=== PATIENT | male | born 1985 | race African-American/Black ===

== ENCOUNTER 2023-11-22 18:43 | Inpatient (IN) | payer OTHER, SELFPAY ==
[2023-11-22 20:00] VITALS: BP 118/60; PULSE 86; TEMP 37.1; O2SAT 97
[2023-11-22 20:28] LABS: Glucose, Whole Blood 368 mg/dL (60-115)
[2023-11-22] MEDS: cloNIDine HCL 0.1 MG TABLET PO (21:53)
[2023-11-22] MEDS: Gabapentin 300 MG CAPSULE PO (21:53)
[2023-11-22] MEDS: Insulin Lispro 100 UNIT/ML 3 ML VIAL SUBCUT (21:54)
[2023-11-22] MEDS: Acetaminophen 325 MG TABLET 650 MG PO (22:18)
[2023-11-22] MEDS: hydrOXYzine HCL 25 MG TABLET PO (22:19)
[2023-11-22] MEDS: traZODone HCL 50 MG TABLET PO (22:19)
[2023-11-22 23:21] VITALS: BMI 42.1
--- NOTE | 2023-11-23 | ECG_ITS ---
Test Reason : prolono qts Blood Pressure : / mmHG Vent. Rate : 067 BPM Atrial Rate : 067 BPM P-R Int : 180 ms QRS Dur : 090 ms QT Int : 420 ms P-R-T Axes : 066 043 039 degrees QTc Int : 443 ms Normal sinus rhythm Normal ECG No previous ECGs available Referred By: Lizbet Saldana Electronically Signed By:Mark Powell
--- NOTE | 2023-11-23 06:13 | PCS.ADM ---
An single, male aged 38 years was admitted to the [facility] as a CV at 1855 following referral from [facility] ED and [facility] team. Pt self-presented to [facility] ED early on 11/22/23 with suicidal ideation with a plan to O/D on heroin and has history of in past several years. Pt reports increasing symptoms of depression in past several months r/t stressors of his mother dying recently and pt's drug addiction. Pt has a history of insulin-dependent diabetes, anxiety, depression, and opioid use disorder. Pt reported he had not taken insulin for twodays prior to coming to [facility], but had taken other meds. Pt had poor food and fluid intake with mild abdominal pain. Pt had EKG showing prolonged QT of 442. Pt was cooperative upon arrival, skin check done. Pt rates anxiety and depression 10/10. Pt denies current SI and says can seek out staff if needed. Pt denies AVH. Pt reports 8/10 mouth and back pain. Pt reports poor sleep with difficulty falling asleep and remaining asleep. Pt reports he has been homeless for 4 years. Pt has no providers; needs PCP, psychiatric medication provider and therapist. Pt was unsure what pharmacy to have prescriptions be sent to. Pt [facility] used [facility], but has a no trespassing order. Pt said will use [facility] for now. Pt reports he has a court appearance for 11/30/23 and needs to notify the court and his nurse practitioner hospitalist he is hospitalized. Pt reports he gets 210mg methadone daily from [facility], [facility]. Pt is a daily smoker of 1 pack cigarettes daily and requests PRN nicotine patch 21mg and PRN nicotine gum 4mg. Pt expresses he is interested in a long-term program of 6 months duration; pt asked how long admissions are here usually and was told is variable but short-term stabilization. [id number] done, orders obtained. Initial treatment plan done, but needs to be signed. Pt needs to do safety tool. Pt is resting in room at this time.
[2023-11-23 08:00] VITALS: BP 125/73; PULSE 71; RESP 18; TEMP 36.7; O2SAT 98
[2023-11-23 08:17] VITALS: BP 125/73
[2023-11-23] MEDS: cloNIDine HCL 0.1 MG TABLET PO ×2 (08:17→21:47)
[2023-11-23] MEDS: metFORMIN HCl 1,000 MG TABLET 1000 MG PO (08:17)
[2023-11-23] MEDS: lisinopriL 5 MG TABLET PO (08:17)
[2023-11-23] MEDS: Gabapentin 300 MG CAPSULE PO ×3 (08:17→21:48)
[2023-11-23] MEDS: buPROPion HCL 75 MG TABLET PO (08:18)
[2023-11-23] MEDS: hydrOXYzine HCL 25 MG TABLET PO ×3 (08:20→21:59)
[2023-11-23 08:59] LABS: Glucose, Whole Blood 492 mg/dL (60-115)
[2023-11-23] MEDS: Insulin Lispro 100 UNIT/ML 3 ML VIAL SUBCUT ×4 (08:59→22:02)
--- NOTE | 2023-11-23 09:00 | HO.PSYEVENT2 ---
Event Note Date of Service: 11/23/23 Psych On-Call Event Note: Pt admitted 11/21. Methadone not verified intil 11/22. After reviewing multiple records from [facility] and the nursing verification dated 11/23/23829 it appears that [facility] intially unable to verify methadone dose; pt has last been seen at methadone clinic 11/02/23 per [facility] records. [facility] where patient had been inpatient will neither confirm nor deny pt admission. [facility] intially gave patient 30mg of methadone and then when able to verify they gave him 180 mg stat at 12 noon on 11/21. Plan is to give 210 mg at 11am today and then will move dose earlier by 60-90 minutes each day until 0800. comprehensive care consult to be ordered as well. Time Spent With Patient Time: Total time managing care of this patient today ____ minutes.
[2023-11-23 12:17] LABS: Glucose, Whole Blood 531 mg/dL (60-115)
--- NOTE | 2023-11-23 12:18 | PC.NURSE ---
Addendum entered by Elyse Hutchins RN 11/23/23 12:34: no additional orders given by Dr Mckeon for POC 531 Original Note: Hospitalist Linda notified of morning POC glucose of 498 . Pt given 10 units of lispro and no additional orders given. Lunch POC was 531 and 1o units Lispro given and Linda notified.
--- NOTE | 2023-11-23 12:32 | HE.PHANOTE ---
Addendum entered by Maria Medley RPh 11/23/23 13:08: Called inpatient pharmacy with [facility]. Confirmed with [facility] Georgi that patient received 30 mg of methadone @0918 and another 180 mg @1356 on 11/22/23 Original Note: RE METHADONE Patients methadone verification was recieved by pharmacy, patient confirmed to be dosed with Radha Mulberry [phone] with 210 mg of methadone, last dose being 11/18/23. Reached out to provider about dose reduction as this shows 4 days missed.
--- NOTE | 2023-11-23 13:03 | P.CONHOSP_ITS ---
History of Present Illness Data of Consult Service Date: 11/23/23 Requesting physician: Lizbet Saldana Primary Care Provider: Unknown Physician HPI Reason for consult: medical H&P 38-year-old male with history of type 2 diabetes noncompliant with insulin regime, history of diabetic ketoacidosis, alcohol use disorder, opioid use disorder on methadone admitted to adult Psychiatry with consult placed hospitalist service for medical H&P. Since arrival to the unit, glucose levels have been significantly elevated, most recently 531 at lunchtime. It does appear he was previously on Lantus (90 units) and lispro. He also takes metformin. While at [facility] ED, hematology studies revealed a mild microcytic anemia with H/H 12.0/37.0%, MCV 73.6. Initially, it appears patient had a mild CHRIS with creatinine 1.35, baseline around 1.1, BUN 29 with sodium 127, potassium 6.6. Glucose on arrival was 409. Beta hydroxybutyrate was within normal limits. He was treated with IV insulin and IV fluids with improvement in creatinine to 1.10 and normalization of electrolyte levels. Urinalysis was unremarkable. Urine tox screen positive for cocaine. EKG showed NSR, rate 75. He reports ongoing IVDA. Reports history of hepatitis C but has not been treated. Was last tested for HIV and hep c 2 years ago per patient. Review of Systems 2 Review of Systems: General: No fevers, malaise, unintentional weight loss HEENT: No blurred vision, diplopia. No sore throat, nasal congestion, rhinorrhea, sinus pain, ear pain Cardiovascular: No chest pain, palpitations, or leg edema Respiratory: No shortness of breath, wheezing, cough GI: No abdominal pain, nausea, vomiting, diarrhea, constipation, melena, hematochezia : No dysuria, hematuria, increased urinary frequency, decreased urinary output MSK: No myalgia, back pain Neuro: No headaches, weakness, paresthesias Skin: No rashes or lesions PMFSH Medical History Intravenous drug abuse Polysubstance abuse Type 2 diabetes mellitus Social History Household Members: None Housing: Homeless Do you presently have visiting nurse or other home services: No Patient Tobacco Use Status: Current everyday Tobacco user Tobacco use type: Cigarette Cigarette Packs Per Day: 1 Cigarettes Per Day: 20.0 Years Smoked: unknown Smoked in Last 30 Days: Yes e-Cigarette/Vaping Use: Former Use Frequency of e-Cigarette/Vaping Use: infrequent Patient Interested in Nicotine Replacement: Yes (Pt would like PRN nicotine 21mg patch and PRN nicotine gum 4mg.) Patient Given Instructions on How to Stop Smoking: Yes Date Education Initiated: 11/23/23 Use of substances other than those prescribed or required for medical reasons: Yes Substance Use Type: Crack/Cocaine Substance Use Frequency: Chronic Longstanding Last Used Substance: Unknown Currently Displaying Signs/Symptoms of Drug Intoxication Withdrawal: No Do you feel safe in your current relationship?: No Current Relationship Spiritual Healthcare Practices: Unknown; pt unable to participate due to mental status. Taoist Healthcare Practices: Unknown; pt unable to participate due to mental status. Cultural Healthcare Practices: Unknown; pt unable to participate due to mental status. Advance Directives: No Advance Directives Information Provided: No Do you have thoughts of harming others: None Do you have a plan to hurt others: No Plan Recently lost weight without trying: No Eating poorly because of decreased appetite: No Nutrition Risks: No Nutritional Risk and Dental problems Poor oral hygiene: No Meds Allergies Allergy/AdvReac Type Severity Reaction Status Date / Time No Known Allergies Allergy Unverified 02/18/20 19:39 [No Known Allergies*] Active Medications: Current Medications Acetaminophen (Acetaminophen 325 Mg Tablet) 650 mg PO Q6H PRN PRN Reason: Headache/Pain Mild Scale (1-3) Last Admin: 11/22/23 22:18 Dose: 650 mg Al Hydroxide/Mg Hydroxide (Magnesium Hydrox/Alum Hydrox 30 Ml Oral.Susp) 30 ml PO Q6H PRN PRN Reason: Heartburn/Nausea Bupropion HCl (Bupropion Hcl 75 Mg Tablet) 75 mg PO DAILY [facility] Last Admin: 11/23/23 08:18 Dose: 75 mg Clonidine HCl (Clonidine Hcl 0.1 Mg Tablet) 0.1 mg PO BID RAMIRO; Protocol Last Admin: 11/23/23 08:17 Dose: 0.1 mg Gabapentin (Gabapentin 300 Mg Capsule) 300 mg PO TID RAMIRO Last Admin: 11/23/23 08:17 Dose: 300 mg Glucose (Glucose Gel 15 Gm Gel..Gram.) 15 gm PO Q15M PRN; Protocol PRN Reason: per Hypoglycemia Standing Ord. Hydroxyzine HCl (Hydroxyzine Hcl 25 Mg Tablet) 25 mg PO Q6H PRN PRN Reason: Anxiety Last Admin: 11/23/23 08:20 Dose: 25 mg Insulin Human Lispro (Insulin Lispro 100 Unit/Ml 3 Ml Vial) 0 unit SUBCUT QIDACHS [facility]; Protocol Last Admin: 11/23/23 12:16 Dose: 10 unit Lisinopril (Lisinopril 5 Mg Tablet) 5 mg PO DAILY [facility]; Protocol Last Admin: 11/23/23 08:17 Dose: 5 mg Magnesium Hydroxide (Milk Of Magnesia 30 Ml Oral.Susp) 30 ml PO DAILY PRN PRN Reason: Constipation Metformin HCl (Metformin Hcl 1,000 Mg Tablet) 1,000 mg PO DAILY [facility] Last Admin: 11/23/23 08:17 Dose: 1,000 mg Methadone HCl (Methadone Hcl 20 Mg/2 Ml Oral.Conc) 210 mg PO DAILY@1100 RAMIRO Trazodone HCl (Trazodone Hcl 50 Mg Tablet) 50 mg PO BEDTIME MRX1 PRN PRN Reason: Insomnia Last Admin: 11/22/23 22:19 Dose: 50 mg Physical Exam Vital Signs and Narrative: Vital Signs: Last Vital Signs Temp 98.1 F 11/23/23 08:00 Pulse 71 11/23/23 08:00 Resp 18 11/23/23 08:00 BP 125/73 11/23/23 08:17 Pulse Ox 98 11/23/23 08:00 O2 Del Method Room Air 11/23/23 08:00 BMI result Body Mass Index 42.1 Constitutional - Awake and Alert, No apparent distress Eyes - PERRLA, EOMI Cardiovascular - S1S2, RRR, No edema Respiratory - Normal lung expansion, Normal respiratory effort, No respiratory distress, CTA bilaterally Gastrointestinal - NT / ND; +BS; No rebound or guarding Extremities - no calf tenderness bilaterally, no swelling Musculoskeletal - Normal inspection, normal ROM Skin - Warm/Dry. Tracks bentley/scarring BUE without induration, erythema, warmth, or fluctuance Neurological - Alert & oriented x3, CN II-XII in tact, 5/5 strength BUE and BLE Psychological - Appropriate affect Results Labs Labs: Laboratory Results - last 24 hr 11/22/23 11/23/23 11/23/23 20:23 08:48 12:11 POC Glucose 368 H* 492 H* 531 H* Assessment and Plan (1) Routine medical exam: Status: Acute Plan 38-year-old male with history of type 2 diabetes noncompliant with insulin regime, history of diabetic ketoacidosis, alcohol use disorder, opioid use disorder on methadone admitted to adult Psychiatry with consult placed hospitalist service for medical H&P. #Mood disorder -plan per psychiatry #Polysubstance abuse with ongoing IVDA -plan per psychiatry, continue methadone -Declines HIV testing. Agreeable to hep b/c, hep c viral load. If hep c viral load positive, needs outpt follow up for tx #Uncontrolled insulin dependent type 2 diabetes -reports taking 90 units lantus daily which he has not received- does not appear med rec was completed on patient. Discussed with RN -Will initiate dose adjusted lantus to 70 units nightly -admelog on SS, may need standing admelog -continue metformin -counseled on diabetic diet -check bmp, beta hydroxybutyrate now #Microcytic anemia -check cbc, iron panel, ferritin now Thank you for this consult, will continue following for results and glucose monitoring
[2023-11-23] MEDS: Insulin Glargine,Hum.rec.anlog 100 UNIT/ML 10 ML VIAL 10 UNIT SUBCUT (13:30)
[2023-11-23] MEDS: methADONE HCl 20 MG/2 ML ORAL.CONC 210 MG PO (13:32)
[2023-11-23] MEDS: polyethylene glycoL 3350 17 GM POWD.PACK PO (14:56)
[2023-11-23 17:07] LABS: MANUAL DIFF FLAG NO
[2023-11-23 17:12] LABS: Basophils Percent Auto 0.6 % (0-2); Eosinophils Absolute Auto 0.1 X10*3/uL (0.0-0.4); Eosinophils Percent Auto 1.5 % (0-4); Hemoglobin 11.5 g/dl (14.0-18.0); Imm Gran Abs Auto 0.02 X10*3/uL (0.00-0.03); Imm Gran Pct Auto 0.3 % (0.0-0.4); Lymphocytes Absolute Auto 3.1 X10*3/uL (1.2-4.9); Lymphocytes Percent Auto 46.7 % (20-40); Mean Corpuscular HGB Conc 32.9 g/dl (31.0-36.0); Mean Corpuscular Hemoglobin 24.6 pg (27.0-33.0); Mean Corpuscular Volume 74.9 fL (80.0-98.0); Mean Platelet Volume 10.5 fL (9.4-12.4); Monocytes Absolute Auto 0.6 X10*3/uL (0.1-1.2); Monocytes Percent Auto 9.3 % (2-11); Neutrophils Absolute Auto 2.7 x10*3/uL (2.0-8.3); Neutrophils Percent Auto 41.6 % (45-73); Platelet Count 291 X10*3/uL (160-400); Red Blood Count 4.67 X10*6/uL (4.60-5.80); Red Cell Distribution Width 15.8 % (11.0-16.0); White Blood Count 6.6 X10*3/uL (4.8-10.8)
[2023-11-23 17:34] LABS: Glucose, Whole Blood 492 mg/dL (60-115)
[2023-11-23 18:05] LABS: Hemoglobin A1c % > 14.0 % (<6.0)
[2023-11-23 18:16] LABS: Alanine Aminotransferase 90 U/L (0-40); Albumin Level 3.7 g/dL (3.5-5.0); Alkaline Phosphatase 303 U/L (39-117); Anion Gap 15 (12-20); Aspartate Amino Transferase 59 U/L (5-37); Bilirubin Total 0.2 mg/dL (0.0-1.0); Blood Urea Nitrogen 23 mg/dL (9-16); Calcium 10.6 mg/dL (8.4-10.2); Carbon Dioxide 25 mmol/L (22-29); Chloride 96 mmol/L (96-108); Estimated Glomerular Filt Rate 57; Ferritin 75 ng/mL (20-250); Glucose Fasting 541 mg/dL (60-99); Iron 80 mcg/dL (45-160); Percent Iron Saturation 24 % (15-50); Potassium 5.3 mmol/L (3.3-5.1); Sodium 131 mmol/L (135-145); Total Iron Binding Capacity 328 mcg/dL (228-428); Total Protein 9.1 g/dL (6.5-8.0); Unsaturated Iron Binding 248 ug/dL
--- NOTE | 2023-11-23 18:32 | P.PNPSI_ITS ---
Subjective Subjective Date of Service: 11/23/23 Reason For Visit: Major depressive disorder, single episode, unspeci Subjective Notes: Conditional Voluntary Healthcare Proxy: No Guardianship: No Review of Systems Acute medical concerns: No Diagnostics Vital Signs (24Hr): Vital Signs - 24 hr 11/22/23 20:00 11/23/23 08:00 11/23/23 08:17 Temperature 98.7 F 98.1 F Pulse Rate 86 71 Respiratory Rate 18 Blood Pressure 118/60 125/73 125/73 Pulse Oximetry 97 98 Oxygen Delivery Method Room Air Room Air 11/23/23 08:17 Temperature Pulse Rate Respiratory Rate Blood Pressure 125/73 Pulse Oximetry Oxygen Delivery Method BMI result Body Mass Index 42.1 Labs 11/23/23 17:03 11/23/23 17:03 Labs: Laboratory Results - last 48 hr 11/22/23 11/23/23 11/23/23 20:23 08:48 12:11 WBC RBC Hgb Hct MCV MCH MCHC RDW Plt Count MPV Immature Gran % (Auto) Neut % (Auto) Lymph % (Auto) Alexander % (Auto) Eos % (Auto) Baso % (Auto) Lymph # (Auto) Alexander # (Auto) Eos # (Auto) Baso # (Auto) Abs Immat Gran (auto) Absolute Neuts (auto) Absolute Nucleated RBC Nucleated RBC % (auto) Sodium Potassium Chloride Carbon Dioxide Anion Gap BUN Creatinine Estim Creat Clear Calc Estimated GFR POC Glucose 368 H* 492 H* 531 H* Random Glucose Fasting Glucose Estimat Average Glucose Hemoglobin A1c % Calcium Iron TIBC % Saturation Unsat Iron Binding Ferritin Total Bilirubin AST ALT Alkaline Phosphatase Total Protein Albumin Beta-Hydroxybutyrate 11/23/23 11/23/23 11/23/23 17:02 17:02 17:03 WBC 6.6 RBC 4.67 Hgb 11.5 L Hct 35.0 L MCV 74.9 L MCH 24.6 L MCHC 32.9 RDW 15.8 Plt Count 291 MPV 10.5 Immature Gran % (Auto) 0.3 Neut % (Auto) 41.6 L Lymph % (Auto) 46.7 H Alexander % (Auto) 9.3 Eos % (Auto) 1.5 Baso % (Auto) 0.6 Lymph # (Auto) 3.1 Alexander # (Auto) 0.6 Eos # (Auto) 0.1 Baso # (Auto) 0.0 Abs Immat Gran (auto) 0.02 Absolute Neuts (auto) 2.7 Absolute Nucleated RBC 0.000 Nucleated RBC % (auto) 0.0 Sodium 131 L Cancelled Potassium 5.3 H Cancelled Chloride 96 Cancelled Carbon Dioxide 25 Cancelled Anion Gap 15 Cancelled BUN 23 H Cancelled Creatinine 1.39 Cancelled Estim Creat Clear Calc 93.0 Cancelled Estimated GFR 57 Cancelled POC Glucose Random Glucose Cancelled Fasting Glucose 541 H* Estimat Average Glucose TNP Hemoglobin A1c % > 14.0 H Calcium 10.6 H Cancelled Iron 80 Cancelled TIBC 328 Cancelled % Saturation 24 Cancelled Unsat Iron Binding 248 Cancelled Ferritin 75 Cancelled Total Bilirubin 0.2 AST 59 H ALT 90 H Alkaline Phosphatase 303 H Total Protein 9.1 H Albumin 3.7 Beta-Hydroxybutyrate Cancelled 11/23/23 17:27 WBC RBC Hgb Hct MCV MCH MCHC RDW Plt Count MPV Immature Gran % (Auto) Neut % (Auto) Lymph % (Auto) Alexander % (Auto) Eos % (Auto) Baso % (Auto) Lymph # (Auto) Alexander # (Auto) Eos # (Auto) Baso # (Auto) Abs Immat Gran (auto) Absolute Neuts (auto) Absolute Nucleated RBC Nucleated RBC % (auto) Sodium Potassium Chloride Carbon Dioxide Anion Gap BUN Creatinine Estim Creat Clear Calc Estimated GFR POC Glucose 492 H* Random Glucose Fasting Glucose Estimat Average Glucose Hemoglobin A1c % Calcium Iron TIBC % Saturation Unsat Iron Binding Ferritin Total Bilirubin AST ALT Alkaline Phosphatase Total Protein Albumin Beta-Hydroxybutyrate Medications Medications Current Medications Acetaminophen (Acetaminophen 325 Mg Tablet) 650 mg PO Q6H PRN PRN Reason: Headache/Pain Mild Scale (1-3) Last Admin: 11/22/23 22:18 Dose: 650 mg Al Hydroxide/Mg Hydroxide (Magnesium Hydrox/Alum Hydrox 30 Ml Oral.Susp) 30 ml PO Q6H PRN PRN Reason: Heartburn/Nausea Bupropion HCl (Bupropion Hcl 75 Mg Tablet) 75 mg PO DAILY [facility] Last Admin: 11/23/23 08:18 Dose: 75 mg Clonidine HCl (Clonidine Hcl 0.1 Mg Tablet) 0.1 mg PO BID [facility]; Protocol Last Admin: 11/23/23 08:17 Dose: 0.1 mg Docusate Sodium (Docusate Sodium 100 Mg Capsule) 100 mg PO BID [facility] Gabapentin (Gabapentin 300 Mg Capsule) 300 mg PO TID [facility] Last Admin: 11/23/23 14:54 Dose: 300 mg Glucose (Glucose Gel 15 Gm Gel..Gram.) 15 gm PO Q15M PRN; Protocol PRN Reason: per Hypoglycemia Standing Ord. Hydroxyzine HCl (Hydroxyzine Hcl 25 Mg Tablet) 25 mg PO Q6H PRN PRN Reason: Anxiety Last Admin: 11/23/23 15:03 Dose: 25 mg Insulin Glargine (Insulin Glargine,Hum.Rec.Anlog 100 Unit/Ml 10 Ml Vial) 70 unit SUBCUT BEDTIME [facility] Insulin Human Lispro (Insulin Lispro 100 Unit/Ml 3 Ml Vial) 0 unit SUBCUT QIDACHS [facility]; Protocol Last Admin: 11/23/23 17:43 Dose: 10 unit Lisinopril (Lisinopril 5 Mg Tablet) 5 mg PO DAILY [facility]; Protocol Last Admin: 11/23/23 08:17 Dose: 5 mg Magnesium Hydroxide (Milk Of Magnesia 30 Ml Oral.Susp) 30 ml PO DAILY PRN PRN Reason: Constipation Metformin HCl (Metformin Hcl 1,000 Mg Tablet) 1,000 mg PO DAILY [facility] Last Admin: 11/23/23 08:17 Dose: 1,000 mg Methadone HCl (Methadone Hcl 20 Mg/2 Ml Oral.Conc) 210 mg PO DAILY@0900 [facility] Last Admin: 11/23/23 13:32 Dose: 210 mg Polyethylene Glycol (Polyethylene Glycol 3350 17 Gm Powd.Pack) 17 gm PO DAILY [facility] Last Admin: 11/23/23 14:56 Dose: 17 gm Trazodone HCl (Trazodone Hcl 50 Mg Tablet) 50 mg PO BEDTIME MRX1 PRN PRN Reason: Insomnia Last Admin: 11/22/23 22:19 Dose: 50 mg Allergies Allergies Allergy/AdvReac Type Severity Reaction Status Date / Time No Known Allergies Allergy Unverified 02/18/20 19:39 [No Known Allergies*] Assessment & Plan Assessment & Plan (1) Routine medical exam: Status: Acute Code(s): Z00.00 - Encounter for general adult medical examination without abnormal findings Plan 38-year-old male with history of type 2 diabetes noncompliant with insulin regime, history of diabetic ketoacidosis, alcohol use disorder, opioid use disorder on methadone admitted to adult Psychiatry with consult placed hospitalist service for medical H&P. #Mood disorder -plan per psychiatry #Polysubstance abuse with ongoing IVDA -plan per psychiatry, continue methadone -Declines HIV testing. Agreeable to hep b/c, hep c viral load. If hep c viral load positive, needs outpt follow up for tx #Uncontrolled insulin dependent type 2 diabetes -reports taking 90 units lantus daily which he has not received- does not appear med rec was completed on patient. Discussed with RN -Will initiate dose adjusted lantus to 70 units nightly -admelog on SS, may need standing admelog -continue metformin -counseled on diabetic diet -check bmp, beta hydroxybutyrate now #Microcytic anemia -check cbc, iron panel, ferritin now Thank you for this consult, will continue following for results and glucose monitoring Time Spent With Patient Time: Total time managing care of this patient today ____ minutes.
--- NOTE | 2023-11-23 19:36 | PC.NURSE ---
Pt abnormal lab results reported to TAMIA Gonsalez and 1 liter NS ordered. This was passed on to ongoing PALMIRA Romo as well as completing pt medication reconciliation.
[2023-11-23 20:00] VITALS: BP 111/63; PULSE 78; TEMP 36.6; O2SAT 98
[2023-11-23 21:27] LABS: Glucose, Whole Blood 513 mg/dL (60-115)
[2023-11-23] MEDS: traZODone HCL 50 MG TABLET PO (21:48)
[2023-11-23] MEDS: Docusate Sodium 100 MG CAPSULE PO (21:48)
[2023-11-23] MEDS: Acetaminophen 325 MG TABLET 650 MG PO (22:00)
[2023-11-23] MEDS: Insulin Glargine,Hum.rec.anlog 100 UNIT/ML 10 ML VIAL 19 UNIT SUBCUT (22:01)
[2023-11-24 00:34] LABS: Glucose, Whole Blood 449 mg/dL (60-115)
[2023-11-24] MEDS: Insulin Lispro 100 UNIT/ML 3 ML VIAL SUBCUT ×5 (01:01→20:28)
[2023-11-24 07:42] LABS: Anion Gap 12 (12-20); Blood Urea Nitrogen 22 mg/dL (9-16); Calcium 9.7 mg/dL (8.4-10.2); Carbon Dioxide 28 mmol/L (22-29); Chloride 96 mmol/L (96-108); Cholesterol 181 mg/dL (<200); Creatinine Clr Calc Pharmacy 105.1; Estimated Glomerular Filt Rate > 60; Glucose Random 503 mg/dL (60-115); HDL Cholesterol 46 mg/dL (>40); LDL Cholesterol Calculated 95 mg/dL (<100); Potassium 4.9 mmol/L (3.3-5.1); Sodium 131 mmol/L (135-145); Triglycerides 201 mg/dL (<150)
[2023-11-24 08:30] VITALS: BP 108/56; PULSE 68; RESP 20; TEMP 36.4; O2SAT 99
[2023-11-24] MEDS: Insulin Lispro 100 UNIT/ML 3 ML VIAL 10 UNIT SUBCUT ×6 (08:33→20:29)
[2023-11-24] MEDS: Insulin Glargine,Hum.rec.anlog 100 UNIT/ML 10 ML VIAL 20 UNIT SUBCUT (08:35)
[2023-11-24] MEDS: methADONE HCl 20 MG/2 ML ORAL.CONC 210 MG PO (08:36)
[2023-11-24 08:40] VITALS: BP 108/56
[2023-11-24] MEDS: cloNIDine HCL 0.1 MG TABLET PO ×2 (08:40→20:30)
[2023-11-24] MEDS: Gabapentin 300 MG CAPSULE PO ×3 (08:40→20:30)
[2023-11-24] MEDS: buPROPion HCL 75 MG TABLET PO (08:40)
[2023-11-24 08:41] VITALS: BP 108/56
[2023-11-24] MEDS: lisinopriL 5 MG TABLET PO (08:41)
[2023-11-24] MEDS: Docusate Sodium 100 MG CAPSULE PO ×2 (08:41→20:30)
[2023-11-24] MEDS: metFORMIN HCl 1,000 MG TABLET 1000 MG PO ×2 (08:43→16:57)
[2023-11-24] MEDS: hydrOXYzine HCL 25 MG TABLET PO ×3 (09:41→21:12)
[2023-11-24 10:19] LABS: Glucose, Whole Blood 551 mg/dL (60-115)
[2023-11-24] MEDS: Insulin Glargine,Hum.rec.anlog 100 UNIT/ML 10 ML VIAL 10 UNIT SUBCUT (10:29)
[2023-11-24 11:55] LABS: Glucose, Whole Blood 500 mg/dL (60-115)
--- NOTE | 2023-11-24 12:08 | PM.EVENT ---
Event Note Date of Service: 11/24/23 Event Note: Patient with significant persistent hyperglycemia. Diabetic diet has been ordered and continues to be recommended. Prior to arrival to the hospital, the patient was using 19 units of Lantus at bedtime and 20 units of Lantus in the mornings. Hemoglobin A1c >14.0%. The patient's Lantus has now been increased to 30 units twice daily and is receiving 32 units of Admelog on sliding scale with meals. Glipizide 5 mg XR has been added and he will continue on metformin 1000 mg twice daily. The patient needs to be counseled on adherence to diabetic diet. Hospitalist did advise him of this yesterday upon exam. Please monitor snacking and continue diabetic diet. BMP this mornign showed renal funciton WNL and normal, lytes wnl. There is no evidence of DKA or HHS. He is compensated. Does not require transfer to medical floors. Time Spent With Patient Time: Total time managing care of this patient today ____ minutes.
[2023-11-24] MEDS: glipiZIDE XL 5 MG TAB.ER.24 PO (12:23)
--- NOTE | 2023-11-24 13:05 | HO.PSYADMNOT ---
HPI Date of Service: 11/23/23 Chief Complaint: Major depressive disorder, single episode, unspeci Sources of Information: patient interviewed, chart reviewed and crisis/core team assessment reviewed HPI Subjective Notes: Abdi Warning and Conditional Voluntary Narrative: Patient is a 38-year-old male with a history of insulin dependent diabetes depression anxiety opiate use disorder on methadone maintenance. He was referred from [facility] Emergency room where he presented with suicidal ideation and a plan to overdose. The patient reported triggers to his depression included his mother dying a couple of months ago and his ongoing struggles with drug addiction he also feels hopeless regarding his diabetes he reports for several days he did not use his insulin. Also reported using 3 bags of heroin which he injected into his left forearm on 11/20. Patient reports feeling safer on the unit. Pt has no providers; needs PCP, psychiatric medication provider and therapist. 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 Patient recently had admission to [facility] he was discharged on 11/17 for [facility] although we have no records and when they were contacted by phone they would not confirm or deny his admission patient has a history of several crisis evaluations at [facility] and [facility]. Medical Evaluation Reviewed: Yes [facility] Medical History Intravenous drug abuse Polysubstance abuse Type 2 diabetes mellitus Family History: and ; isolated Social History: he has been homeless for 4 years. Substance History: hx opiate use disorder has used etoh and cocaine Trauma History: unknown Diagnostics Vital Signs (24Hr): Vital Signs - 24 hr 11/23/23 20:00 11/24/23 08:40 11/24/23 08:41 Temperature 97.9 F Pulse Rate 78 Blood Pressure 111/63 108/56 L 108/56 L Pulse Oximetry 98 Oxygen Delivery Method Room Air BMI result Body Mass Index 42.1 Labs 11/23/23 17:03 11/24/23 07:05 Labs: Laboratory Results - last 48 hr 11/22/23 11/23/23 11/23/23 20:23 08:48 12:11 WBC RBC Hgb Hct MCV MCH MCHC RDW Plt Count MPV Immature Gran % (Auto) Neut % (Auto) Lymph % (Auto) [place] % (Auto) Eos % (Auto) Baso % (Auto) Lymph # (Auto) [place] # (Auto) Eos # (Auto) Baso # (Auto) Abs Immat Gran (auto) Absolute Neuts (auto) Absolute Nucleated RBC Nucleated RBC % (auto) Sodium Potassium Chloride Carbon Dioxide Anion Gap BUN Creatinine Estim Creat Clear Calc Estimated GFR POC Glucose 368 H* 492 H* 531 H* Random Glucose Fasting Glucose Estimat Average Glucose Hemoglobin A1c % Calcium Iron TIBC % Saturation Unsat Iron Binding Ferritin Total Bilirubin AST ALT Alkaline Phosphatase Total Protein Albumin Triglycerides Cholesterol LDL Cholesterol, Calc HDL Cholesterol Beta-Hydroxybutyrate 11/23/23 11/23/23 11/23/23 17:02 17:02 17:03 WBC 6.6 RBC 4.67 Hgb 11.5 L Hct 35.0 L MCV 74.9 L MCH 24.6 L MCHC 32.9 RDW 15.8 Plt Count 291 MPV 10.5 Immature Gran % (Auto) 0.3 Neut % (Auto) 41.6 L Lymph % (Auto) 46.7 H [place] % (Auto) 9.3 Eos % (Auto) 1.5 Baso % (Auto) 0.6 Lymph # (Auto) 3.1 [place] # (Auto) 0.6 Eos # (Auto) 0.1 Baso # (Auto) 0.0 Abs Immat Gran (auto) 0.02 Absolute Neuts (auto) 2.7 Absolute Nucleated RBC 0.000 Nucleated RBC % (auto) 0.0 Sodium 131 L Cancelled Potassium 5.3 H Cancelled Chloride 96 Cancelled Carbon Dioxide 25 Cancelled Anion Gap 15 Cancelled BUN 23 H Cancelled Creatinine 1.39 Cancelled Estim Creat Clear Calc 93.0 Cancelled Estimated GFR 57 Cancelled POC Glucose Random Glucose Cancelled Fasting Glucose 541 H* Estimat Average Glucose TNP Hemoglobin A1c % > 14.0 H Calcium 10.6 H Cancelled Iron 80 Cancelled TIBC 328 Cancelled % Saturation 24 Cancelled Unsat Iron Binding 248 Cancelled Ferritin 75 Cancelled Total Bilirubin 0.2 AST 59 H ALT 90 H Alkaline Phosphatase 303 H Total Protein 9.1 H Albumin 3.7 Triglycerides Cholesterol LDL Cholesterol, Calc HDL Cholesterol Beta-Hydroxybutyrate 0.10 Cancelled 11/23/23 11/23/23 11/24/23 17:27 21:22 00:29 WBC RBC Hgb Hct MCV MCH MCHC RDW Plt Count MPV Immature Gran % (Auto) Neut % (Auto) Lymph % (Auto) [place] % (Auto) Eos % (Auto) Baso % (Auto) Lymph # (Auto) [place] # (Auto) Eos # (Auto) Baso # (Auto) Abs Immat Gran (auto) Absolute Neuts (auto) Absolute Nucleated RBC Nucleated RBC % (auto) Sodium Potassium Chloride Carbon Dioxide Anion Gap BUN Creatinine Estim Creat Clear Calc Estimated GFR POC Glucose 492 H* 513 H* 449 H* Random Glucose Fasting Glucose Estimat Average Glucose Hemoglobin A1c % Calcium Iron TIBC % Saturation Unsat Iron Binding Ferritin Total Bilirubin AST ALT Alkaline Phosphatase Total Protein Albumin Triglycerides Cholesterol LDL Cholesterol, Calc HDL Cholesterol Beta-Hydroxybutyrate 11/24/23 11/24/23 11/24/23 07:05 10:14 11:52 WBC RBC Hgb Hct MCV MCH MCHC RDW Plt Count MPV Immature Gran % (Auto) Neut % (Auto) Lymph % (Auto) [place] % (Auto) Eos % (Auto) Baso % (Auto) Lymph # (Auto) [place] # (Auto) Eos # (Auto) Baso # (Auto) Abs Immat Gran (auto) Absolute Neuts (auto) Absolute Nucleated RBC Nucleated RBC % (auto) Sodium 131 L Potassium 4.9 Chloride 96 Carbon Dioxide 28 Anion Gap 12 BUN 22 H Creatinine 1.23 Estim Creat Clear Calc 105.1 Estimated GFR > 60 POC Glucose 551 H* 500 H* Random Glucose 503 H* Fasting Glucose Estimat Average Glucose Hemoglobin A1c % Calcium 9.7 D Iron TIBC % Saturation Unsat Iron Binding Ferritin Total Bilirubin AST ALT Alkaline Phosphatase Total Protein Albumin Triglycerides 201 H Cholesterol 181 LDL Cholesterol, Calc 95 HDL Cholesterol 46 Beta-Hydroxybutyrate EKG EKG Comment: 11/22 QTc Int : 443 ms Normal sinus rhythm Normal ECG Meds/Allergies Meds Home Medications ?Medication ?Instructions ?Recorded ?Confirmed ?Type Lantus Solostar U-100 Insulin units 1XD 11/23/23 History bupropion HCl 75 mg tablet 150 mg PO BID 11/23/23 11/23/23 History clonidine HCl 0.1 mg tablet 0.1 mg PO BID 11/23/23 11/23/23 History cyclobenzaprine 5 mg tablet 5 mg PO 2XD 11/23/23 11/23/23 History gabapentin 300 mg capsule 300 mg PO TID 11/23/23 11/23/23 History hydroxyzine pamoate 100 mg capsule 100 mg PO BEDTIME 11/23/23 11/23/23 History insulin glargine 100 unit/mL (3 19 unit subcut QPM 11/23/23 11/23/23 History mL) subcutaneous pen (Lantus Solostar U-100 Insulin) insulin lispro See Rx Instructions .Route .COMPLEX 11/23/23 History lisinopril 5 mg tablet 5 mg PO DAILY 11/23/23 11/23/23 History metformin 2XD 11/23/23 History Allergies Allergies Allergy/AdvReac Type Severity Reaction Status Date / Time No Known Allergies Allergy Unverified 02/18/20 19:39 [No Known Allergies*] Mental Status Exam Mental Status Exam Patient Appearance: Appropriate Patient Orientation: Person, Place, Time and Situation Level of Consciousness: Awake and Alert Patient Behavior: Appropriate Mood Description: Anxious and Sad Affect Description: Anxious and Sad Patient Cognition Impaired: No Ability to Follow Directions: Good Speech Pattern: Clear Memory Description: Intact Hallucinations: None Delusions: Not Present Thought Process: Intact and Goal Oriented Thought Content: positive for Intact and positive for Goal Oriented Judgement: Fair Assessment & Plan Assessment & Plan (1) Major depressive disorder, recurrent severe without psychotic features: Status: Acute Code(s): F33.2 - Major depressive disorder, recurrent severe without psychotic features (2) Substance dependence: Status: Acute Code(s): F19.20 - Other psychoactive substance dependence, uncomplicated Plan admit to on cv continue medications addiction medicine consult hospitaist consult discharge planning to include LT substance abuse placement if possible, outpatient providers Patient educated on: diagnosis, medication risk/benefits, substance abuse and therapeutic strategies Informed Consent: understands and further education needed Reason for continued inpatient stay Substantial Risk for: harm to self, inability to function and rapid decompensation Statement Statement: I have reviewed the history and physical and performed a pertinent examination on my patient. No changes have occurred unless specified. If the History and Physical was not performed prior to admission, the Hospitalist's service will be consulted for completing the admission physical. Time Spent With Patient Time: Total time managing care of this patient today ____ minutes.
[2023-11-24 16:46] LABS: Glucose, Whole Blood 251 mg/dL (60-115)
--- NOTE | 2023-11-24 17:26 | HO.PSYCHPN ---
Subjective Subjective Date of Service: 11/24/23 Reason For Visit: Major depressive disorder, single episode, unspeci Interim History: 38-year-old male with a history of insulin dependent diabetes depression anxiety opiate use disorder on methadone maintenance. He was referred from [facility] Emergency room where he presented with suicidal ideation and a plan to overdose. The patient reported triggers to his depression included his mother dying a couple of months ago and his ongoing struggles with drug addiction he also feels hopeless regarding his diabetes he reports for several days he did not use his insulin. Also reported using 3 bags of heroin which he injected into his left forearm on 11/20. Patient reports feeling safer on the unit. Pt has no providers; needs PCP, psychiatric medication provider and therapist. 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 No sore throat, nasal congestion, rhinorrhea, sinus pain, ear pain Cardiovascular: No chest pain, palpitations, or leg edema Respiratory: No shortness of breath, wheezing, cough GI: No abdominal pain, nausea, vomiting, diarrhea, constipation, melena, hematochezia : No dysuria, hematuria, increased urinary frequency, decreased urinary output MSK: No myalgia, back pain Neuro: No headaches, weakness, paresthesias Skin: No rashes or lesions Mental Status Exam Mental Status Exam Patient Appearance: Appropriate Patient Orientation: Person, Place, Time and Situation Level of Consciousness: Awake and Alert Patient Behavior: Appropriate Mood Description: Anxious and Sad Affect Description: Anxious and Sad Patient Cognition Impaired: No Ability to Follow Directions: Good Speech Pattern: Clear Memory Description: Intact Delusions: Not Present Thought Process: Intact and Goal Oriented Thought Content: positive for Intact and positive for Goal Oriented Judgement: Fair Diagnostics Vital Signs (24Hr): Vital Signs - 24 hr 11/23/23 20:00 11/24/23 08:30 11/24/23 08:40 Temperature 97.9 F 97.5 F Pulse Rate 78 68 Respiratory Rate 20 Blood Pressure 111/63 108/56 L 108/56 L Pulse Oximetry 98 99 Oxygen Delivery Method Room Air Room Air 11/24/23 08:41 Temperature Pulse Rate Respiratory Rate Blood Pressure 108/56 L Pulse Oximetry Oxygen Delivery Method BMI result Body Mass Index 42.1 Labs 11/23/23 17:03 11/24/23 07:05 Labs: Laboratory Results - last 48 hr 11/22/23 11/23/23 11/23/23 20:23 08:48 12:11 WBC RBC Hgb Hct MCV MCH MCHC RDW Plt Count MPV Immature Gran % (Auto) Neut % (Auto) Lymph % (Auto) [place] % (Auto) Eos % (Auto) Baso % (Auto) Lymph # (Auto) [place] # (Auto) Eos # (Auto) Baso # (Auto) Abs Immat Gran (auto) Absolute Neuts (auto) Absolute Nucleated RBC Nucleated RBC % (auto) Sodium Potassium Chloride Carbon Dioxide Anion Gap BUN Creatinine Estim Creat Clear Calc Estimated GFR POC Glucose 368 H* 492 H* 531 H* Random Glucose Fasting Glucose Estimat Average Glucose Hemoglobin A1c % Calcium Iron TIBC % Saturation Unsat Iron Binding Ferritin Total Bilirubin AST ALT Alkaline Phosphatase Total Protein Albumin Triglycerides Cholesterol LDL Cholesterol, Calc HDL Cholesterol Beta-Hydroxybutyrate 11/23/23 11/23/23 11/23/23 17:02 17:02 17:03 WBC 6.6 RBC 4.67 Hgb 11.5 L Hct 35.0 L MCV 74.9 L MCH 24.6 L MCHC 32.9 RDW 15.8 Plt Count 291 MPV 10.5 Immature Gran % (Auto) 0.3 Neut % (Auto) 41.6 L Lymph % (Auto) 46.7 H [place] % (Auto) 9.3 Eos % (Auto) 1.5 Baso % (Auto) 0.6 Lymph # (Auto) 3.1 [place] # (Auto) 0.6 Eos # (Auto) 0.1 Baso # (Auto) 0.0 Abs Immat Gran (auto) 0.02 Absolute Neuts (auto) 2.7 Absolute Nucleated RBC 0.000 Nucleated RBC % (auto) 0.0 Sodium 131 L Cancelled Potassium 5.3 H Cancelled Chloride 96 Cancelled Carbon Dioxide 25 Cancelled Anion Gap 15 Cancelled BUN 23 H Cancelled Creatinine 1.39 Cancelled Estim Creat Clear Calc 93.0 Cancelled Estimated GFR 57 Cancelled POC Glucose Random Glucose Cancelled Fasting Glucose 541 H* Estimat Average Glucose TNP Hemoglobin A1c % > 14.0 H Calcium 10.6 H Cancelled Iron 80 Cancelled TIBC 328 Cancelled % Saturation 24 Cancelled Unsat Iron Binding 248 Cancelled Ferritin 75 Cancelled Total Bilirubin 0.2 AST 59 H ALT 90 H Alkaline Phosphatase 303 H Total Protein 9.1 H Albumin 3.7 Triglycerides Cholesterol LDL Cholesterol, Calc HDL Cholesterol Beta-Hydroxybutyrate 0.10 Cancelled 11/23/23 11/23/23 11/24/23 17:27 21:22 00:29 WBC RBC Hgb Hct MCV MCH MCHC RDW Plt Count MPV Immature Gran % (Auto) Neut % (Auto) Lymph % (Auto) [place] % (Auto) Eos % (Auto) Baso % (Auto) Lymph # (Auto) [place] # (Auto) Eos # (Auto) Baso # (Auto) Abs Immat Gran (auto) Absolute Neuts (auto) Absolute Nucleated RBC Nucleated RBC % (auto) Sodium Potassium Chloride Carbon Dioxide Anion Gap BUN Creatinine Estim Creat Clear Calc Estimated GFR POC Glucose 492 H* 513 H* 449 H* Random Glucose Fasting Glucose Estimat Average Glucose Hemoglobin A1c % Calcium Iron TIBC % Saturation Unsat Iron Binding Ferritin Total Bilirubin AST ALT Alkaline Phosphatase Total Protein Albumin Triglycerides Cholesterol LDL Cholesterol, Calc HDL Cholesterol Beta-Hydroxybutyrate 11/24/23 11/24/23 11/24/23 07:05 10:14 11:52 WBC RBC Hgb Hct MCV MCH MCHC RDW Plt Count MPV Immature Gran % (Auto) Neut % (Auto) Lymph % (Auto) [place] % (Auto) Eos % (Auto) Baso % (Auto) Lymph # (Auto) [place] # (Auto) Eos # (Auto) Baso # (Auto) Abs Immat Gran (auto) Absolute Neuts (auto) Absolute Nucleated RBC Nucleated RBC % (auto) Sodium 131 L Potassium 4.9 Chloride 96 Carbon Dioxide 28 Anion Gap 12 BUN 22 H Creatinine 1.23 Estim Creat Clear Calc 105.1 Estimated GFR > 60 POC Glucose 551 H* 500 H* Random Glucose 503 H* Fasting Glucose Estimat Average Glucose Hemoglobin A1c % Calcium 9.7 D Iron TIBC % Saturation Unsat Iron Binding Ferritin Total Bilirubin AST ALT Alkaline Phosphatase Total Protein Albumin Triglycerides 201 H Cholesterol 181 LDL Cholesterol, Calc 95 HDL Cholesterol 46 Beta-Hydroxybutyrate 11/24/23 16:43 WBC RBC Hgb Hct MCV MCH MCHC RDW Plt Count MPV Immature Gran % (Auto) Neut % (Auto) Lymph % (Auto) [place] % (Auto) Eos % (Auto) Baso % (Auto) Lymph # (Auto) [place] # (Auto) Eos # (Auto) Baso # (Auto) Abs Immat Gran (auto) Absolute Neuts (auto) Absolute Nucleated RBC Nucleated RBC % (auto) Sodium Potassium Chloride Carbon Dioxide Anion Gap BUN Creatinine Estim Creat Clear Calc Estimated GFR POC Glucose 251 H Random Glucose Fasting Glucose Estimat Average Glucose Hemoglobin A1c % Calcium Iron TIBC % Saturation Unsat Iron Binding Ferritin Total Bilirubin AST ALT Alkaline Phosphatase Total Protein Albumin Triglycerides Cholesterol LDL Cholesterol, Calc HDL Cholesterol Beta-Hydroxybutyrate Medications Medications Current Medications Acetaminophen (Acetaminophen 325 Mg Tablet) 650 mg PO Q6H PRN PRN Reason: Headache/Pain Mild Scale (1-3) Last Admin: 11/23/23 22:00 Dose: 650 mg Al Hydroxide/Mg Hydroxide (Magnesium Hydrox/Alum Hydrox 30 Ml Oral.Susp) 30 ml PO Q6H PRN PRN Reason: Heartburn/Nausea Bupropion HCl (Bupropion Hcl 75 Mg Tablet) 75 mg PO DAILY [facility] Last Admin: 11/24/23 08:40 Dose: 75 mg Clonidine HCl (Clonidine Hcl 0.1 Mg Tablet) 0.1 mg PO BID [facility]; Protocol Last Admin: 11/24/23 08:40 Dose: 0.1 mg Docusate Sodium (Docusate Sodium 100 Mg Capsule) 100 mg PO BID [facility] Last Admin: 11/24/23 08:41 Dose: 100 mg Gabapentin (Gabapentin 300 Mg Capsule) 300 mg PO TID [facility] Last Admin: 11/24/23 15:24 Dose: 300 mg Glipizide (Glipizide Xl 5 Mg Tab.Er.24) 5 mg PO DAILY [facility] Last Admin: 11/24/23 12:23 Dose: 5 mg Glucose (Glucose Gel 15 Gm Gel..Gram.) 15 gm PO Q15M PRN; Protocol PRN Reason: per Hypoglycemia Standing Ord. Hydroxyzine HCl (Hydroxyzine Hcl 25 Mg Tablet) 25 mg PO Q6H PRN PRN Reason: Anxiety Last Admin: 11/24/23 15:44 Dose: 25 mg Dextrose (D10) 250 mls @ 750 mls/hr IV Q15M PRN; Protocol PRN Reason: per Hypoglycemia Standing Ord. Insulin Glargine (Insulin Glargine,Hum.Rec.Anlog 100 Unit/Ml 10 Ml Vial) 30 unit SUBCUT DAILY [facility] Insulin Glargine (Insulin Glargine,Hum.Rec.Anlog 100 Unit/Ml 10 Ml Vial) 30 unit SUBCUT BEDTIME RAMIRO Insulin Human Lispro (Insulin Lispro 100 Unit/Ml 3 Ml Vial) 0 unit SUBCUT QIDACHS [facility]; Protocol Last Admin: 11/24/23 16:59 Dose: 8 unit Insulin Human Lispro (Insulin Lispro 100 Unit/Ml 3 Ml Vial) 10 unit SUBCUT QIDACHS [facility] Last Admin: 11/24/23 16:58 Dose: 10 unit Lisinopril (Lisinopril 5 Mg Tablet) 5 mg PO DAILY [facility]; Protocol Last Admin: 11/24/23 08:41 Dose: 5 mg Magnesium Hydroxide (Milk Of Magnesia 30 Ml Oral.Susp) 30 ml PO DAILY PRN PRN Reason: Constipation Metformin HCl (Metformin Hcl 1,000 Mg Tablet) 1,000 mg PO BIDWM [facility] Last Admin: 11/24/23 16:57 Dose: 1,000 mg Methadone HCl (Methadone Hcl 20 Mg/2 Ml Oral.Conc) 210 mg PO DAILY@0900 [facility] Last Admin: 11/24/23 08:36 Dose: 210 mg Polyethylene Glycol (Polyethylene Glycol 3350 17 Gm Powd.Pack) 17 gm PO DAILY [facility] Last Admin: 11/24/23 09:42 Dose: Not Given Trazodone HCl (Trazodone Hcl 50 Mg Tablet) 50 mg PO BEDTIME MRX1 PRN PRN Reason: Insomnia Last Admin: 11/23/23 21:48 Dose: 50 mg Allergies Allergies Allergy/AdvReac Type Severity Reaction Status Date / Time No Known Allergies Allergy Unverified 02/18/20 19:39 [No Known Allergies*] Assessment & Plan Assessment & Plan (1) Major depressive disorder, recurrent severe without psychotic features: Status: Acute Code(s): F33.2 - Major depressive disorder, recurrent severe without psychotic features (2) Substance dependence: Status: Acute Code(s): F19.20 - Other psychoactive substance dependence, uncomplicated Plan admit to on cv continue medications addiction medicine consult hospitaist consult discharge planning to include LT substance abuse placement if possible, outpatient providers 11/23 continue tx plan Patient educated on: diagnosis, medication risk/benefits and therapeutic strategies Informed Consent: understands and further education needed Reason for continued inpatient stay Substantial Risk for: harm to self and inability to function Time Spent With Patient Time: Total time managing care of this patient today ____ minutes.
[2023-11-24 20:00] VITALS: BP 126/80; PULSE 85; RESP 16; TEMP 36.6; O2SAT 96
[2023-11-24 20:30] VITALS: BP 126/80
[2023-11-24] MEDS: traZODone HCL 50 MG TABLET PO (20:30)
[2023-11-24 20:44] LABS: Glucose, Whole Blood 371 mg/dL (60-115)
[2023-11-24] MEDS: Insulin Glargine,Hum.rec.anlog 100 UNIT/ML 10 ML VIAL 35 UNIT SUBCUT (21:35)
[2023-11-25 08:00] VITALS: BP 115/60; PULSE 71; RESP 16; TEMP 36.4; O2SAT 97
[2023-11-25] MEDS: methADONE HCl 20 MG/2 ML ORAL.CONC 210 MG PO (08:32)
[2023-11-25 08:34] LABS: HBS Num1 > 1000.00 mIU/mL (0-7.99); HBc Num1 0.15 S/CO (0.00-0.79); HBsAGNum1 0.31 S/CO (0.00-0.99); Hepatitis B Core Antibody Nonreactive (Nonreactive); Hepatitis B Surface Antigen Negative (Negative); ~HepC Num1 17.86 S/CO (0.00-0.79); ~Hepatitis B Surface Antibody REACTIVE (Nonreactive); ~Hepatitis C Antibody Reactive (Nonreactive)
[2023-11-25] MEDS: metFORMIN HCl 1,000 MG TABLET 1000 MG PO ×2 (08:36→16:47)
[2023-11-25] MEDS: Docusate Sodium 100 MG CAPSULE PO ×2 (08:36→20:02)
[2023-11-25] MEDS: lisinopriL 5 MG TABLET PO (08:36)
[2023-11-25 08:44] LABS: Glucose, Whole Blood 487 mg/dL (60-115)
[2023-11-25] MEDS: hydrOXYzine HCL 25 MG TABLET PO (09:03)
[2023-11-25] MEDS: cloNIDine HCL 0.1 MG TABLET PO ×2 (09:03→20:03)
[2023-11-25] MEDS: glipiZIDE XL 5 MG TAB.ER.24 PO ×2 (09:03→13:10)
[2023-11-25] MEDS: Gabapentin 300 MG CAPSULE PO (09:04)
[2023-11-25] MEDS: Insulin Glargine,Hum.rec.anlog 100 UNIT/ML 10 ML VIAL 35 UNIT SUBCUT ×2 (09:05→09:13)
[2023-11-25] MEDS: Insulin Lispro 100 UNIT/ML 3 ML VIAL SUBCUT ×4 (09:11→20:05)
[2023-11-25] MEDS: Insulin Lispro 100 UNIT/ML 3 ML VIAL 10 UNIT SUBCUT ×5 (09:12→18:17)
[2023-11-25] MEDS: buPROPion HCL 75 MG TABLET PO (09:52)
--- NOTE | 2023-11-25 10:28 | HO.PSYCHPN ---
Subjective Subjective Date of Service: 11/25/23 Reason For Visit: Major depressive disorder, single episode, unspeci Subjective Notes: Conditional Voluntary Interim History: Pt slept most of the night. He reports some of his medications are missing including atarax 100mg po BID. He also reports taking baclofen. He did ask for flexaril as well but explained that usually either baclofen or flexeril but not both. He also reports taking higher dose of gabapentin- will adjust to 600mg po TID. Diagnostics Vital Signs (24Hr): Vital Signs - 24 hr 11/24/23 20:00 11/24/23 20:30 Temperature 97.8 F Pulse Rate 85 Respiratory Rate 16 Blood Pressure 126/80 126/80 Pulse Oximetry 96 Oxygen Delivery Method Room Air BMI result Body Mass Index 42.1 Labs 11/23/23 17:03 11/24/23 07:05 Labs: Laboratory Results - last 48 hr 11/23/23 11/23/23 11/23/23 12:11 17:02 17:02 WBC RBC Hgb Hct MCV MCH MCHC RDW Plt Count MPV Immature Gran % (Auto) Neut % (Auto) Lymph % (Auto) Vance % (Auto) Eos % (Auto) Baso % (Auto) Lymph # (Auto) Vance # (Auto) Eos # (Auto) Baso # (Auto) Abs Immat Gran (auto) Absolute Neuts (auto) Absolute Nucleated RBC Nucleated RBC % (auto) Sodium 131 L Potassium 5.3 H Chloride 96 Carbon Dioxide 25 Anion Gap 15 BUN 23 H Creatinine 1.39 Estim Creat Clear Calc 93.0 Estimated GFR 57 POC Glucose 531 H* Random Glucose Fasting Glucose 541 H* Estimat Average Glucose Hemoglobin A1c % Calcium 10.6 H Iron 80 TIBC 328 % Saturation 24 Unsat Iron Binding 248 Ferritin 75 Cancelled Total Bilirubin 0.2 AST 59 H ALT 90 H Alkaline Phosphatase 303 H Total Protein 9.1 H Albumin 3.7 Triglycerides Cholesterol LDL Cholesterol, Calc HDL Cholesterol Beta-Hydroxybutyrate 0.10 Hep Bs Antigen Hep Bs Antibody Hep B Core Total Ab Hepatitis C Ab (EIA) 11/23/23 11/23/23 11/23/23 17:03 17:27 21:22 WBC 6.6 RBC 4.67 Hgb 11.5 L Hct 35.0 L MCV 74.9 L MCH 24.6 L MCHC 32.9 RDW 15.8 Plt Count 291 MPV 10.5 Immature Gran % (Auto) 0.3 Neut % (Auto) 41.6 L Lymph % (Auto) 46.7 H Vance % (Auto) 9.3 Eos % (Auto) 1.5 Baso % (Auto) 0.6 Lymph # (Auto) 3.1 Vance # (Auto) 0.6 Eos # (Auto) 0.1 Baso # (Auto) 0.0 Abs Immat Gran (auto) 0.02 Absolute Neuts (auto) 2.7 Absolute Nucleated RBC 0.000 Nucleated RBC % (auto) 0.0 Sodium Cancelled Potassium Cancelled Chloride Cancelled Carbon Dioxide Cancelled Anion Gap Cancelled BUN Cancelled Creatinine Cancelled Estim Creat Clear Calc Cancelled Estimated GFR Cancelled POC Glucose 492 H* 513 H* Random Glucose Cancelled Fasting Glucose Estimat Average Glucose TNP Hemoglobin A1c % > 14.0 H Calcium Cancelled Iron Cancelled TIBC Cancelled % Saturation Cancelled Unsat Iron Binding Cancelled Ferritin Total Bilirubin AST ALT Alkaline Phosphatase Total Protein Albumin Triglycerides Cholesterol LDL Cholesterol, Calc HDL Cholesterol Beta-Hydroxybutyrate Cancelled Hep Bs Antigen Negative Hep Bs Antibody REACTIVE Hep B Core Total Ab Nonreactive Hepatitis C Ab (EIA) Reactive H 11/24/23 11/24/23 11/24/23 00:29 07:05 10:14 WBC RBC Hgb Hct MCV MCH MCHC RDW Plt Count MPV Immature Gran % (Auto) Neut % (Auto) Lymph % (Auto) Vance % (Auto) Eos % (Auto) Baso % (Auto) Lymph # (Auto) Vance # (Auto) Eos # (Auto) Baso # (Auto) Abs Immat Gran (auto) Absolute Neuts (auto) Absolute Nucleated RBC Nucleated RBC % (auto) Sodium 131 L Potassium 4.9 Chloride 96 Carbon Dioxide 28 Anion Gap 12 BUN 22 H Creatinine 1.23 Estim Creat Clear Calc 105.1 Estimated GFR > 60 POC Glucose 449 H* 551 H* Random Glucose 503 H* Fasting Glucose Estimat Average Glucose Hemoglobin A1c % Calcium 9.7 D Iron TIBC % Saturation Unsat Iron Binding Ferritin Total Bilirubin AST ALT Alkaline Phosphatase Total Protein Albumin Triglycerides 201 H Cholesterol 181 LDL Cholesterol, Calc 95 HDL Cholesterol 46 Beta-Hydroxybutyrate Hep Bs Antigen Hep Bs Antibody Hep B Core Total Ab Hepatitis C Ab (EIA) 11/24/23 11/24/2324 11:52 16:43 20:19 WBC RBC Hgb Hct MCV MCH MCHC RDW Plt Count MPV Immature Gran % (Auto) Neut % (Auto) Lymph % (Auto) Vance % (Auto) Eos % (Auto) Baso % (Auto) Lymph # (Auto) Vance # (Auto) Eos # (Auto) Baso # (Auto) Abs Immat Gran (auto) Absolute Neuts (auto) Absolute Nucleated RBC Nucleated RBC % (auto) Sodium Potassium Chloride Carbon Dioxide Anion Gap BUN Creatinine Estim Creat Clear Calc Estimated GFR POC Glucose 500 H* 251 H 371 H* Random Glucose Fasting Glucose Estimat Average Glucose Hemoglobin A1c % Calcium Iron TIBC % Saturation Unsat Iron Binding Ferritin Total Bilirubin AST ALT Alkaline Phosphatase Total Protein Albumin Triglycerides Cholesterol LDL Cholesterol, Calc HDL Cholesterol Beta-Hydroxybutyrate Hep Bs Antigen Hep Bs Antibody Hep B Core Total Ab Hepatitis C Ab (EIA) 11/25/23 08:25 WBC RBC Hgb Hct MCV MCH MCHC RDW Plt Count MPV Immature Gran % (Auto) Neut % (Auto) Lymph % (Auto) Vance % (Auto) Eos % (Auto) Baso % (Auto) Lymph # (Auto) Vance # (Auto) Eos # (Auto) Baso # (Auto) Abs Immat Gran (auto) Absolute Neuts (auto) Absolute Nucleated RBC Nucleated RBC % (auto) Sodium Potassium Chloride Carbon Dioxide Anion Gap BUN Creatinine Estim Creat Clear Calc Estimated GFR POC Glucose 487 H* Random Glucose Fasting Glucose Estimat Average Glucose Hemoglobin A1c % Calcium Iron TIBC % Saturation Unsat Iron Binding Ferritin Total Bilirubin AST ALT Alkaline Phosphatase Total Protein Albumin Triglycerides Cholesterol LDL Cholesterol, Calc HDL Cholesterol Beta-Hydroxybutyrate Hep Bs Antigen Hep Bs Antibody Hep B Core Total Ab Hepatitis C Ab (EIA) Medications Medications Current Medications Acetaminophen (Acetaminophen 325 Mg Tablet) 650 mg PO Q6H PRN PRN Reason: Headache/Pain Mild Scale (1-3) Last Admin: 11/23/23 22:00 Dose: 650 mg Al Hydroxide/Mg Hydroxide (Magnesium Hydrox/Alum Hydrox 30 Ml Oral.Susp) 30 ml PO Q6H PRN PRN Reason: Heartburn/Nausea Bupropion HCl (Bupropion Hcl 75 Mg Tablet) 75 mg PO DAILY [facility]IRO Last Admin: 11/25/23 09:52 Dose: 75 mg Clonidine HCl (Clonidine Hcl 0.1 Mg Tablet) 0.1 mg PO BID [facility]IR[facility]; Protocol Last Admin: 11/25/23 09:03 Dose: 0.1 mg Docusate Sodium (Docusate Sodium 100 Mg Capsule) 100 mg PO BID [facility] Last Admin: 11/25/23 08:36 Dose: 100 mg Gabapentin (Gabapentin 300 Mg Capsule) 300 mg PO TID [facility] Last Admin: 11/25/23 09:04 Dose: 300 mg Glipizide (Glipizide Xl 5 Mg Tab.Er.24) 5 mg PO DAILY [facility] Last Admin: 11/25/23 09:03 Dose: 5 mg Glucose (Glucose Gel 15 Gm Gel..Gram.) 15 gm PO Q15M PRN; Protocol PRN Reason: per Hypoglycemia Standing Ord. Hydroxyzine HCl (Hydroxyzine Hcl 25 Mg Tablet) 25 mg PO Q6H PRN PRN Reason: Anxiety Last Admin: 11/25/23 09:03 Dose: 25 mg Dextrose (D10) 250 mls @ 750 mls/hr IV Q15M PRN; Protocol PRN Reason: per Hypoglycemia Standing Ord. Insulin Glargine (Insulin Glargine,Hum.Rec.Anlog 100 Unit/Ml 10 Ml Vial) 35 unit SUBCUT DAILY [facility] Last Admin: 11/25/23 09:13 Dose: 35 unit Insulin Glargine (Insulin Glargine,Hum.Rec.Anlog 100 Unit/Ml 10 Ml Vial) 35 unit SUBCUT BEDTIME [facility] Last Admin: 11/24/23 21:35 Dose: 35 unit Insulin Human Lispro (Insulin Lispro 100 Unit/Ml 3 Ml Vial) 0 unit SUBCUT QIDACHS [facility]; Protocol Last Admin: 11/25/23 09:11 Dose: 12 unit Insulin Human Lispro (Insulin Lispro 100 Unit/Ml 3 Ml Vial) 10 unit SUBCUT QIDACHS [facility] Last Admin: 11/25/23 09:12 Dose: 10 unit Lisinopril (Lisinopril 5 Mg Tablet) 5 mg PO DAILY [facility]; Protocol Last Admin: 11/25/23 08:36 Dose: 5 mg Magnesium Hydroxide (Milk Of Magnesia 30 Ml Oral.Susp) 30 ml PO DAILY PRN PRN Reason: Constipation Metformin HCl (Metformin Hcl 1,000 Mg Tablet) 1,000 mg PO BIDWM [facility] Last Admin: 11/25/23 08:36 Dose: 1,000 mg Methadone HCl (Methadone Hcl 20 Mg/2 Ml Oral.Conc) 210 mg PO DAILY@0900 [facility] Last Admin: 11/25/23 08:32 Dose: 210 mg Polyethylene Glycol (Polyethylene Glycol 3350 17 Gm Powd.Pack) 17 gm PO DAILY [facility] Last Admin: 11/25/23 09:50 Dose: Not Given Trazodone HCl (Trazodone Hcl 50 Mg Tablet) 50 mg PO BEDTIME MRX1 PRN PRN Reason: Insomnia Last Admin: 11/24/23 20:30 Dose: 50 mg Allergies Allergies Allergy/AdvReac Type Severity Reaction Status Date / Time No Known Allergies Allergy Unverified 02/18/20 19:39 [No Known Allergies*] Assessment & Plan Assessment & Plan (1) Major depressive disorder, recurrent severe without psychotic features: Status: Acute Code(s): F33.2 - Major depressive disorder, recurrent severe without psychotic features (2) Substance dependence: Status: Acute Code(s): F19.20 - Other psychoactive substance dependence, uncomplicated Plan admit to on cv continue medications addiction medicine consult hospitaist consult discharge planning to include LT substance abuse placement if possible, outpatient providers 11/23 continue tx plan 11/24 increase gabapentin to 600mg po TID. scheduled atarax 100mg po BID. Baclofen 10mg po BID. monitor over sedation. Reason for continued inpatient stay Substantial Risk for: inability to function Time Spent With Patient Time: Total time managing care of this patient today ____ minutes.
[2023-11-25 12:18] LABS: Glucose, Whole Blood 437 mg/dL (60-115)
--- NOTE | 2023-11-25 12:36 | PM.EVENT ---
Event Note Date of Service: 11/25/23 Event Note: Patient remains persistently hyperglycemic despite significant medication increases. POC this am 487, this afternoon at lunch 437. Give additional 5mg glipizide XL now, increase to 10mg XL daily starting tomorrow am Give addl 10 units admelog now. Continue standing 10units admelog QIDACHS and SSI QIDACHS Give additional 10 units lantus now. Increase lantus to 45 units am and pm As previously we documented, we continue to recommend diabetic diet and diabetic snacking options. Pt has been educated by hospitalist service multiple times on diet choices and this should continue to be reinforced on the unit by staff Will continue following. Time Spent With Patient Time: Total time managing care of this patient today ____ minutes.
[2023-11-25] MEDS: hydrOXYzine HCL 50 MG TABLET 100 MG PO ×2 (13:10→20:04)
[2023-11-25] MEDS: Baclofen 10 MG TABLET PO ×2 (13:11→20:03)
[2023-11-25] MEDS: Insulin Glargine,Hum.rec.anlog 100 UNIT/ML 10 ML VIAL 10 UNIT SUBCUT (13:13)
[2023-11-25] MEDS: Gabapentin 300 MG CAPSULE 600 MG PO ×2 (14:44→20:02)
[2023-11-25 17:58] LABS: Glucose, Whole Blood 378 mg/dL (60-115)
[2023-11-25 19:55] LABS: Glucose, Whole Blood 333 mg/dL (60-115)
[2023-11-25 20:00] VITALS: BP 115/63; PULSE 85; RESP 18; TEMP 36.4; O2SAT 98
[2023-11-25 20:03] VITALS: BP 115/63
[2023-11-25] MEDS: Insulin Glargine,Hum.rec.anlog 100 UNIT/ML 10 ML VIAL 45 UNIT SUBCUT (20:04)
[2023-11-25] MEDS: Insulin Lispro 100 UNIT/ML 3 ML VIAL 15 UNIT SUBCUT (20:05)
[2023-11-26 08:00] VITALS: BP 124/64; PULSE 71; TEMP 36.3; O2SAT 99
[2023-11-26 08:27] LABS: Glucose, Whole Blood 387 mg/dL (60-115)
[2023-11-26] MEDS: Insulin Lispro 100 UNIT/ML 3 ML VIAL SUBCUT ×5 (08:33→20:31)
[2023-11-26] MEDS: methADONE HCl 20 MG/2 ML ORAL.CONC 210 MG PO (08:35)
[2023-11-26] MEDS: lisinopriL 5 MG TABLET PO (08:38)
[2023-11-26] MEDS: Baclofen 10 MG TABLET PO ×2 (08:38→20:30)
[2023-11-26] MEDS: metFORMIN HCl 1,000 MG TABLET 1000 MG PO ×2 (08:38→18:12)
[2023-11-26] MEDS: glipiZIDE XL 10 MG TAB.ER.24 PO (08:38)
[2023-11-26] MEDS: hydrOXYzine HCL 50 MG TABLET 100 MG PO ×2 (08:39→20:30)
[2023-11-26] MEDS: buPROPion HCL 75 MG TABLET PO (08:39)
[2023-11-26] MEDS: Gabapentin 300 MG CAPSULE 600 MG PO ×3 (08:39→20:30)
[2023-11-26] MEDS: cloNIDine HCL 0.1 MG TABLET PO ×3 (08:39→20:30)
[2023-11-26] MEDS: Insulin Lispro 100 UNIT/ML 3 ML VIAL 15 UNIT SUBCUT ×2 (08:50→12:40)
[2023-11-26] MEDS: Nicotine Polacrilex 2 MG GUM BUCCAL ×2 (08:51→12:49)
[2023-11-26] MEDS: Insulin Glargine,Hum.rec.anlog 100 UNIT/ML 10 ML VIAL 45 UNIT SUBCUT (09:25)
[2023-11-26 12:27] LABS: Glucose, Whole Blood 457 mg/dL (60-115)
[2023-11-26] MEDS: Insulin Lispro 100 UNIT/ML 3 ML VIAL 10 UNIT SUBCUT (14:26)
[2023-11-26] MEDS: Insulin Glargine,Hum.rec.anlog 100 UNIT/ML 10 ML VIAL 10 UNIT SUBCUT (14:28)
[2023-11-26 15:16] VITALS: BP 121/78
--- NOTE | 2023-11-26 17:12 | HO.PSYCHPN ---
Subjective Subjective Date of Service: 11/26/23 Reason For Visit: Major depressive disorder, single episode, unspeci Subjective Notes: Conditional Voluntary Healthcare Proxy: No Guardianship: No Medical Problems Affecting Mental Status: No Interim History: Pt reports an increase in depressive, anxious sx along with ADHD sx. Reports I need more medication. Reports high tolerances by history, wanting to be comfortable . Reports poor sleep- it needs work Discussed hx of high dose Gabapentin, Adderall. Review of potential options. Addiction consult pending. Discussed hyperglycemia-agrees to nutrition consult, however declines diabetic diet change. Review of Systems Review of Systems blood sugars continue with elevation. These are being managed by hospitalist team. Mental Status Exam Mental Status Exam Patient Appearance: Fatigued Patient Orientation: Person, Place, Time and Situation Level of Consciousness: Alert Patient Behavior: Talkative Mood Description: Depressed and Anxious Affect Description: Flat Patient Cognition Impaired: No Ability to Follow Directions: Good Speech Pattern: Spontaneous Speech Memory Description: Episodic Impaired Hallucinations: None Thought Process: Rumination Thought Content: positive for Perseveration Depressive Symptoms: Increased Anxiety Abnormal Motor Activity Signs and Symptoms: Restlessness Judgement: Fair Diagnostics Vital Signs (24Hr): Vital Signs - 24 hr 11/25/23 20:00 11/25/23 20:03 11/26/23 08:00 Temperature 97.5 F 97.3 F Pulse Rate 85 71 Respiratory Rate 18 Blood Pressure 115/63 115/63 124/64 Pulse Oximetry 98 99 Oxygen Delivery Method Room Air Room Air 11/26/23 15:16 Temperature Pulse Rate Respiratory Rate Blood Pressure 121/78 Pulse Oximetry Oxygen Delivery Method BMI result Body Mass Index 42.1 Labs 11/23/23 17:03 11/24/23 07:05 Labs: Laboratory Results - last 48 hr 11/23/23 11/24/23 11/25/23 17:03 20:19 08:25 POC Glucose 371 H* 487 H* Hep Bs Antigen Negative Hep Bs Antibody REACTIVE Hep B Core Total Ab Nonreactive Hepatitis C Ab (EIA) Reactive H 11/25/23 11/25/23 11/25/23 12:14 17:48 19:51 POC Glucose 437 H* 378 H* 333 H Hep Bs Antigen Hep Bs Antibody Hep B Core Total Ab Hepatitis C Ab (EIA) 11/26/23 11/26/23 08:22 12:22 POC Glucose 387 H* 457 H* Hep Bs Antigen Hep Bs Antibody Hep B Core Total Ab Hepatitis C Ab (EIA) Medications Medications Current Medications Acetaminophen (Acetaminophen 325 Mg Tablet) 650 mg PO Q6H PRN PRN Reason: Headache/Pain Mild Scale (1-3) Last Admin: 11/23/23 22:00 Dose: 650 mg Al Hydroxide/Mg Hydroxide (Magnesium Hydrox/Alum Hydrox 30 Ml Oral.Susp) 30 ml PO Q6H PRN PRN Reason: Heartburn/Nausea Baclofen (Baclofen 10 Mg Tablet) 10 mg PO BID [facility] Last Admin: 11/26/23 08:38 Dose: 10 mg Bupropion HCl (Bupropion Hcl 75 Mg Tablet) 75 mg PO DAILY [facility] Last Admin: 11/26/23 08:39 Dose: 75 mg Clonidine HCl (Clonidine Hcl 0.1 Mg Tablet) 0.1 mg PO BID [facility]; Protocol Last Admin: 11/26/23 08:39 Dose: 0.1 mg Docusate Sodium (Docusate Sodium 100 Mg Capsule) 100 mg PO BID [facility] Last Admin: 11/26/23 09:35 Dose: Not Given Gabapentin (Gabapentin 300 Mg Capsule) 600 mg PO TID [facility] Last Admin: 11/26/23 14:39 Dose: 600 mg Glipizide (Glipizide Xl 10 Mg Tab.Er.24) 10 mg PO DAILY [facility] Last Admin: 11/26/23 08:38 Dose: 10 mg Glucose (Glucose Gel 15 Gm Gel..Gram.) 15 gm PO Q15M PRN; Protocol PRN Reason: per Hypoglycemia Standing Ord. Hydroxyzine HCl (Hydroxyzine Hcl 50 Mg Tablet) 100 mg PO BID [facility] Last Admin: 11/26/23 08:39 Dose: 100 mg Dextrose (D10) 250 mls @ 750 mls/hr IV Q15M PRN; Protocol PRN Reason: per Hypoglycemia Standing Ord. Insulin Glargine (Insulin Glargine,Hum.Rec.Anlog 100 Unit/Ml 10 Ml Vial) 55 unit SUBCUT BEDTIME [facility] Insulin Glargine (Insulin Glargine,Hum.Rec.Anlog 100 Unit/Ml 10 Ml Vial) 55 unit SUBCUT DAILY [facility] Insulin Human Lispro (Insulin Lispro 100 Unit/Ml 3 Ml Vial) 0 unit SUBCUT QIDACHS [facility]; Protocol Last Admin: 11/26/23 12:41 Dose: 12 unit Insulin Human Lispro (Insulin Lispro 100 Unit/Ml 3 Ml Vial) 20 unit SUBCUT QIDACHS [facility] Lisinopril (Lisinopril 5 Mg Tablet) 5 mg PO DAILY [facility]; Protocol Last Admin: 11/26/23 08:38 Dose: 5 mg Magnesium Hydroxide (Milk Of Magnesia 30 Ml Oral.Susp) 30 ml PO DAILY PRN PRN Reason: Constipation Metformin HCl (Metformin Hcl 1,000 Mg Tablet) 1,000 mg PO BIDWM [facility] Last Admin: 11/26/23 08:38 Dose: 1,000 mg Methadone HCl (Methadone Hcl 20 Mg/2 Ml Oral.Conc) 210 mg PO DAILY@0900 [facility] Last Admin: 11/26/23 08:35 Dose: 210 mg Nicotine Polacrilex (Nicotine Polacrilex 2 Mg Gum) 2 mg BUCCAL Q2H PRN PRN Reason: Nicotine Cravings Last Admin: 11/26/23 12:49 Dose: 2 mg Polyethylene Glycol (Polyethylene Glycol 3350 17 Gm Powd.Pack) 17 gm PO DAILY [facility] Last Admin: 11/26/23 09:35 Dose: Not Given Trazodone HCl (Trazodone Hcl 50 Mg Tablet) 50 mg PO BEDTIME MRX1 PRN PRN Reason: Insomnia Last Admin: 11/24/23 20:30 Dose: 50 mg Allergies Allergies Allergy/AdvReac Type Severity Reaction Status Date / Time No Known Allergies Allergy Unverified 02/18/20 19:39 [No Known Allergies*] Assessment & Plan Assessment & Plan (1) Major depressive disorder, recurrent severe without psychotic features: Status: Acute Code(s): F33.2 - Major depressive disorder, recurrent severe without psychotic features (2) Substance dependence: Status: Acute Code(s): F19.20 - Other psychoactive substance dependence, uncomplicated Plan admit to [facility] on cv continue medications addiction medicine consult hospitaist consult discharge planning to include LT substance abuse placement if possible, outpatient providers 11/23 continue tx plan 11/24 increase gabapentin to 600mg po TID. scheduled atarax 100mg po BID. Baclofen 10mg po BID. monitor over sedation. 11/25-CMP, TSH, B12,Folate Clonidine prn for anxiety trial Increase Wellbutrin to XL 150-depression, ADHD reported sx. Increase Gabapentin to 700 mg po TID (hx 800 tid per pt report)-anxiety Patient educated on: medication risk/benefits and therapeutic strategies Informed Consent: understands Reason for continued inpatient stay Substantial Risk for: harm to self and rapid decompensation Time Spent With Patient Time: Total time managing care of this patient today ____ minutes.
[2023-11-26 18:00] LABS: Glucose, Whole Blood 280 mg/dL (60-115)
[2023-11-26] MEDS: Insulin Lispro 100 UNIT/ML 3 ML VIAL 20 UNIT SUBCUT ×2 (18:13→20:31)
[2023-11-26 20:00] VITALS: BP 132/59; PULSE 84; RESP 18; TEMP 36.4; O2SAT 97
[2023-11-26 20:25] LABS: Glucose, Whole Blood 290 mg/dL (60-115)
[2023-11-26] MEDS: Insulin Glargine,Hum.rec.anlog 100 UNIT/ML 10 ML VIAL 55 UNIT SUBCUT (20:31)
[2023-11-27 07:24] LABS: HCV Log PCR 6.67 Log IU/mL (NOT DETECTED); HepC Viral Load 4640000 IU/mL (NOT DETECTED)
[2023-11-27 07:59] LABS: Glucose, Whole Blood 251 mg/dL (60-115)
[2023-11-27 08:00] VITALS: BP 109/63; PULSE 68; RESP 18; TEMP 36.4; O2SAT 97
[2023-11-27] MEDS: methADONE HCl 20 MG/2 ML ORAL.CONC 210 MG PO (08:23)
[2023-11-27 08:28] VITALS: BP 109/63
[2023-11-27] MEDS: glipiZIDE XL 10 MG TAB.ER.24 PO (08:28)
[2023-11-27] MEDS: hydrOXYzine HCL 50 MG TABLET 100 MG PO ×2 (08:28→20:32)
[2023-11-27] MEDS: metFORMIN HCl 1,000 MG TABLET 1000 MG PO ×2 (08:28→17:54)
[2023-11-27] MEDS: buPROPion HCl XL 150 MG TAB.ER.24H PO (08:28)
[2023-11-27] MEDS: Gabapentin 100 MG CAPSULE PO ×3 (08:28→20:33)
[2023-11-27] MEDS: cloNIDine HCL 0.1 MG TABLET PO ×2 (08:28→20:34)
[2023-11-27] MEDS: Gabapentin 600 MG TABLET PO ×3 (08:28→20:32)
[2023-11-27] MEDS: Multivitamin TABLET 1 TAB PO (08:28)
[2023-11-27] MEDS: Baclofen 10 MG TABLET PO ×2 (08:29→20:32)
[2023-11-27] MEDS: lisinopriL 5 MG TABLET PO (08:29)
[2023-11-27] MEDS: Insulin Glargine,Hum.rec.anlog 100 UNIT/ML 10 ML VIAL 45 UNIT SUBCUT (08:31)
[2023-11-27] MEDS: Insulin Lispro 100 UNIT/ML 3 ML VIAL SUBCUT ×4 (08:31→20:33)
[2023-11-27] MEDS: Insulin Lispro 100 UNIT/ML 3 ML VIAL 20 UNIT SUBCUT ×4 (08:32→20:34)
[2023-11-27 12:04] LABS: Glucose, Whole Blood 314 mg/dL (60-115)
--- NOTE | 2023-11-27 12:17 | MHC.CLN ---
NUTRITION CONSULT FOR NUTRITION EDUCATION REGARDING DIABETIC DIET/FOOD CHOICES. VISITED WITH PATIENT IN DINING AREA. VERY RECEPTIVE TO SPEAKING WITH THIS MAINTENANCE PORTER AND READING INFORMATION PROVIDED. REPORTED THAT LIKES TO DRINK CRANBERRY JUICE AND ORANGE JUICE. ADVISED TO LIMIT TO ONE SERVING AT A TIME OF JUICE. DISCUSSED SNACKING LESS FREQUENTLY. PROVIDED HANDOUTS FOR HEALTHFUL EATING WITH DIABETES AND 10 HELPFUL TIPS FOR FOOD CHOICES. EXPRESSED DESIRE TO GET BETTER AND THANKED THIS MAINTENANCE PORTER FOR VISITING. RD AVAILABLE FOR FOLLOW UP VIA CONSULT.
--- NOTE | 2023-11-27 13:07 | MHC.RECOVRN ---
Met with pt on M5 after consult placed to Addiction Medicine for substance and alcohol use. Pt had presented to [facility] with SI and had been transferred to [facility] to be admitted for MDD and NOHEMI. Pt not currently experiencing alcohol withdrawal, has not needed medications while here for alcohol withdrawal. Pt awake, alert, easily engages in conversation. Pt reports he is currently on methadone, 210 mg daily x 8 months. Pt reports prior to going to the hospital using heroin/fentanyl, 2 bags daily, IV as well as cocaine, IV, $100 daily. Pt is requesting increase in methadone dose due to having cravings. Pt states I'm almost at the right dose but it needs to be a little higher. Pt reports interest in medications for stimulant use disorder. Pt is currently receiving baclofen, educated pt on this medication and its use to address stimulant cravings. Pt verbalizes understanding but is requesting something stronger. Pt reports longest time in recovery has been 1 month while in [facility]. Pt reports he does well while in programs and is hopeful to be placed at [facility] upon dc from [facility]. Pt denies other questions or concerns for t/w. Discussed with Alix Moreno APRN.
--- NOTE | 2023-11-27 15:40 | HO.PSYCHPN ---
Subjective Subjective Date of Service: 11/27/23 Reason For Visit: Major depressive disorder, single episode, unspeci Subjective Notes: Conditional Voluntary Healthcare Proxy: No Guardianship: No Medical Problems Affecting Mental Status: No Interim History: Reports some relief of sx. Finds clonidine prn helpful. Will add a prn order. Visable in milieu, interactive with peers and staff, mood is brighter today. Medication Compliance: Yes Side effects from medications: No Attending Groups: Intermittent Review of Systems Acute medical concerns: No Hyperglycemia-insulin adjustments Medical Review of Systems: unchanged Review of Systems Review of Systems high blood sugar levels Yes all other systems are reviewed and are negative Mental Status Exam Mental Status Exam Patient Appearance: Fatigued Patient Orientation: Person, Place, Time and Situation Level of Consciousness: Alert Patient Behavior: Talkative Mood Description: Depressed and Anxious Affect Description: Flat Patient Cognition Impaired: No Ability to Follow Directions: Good Speech Pattern: Spontaneous Speech Memory Description: Episodic Impaired Hallucinations: None Thought Process: Rumination Thought Content: positive for Perseveration Depressive Symptoms: Increased Anxiety Abnormal Motor Activity Signs and Symptoms: Restlessness Judgement: Fair Diagnostics Vital Signs (24Hr): Vital Signs - 24 hr 11/26/23 20:00 11/27/23 08:00 11/27/23 08:28 Temperature 97.6 F 97.5 F Pulse Rate 84 68 Respiratory Rate 18 18 Blood Pressure 132/59 L 109/63 109/63 Pulse Oximetry 97 97 Oxygen Delivery Method Room Air Room Air BMI result Body Mass Index 42.1 Labs 11/23/23 17:03 11/28/23 08:54 Labs: Laboratory Results - last 48 hr 11/23/23 11/25/23 11/25/23 17:02 17:48 19:51 POC Glucose 378 H* 333 H Hep C Viral Load 6467310 H Hep C Viral Load Log 6.67 H 11/26/23 11/26/23 11/26/23 08:22 12:22 17:56 POC Glucose 387 H* 457 H* 280 H Hep C Viral Load Hep C Viral Load Log 11/26/23 11/27/23 11/27/23 20:19 07:54 12:00 POC Glucose 290 H 251 H 314 H Hep C Viral Load Hep C Viral Load Log Medications Medications Current Medications Acetaminophen (Acetaminophen 325 Mg Tablet) 650 mg PO Q6H PRN PRN Reason: Headache/Pain Mild Scale (1-3) Last Admin: 06/22/24 22:00 Dose: 650 mg Al Hydroxide/Mg Hydroxide (Magnesium Hydrox/Alum Hydrox 30 Ml Oral.Susp) 30 ml PO Q6H PRN PRN Reason: Heartburn/Nausea Baclofen (Baclofen 10 Mg Tablet) 10 mg PO BID [facility] Last Admin: 11/27/23 08:29 Dose: 10 mg Bupropion HCl (Bupropion Hcl Xl 150 Mg Tab.Er.24h) 150 mg PO DAILY [facility] Last Admin: 11/27/23 08:28 Dose: 150 mg Clonidine HCl (Clonidine Hcl 0.1 Mg Tablet) 0.1 mg PO BID [facility]; Protocol Last Admin: 11/27/23 08:28 Dose: 0.1 mg Clonidine HCl (Clonidine Hcl 0.1 Mg Tablet) 0.1 mg PO BID PRN; Protocol PRN Reason: anxiety Docusate Sodium (Docusate Sodium 100 Mg Capsule) 100 mg PO BID [facility] Last Admin: 11/27/23 08:36 Dose: Not Given Gabapentin (Gabapentin 600 Mg Tablet) 600 mg PO TID [facility] Last Admin: 11/27/23 14:34 Dose: 600 mg Gabapentin (Gabapentin 100 Mg Capsule) 100 mg PO TID [facility] Last Admin: 11/27/23 14:34 Dose: 100 mg Glipizide (Glipizide Xl 10 Mg Tab.Er.24) 10 mg PO DAILY [facility] Last Admin: 11/27/23 08:28 Dose: 10 mg Glucose (Glucose Gel 15 Gm Gel..Gram.) 15 gm PO Q15M PRN; Protocol PRN Reason: per Hypoglycemia Standing Ord. Hydroxyzine HCl (Hydroxyzine Hcl 50 Mg Tablet) 100 mg PO BID [facility] Last Admin: 11/27/23 08:28 Dose: 100 mg Dextrose (D10) 250 mls @ 750 mls/hr IV Q15M PRN; Protocol PRN Reason: per Hypoglycemia Standing Ord. Insulin Glargine (Insulin Glargine,Hum.Rec.Anlog 100 Unit/Ml 10 Ml Vial) 55 unit SUBCUT BEDTIME [facility] Last Admin: 11/26/23 20:31 Dose: 55 unit Insulin Glargine (Insulin Glargine,Hum.Rec.Anlog 100 Unit/Ml 10 Ml Vial) 45 unit SUBCUT DAILY [facility] Last Admin: 11/27/23 08:31 Dose: 45 unit Insulin Human Lispro (Insulin Lispro 100 Unit/Ml 3 Ml Vial) 0 unit SUBCUT QIDACHS [facility]; Protocol Last Admin: 11/27/23 12:40 Dose: 10 unit Insulin Human Lispro (Insulin Lispro 100 Unit/Ml 3 Ml Vial) 20 unit SUBCUT QIDACHS [facility] Last Admin: 11/27/23 12:41 Dose: 20 unit Lisinopril (Lisinopril 5 Mg Tablet) 5 mg PO DAILY [facility]; Protocol Last Admin: 11/27/23 08:29 Dose: 5 mg Magnesium Hydroxide (Milk Of Magnesia 30 Ml Oral.Susp) 30 ml PO DAILY PRN PRN Reason: Constipation Metformin HCl (Metformin Hcl 1,000 Mg Tablet) 1,000 mg PO BIDWM [facility] Last Admin: 11/27/23 08:28 Dose: 1,000 mg Methadone HCl (Methadone Hcl 20 Mg/2 Ml Oral.Conc) 210 mg PO DAILY@0900 [facility] Last Admin: 11/27/23 08:23 Dose: 210 mg Multivitamins/Vitamin C (Multivitamin Tablet) 1 tab PO DAILY [facility] Last Admin: 11/27/23 08:28 Dose: 1 tab Nicotine Polacrilex (Nicotine Polacrilex 2 Mg Gum) 2 mg BUCCAL Q2H PRN PRN Reason: Nicotine Cravings Last Admin: 11/26/23 12:49 Dose: 2 mg Polyethylene Glycol (Polyethylene Glycol 3350 17 Gm Powd.Pack) 17 gm PO DAILY [facility] Last Admin: 11/27/23 08:36 Dose: Not Given Trazodone HCl (Trazodone Hcl 50 Mg Tablet) 50 mg PO BEDTIME MRX1 PRN PRN Reason: Insomnia Last Admin: 11/24/23 20:30 Dose: 50 mg Allergies Allergies Allergy/AdvReac Type Severity Reaction Status Date / Time No Known Allergies Allergy Unverified 02/18/20 19:39 [No Known Allergies*] Assessment & Plan Assessment & Plan (1) Major depressive disorder, recurrent severe without psychotic features: Status: Acute Code(s): F33.2 - Major depressive disorder, recurrent severe without psychotic features (2) Substance dependence: Status: Acute Code(s): F19.20 - Other psychoactive substance dependence, uncomplicated Plan admit to [facility]5 on cv continue medications addiction medicine consult hospitaist consult discharge planning to include LT substance abuse placement if possible, outpatient providers 11/23 continue tx plan 11/24 increase gabapentin to 600mg po TID. scheduled atarax 100mg po BID. Baclofen 10mg po BID. monitor over sedation. 11/25-CMP, TSH, B12,Folate Clonidine prn for anxiety trial Increase Wellbutrin to XL 150-depression, ADHD reported sx. Increase Gabapentin to 700 mg po TID (hx 800 tid per pt report)-anxiety 11/26- Clonidine 0.1 mg bid prn anxiety Reason for continued inpatient stay Substantial Risk for: rapid decompensation and med/psych decompensation Time Spent With Patient Time: Total time managing care of this patient today ____ minutes.
[2023-11-27 17:11] LABS: Glucose, Whole Blood 276 mg/dL (60-115)
[2023-11-27 20:00] VITALS: BP 113/72; PULSE 85; RESP 18; TEMP 36.3; O2SAT 98
[2023-11-27 20:28] LABS: Glucose, Whole Blood 293 mg/dL (60-115)
[2023-11-27] MEDS: Docusate Sodium 100 MG CAPSULE PO (20:32)
[2023-11-27] MEDS: Insulin Glargine,Hum.rec.anlog 100 UNIT/ML 10 ML VIAL 55 UNIT SUBCUT (20:33)
[2023-11-27 21:01] LABS: Glucose, Whole Blood 309 mg/dL (60-115)
[2023-11-28 07:00] VITALS: BMI 43.6
[2023-11-28 08:00] VITALS: BP 136/80; PULSE 71; RESP 16; TEMP 36.4; O2SAT 98
[2023-11-28] MEDS: Baclofen 10 MG TABLET PO ×2 (08:08→20:31)
[2023-11-28] MEDS: Multivitamin TABLET 1 TAB PO (08:09)
[2023-11-28] MEDS: Gabapentin 100 MG CAPSULE PO ×3 (08:09→20:31)
[2023-11-28] MEDS: glipiZIDE XL 10 MG TAB.ER.24 PO (08:09)
[2023-11-28] MEDS: Gabapentin 600 MG TABLET PO ×3 (08:09→20:31)
[2023-11-28] MEDS: hydrOXYzine HCL 50 MG TABLET 100 MG PO ×2 (08:09→20:31)
[2023-11-28] MEDS: buPROPion HCl XL 150 MG TAB.ER.24H PO (08:09)
[2023-11-28] MEDS: methADONE HCl 20 MG/2 ML ORAL.CONC 210 MG PO (08:11)
[2023-11-28] MEDS: metFORMIN HCl 1,000 MG TABLET 1000 MG PO ×2 (08:11→17:50)
[2023-11-28 08:33] VITALS: BP 136/80
[2023-11-28] MEDS: lisinopriL 5 MG TABLET PO (08:33)
[2023-11-28] MEDS: cloNIDine HCL 0.1 MG TABLET PO ×3 (08:33→20:31)
[2023-11-28 08:56] LABS: Glucose, Whole Blood 377 mg/dL (60-115)
[2023-11-28] MEDS: Insulin Lispro 100 UNIT/ML 3 ML VIAL SUBCUT ×4 (09:18→20:31)
[2023-11-28] MEDS: Insulin Lispro 100 UNIT/ML 3 ML VIAL 20 UNIT SUBCUT ×4 (09:19→20:32)
[2023-11-28] MEDS: Insulin Glargine,Hum.rec.anlog 100 UNIT/ML 10 ML VIAL 45 UNIT SUBCUT (09:19)
[2023-11-28 09:56] LABS: Alanine Aminotransferase 97 U/L (0-40); Albumin Level 3.6 g/dL (3.5-5.0); Alkaline Phosphatase 307 U/L (39-117); Anion Gap 12 (12-20); Aspartate Amino Transferase 63 U/L (5-37); Bilirubin Total 0.2 mg/dL (0.0-1.0); Blood Urea Nitrogen 18 mg/dL (9-16); Calcium 9.8 mg/dL (8.4-10.2); Carbon Dioxide 26 mmol/L (22-29); Chloride 100 mmol/L (96-108); Creatinine Clr Calc Pharmacy 136.1; Estimated Glomerular Filt Rate > 60; Glucose Random 386 mg/dL (60-115); Potassium 4.9 mmol/L (3.3-5.1); Sodium 133 mmol/L (135-145); Total Protein 9.2 g/dL (6.5-8.0)
[2023-11-28 10:07] LABS: Thyroid Stimulating Hormone 2.33 uIU/mL (0.32-4.0)
--- NOTE | 2023-11-28 12:26 | P.EN_ITS ---
Event Note Date of Service: 11/28/23 Event Note: Addiction consult placed for patient Requesting increase in methadone and medications for StUD Seen by credit products officer --see note for additional details No changes to current medications Time Spent With Patient Time: Total time managing care of this patient today ____ minutes.
[2023-11-28 12:38] LABS: Glucose, Whole Blood 351 mg/dL (60-115)
[2023-11-28 14:58] VITALS: BP 105/57
--- NOTE | 2023-11-28 15:41 | P.PNPSI_ITS ---
Subjective Subjective Date of Service: 11/28/23 Reason For Visit: Major depressive disorder, single episode, unspeci Subjective Notes: Conditional Voluntary Healthcare Proxy: No Guardianship: No Medical Problems Affecting Mental Status: No Interim History: Pt requests consult from addiction medicine to discuss Methadone increase. Reports he is feeling continued relief with regime, denies SE. Team reports they have talked with pt's tax form preparer. Pt has criminal charges for jose and he will not need to attend his court date on 11/28. He is currently out on bail. She is considering having him attend drug court so he may benefit from the resources available. Pt will call his tax form preparer to discuss this. Medication Compliance: Yes Side effects from medications: No Attending Groups: Intermittent Review of Systems Acute medical concerns: No Medical Review of Systems: unchanged Review of Systems Review of Systems Yes all other systems are reviewed and are negative Mental Status Exam Mental Status Exam Patient Appearance: Fatigued Patient Orientation: Person, Place, Time and Situation Level of Consciousness: Alert Patient Behavior: Talkative Mood Description: Depressed and Anxious Affect Description: Flat Patient Cognition Impaired: No Ability to Follow Directions: Good Speech Pattern: Spontaneous Speech Memory Description: Episodic Impaired Hallucinations: None Thought Process: Rumination Thought Content: positive for Perseveration Depressive Symptoms: Increased Anxiety Abnormal Motor Activity Signs and Symptoms: Restlessness Judgement: Fair Diagnostics Vital Signs (24Hr): Vital Signs - 24 hr 11/27/23 20:00 11/28/23 08:00 11/28/23 08:33 Temperature 97.3 F 97.5 F Pulse Rate 85 71 Respiratory Rate 18 16 Blood Pressure 113/72 136/80 136/80 Pulse Oximetry 98 98 Oxygen Delivery Method Room Air Room Air 11/28/23 08:33 11/28/23 14:58 Temperature Pulse Rate Respiratory Rate Blood Pressure 136/80 105/57 L Pulse Oximetry Oxygen Delivery Method BMI result Body Mass Index 43.6 Labs 11/23/23 17:03 11/28/23 08:54 Labs: Laboratory Results - last 48 hr 11/23/23 11/26/23 11/26/23 17:02 17:56 20:19 Sodium Potassium Chloride Carbon Dioxide Anion Gap BUN Creatinine Estim Creat Clear Calc Estimated GFR POC Glucose 280 H 290 H Random Glucose Calcium Total Bilirubin AST ALT Alkaline Phosphatase Total Protein Albumin TSH Hep C Viral Load 2888512 H Hep C Viral Load Log 6.67 H 11/27/23 11/27/23 11/27/23 07:54 12:00 17:07 Sodium Potassium Chloride Carbon Dioxide Anion Gap BUN Creatinine Estim Creat Clear Calc Estimated GFR POC Glucose 251 H 314 H 276 H Random Glucose Calcium Total Bilirubin AST ALT Alkaline Phosphatase Total Protein Albumin TSH Hep C Viral Load Hep C Viral Load Log 11/27/23 11/27/23 11/28/23 20:25 20:56 08:37 Sodium Potassium Chloride Carbon Dioxide Anion Gap BUN Creatinine Estim Creat Clear Calc Estimated GFR POC Glucose 293 H 309 H 377 H* Random Glucose Calcium Total Bilirubin AST ALT Alkaline Phosphatase Total Protein Albumin TSH Hep C Viral Load Hep C Viral Load Log 11/28/23 11/28/23 08:54 12:25 Sodium 133 L Potassium 4.9 Chloride 100 Carbon Dioxide 26 Anion Gap 12 BUN 18 H Creatinine 0.95 Estim Creat Clear Calc 136.1 Estimated GFR > 60 POC Glucose 351 H* Random Glucose 386 H* Calcium 9.8 Total Bilirubin 0.2 AST 63 H ALT 97 H Alkaline Phosphatase 307 H Total Protein 9.2 H Albumin 3.6 TSH 2.33 Hep C Viral Load Hep C Viral Load Log Medications Medications Current Medications Acetaminophen (Acetaminophen 325 Mg Tablet) 650 mg PO Q6H PRN PRN Reason: Headache/Pain Mild Scale (1-3) Last Admin: 11/23/23 22:00 Dose: 650 mg Al Hydroxide/Mg Hydroxide (Magnesium Hydrox/Alum Hydrox 30 Ml Oral.Susp) 30 ml PO Q6H PRN PRN Reason: Heartburn/Nausea Baclofen (Baclofen 10 Mg Tablet) 10 mg PO BID [facility] Last Admin: 11/28/23 08:08 Dose: 10 mg Bupropion HCl (Bupropion Hcl Xl 150 Mg Tab.Er.24h) 150 mg PO DAILY [facility] Last Admin: 11/28/23 08:09 Dose: 150 mg Clonidine HCl (Clonidine Hcl 0.1 Mg Tablet) 0.1 mg PO BID [facility]; Protocol Last Admin: 11/28/23 08:33 Dose: 0.1 mg Clonidine HCl (Clonidine Hcl 0.1 Mg Tablet) 0.1 mg PO BID PRN; Protocol PRN Reason: anxiety Last Admin: 11/28/23 14:58 Dose: 0.1 mg Docusate Sodium (Docusate Sodium 100 Mg Capsule) 100 mg PO BID [facility] Last Admin: 11/28/23 09:18 Dose: Not Given Gabapentin (Gabapentin 600 Mg Tablet) 600 mg PO TID [facility] Last Admin: 11/28/23 14:58 Dose: 600 mg Gabapentin (Gabapentin 100 Mg Capsule) 100 mg PO TID [facility] Last Admin: 11/28/23 14:58 Dose: 100 mg Glipizide (Glipizide Xl 10 Mg Tab.Er.24) 10 mg PO DAILY [facility] Last Admin: 11/28/23 08:09 Dose: 10 mg Glucose (Glucose Gel 15 Gm Gel..Gram.) 15 gm PO Q15M PRN; Protocol PRN Reason: per Hypoglycemia Standing Ord. Hydroxyzine HCl (Hydroxyzine Hcl 50 Mg Tablet) 100 mg PO BID [facility] Last Admin: 11/28/23 08:09 Dose: 100 mg Dextrose (D10) 250 mls @ 750 mls/hr IV Q15M PRN; Protocol PRN Reason: per Hypoglycemia Standing Ord. Insulin Glargine (Insulin Glargine,Hum.Rec.Anlog 100 Unit/Ml 10 Ml Vial) 55 unit SUBCUT BEDTIME [facility] Last Admin: 11/27/23 20:33 Dose: 55 unit Insulin Glargine (Insulin Glargine,Hum.Rec.Anlog 100 Unit/Ml 10 Ml Vial) 45 unit SUBCUT DAILY [facility] Last Admin: 11/28/23 09:19 Dose: 45 unit Insulin Human Lispro (Insulin Lispro 100 Unit/Ml 3 Ml Vial) 0 unit SUBCUT QIDACHS [facility]; Protocol Last Admin: 11/28/23 12:44 Dose: 12 unit Insulin Human Lispro (Insulin Lispro 100 Unit/Ml 3 Ml Vial) 20 unit SUBCUT QIDACHS [facility] Last Admin: 11/28/23 12:44 Dose: 20 unit Lisinopril (Lisinopril 5 Mg Tablet) 5 mg PO DAILY [facility]; Protocol Last Admin: 11/28/23 08:33 Dose: 5 mg Magnesium Hydroxide (Milk Of Magnesia 30 Ml Oral.Susp) 30 ml PO DAILY PRN PRN Reason: Constipation Metformin HCl (Metformin Hcl 1,000 Mg Tablet) 1,000 mg PO BIDWM [facility] Last Admin: 11/28/23 08:11 Dose: 1,000 mg Methadone HCl (Methadone Hcl 20 Mg/2 Ml Oral.Conc) 210 mg PO DAILY@0900 [facility] Last Admin: 11/28/23 08:11 Dose: 210 mg Multivitamins/Vitamin C (Multivitamin Tablet) 1 tab PO DAILY [facility] Last Admin: 11/28/23 08:09 Dose: 1 tab Nicotine Polacrilex (Nicotine Polacrilex 2 Mg Gum) 2 mg BUCCAL Q2H PRN PRN Reason: Nicotine Cravings Last Admin: 11/26/23 12:49 Dose: 2 mg Polyethylene Glycol (Polyethylene Glycol 3350 17 Gm Powd.Pack) 17 gm PO DAILY [facility] Last Admin: 11/28/23 08:11 Dose: Not Given Trazodone HCl (Trazodone Hcl 50 Mg Tablet) 50 mg PO BEDTIME MRX1 PRN PRN Reason: Insomnia Last Admin: 11/24/23 20:30 Dose: 50 mg Allergies Allergies Allergy/AdvReac Type Severity Reaction Status Date / Time No Known Allergies Allergy Unverified 02/18/20 19:39 [No Known Allergies*] Assessment & Plan Assessment & Plan (1) Major depressive disorder, recurrent severe without psychotic features: Status: Acute Code(s): F33.2 - Major depressive disorder, recurrent severe without psychotic features (2) Substance dependence: Status: Acute Code(s): F19.20 - Other psychoactive substance dependence, uncomplicated Plan admit to [facility]5 on cv continue medications addiction medicine consult hospitaist consult discharge planning to include LT substance abuse placement if possible, outpatient providers 11/23 continue tx plan 11/24 increase gabapentin to 600mg po TID. scheduled atarax 100mg po BID. Baclofen 10mg po BID. monitor over sedation. 11/25-CMP, TSH, B12,Folate Clonidine prn for anxiety trial Increase Wellbutrin to XL 150-depression, ADHD reported sx. Increase Gabapentin to 700 mg po TID (hx 800 tid per pt report)-anxiety 11/27- Addiction medicine consult, pt request, he would like to increase Methadone. Reason for continued inpatient stay Substantial Risk for: rapid decompensation Time Spent With Patient Time: Total time managing care of this patient today ____ minutes.
[2023-11-28 17:26] LABS: Glucose, Whole Blood 251 mg/dL (60-115)
[2023-11-28 20:00] VITALS: BP 114/67; PULSE 78; RESP 18; TEMP 36.3; O2SAT 98
[2023-11-28] MEDS: Insulin Glargine,Hum.rec.anlog 100 UNIT/ML 10 ML VIAL 55 UNIT SUBCUT (20:32)
[2023-11-28 21:09] LABS: Glucose, Whole Blood 322 mg/dL (60-115)
[2023-11-29 08:00] VITALS: BP 148/84; PULSE 74; RESP 16; TEMP 36.4; O2SAT 100
[2023-11-29 08:29] LABS: Glucose, Whole Blood 360 mg/dL (60-115)
[2023-11-29] MEDS: glipiZIDE XL 10 MG TAB.ER.24 PO (09:10)
[2023-11-29] MEDS: metFORMIN HCl 1,000 MG TABLET 1000 MG PO ×2 (09:10→16:30)
[2023-11-29] MEDS: Gabapentin 600 MG TABLET PO ×3 (09:10→20:24)
[2023-11-29] MEDS: hydrOXYzine HCL 50 MG TABLET 100 MG PO ×2 (09:10→20:24)
[2023-11-29] MEDS: Baclofen 10 MG TABLET PO ×2 (09:10→20:24)
[2023-11-29] MEDS: Gabapentin 100 MG CAPSULE PO ×3 (09:10→20:24)
[2023-11-29] MEDS: buPROPion HCl XL 150 MG TAB.ER.24H PO (09:10)
[2023-11-29] MEDS: cloNIDine HCL 0.1 MG TABLET PO ×3 (09:11→20:24)
[2023-11-29] MEDS: lisinopriL 5 MG TABLET PO (09:11)
[2023-11-29] MEDS: methADONE HCl 20 MG/2 ML ORAL.CONC 210 MG PO (09:12)
[2023-11-29] MEDS: Insulin Lispro 100 UNIT/ML 3 ML VIAL SUBCUT ×4 (09:48→21:28)
[2023-11-29] MEDS: Insulin Lispro 100 UNIT/ML 3 ML VIAL 20 UNIT SUBCUT ×4 (09:49→21:28)
[2023-11-29] MEDS: Insulin Glargine,Hum.rec.anlog 100 UNIT/ML 10 ML VIAL 45 UNIT SUBCUT (09:50)
--- NOTE | 2023-11-29 10:35 | P.PNPSI_ITS ---
Subjective Subjective Date of Service: 11/29/23 Reason For Visit: Major depressive disorder, single episode, unspeci Subjective Notes: Conditional Voluntary Healthcare Proxy: No Guardianship: No Medical Problems Affecting Mental Status: No Interim History: Pt very irritated, when tw discussed with him addiction recommendation to not increase methadone until OP appt. This could not be negotiated. Pt believes denial of this intervention is against his human rights-as a result Methadone increase to 215 mg from 210 mg for 11/29 and 215 mg to 220 mg for 11/30. Pt not happy with this as well as he wants 230 mg without titration. He will pursue action based on this denial and expressed his disagreement. Reports sleep appetite and anxiety are not too bad . He is looking forward to going to [facility] next week he reports and states he needs to stay with this or he feels he will - I am a big kelly and I need these higher medicine doses to help me to be well. Given human rights officer info to contact. He reports he will discuss with his associate attorney. Medication Compliance: Yes Side effects from medications: No Attending Groups: Intermittent Review of Systems Acute medical concerns: No Medical Review of Systems: unchanged Review of Systems Review of Systems Yes all other systems are reviewed and are negative Mental Status Exam Mental Status Exam Patient Appearance: Fatigued Patient Orientation: Person, Place, Time and Situation Level of Consciousness: Alert Patient Behavior: Talkative Mood Description: Depressed and Anxious Affect Description: Flat Patient Cognition Impaired: No Ability to Follow Directions: Good Speech Pattern: Spontaneous Speech Memory Description: Episodic Impaired Hallucinations: None Thought Process: Rumination Thought Content: positive for Perseveration Depressive Symptoms: Increased Anxiety Abnormal Motor Activity Signs and Symptoms: Restlessness Judgement: Fair Diagnostics Vital Signs (24Hr): Vital Signs - 24 hr 11/28/23 14:58 11/28/23 20:00 Temperature 97.3 F Pulse Rate 78 Respiratory Rate 18 Blood Pressure 105/57 L 114/67 Pulse Oximetry 98 Oxygen Delivery Method Room Air BMI result Body Mass Index 43.6 Labs 11/23/23 17:03 11/28/23 08:54 Labs: Laboratory Results - last 48 hr 11/27/23 11/27/23 11/27/23 12:00 17:07 20:25 Sodium Potassium Chloride Carbon Dioxide Anion Gap BUN Creatinine Estim Creat Clear Calc Estimated GFR POC Glucose 314 H 276 H 293 H Random Glucose Calcium Total Bilirubin AST ALT Alkaline Phosphatase Total Protein Albumin TSH 11/27/23 11/28/23 11/28/23 20:56 08:37 08:54 Sodium 133 L Potassium 4.9 Chloride 100 Carbon Dioxide 26 Anion Gap 12 BUN 18 H Creatinine 0.95 Estim Creat Clear Calc 136.1 Estimated GFR > 60 POC Glucose 309 H 377 H* Random Glucose 386 H* Calcium 9.8 Total Bilirubin 0.2 AST 63 H ALT 97 H Alkaline Phosphatase 307 H Total Protein 9.2 H Albumin 3.6 TSH 2.33 11/28/23 11/28/23 11/28/23 12:25 17:13 20:19 Sodium Potassium Chloride Carbon Dioxide Anion Gap BUN Creatinine Estim Creat Clear Calc Estimated GFR POC Glucose 351 H* 251 H 322 H Random Glucose Calcium Total Bilirubin AST ALT Alkaline Phosphatase Total Protein Albumin TSH 11/29/23 08:11 Sodium Potassium Chloride Carbon Dioxide Anion Gap BUN Creatinine Estim Creat Clear Calc Estimated GFR POC Glucose 360 H* Random Glucose Calcium Total Bilirubin AST ALT Alkaline Phosphatase Total Protein Albumin TSH Medications Medications Current Medications Acetaminophen (Acetaminophen 325 Mg Tablet) 650 mg PO Q6H PRN PRN Reason: Headache/Pain Mild Scale (1-3) Last Admin: 11/23/23 22:00 Dose: 650 mg Al Hydroxide/Mg Hydroxide (Magnesium Hydrox/Alum Hydrox 30 Ml Oral.Susp) 30 ml PO Q6H PRN PRN Reason: Heartburn/Nausea Baclofen (Baclofen 10 Mg Tablet) 10 mg PO BID [facility] Last Admin: 11/29/23 09:10 Dose: 10 mg Bupropion HCl (Bupropion Hcl Xl 150 Mg Tab.Er.24h) 150 mg PO DAILY [facility] Last Admin: 11/29/23 09:10 Dose: 150 mg Clonidine HCl (Clonidine Hcl 0.1 Mg Tablet) 0.1 mg PO BID [facility]; Protocol Last Admin: 11/29/23 09:11 Dose: 0.1 mg Clonidine HCl (Clonidine Hcl 0.1 Mg Tablet) 0.1 mg PO BID PRN; Protocol PRN Reason: anxiety Last Admin: 11/28/23 14:58 Dose: 0.1 mg Docusate Sodium (Docusate Sodium 100 Mg Capsule) 100 mg PO BID [facility] Last Admin: 11/29/23 09:17 Dose: Not Given Gabapentin (Gabapentin 600 Mg Tablet) 600 mg PO TID [facility] Last Admin: 11/29/23 09:10 Dose: 600 mg Gabapentin (Gabapentin 100 Mg Capsule) 100 mg PO TID [facility] Last Admin: 11/29/23 09:10 Dose: 100 mg Glipizide (Glipizide Xl 10 Mg Tab.Er.24) 10 mg PO DAILY [facility] Last Admin: 11/29/23 09:10 Dose: 10 mg Glucose (Glucose Gel 15 Gm Gel..Gram.) 15 gm PO Q15M PRN; Protocol PRN Reason: per Hypoglycemia Standing Ord. Hydroxyzine HCl (Hydroxyzine Hcl 50 Mg Tablet) 100 mg PO BID [facility] Last Admin: 11/29/23 09:10 Dose: 100 mg Dextrose (D10) 250 mls @ 750 mls/hr IV Q15M PRN; Protocol PRN Reason: per Hypoglycemia Standing Ord. Insulin Glargine (Insulin Glargine,Hum.Rec.Anlog 100 Unit/Ml 10 Ml Vial) 55 unit SUBCUT BEDTIME [facility] Last Admin: 11/28/23 20:32 Dose: 55 unit Insulin Glargine (Insulin Glargine,Hum.Rec.Anlog 100 Unit/Ml 10 Ml Vial) 45 unit SUBCUT DAILY [facility] Last Admin: 11/29/23 09:50 Dose: 45 unit Insulin Human Lispro (Insulin Lispro 100 Unit/Ml 3 Ml Vial) 0 unit SUBCUT QIDACHS [facility]; Protocol Last Admin: 11/29/23 09:48 Dose: 12 unit Insulin Human Lispro (Insulin Lispro 100 Unit/Ml 3 Ml Vial) 20 unit SUBCUT QIDACHS [facility] Last Admin: 11/29/23 09:49 Dose: 20 unit Lisinopril (Lisinopril 5 Mg Tablet) 5 mg PO DAILY [facility]; Protocol Last Admin: 11/29/23 09:11 Dose: 5 mg Magnesium Hydroxide (Milk Of Magnesia 30 Ml Oral.Susp) 30 ml PO DAILY PRN PRN Reason: Constipation Metformin HCl (Metformin Hcl 1,000 Mg Tablet) 1,000 mg PO BIDWM [facility] Last Admin: 11/29/23 09:10 Dose: 1,000 mg Methadone HCl (Methadone Hcl 20 Mg/2 Ml Oral.Conc) 210 mg PO DAILY@0900 [facility] Last Admin: 11/29/23 09:12 Dose: 210 mg Multivitamins/Vitamin C (Multivitamin Tablet) 1 tab PO DAILY [facility] Last Admin: 11/28/23 08:09 Dose: 1 tab Nicotine Polacrilex (Nicotine Polacrilex 2 Mg Gum) 2 mg BUCCAL Q2H PRN PRN Reason: Nicotine Cravings Last Admin: 11/26/23 12:49 Dose: 2 mg Polyethylene Glycol (Polyethylene Glycol 3350 17 Gm Powd.Pack) 17 gm PO DAILY [facility] Last Admin: 11/28/23 08:11 Dose: Not Given Trazodone HCl (Trazodone Hcl 50 Mg Tablet) 50 mg PO BEDTIME MRX1 PRN PRN Reason: Insomnia Last Admin: 11/24/23 20:30 Dose: 50 mg Allergies Allergies Allergy/AdvReac Type Severity Reaction Status Date / Time No Known Allergies Allergy Unverified 02/18/20 19:39 [No Known Allergies*] Assessment & Plan Assessment & Plan (1) Major depressive disorder, recurrent severe without psychotic features: Status: Acute Code(s): F33.2 - Major depressive disorder, recurrent severe without psychotic features (2) Substance dependence: Status: Acute Code(s): F19.20 - Other psychoactive substance dependence, uncomplicated Plan admit to [facility]5 on cv continue medications addiction medicine consult hospitaist consult discharge planning to include LT substance abuse placement if possible, outpatient providers 11/23 continue tx plan 11/24 increase gabapentin to 600mg po TID. scheduled atarax 100mg po BID. Baclofen 10mg po BID. monitor over sedation. 11/25-CMP, TSH, B12,Folate Clonidine prn for anxiety trial Increase Wellbutrin to XL 150-depression, ADHD reported sx. Increase Gabapentin to 700 mg po TID (hx 800 tid per pt report)-anxiety 11/27- Addiction medicine consult, pt request, he would like to increase Methadone. 11/28- Gabapentin scheduled to increase to 800 mg tid on 11/30 11/29 Increase Methadone to 215 11/30 Increase Methadon to 220 Monitor for SE, Sedation Reason for continued inpatient stay Substantial Risk for: rapid decompensation Time Spent With Patient Time: Total time managing care of this patient today ____ minutes.
[2023-11-29 12:40] LABS: Glucose, Whole Blood 292 mg/dL (60-115)
--- NOTE | 2023-11-29 14:35 | PM.EVENT ---
Event Note Date of Service: 11/29/23 Event Note: Follow up for patient admitted to [facility] psychiatric unit for hyperglycemia. Despite significant changes to patient's diabetic regimen, continues to be hyperglycemic into the 300s. We will increase Lantus to 50 units in the morning and 60 units at night. Time Spent With Patient Time: Total time managing care of this patient today ____ minutes.
[2023-11-29 16:31] VITALS: BP 144/87
[2023-11-29 17:12] LABS: Glucose, Whole Blood 281 mg/dL (60-115)
[2023-11-29 20:00] VITALS: BP 117/76; PULSE 85; RESP 17; TEMP 36.7; O2SAT 98
[2023-11-29 20:13] LABS: Glucose, Whole Blood 306 mg/dL (60-115)
[2023-11-29] MEDS: Insulin Glargine,Hum.rec.anlog 100 UNIT/ML 10 ML VIAL 60 UNIT SUBCUT (20:24)
[2023-11-29] MEDS: Docusate Sodium 100 MG CAPSULE PO (20:24)
[2023-11-30 08:00] VITALS: BP 163/99; PULSE 69; TEMP 36.4; O2SAT 99
[2023-11-30 08:24] LABS: Glucose, Whole Blood 359 mg/dL (60-115)
[2023-11-30 08:33] VITALS: BP 163/99
[2023-11-30] MEDS: glipiZIDE XL 10 MG TAB.ER.24 PO (08:33)
[2023-11-30] MEDS: metFORMIN HCl 1,000 MG TABLET 1000 MG PO ×2 (08:33→17:49)
[2023-11-30] MEDS: Gabapentin 100 MG CAPSULE PO ×3 (08:33→20:01)
[2023-11-30] MEDS: lisinopriL 5 MG TABLET PO (08:33)
[2023-11-30 08:34] VITALS: BP 163/99
[2023-11-30] MEDS: Multivitamin TABLET 1 TAB PO (08:34)
[2023-11-30] MEDS: cloNIDine HCL 0.1 MG TABLET PO ×3 (08:34→20:02)
[2023-11-30] MEDS: hydrOXYzine HCL 50 MG TABLET 100 MG PO ×2 (08:34→20:02)
[2023-11-30] MEDS: Baclofen 10 MG TABLET PO ×2 (08:34→20:03)
[2023-11-30] MEDS: Gabapentin 600 MG TABLET PO ×3 (08:35→20:01)
[2023-11-30] MEDS: buPROPion HCl XL 150 MG TAB.ER.24H PO (08:35)
[2023-11-30] MEDS: methADONE HCl 20 MG/2 ML ORAL.CONC 215 MG PO (08:35)
[2023-11-30] MEDS: Insulin Lispro 100 UNIT/ML 3 ML VIAL SUBCUT ×4 (08:52→20:04)
[2023-11-30] MEDS: Insulin Lispro 100 UNIT/ML 3 ML VIAL 20 UNIT SUBCUT ×4 (08:53→20:07)
[2023-11-30] MEDS: Insulin Glargine,Hum.rec.anlog 100 UNIT/ML 10 ML VIAL 50 UNIT SUBCUT (08:54)
--- NOTE | 2023-11-30 10:09 | P.PNPSI_ITS ---
Subjective Subjective Date of Service: 11/30/23 Reason For Visit: Major depressive disorder, single episode, unspeci Interim History: Patient reports he feels stable and improved since admission. He is looking to be admitted to a treatment facility ([facility]). Reports toothache. Mood overall less irritable. Denies SI/HI/AVH. Engaged in the milieu and social with peers. POC's poorly controlled due to patient's dietary indiscretion. Review of Systems Review of Systems high blood sugar levels Yes all other systems are reviewed and are negative Mental Status Exam Mental Status Exam Patient Appearance: Fatigued Patient Orientation: Person, Place, Time and Situation Level of Consciousness: Alert Patient Behavior: Talkative Mood Description: Depressed and Anxious Affect Description: Flat Patient Cognition Impaired: No Ability to Follow Directions: Good Speech Pattern: Spontaneous Speech Memory Description: Episodic Impaired Diagnostics Vital Signs (24Hr): Vital Signs - 24 hr 11/29/23 16:31 11/29/23 20:00 11/30/23 08:00 Temperature 98.0 F 97.6 F Pulse Rate 85 69 Respiratory Rate 17 Blood Pressure 144/87 H 117/76 163/99 H Pulse Oximetry 98 99 Oxygen Delivery Method Room Air Room Air 11/30/23 08:33 11/30/23 08:34 Temperature Pulse Rate Respiratory Rate Blood Pressure 163/99 H 163/99 H Pulse Oximetry Oxygen Delivery Method BMI result Body Mass Index 43.6 Labs 11/23/23 17:03 11/28/23 08:54 Labs: Laboratory Results - last 48 hr 11/28/23 11/28/23 11/28/23 12:25 17:13 20:19 POC Glucose 351 H* 251 H 322 H 11/29/23 11/29/23 11/29/23 08:11 12:35 17:09 POC Glucose 360 H* 292 H 281 H 11/29/23 11/30/23 20:09 08:12 POC Glucose 306 H 359 H* Medications Medications Current Medications Acetaminophen (Acetaminophen 325 Mg Tablet) 650 mg PO Q6H PRN PRN Reason: Headache/Pain Mild Scale (1-3) Last Admin: 11/23/23 22:00 Dose: 650 mg Al Hydroxide/Mg Hydroxide (Magnesium Hydrox/Alum Hydrox 30 Ml Oral.Susp) 30 ml PO Q6H PRN PRN Reason: Heartburn/Nausea Baclofen (Baclofen 10 Mg Tablet) 10 mg PO BID [facility] Last Admin: 11/30/23 08:34 Dose: 10 mg Bupropion HCl (Bupropion Hcl Xl 150 Mg Tab.Er.24h) 150 mg PO DAILY [facility] Last Admin: 11/30/23 08:35 Dose: 150 mg Clonidine HCl (Clonidine Hcl 0.1 Mg Tablet) 0.1 mg PO BID [facility]; Protocol Last Admin: 11/30/23 08:34 Dose: 0.1 mg Clonidine HCl (Clonidine Hcl 0.1 Mg Tablet) 0.1 mg PO BID PRN; Protocol PRN Reason: anxiety Last Admin: 11/29/23 16:31 Dose: 0.1 mg Docusate Sodium (Docusate Sodium 100 Mg Capsule) 100 mg PO BID [facility] Last Admin: 11/29/23 20:24 Dose: 100 mg Gabapentin (Gabapentin 600 Mg Tablet) 600 mg PO TID [facility] Stop: 12/01/23 09:00 Last Admin: 11/30/23 08:35 Dose: 600 mg Gabapentin (Gabapentin 100 Mg Capsule) 100 mg PO TID [facility] Stop: 12/01/23 09:00 Last Admin: 11/30/23 08:33 Dose: 100 mg Gabapentin (Gabapentin 400 Mg Capsule) 800 mg PO TID [facility] Glipizide (Glipizide Xl 10 Mg Tab.Er.24) 10 mg PO DAILY [facility] Last Admin: 11/30/23 08:33 Dose: 10 mg Glucose (Glucose Gel 15 Gm Gel..Gram.) 15 gm PO Q15M PRN; Protocol PRN Reason: per Hypoglycemia Standing Ord. Hydroxyzine HCl (Hydroxyzine Hcl 50 Mg Tablet) 100 mg PO BID [facility] Last Admin: 11/30/23 08:34 Dose: 100 mg Dextrose (D10) 250 mls @ 750 mls/hr IV Q15M PRN; Protocol PRN Reason: per Hypoglycemia Standing Ord. Insulin Glargine (Insulin Glargine,Hum.Rec.Anlog 100 Unit/Ml 10 Ml Vial) 50 unit SUBCUT DAILY [facility] Last Admin: 11/30/23 08:54 Dose: 50 unit Insulin Glargine (Insulin Glargine,Hum.Rec.Anlog 100 Unit/Ml 10 Ml Vial) 60 unit SUBCUT BEDTIME [facility] Last Admin: 11/29/23 20:24 Dose: 60 unit Insulin Human Lispro (Insulin Lispro 100 Unit/Ml 3 Ml Vial) 0 unit SUBCUT QIDACHS [facility]; Protocol Last Admin: 11/30/23 08:52 Dose: 12 unit Insulin Human Lispro (Insulin Lispro 100 Unit/Ml 3 Ml Vial) 20 unit SUBCUT QIDACHS [facility] Last Admin: 11/30/23 08:53 Dose: 20 unit Lisinopril (Lisinopril 5 Mg Tablet) 5 mg PO DAILY [facility]; Protocol Last Admin: 11/30/23 08:33 Dose: 5 mg Magnesium Hydroxide (Milk Of Magnesia 30 Ml Oral.Susp) 30 ml PO DAILY PRN PRN Reason: Constipation Metformin HCl (Metformin Hcl 1,000 Mg Tablet) 1,000 mg PO BIDWM [facility] Last Admin: 11/30/23 08:33 Dose: 1,000 mg Methadone HCl (Methadone Hcl 20 Mg/2 Ml Oral.Conc) 220 mg PO DAILY [facility] Multivitamins/Vitamin C (Multivitamin Tablet) 1 tab PO DAILY [facility] Last Admin: 11/30/23 08:34 Dose: 1 tab Nicotine Polacrilex (Nicotine Polacrilex 2 Mg Gum) 2 mg BUCCAL Q2H PRN PRN Reason: Nicotine Cravings Last Admin: 11/26/23 12:49 Dose: 2 mg Polyethylene Glycol (Polyethylene Glycol 3350 17 Gm Powd.Pack) 17 gm PO DAILY [facility] Last Admin: 11/29/23 11:04 Dose: Not Given Trazodone HCl (Trazodone Hcl 50 Mg Tablet) 50 mg PO BEDTIME MRX1 PRN PRN Reason: Insomnia Last Admin: 11/24/23 20:30 Dose: 50 mg Allergies Allergies Allergy/AdvReac Type Severity Reaction Status Date / Time No Known Allergies Allergy Unverified 02/18/20 19:39 [No Known Allergies*] Assessment & Plan Assessment & Plan (1) Major depressive disorder, recurrent severe without psychotic features: Status: Acute Code(s): F33.2 - Major depressive disorder, recurrent severe without psychotic features (2) Substance dependence: Status: Acute Code(s): F19.20 - Other psychoactive substance dependence, uncomplicated Plan admit to on cv continue medications addiction medicine consult hospitaist consult discharge planning to include LT substance abuse placement if possible, outpatient providers 11/23 continue tx plan 11/24 increase gabapentin to 600mg po TID. scheduled atarax 100mg po BID. Baclofen 10mg po BID. monitor over sedation. 11/25-CMP, TSH, B12,Folate Clonidine prn for anxiety trial Increase Wellbutrin to XL 150-depression, ADHD reported sx. Increase Gabapentin to 700 mg po TID (hx 800 tid per pt report)-anxiety 11/27- Addiction medicine consult, pt request, he would like to increase Methadone. 11/28- Gabapentin scheduled to increase to 800 mg tid on 11/30 11/29 Increase Methadone to 215 11/30 Increase Methadon to 220 Monitor for SE, Sedation 11/29: continue current management and treatment plan. Reason for continued inpatient stay Substantial Risk for: harm to self and rapid decompensation Time Spent With Patient Time: Total time managing care of this patient today ____ minutes.
[2023-11-30] MEDS: Nicotine Polacrilex 2 MG GUM BUCCAL ×2 (11:04→20:09)
[2023-11-30 12:29] LABS: Glucose, Whole Blood 362 mg/dL (60-115)
[2023-11-30] MEDS: Acetaminophen 325 MG TABLET 650 MG PO ×2 (14:14→20:09)
[2023-11-30 14:21] VITALS: BP 128/66
[2023-11-30 17:34] LABS: Glucose, Whole Blood 394 mg/dL (60-115)
[2023-11-30 19:57] LABS: Glucose, Whole Blood 390 mg/dL (60-115)
[2023-11-30 20:00] VITALS: BP 115/57; PULSE 79; RESP 18; TEMP 36.4; O2SAT 97
[2023-11-30 20:02] VITALS: BP 115/57
[2023-11-30] MEDS: Insulin Glargine,Hum.rec.anlog 100 UNIT/ML 10 ML VIAL 65 UNIT SUBCUT (20:08)
[2023-11-30] MEDS: Melatonin 3 MG TABLET 6 MG PO (20:41)
[2023-12-01 08:00] VITALS: BP 140/81; PULSE 70; TEMP 36.4; O2SAT 97
[2023-12-01] MEDS: methADONE HCl 20 MG/2 ML ORAL.CONC 220 MG PO (08:30)
[2023-12-01 08:33] VITALS: BP 140/81
[2023-12-01] MEDS: Multivitamin TABLET 1 TAB PO (08:33)
[2023-12-01] MEDS: glipiZIDE XL 10 MG TAB.ER.24 PO (08:33)
[2023-12-01] MEDS: metFORMIN HCl 1,000 MG TABLET 1000 MG PO ×2 (08:33→18:02)
[2023-12-01] MEDS: lisinopriL 5 MG TABLET PO (08:33)
[2023-12-01] MEDS: Gabapentin 400 MG CAPSULE 800 MG PO ×3 (08:33→20:01)
[2023-12-01] MEDS: hydrOXYzine HCL 50 MG TABLET 100 MG PO ×2 (08:33→20:01)
[2023-12-01 08:34] VITALS: BP 140/81
[2023-12-01] MEDS: cloNIDine HCL 0.1 MG TABLET PO ×3 (08:34→20:01)
[2023-12-01] MEDS: Baclofen 10 MG TABLET PO ×2 (08:34→20:01)
[2023-12-01] MEDS: buPROPion HCl XL 150 MG TAB.ER.24H PO (08:34)
[2023-12-01 08:40] LABS: Glucose, Whole Blood 366 mg/dL (60-115)
[2023-12-01] MEDS: Nicotine Polacrilex 2 MG GUM BUCCAL ×2 (09:08→20:01)
[2023-12-01] MEDS: Insulin Lispro 100 UNIT/ML 3 ML VIAL SUBCUT ×4 (09:09→20:02)
[2023-12-01] MEDS: Insulin Lispro 100 UNIT/ML 3 ML VIAL 20 UNIT SUBCUT ×4 (09:09→20:02)
[2023-12-01] MEDS: Insulin Glargine,Hum.rec.anlog 100 UNIT/ML 10 ML VIAL 55 UNIT SUBCUT (09:46)
[2023-12-01 12:38] LABS: Glucose, Whole Blood 279 mg/dL (60-115)
[2023-12-01 14:54] VITALS: BP 129/80
--- NOTE | 2023-12-01 17:16 | HO.PSYCHPN ---
Subjective Subjective Date of Service: 12/01/23 Reason For Visit: Major depressive disorder, single episode, unspeci Interim History: Patient reports he feels stable and improved since admission. I'm doing pushups and starts doing pushups in the hallway saying he wants to stay in shape. Says he is triggered by another patient that he sees who is nodding off because it triggers his thoughts about drug use and says I want to feel that way too. He is looking to be admitted to a treatment facility ([facility]). Mood overall not irritable. Denies SI/HI/AVH. Engaged in the milieu and social with peers. POC's poorly controlled due to patient's dietary indiscretion. Review of Systems Review of Systems high blood sugar levels Yes all other systems are reviewed and are negative Mental Status Exam Mental Status Exam Patient Appearance: Fatigued Patient Orientation: Person, Place, Time and Situation Level of Consciousness: Alert Patient Behavior: Talkative Mood Description: Depressed and Anxious Affect Description: Flat Patient Cognition Impaired: No Ability to Follow Directions: Good Speech Pattern: Spontaneous Speech Memory Description: Episodic Impaired Diagnostics Vital Signs (24Hr): Vital Signs - 24 hr 11/30/23 20:00 11/30/23 20:02 12/01/23 08:00 Temperature 97.5 F 97.5 F Pulse Rate 79 70 Respiratory Rate 18 Blood Pressure 115/57 L 115/57 L 140/81 H Pulse Oximetry 97 97 Oxygen Delivery Method Room Air Room Air 12/01/23 08:33 12/01/23 08:34 12/01/23 14:54 Temperature Pulse Rate Respiratory Rate Blood Pressure 140/81 H 140/81 H 129/80 Pulse Oximetry Oxygen Delivery Method BMI result Body Mass Index 43.6 Labs 11/23/23 17:03 11/28/23 08:54 Labs: Laboratory Results - last 48 hr 11/29/23 11/30/23 11/30/23 20:09 08:12 12:14 POC Glucose 306 H 359 H* 362 H* 11/30/23 11/30/23 12/01/23 17:13 19:49 08:24 POC Glucose 394 H* 390 H* 366 H* 12/01/23 12:20 POC Glucose 279 H Medications Medications Current Medications Acetaminophen (Acetaminophen 325 Mg Tablet) 650 mg PO Q6H PRN PRN Reason: Headache/Pain Mild Scale (1-3) Last Admin: 11/30/23 20:09 Dose: 650 mg Al Hydroxide/Mg Hydroxide (Magnesium Hydrox/Alum Hydrox 30 Ml Oral.Susp) 30 ml PO Q6H PRN PRN Reason: Heartburn/Nausea Baclofen (Baclofen 10 Mg Tablet) 10 mg PO BID [facility] Last Admin: 12/01/23 08:34 Dose: 10 mg Bupropion HCl (Bupropion Hcl Xl 150 Mg Tab.Er.24h) 150 mg PO DAILY [facility] Last Admin: 12/01/23 08:34 Dose: 150 mg Clonidine HCl (Clonidine Hcl 0.1 Mg Tablet) 0.1 mg PO BID [facility]; Protocol Last Admin: 12/01/23 08:34 Dose: 0.1 mg Clonidine HCl (Clonidine Hcl 0.1 Mg Tablet) 0.1 mg PO BID PRN; Protocol PRN Reason: anxiety Last Admin: 12/01/23 14:54 Dose: 0.1 mg Docusate Sodium (Docusate Sodium 100 Mg Capsule) 100 mg PO BID [facility] Last Admin: 12/01/23 09:48 Dose: Not Given Gabapentin (Gabapentin 400 Mg Capsule) 800 mg PO TID [facility] Last Admin: 12/01/23 14:54 Dose: 800 mg Glipizide (Glipizide Xl 10 Mg Tab.Er.24) 10 mg PO DAILY [facility] Last Admin: 12/01/23 08:33 Dose: 10 mg Glucose (Glucose Gel 15 Gm Gel..Gram.) 15 gm PO Q15M PRN; Protocol PRN Reason: per Hypoglycemia Standing Ord. Hydroxyzine HCl (Hydroxyzine Hcl 50 Mg Tablet) 100 mg PO BID [facility] Last Admin: 12/01/23 08:33 Dose: 100 mg Dextrose (D10) 250 mls @ 750 mls/hr IV Q15M PRN; Protocol PRN Reason: per Hypoglycemia Standing Ord. Insulin Glargine (Insulin Glargine,Hum.Rec.Anlog 100 Unit/Ml 10 Ml Vial) 65 unit SUBCUT BEDTIME [facility] Last Admin: 11/30/23 20:08 Dose: 65 unit Insulin Glargine (Insulin Glargine,Hum.Rec.Anlog 100 Unit/Ml 10 Ml Vial) 55 unit SUBCUT DAILY [facility] Last Admin: 12/01/23 09:46 Dose: 55 unit Insulin Human Lispro (Insulin Lispro 100 Unit/Ml 3 Ml Vial) 0 unit SUBCUT QIDACHS [facility]; Protocol Last Admin: 12/01/23 12:55 Dose: 8 unit Insulin Human Lispro (Insulin Lispro 100 Unit/Ml 3 Ml Vial) 20 unit SUBCUT QIDACHS [facility] Last Admin: 12/01/23 12:55 Dose: 20 unit Lidocaine HCl (Lidocaine Hcl Viscous 2 % 15 Ml Solution) 15 ml MUCOUS MEM QID PRN PRN Reason: TOOTHACHE Lisinopril (Lisinopril 5 Mg Tablet) 5 mg PO DAILY [facility]; Protocol Last Admin: 12/01/23 08:33 Dose: 5 mg Magnesium Hydroxide (Milk Of Magnesia 30 Ml Oral.Susp) 30 ml PO DAILY PRN PRN Reason: Constipation Melatonin (Melatonin 3 Mg Tablet) 6 mg PO BEDTIME [facility] Last Admin: 11/30/23 20:41 Dose: 6 mg Metformin HCl (Metformin Hcl 1,000 Mg Tablet) 1,000 mg PO BIDWM [facility] Last Admin: 12/01/23 08:33 Dose: 1,000 mg Methadone HCl (Methadone Hcl 20 Mg/2 Ml Oral.Conc) 220 mg PO DAILY [facility] Last Admin: 12/01/23 08:30 Dose: 220 mg Multivitamins/Vitamin C (Multivitamin Tablet) 1 tab PO DAILY [facility] Last Admin: 12/01/23 08:33 Dose: 1 tab Nicotine Polacrilex (Nicotine Polacrilex 2 Mg Gum) 2 mg BUCCAL Q2H PRN PRN Reason: Nicotine Cravings Last Admin: 12/01/23 09:08 Dose: 2 mg Polyethylene Glycol (Polyethylene Glycol 3350 17 Gm Powd.Pack) 17 gm PO DAILY [facility] Last Admin: 12/01/23 09:49 Dose: Not Given Trazodone HCl (Trazodone Hcl 50 Mg Tablet) 50 mg PO BEDTIME MRX1 PRN PRN Reason: Insomnia Last Admin: 11/24/23 20:30 Dose: 50 mg Allergies Allergies Allergy/AdvReac Type Severity Reaction Status Date / Time No Known Allergies Allergy Unverified 02/18/20 19:39 [No Known Allergies*] Assessment & Plan Assessment & Plan (1) Major depressive disorder, recurrent severe without psychotic features: Status: Acute Code(s): F33.2 - Major depressive disorder, recurrent severe without psychotic features (2) Substance dependence: Status: Acute Code(s): F19.20 - Other psychoactive substance dependence, uncomplicated Plan admit to [facility] on cv continue medications addiction medicine consult hospitaist consult discharge planning to include LT substance abuse placement if possible, outpatient providers 11/23 continue tx plan 11/24 increase gabapentin to 600mg po TID. scheduled atarax 100mg po BID. Baclofen 10mg po BID. monitor over sedation. 11/25-CMP, TSH, B12,Folate Clonidine prn for anxiety trial Increase Wellbutrin to XL 150-depression, ADHD reported sx. Increase Gabapentin to 700 mg po TID (hx 800 tid per pt report)-anxiety 11/27- Addiction medicine consult, pt request, he would like to increase Methadone. 11/28- Gabapentin scheduled to increase to 800 mg tid on 11/30 11/29 Increase Methadone to 215 11/30 Increase Methadon to 220 Monitor for SE, Sedation 11/29: continue current management and treatment plan. 11/30: continue current management and treatment plan. Reason for continued inpatient stay Substantial Risk for: harm to others, inability to function and rapid decompensation Time Spent With Patient Time: Total time managing care of this patient today ____ minutes.
[2023-12-01 17:36] LABS: Glucose, Whole Blood 233 mg/dL (60-115)
[2023-12-01 20:00] VITALS: BP 121/63; PULSE 82; RESP 18; TEMP 36.8; O2SAT 95
[2023-12-01 20:00] LABS: Glucose, Whole Blood 301 mg/dL (60-115)
[2023-12-01] MEDS: Melatonin 3 MG TABLET 6 MG PO (20:01)
[2023-12-01] MEDS: Acetaminophen 325 MG TABLET 650 MG PO (20:01)
[2023-12-01] MEDS: Insulin Glargine,Hum.rec.anlog 100 UNIT/ML 10 ML VIAL 65 UNIT SUBCUT (20:02)
[2023-12-02 08:00] VITALS: BP 129/72; PULSE 70; RESP 18; TEMP 36.4; O2SAT 100
[2023-12-02 08:01] LABS: Glucose, Whole Blood 343 mg/dL (60-115)
[2023-12-02] MEDS: Insulin Lispro 100 UNIT/ML 3 ML VIAL SUBCUT ×4 (08:16→20:55)
[2023-12-02] MEDS: Insulin Lispro 100 UNIT/ML 3 ML VIAL 20 UNIT SUBCUT ×4 (08:17→20:54)
[2023-12-02] MEDS: Insulin Glargine,Hum.rec.anlog 100 UNIT/ML 10 ML VIAL 55 UNIT SUBCUT (08:17)
[2023-12-02] MEDS: methADONE HCl 20 MG/2 ML ORAL.CONC 220 MG PO (08:21)
[2023-12-02] MEDS: Gabapentin 400 MG CAPSULE 800 MG PO ×3 (08:24→20:22)
[2023-12-02] MEDS: Baclofen 10 MG TABLET PO ×2 (08:25→20:23)
[2023-12-02] MEDS: glipiZIDE XL 10 MG TAB.ER.24 PO (08:25)
[2023-12-02] MEDS: buPROPion HCl XL 150 MG TAB.ER.24H PO (08:26)
[2023-12-02] MEDS: Multivitamin TABLET 1 TAB PO (08:26)
[2023-12-02] MEDS: hydrOXYzine HCL 50 MG TABLET 100 MG PO ×2 (08:26→20:23)
[2023-12-02 08:27] VITALS: BP 129/72
[2023-12-02] MEDS: cloNIDine HCL 0.1 MG TABLET PO ×3 (08:27→20:23)
[2023-12-02] MEDS: metFORMIN HCl 1,000 MG TABLET 1000 MG PO ×2 (08:27→18:15)
[2023-12-02 08:44] VITALS: BP 129/72
[2023-12-02] MEDS: lisinopriL 5 MG TABLET PO (08:44)
[2023-12-02] MEDS: Nicotine Polacrilex 2 MG GUM BUCCAL ×3 (09:47→20:52)
[2023-12-02 12:00] LABS: Glucose, Whole Blood 365 mg/dL (60-115)
[2023-12-02] MEDS: Insulin Glargine,Hum.rec.anlog 100 UNIT/ML 10 ML VIAL 10 UNIT SUBCUT (12:04)
[2023-12-02 14:20] VITALS: BP 120/82
--- NOTE | 2023-12-02 16:28 | P.PNPSI_ITS ---
Subjective Subjective Date of Service: 12/02/23 Reason For Visit: Major depressive disorder, single episode, unspeci Subjective Notes: Conditional Voluntary Healthcare Proxy: No Guardianship: No Medical Problems Affecting Mental Status: No Interim History: Discussed discharge today with pt who refuses to leave until he is accepted to a program. I will not survive if you do not get me a program . Pt given lists of programs to reach out to by team. Denies SI/HI/AH/VH or active sx. I just need a program to help me stay clean and sober. Medication Compliance: Yes Side effects from medications: No Attending Groups: Intermittent Review of Systems Acute medical concerns: No Medical Review of Systems: unchanged Review of Systems Review of Systems Variable blood sugar levels Yes all other systems are reviewed and are negative Mental Status Exam Mental Status Exam Patient Appearance: Fatigued Patient Orientation: Person, Place, Time and Situation Level of Consciousness: Alert Patient Behavior: Talkative Mood Description: Anxious Affect Description: Flat Patient Cognition Impaired: No Ability to Follow Directions: Good Speech Pattern: Spontaneous Speech Memory Description: Episodic Impaired Diagnostics Vital Signs (24Hr): Vital Signs - 24 hr 12/01/23 20:00 12/02/23 08:00 12/02/23 08:27 Temperature 98.2 F 97.6 F Pulse Rate 82 70 Respiratory Rate 18 18 Blood Pressure 121/63 129/72 129/72 Pulse Oximetry 95 100 Oxygen Delivery Method Room Air Room Air 12/02/23 08:44 12/02/23 14:20 Temperature Pulse Rate Respiratory Rate Blood Pressure 129/72 120/82 Pulse Oximetry Oxygen Delivery Method BMI result Body Mass Index 43.6 Labs 11/23/23 17:03 11/28/23 08:54 Labs: Laboratory Results - last 48 hr 11/30/23 11/30/23 12/01/23 17:13 19:49 08:24 POC Glucose 394 H* 390 H* 366 H* 12/01/23 12/01/23 12/01/23 12:20 17:24 19:57 POC Glucose 279 H 233 H 301 H 12/02/23 12/02/23 07:57 11:56 POC Glucose 343 H 365 H* Medications Medications Current Medications Acetaminophen (Acetaminophen 325 Mg Tablet) 650 mg PO Q6H PRN PRN Reason: Headache/Pain Mild Scale (1-3) Last Admin: 06/30/24 20:01 Dose: 650 mg Al Hydroxide/Mg Hydroxide (Magnesium Hydrox/Alum Hydrox 30 Ml Oral.Susp) 30 ml PO Q6H PRN PRN Reason: Heartburn/Nausea Baclofen (Baclofen 10 Mg Tablet) 10 mg PO BID [facility] BEDS AT [facility] Last Admin: 12/02/23 08:25 Dose: 10 mg Bupropion HCl (Bupropion Hcl Xl 150 Mg Tab.Er.24h) 150 mg PO DAILY [facility] 234 BEDS AT [facility] Last Admin: 12/02/23 08:26 Dose: 150 mg Clonidine HCl (Clonidine Hcl 0.1 Mg Tablet) 0.1 mg PO BID [facility] 234 BEDS AT [facility]; Protocol Last Admin: 12/02/23 08:27 Dose: 0.1 mg Clonidine HCl (Clonidine Hcl 0.1 Mg Tablet) 0.1 mg PO BID PRN; Protocol PRN Reason: anxiety Last Admin: 12/02/23 14:20 Dose: 0.1 mg Docusate Sodium (Docusate Sodium 100 Mg Capsule) 100 mg PO BID [facility] 234 BEDS AT [facility] Last Admin: 12/02/23 08:43 Dose: Not Given Gabapentin (Gabapentin 400 Mg Capsule) 800 mg PO TID [facility]CLUDE 234 BEDS AT [facility] Last Admin: 12/02/23 14:17 Dose: 800 mg Glipizide (Glipizide Xl 10 Mg Tab.Er.24) 10 mg PO DAILY [facility] 234 BEDS AT [facility] Last Admin: 12/02/23 08:25 Dose: 10 mg Glucose (Glucose Gel 15 Gm Gel..Gram.) 15 gm PO Q15M PRN; Protocol PRN Reason: per Hypoglycemia Standing Ord. Hydroxyzine HCl (Hydroxyzine Hcl 50 Mg Tablet) 100 mg PO BID [facility] 234 BEDS AT [facility] Last Admin: 12/02/23 08:26 Dose: 100 mg Dextrose (D10) 250 mls @ 750 mls/hr IV Q15M PRN; Protocol PRN Reason: per Hypoglycemia Standing Ord. Insulin Glargine (Insulin Glargine,Hum.Rec.Anlog 100 Unit/Ml 10 Ml Vial) 70 unit SUBCUT BEDTIME [facility]S INCLUDE 234 BEDS AT [facility] Last Admin: 12/01/23 23:59 Dose: Not Given Insulin Glargine (Insulin Glargine,Hum.Rec.Anlog 100 Unit/Ml 10 Ml Vial) 10 unit SUBCUT DAILY [facility]CLUDE 234 BEDS AT [facility] Insulin Human Lispro (Insulin Lispro 100 Unit/Ml 3 Ml Vial) 0 unit SUBCUT QIDACHS [facility]S INCLUDE 234 BEDS AT [facility]; Protocol Last Admin: 12/02/23 12:05 Dose: 12 unit Insulin Human Lispro (Insulin Lispro 100 Unit/Ml 3 Ml Vial) 20 unit SUBCUT QIDACHS [facility]S [facility]CLUDE 234 BEDS AT [facility] Last Admin: 12/02/23 12:05 Dose: 20 unit Lidocaine HCl (Lidocaine Hcl Viscous 2 % 15 Ml Solution) 15 ml MUCOUS MEM QID PRN PRN Reason: TOOTHACHE Lisinopril (Lisinopril 5 Mg Tablet) 5 mg PO DAILY [facility] 234 BEDS AT [facility]; Protocol Last Admin: 12/02/23 08:44 Dose: 5 mg Magnesium Hydroxide (Milk Of Magnesia 30 Ml Oral.Susp) 30 ml PO DAILY PRN PRN Reason: Constipation Melatonin (Melatonin 3 Mg Tablet) 6 mg PO BEDTIME COUNTS INCLUDE 234 BEDS AT [facility] Last Admin: 12/01/23 20:01 Dose: 6 mg Metformin HCl (Metformin Hcl 1,000 Mg Tablet) 1,000 mg PO BIDWM COUNTS INCLUDE 234 BEDS AT [facility] Last Admin: 12/02/23 08:27 Dose: 1,000 mg Methadone HCl (Methadone Hcl 20 Mg/2 Ml Oral.Conc) 220 mg PO DAILY [facility] 234 BEDS AT [facility] Last Admin: 12/02/23 08:21 Dose: 220 mg Multivitamins/Vitamin C (Multivitamin Tablet) 1 tab PO DAILY [facility]CLUDE 234 BEDS AT [facility] Last Admin: 12/02/23 08:26 Dose: 1 tab Nicotine Polacrilex (Nicotine Polacrilex 2 Mg Gum) 2 mg BUCCAL Q2H PRN PRN Reason: Nicotine Cravings Last Admin: 12/02/23 14:20 Dose: 2 mg Polyethylene Glycol (Polyethylene Glycol 3350 17 Gm Powd.Pack) 17 gm PO DAILY [facility]S INCLUDE 234 BEDS AT [facility] Last Admin: 12/02/23 08:42 Dose: Not Given Trazodone HCl (Trazodone Hcl 50 Mg Tablet) 50 mg PO BEDTIME MRX1 PRN PRN Reason: Insomnia Last Admin: 11/24/23 20:30 Dose: 50 mg Allergies Allergies Allergy/AdvReac Type Severity Reaction Status Date / Time No Known Allergies Allergy Unverified 02/18/20 19:39 [No Known Allergies*] Assessment & Plan Assessment & Plan (1) Major depressive disorder, recurrent severe without psychotic features: Status: Acute Code(s): F33.2 - Major depressive disorder, recurrent severe without psychotic features (2) Substance dependence: Status: Acute Code(s): F19.20 - Other psychoactive substance dependence, uncomplicated Plan admit to on cv continue medications addiction medicine consult hospitaist consult discharge planning to include LT substance abuse placement if possible, outpatient providers 11/23 continue tx plan 11/24 increase gabapentin to 600mg po TID. scheduled atarax 100mg po BID. Baclofen 10mg po BID. monitor over sedation. 11/25-CMP, TSH, B12,Folate Clonidine prn for anxiety trial Increase Wellbutrin to XL 150-depression, ADHD reported sx. Increase Gabapentin to 700 mg po TID (hx 800 tid per pt report)-anxiety 11/27- Addiction medicine consult, pt request, he would like to increase Methadone. 11/28- Gabapentin scheduled to increase to 800 mg tid on 11/30 11/29 Increase Methadone to 215 11/30 Increase Methadone to 220 Monitor for SE, Sedation 11/29: continue current management and treatment plan. 11/30: continue current management and treatment plan. 12/01 : No changes to regime today. Reason for continued inpatient stay Substantial Risk for: rapid decompensation and med/psych decompensation Time Spent With Patient Time: Total time managing care of this patient today ____ minutes.
[2023-12-02 17:53] LABS: Glucose, Whole Blood 345 mg/dL (60-115)
[2023-12-02 20:00] VITALS: BP 126/81; PULSE 84; RESP 16; O2SAT 96
[2023-12-02 20:21] LABS: Glucose, Whole Blood 365 mg/dL (60-115)
[2023-12-02] MEDS: Melatonin 3 MG TABLET 6 MG PO (20:22)
[2023-12-02] MEDS: Docusate Sodium 100 MG CAPSULE PO (20:23)
--- NOTE | 2023-12-02 20:29 | PC.NURSE ---
Provider notified of elevated POC, 365.
[2023-12-02] MEDS: Insulin Glargine,Hum.rec.anlog 100 UNIT/ML 10 ML VIAL 70 UNIT SUBCUT (20:53)
[2023-12-03 08:00] VITALS: BP 120/72; PULSE 85; TEMP 36.1; O2SAT 98
[2023-12-03 08:25] LABS: Glucose, Whole Blood 274 mg/dL (60-115)
[2023-12-03] MEDS: methADONE HCl 20 MG/2 ML ORAL.CONC 220 MG PO (08:30)
[2023-12-03] MEDS: lisinopriL 5 MG TABLET PO (08:32)
[2023-12-03] MEDS: cloNIDine HCL 0.1 MG TABLET PO ×2 (08:32→12:48)
[2023-12-03] MEDS: buPROPion HCl XL 150 MG TAB.ER.24H PO (08:32)
[2023-12-03] MEDS: Multivitamin TABLET 1 TAB PO (08:32)
[2023-12-03] MEDS: hydrOXYzine HCL 50 MG TABLET 100 MG PO (08:32)
[2023-12-03] MEDS: Baclofen 10 MG TABLET PO (08:32)
[2023-12-03] MEDS: metFORMIN HCl 1,000 MG TABLET 1000 MG PO (08:33)
[2023-12-03] MEDS: Gabapentin 400 MG CAPSULE 800 MG PO ×2 (08:33→13:28)
[2023-12-03] MEDS: glipiZIDE XL 10 MG TAB.ER.24 PO (08:33)
[2023-12-03] MEDS: Insulin Lispro 100 UNIT/ML 3 ML VIAL SUBCUT ×2 (08:36→12:50)
[2023-12-03] MEDS: Insulin Lispro 100 UNIT/ML 3 ML VIAL 20 UNIT SUBCUT (08:36)
[2023-12-03] MEDS: Insulin Glargine,Hum.rec.anlog 100 UNIT/ML 10 ML VIAL 10 UNIT SUBCUT (08:36)
[2023-12-03] MEDS: Insulin Glargine,Hum.rec.anlog 100 UNIT/ML 10 ML VIAL 55 UNIT SUBCUT (09:50)
[2023-12-03 12:28] LABS: Glucose, Whole Blood 379 mg/dL (60-115)
[2023-12-03 12:48] VITALS: BP 127/76
[2023-12-03] MEDS: Insulin Lispro 100 UNIT/ML 3 ML VIAL 25 UNIT SUBCUT (12:49)
[2023-12-03] MEDS: Nicotine Polacrilex 2 MG GUM BUCCAL (13:28)
--- NOTE | 2023-12-03 16:59 | PM.PSYDC ---
DS: Providers Provider Date of Service: 12/03/23 Date of admission: 11/22/23 18:43 Date of discharge: 12/03/23 Primary care physician: Unknown Physician Admitting clinician: Lizbet Saldana Attending physician on admission: Winston Preston Consults: 11/22/23 17:17 Consult to Hospitalist Routine Comment: Consulting Provider: Hospitalist Reason For Exam: new admit 11/23/23 07:43 Addiction Medicine Routine Consulting Provider: Addiction Covering Reason for consultation: IV opiod use; daily Etoh use, open to intervention Has provider been notified: No 11/27/23 13:02 Addiction Medicine Routine Consulting Provider: Addiction Covering Reason for consultation: Pt would like to discuss methadone increase Has provider been notified: No 11/28/23 20:06 Addiction Medicine Routine Consulting Provider: Addiction Covering Reason for consultation: pt would like to discuss a methadone increase Has provider been notified: No Attending physician on discharge: Winston Preston Discharging clinician: Minoo Ennis DS: Diagnosis Discharge Diagnosis (1) Major depressive disorder, recurrent severe without psychotic features: Status: Acute (2) Substance dependence: Status: Acute DS: Medications Discharge Medications Home Medications: Previous Rx's ?Medication ?Instructions ?Recorded baclofen 10 mg tablet 10 mg PO BID #14 tabs 12/03/23 bupropion HCl 150 mg 24 hr tablet, 150 mg PO DAILY #30 tabs 12/03/23 extended release clonidine HCl 0.1 mg tablet 0.1 mg PO BID #14 tabs 12/03/23 docusate sodium 100 mg capsule 100 mg PO BID #60 caps 12/03/23 gabapentin 400 mg capsule 800 mg (2 x 400 mg) PO TID #42 caps 12/03/23 glipizide 10 mg tablet, extended 10 mg PO DAILY #90 tabs 12/03/23 release 24 hr hydroxyzine HCl 50 mg tablet 100 mg (2 x 50 mg) PO BID #14 tabs 12/03/23 insulin glargine 100 unit/mL (3 30 unit (0.3 mL) subcut BID #45 mL 12/03/23 mL) subcutaneous pen (Lantus Solostar U-100 Insulin) insulin lispro 100 unit/mL See Protocol subcut QIDACHS #45 mL 12/03/23 subcutaneous pen (Admelog SoloStar U-100 Insulin lispro) lisinopril 5 mg tablet 5 mg PO DAILY #30 tabs 12/03/23 melatonin 3 mg tablet 6 mg (2 x 3 mg) PO BEDTIME #60 tabs 12/03/23 metformin 1,000 mg tablet 1,000 mg PO BIDWM #60 tabs 12/03/23 methadone 10 mg/mL oral 220 mg (22 mL) PO DAILY #0 mL 12/03/23 concentrate (Methadose) multivitamin (Daily-Abdiel tablet) 1 tab PO DAILY #30 tabs 12/03/23 naloxone 4 mg/actuation nasal 4 mg intranasal Q2M PRN opioid 12/03/23 spray (Narcan) overdose #2 ea nicotine (polacrilex) 2 mg gum 2 mg buccal Q2H PRN Nicotine 12/03/23 Cravings #100 ea polyethylene glycol 3350 17 gram 17 g PO DAILY #30 packets 12/03/23 oral powder packet trazodone 50 mg tablet 50 mg PO BEDTIME MRX1 PRN Insomnia 12/03/23 #60 tabs Mental Status Exam Mental Status Exam Patient Appearance: Appropriate Patient Orientation: Person, Place, Time and Situation Level of Consciousness: Alert Patient Behavior: Talkative Mood Description: Anxious Affect Description: Flat Patient Cognition Impaired: No Ability to Follow Directions: Good Speech Pattern: Spontaneous Speech Memory Description: Episodic Impaired Hallucinations: None Delusions: Not Present Judgement: Good Data Data Completed and Pending Completed studies during hospitalization [Text1]: 11/23/23 11/26/23 11/26/23 17:02 17:56 20:19 Sodium Potassium Chloride Carbon Dioxide Anion Gap BUN Creatinine Estim Creat Clear Calc Estimated GFR POC Glucose 280 H 290 H Random Glucose Calcium Total Bilirubin AST ALT Alkaline Phosphatase Total Protein Albumin TSH Hep C Viral Load 8589374 H Hep C Viral Load Log 6.67 H 11/27/23 11/27/23 11/27/23 07:54 12:00 17:07 Sodium Potassium Chloride Carbon Dioxide Anion Gap BUN Creatinine Estim Creat Clear Calc Estimated GFR POC Glucose 251 H 314 H 276 H Random Glucose Calcium Total Bilirubin AST ALT Alkaline Phosphatase Total Protein Albumin TSH Hep C Viral Load Hep C Viral Load Log 11/27/23 11/27/23 11/28/23 20:25 20:56 08:37 Sodium Potassium Chloride Carbon Dioxide Anion Gap BUN Creatinine Estim Creat Clear Calc Estimated GFR POC Glucose 293 H 309 H 377 H* Random Glucose Calcium Total Bilirubin AST ALT Alkaline Phosphatase Total Protein Albumin TSH Hep C Viral Load Hep C Viral Load Log 11/28/23 11/28/23 11/28/23 08:54 12:25 17:13 Sodium 133 L Potassium 4.9 Chloride 100 Carbon Dioxide 26 Anion Gap 12 BUN 18 H Creatinine 0.95 Estim Creat Clear Calc 136.1 Estimated GFR > 60 POC Glucose 351 H* 251 H Random Glucose 386 H* Calcium 9.8 Total Bilirubin 0.2 AST 63 H ALT 97 H Alkaline Phosphatase 307 H Total Protein 9.2 H Albumin 3.6 TSH 2.33 Hep C Viral Load Hep C Viral Load Log 11/28/23 11/29/23 11/29/23 20:19 08:11 12:35 Sodium Potassium Chloride Carbon Dioxide Anion Gap BUN Creatinine Estim Creat Clear Calc Estimated GFR POC Glucose 322 H 360 H* 292 H Random Glucose Calcium Total Bilirubin AST ALT Alkaline Phosphatase Total Protein Albumin TSH Hep C Viral Load Hep C Viral Load Log 11/29/23 11/29/23 11/30/23 17:09 20:09 08:12 Sodium Potassium Chloride Carbon Dioxide Anion Gap BUN Creatinine Estim Creat Clear Calc Estimated GFR POC Glucose 281 H 306 H 359 H* Random Glucose Calcium Total Bilirubin AST ALT Alkaline Phosphatase Total Protein Albumin TSH Hep C Viral Load Hep C Viral Load Log 11/30/23 11/30/23 11/30/23 12:14 17:13 19:49 Sodium Potassium Chloride Carbon Dioxide Anion Gap BUN Creatinine Estim Creat Clear Calc Estimated GFR POC Glucose 362 H* 394 H* 390 H* Random Glucose Calcium Total Bilirubin AST ALT Alkaline Phosphatase Total Protein Albumin TSH Hep C Viral Load Hep C Viral Load Log 12/01/23 12/01/23 12/01/23 08:24 12:20 17:24 Sodium Potassium Chloride Carbon Dioxide Anion Gap BUN Creatinine Estim Creat Clear Calc Estimated GFR POC Glucose 366 H* 279 H 233 H Random Glucose Calcium Total Bilirubin AST ALT Alkaline Phosphatase Total Protein Albumin TSH Hep C Viral Load Hep C Viral Load Log 12/01/23 12/02/23 12/02/23 19:57 07:57 11:56 Sodium Potassium Chloride Carbon Dioxide Anion Gap BUN Creatinine Estim Creat Clear Calc Estimated GFR POC Glucose 301 H 343 H 365 H* Random Glucose Calcium Total Bilirubin AST ALT Alkaline Phosphatase Total Protein Albumin TSH Hep C Viral Load Hep C Viral Load Log 12/02/23 12/02/23 12/03/23 17:45 20:15 08:10 Sodium Potassium Chloride Carbon Dioxide Anion Gap BUN Creatinine Estim Creat Clear Calc Estimated GFR POC Glucose 345 H 365 H* 274 H Random Glucose Calcium Total Bilirubin AST ALT Alkaline Phosphatase Total Protein Albumin TSH Hep C Viral Load Hep C Viral Load Log 12/03/23 12:20 Sodium Potassium Chloride Carbon Dioxide Anion Gap BUN Creatinine Estim Creat Clear Calc Estimated GFR POC Glucose 379 H* Random Glucose Calcium Total Bilirubin AST ALT Alkaline Phosphatase Total Protein Albumin TSH Hep C Viral Load Hep C Viral Load Log DS: Summary Hospital Course Hospital Course: Admission to adult psychiatry for exacerbation of recurrent major depression, opiate use disorder (currently on Methadone), polysubstance use disorder, and diabetes, poorly controlled. Pt reported SI prior to admission due to the recent of his mother, an upcoming court date on 11/30/23 and having no supports or providers. Medications were evaluated and adjusted. Hospitalist team made several interventions to manage diabetes, however, pt's compliance remained poor, so ongoing stability was a daily challenge. Pt was offered full milieu treatment. Discharge planning was completed with a plan to admit to respite and [facility] for out patient psychiatric care and therapy. Pt reports to team he will choose his own PCP upon discharge. Time spent discussing smoking cessation with patient: 3 to 10 minutes Status at Discharge Functional status at discharge: independent ambulation Overall status at discharge: patient is progressing back to baseline Time Spent with Patient Time attestation: Total time managing care of this patient today ____ minutes. Time spent: Less than 30 minutes Discharge Plan Discharge Anticipated Discharge Date/Time: 12/03/23 12:00 Patient Disposition: Xfer Other Discharge Diagnosis: Opiate Dependence-Methadone Maintenance Polysubstance Use Disorder Recurrent Major Depression Referrals: [facility]-Marcell Epps (Therapy Intake) [Other] - 12/10/23 11:00 am [facility]- Ayaz (Medication Provider [Other] - 01/09/24 12:00 pm Discharge Medications: New trazodone 50 mg Tablet 50 mg PO BEDTIME MRX1 PRN (Reason: Insomnia) Qty: 60 0RF polyethylene glycol 3350 17 gram Powder In Packet 17 g PO DAILY Qty: 30 0RF nicotine (polacrilex) 2 mg Gum 2 mg buccal Q2H PRN (Reason: Nicotine Cravings) Qty: 100 0RF gabapentin 400 mg Capsule 800 mg PO TID Qty: 42 4RF hydroxyzine HCl 50 mg Tablet 100 mg PO BID Qty: 14 4RF baclofen 10 mg Tablet 10 mg PO BID Qty: 14 4RF docusate sodium 100 mg Capsule 100 mg PO BID Qty: 60 0RF methadone [Methadose] 10 mg/mL Concentrate 220 mg PO DAILY Qty: 0 0RF Rx Instructions: Partial Fill upon patient request. bupropion HCl 150 mg Tablet Extended Release 24 Hr 150 mg PO DAILY Qty: 30 0RF multivitamin [Daily-Abdiel] Tablet 1 tab PO DAILY Qty: 30 0RF melatonin 3 mg Tablet 6 mg PO BEDTIME Qty: 60 0RF glipizide 10 mg tablet extended release 24hr 10 mg PO DAILY Qty: 90 0RF metformin 1,000 mg Tablet 1,000 mg PO BIDWM Qty: 60 0RF insulin lispro [Admelog SoloStar U-100 Insulin] 100 unit/mL insulin pen See Protocol subcut QIDACHS Qty: 45 0RF Protocol: Insulin Resistant 1st 24 hours Less than or equal to 110 ---- Give (units): 0 111 to 150 Give (units): 4 151 to 200 Give (units): 6 201 to 250 Give (units): 8 251 to 300 Give (units): 12 301 to 350 Give (units): 16 Greater than 350 Give (units): 20 Call MD if Blood Glucose > : 350 Rx Instructions: Daily max dose 80 units naloxone [Narcan] 4 mg/actuation spray,non-aerosol 4 mg intranasal Q2M PRN (Reason: opioid overdose) Qty: 2 0RF Rx Instructions: spray 1 dose into ONE nostril; alternate nostrils w each dose until help arrives Continued clonidine HCl 0.1 mg Tablet 0.1 mg PO BID Qty: 14 4RF lisinopril 5 mg Tablet 5 mg PO DAILY Qty: 30 0RF Changed insulin glargine [Lantus Solostar U-100 Insulin] 100 unit/mL (3 mL) Insulin Pen 30 unit SUBCUT BID Qty: 45 3RF Discontinued insulin lispro 100 units solution See Rx Instructions .ROUTE .COMPLEX Rx Instructions: 2 to 18 units per sliding scale (not provided by pharmacy) hydroxyzine pamoate 100 mg Capsule 100 mg PO BEDTIME bupropion HCl 75 mg Tablet 150 mg PO BID gabapentin 300 mg Capsule 300 mg PO TID cyclobenzaprine 5 mg Tablet 5 mg PO 2XD Lantus Solostar U-100 Insulin 20 units 1XD Rx Instructions: with breakfast metformin 1,000 mg tablet 2XD Discharge Orders: Discharge Order (Routine); Ordered 12/03/23 Ordered By: Minoo Ennis Diet: Advance to usual diet Activity on Discharge: As tolerated Stand Alone Forms: Patient Portal Discharge page, Community Support Print Language: Wolof Care Plan Goals: Mood and Behavioral Stabilization Sobriety Health Concerns: Mood and Behavioral Stabilization Sobriety Compliance with medical regime Plan of Treatment: Attend scheduled appointments Take medications as directed Assessment: Scheduled discharge to respite today Discharge Date/Time: 12/03/23 13:41
--- NOTE | 2023-12-05 08:45 | HO.PSYCHPN ---
Subjective Subjective Date of Service: 12/03/23 Reason For Visit: Major depressive disorder, single episode, unspeci Subjective Notes: Conditional Voluntary Healthcare Proxy: No Guardianship: No Medical Problems Affecting Mental Status: No Interim History: Denies SI/HI/AH/VH. Non compliant with diabetic plan of care Visable in milieu Medication Compliance: Yes Side effects from medications: No Attending Groups: Intermittent Review of Systems Acute medical concerns: No Medical Review of Systems: unchanged Review of Systems Review of Systems Yes all other systems are reviewed and are negative Mental Status Exam Mental Status Exam Patient Appearance: Fatigued Patient Orientation: Person, Place, Time and Situation Level of Consciousness: Alert Patient Behavior: Talkative Mood Description: Anxious Affect Description: Flat Patient Cognition Impaired: No Ability to Follow Directions: Good Speech Pattern: Spontaneous Speech Memory Description: Episodic Impaired Diagnostics Vital Signs (24Hr): BMI result Body Mass Index 43.6 Labs 11/23/23 17:03 11/28/23 08:54 Labs: Laboratory Results - last 48 hr 12/03/23 12:20 POC Glucose 379 H* Medications Allergies Allergies Allergy/AdvReac Type Severity Reaction Status Date / Time No Known Allergies Allergy Unverified 02/18/20 19:39 [No Known Allergies*] Assessment & Plan Assessment & Plan (1) Major depressive disorder, recurrent severe without psychotic features: Status: Acute Code(s): F33.2 - Major depressive disorder, recurrent severe without psychotic features (2) Substance dependence: Status: Acute Code(s): F19.20 - Other psychoactive substance dependence, uncomplicated Plan admit to [facility] on cv continue medications addiction medicine consult hospitaist consult discharge planning to include LT substance abuse placement if possible, outpatient providers 11/23 continue tx plan 11/24 increase gabapentin to 600mg po TID. scheduled atarax 100mg po BID. Baclofen 10mg po BID. monitor over sedation. 11/25-CMP, TSH, B12,Folate Clonidine prn for anxiety trial Increase Wellbutrin to XL 150-depression, ADHD reported sx. Increase Gabapentin to 700 mg po TID (hx 800 tid per pt report)-anxiety 11/27- Addiction medicine consult, pt request, he would like to increase Methadone. 11/28- Gabapentin scheduled to increase to 800 mg tid on 11/30 11/29 Increase Methadone to 215 11/30 Increase Methadone to 220 Monitor for SE, Sedation 11/29: continue current management and treatment plan. 11/30: continue current management and treatment plan. 12/01 : No changes to regime today. 12/02: Discharge to respite today. Reason for continued inpatient stay Substantial Risk for: rapid decompensation Time Spent With Patient Time: Total time managing care of this patient today ____ minutes.
== END 2023-12-03 13:41 | disposition other institution (70) | DRG 751 ==
PROVIDERS: Clinical Nurse Specialist Psychiatric/Mental Health; Physician Assistant; Admitting Provider Psychiatry & Neurology Psychiatry; Visit Provider Clinical Nurse Specialist Psychiatric/Mental Health, Adult
DX: F33.2 Major depressive disorder, recurrent severe without psychotic features (principal); R45.851 Suicidal ideations; Z91.148 Patient's other noncompliance with medication regimen for other reason; D50.9 Iron deficiency anemia, unspecified; E86.0 Dehydration; E11.65 Type 2 diabetes mellitus with hyperglycemia; F11.20 Opioid dependence, uncomplicated; F17.210 Nicotine dependence, cigarettes, uncomplicated; F19.10 Other psychoactive substance abuse, uncomplicated; Z71.6 Tobacco abuse counseling; Z79.4 Long term (current) use of insulin; Z79.84 Long term (current) use of oral hypoglycemic drugs; Z79.899 Other long term (current) drug therapy
CPT/HCPCS: 36415; 80048; 80053; 80061; 82010; 82728; 82947; 83036; 83540; 84443; 85025; 86704; 86706; 86803; 87340; 87522; 93005

== ENCOUNTER 2023-11-22 18:43 | Outpatient (BNV) | payer OTHER, SELFPAY | END 2023-11-23 08:28 | PROVIDERS: Admitting Provider Psychiatry & Neurology Psychiatry; Visit Provider Internal Medicine Cardiovascular Disease | DX: I45.81 Long QT syndrome (principal) | CPT/HCPCS: 93010 ==

== ENCOUNTER → 2023-11-22 18:43 | Outpatient (BNV) | payer OTHER, SELFPAY | PROVIDERS: Admitting Provider Psychiatry & Neurology Psychiatry; Visit Provider Physician Assistant | DX: Z02.2 Encounter for examination for admission to residential institution (principal) | CPT/HCPCS: 99429; 99499 ==

== ENCOUNTER → 2023-11-22 18:43 | Outpatient (BNV) | payer OTHER, SELFPAY | PROVIDERS: Admitting Provider Psychiatry & Neurology Psychiatry; Visit Provider Clinical Nurse Specialist Psychiatric/Mental Health | DX: F33.2 Major depressive disorder, recurrent severe without psychotic features (principal); F19.20 Other psychoactive substance dependence, uncomplicated | CPT/HCPCS: 90792; 99231; 99232; 99238; 99499 ==

== ENCOUNTER 2024-03-29 13:36 | Emergency (ER) | payer OTHER, SELFPAY ==
--- NOTE | ~2024-03-29 | XR_ITS ---
EXAMINATION: Left tibia and fibula 2 views. CLINICAL INDICATION: Possible ostial, pain. COMPARISON: None. FINDINGS: The entire left tibia and fibula cortex is intact. No periosteal thickening of the elevation. No soft tissue gas or swelling seen. No fracture or dislocation. No soft tissue radiopaque foreign body. XR/XR tibia fibula LT 2V IMPRESSION: Unremarkable left tibia and fibula exam. Electronically signed by: Brad Jacome MD 03/29/2024 03:40 PM EDT
[2024-03-29 13:48] VITALS: BP 138/90; PULSE 87; O2SAT 97
--- NOTE | 2024-03-29 14:02 | ED_ITS ---
HPI - General Adult General Chief complaint: Wound/Laceration Stated complaint: WOUND TO LEG Time Seen by Provider: 03/29/24 14:02 Source: patient and EMS Mode of arrival: EMS Limitations: no limitations History of Present Illness ED Provider: Keira Perkins PA-C HPI narrative: Patient is a 38 year old assigned male at with a history of DM, substance abuse, DM, and MDD presenting to the emergency department today with left lower leg swelling / draining. Patient states that he has had an abscess on his left lower leg x4 days and it ruptured today in the shower. Patient states that he is currently at [facility] and they recommended he come to the hospital to have the area evaluated. Patient denies any dizziness, lightheadedness, abdominal pain, nausea, vomiting, fever, chills, blurry vision, double vision, loss of vision, chest pain, difficulty breathing, shortness of breath, back pain, night sweats, pain with urination, increased urinary frequency, increased urinary urgency, blood in his urine or stool, syncope or a near syncopal episode, recent trauma or falls, bowel incontinence, bladder incontinence, or any other complaints at this time. Relieving factors: none Exacerbating factors: none Associated symptoms: denies other symptoms Treatments prior to arrival: none Related Data Previous Rx's ?Medication ?Instructions ?Recorded baclofen 10 mg tablet 10 mg PO BID #14 tabs 12/03/23 bupropion HCl 150 mg 24 hr tablet, 150 mg PO DAILY #30 tabs 12/03/23 extended release clonidine HCl 0.1 mg tablet 0.1 mg PO BID #14 tabs 12/03/23 docusate sodium 100 mg capsule 100 mg PO BID #60 caps 12/03/23 gabapentin 400 mg capsule 800 mg (2 x 400 mg) PO TID #42 caps 12/03/23 glipizide 10 mg tablet, extended 10 mg PO DAILY #90 tabs 12/03/23 release 24 hr hydroxyzine HCl 50 mg tablet 100 mg (2 x 50 mg) PO BID #14 tabs 12/03/23 insulin glargine 100 unit/mL (3 30 unit (0.3 mL) subcut BID #45 mL 12/03/23 mL) subcutaneous pen (Lantus Solostar U-100 Insulin) insulin lispro 100 unit/mL See Protocol subcut QIDACHS #45 mL 12/03/23 subcutaneous pen (Admelog SoloStar U-100 Insulin lispro) lisinopril 5 mg tablet 5 mg PO DAILY #30 tabs 12/03/23 melatonin 3 mg tablet 6 mg (2 x 3 mg) PO BEDTIME #60 tabs 12/03/23 metformin 1,000 mg tablet 1,000 mg PO BIDWM #60 tabs 12/03/23 methadone 10 mg/mL oral 220 mg (22 mL) PO DAILY #0 mL 12/03/23 concentrate (Methadose) multivitamin (Daily-Abdiel tablet) 1 tab PO DAILY #30 tabs 12/03/23 naloxone 4 mg/actuation nasal 4 mg intranasal Q2M PRN opioid 12/03/23 spray (Narcan) overdose #2 ea nicotine (polacrilex) 2 mg gum 2 mg buccal Q2H PRN Nicotine 12/03/23 Cravings #100 ea polyethylene glycol 3350 17 gram 17 g PO DAILY #30 packets 12/03/23 oral powder packet trazodone 50 mg tablet 50 mg PO BEDTIME MRX1 PRN Insomnia 12/03/23 #60 tabs cephalexin 500 mg capsule 500 mg PO Q6H 7 days #28 caps 03/29/24 doxycycline hyclate 100 mg tablet 100 mg PO BID 7 days #14 tabs 03/29/24 Allergies Allergy/AdvReac Type Severity Reaction Status Date / Time No Known Allergies Allergy Verified 03/29/24 14:06 [No Known Allergies*] Review of Systems 2 Constitutional: Constitutional: Reports no additional constitutional complaints, Denies chills, Denies fever(s) and Denies night sweats Eyes: Eyes: Reports no additional eye complaints, Denies blurry vision, Denies change in vision, Denies diplopia, Denies eye discharge, Denies loss of vision and Denies eye pain ENT: Denies dizziness Cardiovascular: Cardiovascular: Reports no additional cardiovascular complaints, Denies chest pain, Denies lightheadedness, Denies Loss of Consciousness and Denies dyspnea Respiratory: Respiratory: Reports no additional respiratory complaints and Denies dyspnea Gastrointestinal: Gastrointestinal: Reports no additional gastrointestinal complaints, Denies abdominal pain, Denies melena, Denies hematochezia, Denies change in bowel habits and Denies change in stool character Genitourinary: Genitourinary: Reports no additional male genitourinary complaints, Denies hematuria, Denies oliguria, Denies difficulty urinating, Denies dysuria, Denies urinary frequency, Denies urinary hesitancy, Denies urinary incontinence and Denies urinary urgency Musculoskeletal: Musculoskeletal: Reports no additional musculoskeletal complaints, Denies numbness and Denies tingling Integumentary/Breasts: Comments: left lower leg wound Neurologic: Denies dizziness, Denies loss of vision, Denies numbness and Denies tingling Psychiatric: Psychiatric: Reports no additional psychiatric complaints Endocrine: Endocrine: Reports no additional endocrine complaints Hematologic/Lymphatic: Hematologic/Lymphatic: Reports no additional hematologic/lymphatic complaints Allergic/Immunologic: Allergic/Immunologic: Reports no additional allergic/immunologic complaints PMFSH Past Medical History Attestation statement: The following information was validated with the patient. Source: old records reviewed and nursing notes reviewed Medical History Intravenous drug abuse Polysubstance abuse Type 2 diabetes mellitus Social History Social History Household Members: None Housing: Homeless Do you presently have visiting nurse or other home services: No Patient Tobacco Use Status: Current everyday Tobacco user Tobacco use type: Cigarette Cigarette Packs Per Day: 1 Cigarettes Per Day: 20.0 Years Smoked: unknown e-Cigarette/Vaping Use: Former Use Substance Use Type: Crack/Cocaine Advance Directives: No Advance Directives Information Provided: No Do you have a plan to hurt others: No Plan service: No Sexual orientation: Straight/Heterosexual Physical Exam ED Vital Signs: Vital Signs - 24 hr 03/29/24 14:04 03/29/24 14:15 Temperature 99.2 F 99.2 F Pulse Rate 80 80 Respiratory Rate 18 16 Blood Pressure 96/50 L 102/69 Pulse Oximetry 99 97 Oxygen Delivery Method Room Air Room Air BMI result Body Mass Index 48.6 Const General: cooperative, no acute distress, alert and awake Nutritional Appearance: well nourished Orientation/consciousness: patient oriented x3 Limitations: no limitations HENMT Head: Yes normal to inspection and Yes atraumatic Ears: hearing grossly normal bilaterally and external ears normal General nose exam: Normal external nose present, no nasal discharge noted and no epistaxis Face and sinus: Yes normal facial exam, No abrasion and No laceration Mouth: Normal oral and palatal mucosa present, no drooling and no muffled voice Eyes General: appearance normal, both eyes and all related structures Periorbital: periorbital findings normal Eyelids: Yes eyelids normal Conjunctivae: conjunctivae normal Pupils: Equal, round and reactive pupils present EOM: EOMs intact bilaterally Neck Neck: Yes normal visual inspection, Yes full ROM and Yes no lymphadenopathy Chest Chest palpation & inspection: normal inspection of the chest Resp Effort & Inspection: normal respiratory effort and able to speak in complete sentences GI Inspection: Yes normal to inspection Neuro General: patient oriented x3 and moves all extremities Cranial nerves: Yes Equal, round and reactive pupils present Cognition (Neuro): normal cognition Extrem Other: General: Yes full ROM and Yes capillary refill normal Psych Appearance: grossly normal Mental Status: mental status grossly normal Affect: normal affect Attitude: cooperative Thought process: Normal thought process present Thought content: Normal thought content present Insight: Good insight present (Psych) Medications Administered Discontinued Medications Generic Name Dose Route Start Last Admin Trade Name Freq PRN Reason Stop Dose Admin Vancomycin HCl 1,000 mg/ 270 mls @ 270 mls/hr 03/29/24 14:06 03/29/24 14:48 Sodium Chloride IV 03/29/24 15:05 270 mls/hr ONCE ONE Administration Piperacillin Sod/Tazobactam 50 mls @ 100 mls/hr 03/29/24 14:06 03/29/24 14:47 Sod 3.375 gm/ Sodium Chloride IV 03/29/24 14:35 100 mls/hr ONCE ONE Administration Medical Decision Making Medical Decision Making [facility] Narrative: Patient is a 38 year old assigned male at with a history of DM, substance abuse, DM, and MDD presenting to the emergency department today with left lower leg swelling / draining. Patient's physical exam was as noted in the physical exam portion of this note. Patient's blood work showed an elevated ESR, CRP, and glucose. This is consistent with the patient being a poorly controlled diabetic with an active left lower leg cellulitis. Patient's left tib fib x-ray showed no acute process. I explained my physical exam findings as well as all test results to the patient. I answered all questions asked by the patient. I stressed the importance of the patient taking his medication as directed (either prescribed or as the over the counter packaging recommends). I stressed the importance of the patient following up with his primary care provider and the wound center. I stressed the importance of the patient returning to the emergency department immediately if his symptoms were to worsen or if he were to develop any dizziness, shortness of breath, difficulty breathing, chest pain, blurry vision, loss of vision, nausea, vomiting, abdominal pain, fever, chills, back pain, or any other complaints. Patient verbalized agreement and understanding with this treatment plan and transfer back to [facility]. Differential Diagnosis Differential Diagnoses: The differential diagnosis associated with the presentation includes Left lower leg cellulitis Left lower leg ruptured abscess Poorly controlled diabetic Admission/Observation Consideration of admission/observation: Escalation of care including admission/observation considered Patient would have been admitted to the hospital had his work up had any findings where hospital admission was appropriate and his clinical presentation warranted hospital admission. Lab Data [facility] Lab Attestation statement: I reviewed the patient's lab results. My interpretation of these results are in the [facility] Rationale portion of this note. 03/29/24 14:25 03/29/24 15:01 Labs: Lab Results 03/29/24 03/29/24 Range/Units 14:25 15:01 WBC 8.3 (4.8-10.8) X10*3/uL RBC 4.54 L (4.60-5.80) X10*6/uL Hgb 11.1 L (14.0-18.0) g/dl Hct 34.2 L (42.0-52.0) % MCV 75.3 L (80.0-98.0) fL MCH 24.4 L (27.0-33.0) pg MCHC 32.5 (31.0-36.0) g/dl RDW 14.0 (11.0-16.0) % Plt Count 245 (160-400) X10*3/uL MPV 10.8 (9.4-12.4) fL Immature Gran % (Auto) 0.2 (0.0-0.4) % Neut % (Auto) 53.2 (45-73) % Lymph % (Auto) 32.4 (20-40) % [place] % (Auto) 12.0 H (2-11) % Eos % (Auto) 1.7 (0-4) % Baso % (Auto) 0.5 (0-2) % Lymph # (Auto) 2.7 (1.2-4.9) X10*3/uL [place] # (Auto) 1.0 (0.1-1.2) X10*3/uL Eos # (Auto) 0.1 (0.0-0.4) X10*3/uL Baso # (Auto) 0.0 (0.0-0.2) X10*3/uL Abs Immat Gran (auto) 0.02 (0.00-0.03) X10*3/uL Absolute Neuts (auto) 4.4 (2.0-8.3) x10*3/uL Absolute Nucleated RBC 0.000 (0.0-0.012) X10*3/uL Nucleated RBC % (auto) 0.0 (0.0-0.2) /100WBC Smear Tech's Comments VERIFIED ESR 58 H (0-15) MM/HR Sodium 133 L (135-145) mmol/L Potassium 4.4 (3.3-5.1) mmol/L Chloride 99 (96-108) mmol/L Carbon Dioxide 26 (22-29) mmol/L Anion Gap 12 (12-20) BUN 15 (9-16) mg/dL Creatinine 1.44 H (0.5-1.4) mg/dL Estim Creat Clear Calc 97.3 Estimated GFR 55 Random Glucose 362 H* (60-115) mg/dL Calcium 9.6 (8.4-10.2) mg/dL Total Bilirubin 0.2 (0.0-1.0) mg/dL AST 33 (5-37) U/L ALT 49 H (0-40) U/L Alkaline Phosphatase 177 H (39-117) U/L C-Reactive Protein 9.74 H (< or = 0.50) mg/dL Total Protein 8.6 H (6.5-8.0) g/dL Albumin 3.4 L (3.5-5.0) g/dL Independent Interpretation I performed an independent interpretation of an: Plain X-Ray Interpretation: My interpretation is in agreement with the radiologist's impression of this imaging study. L EXAMINATION: Left tibia and fibula 2 views. CLINICAL INDICATION: Possible ostial, pain. COMPARISON: None. FINDINGS: The entire left tibia and fibula cortex is intact. No periosteal thickening of the elevation. No soft tissue gas or swelling seen. No fracture or dislocation. No soft tissue radiopaque foreign body. XR/XR tibia fibula LT 2V IMPRESSION: Unremarkable left tibia and fibula exam. Electronically signed by: Brad Jacome MD 03/29/2024 03:40 PM EDT RP Dictated By: Brad Jacome MD Signed By: Electronically signed by Brad Jacome MD 03/29/24 9547 Radiology Impression Discussion of test interpretation with radiology: I have reviewed the radiologist's reading. Independent Historian Clinical information obtained from an independent historian. History obtained from or confirmed by: EMS (EMS provided additional history and confirmed the history provided by the patient.) Prescription Management I considered prescription management with: Antibiotic (patient prescribed antibiotics for left lower extremity cellulitis) Chronic Conditions Patient?s care impacted by: Diabetes Discharge Plan Discharge Clinical Impression: Cellulitis Patient Disposition: [facility] Transfer Details: Back to [facility] Instructions: Cellulitis (DC) Additional Instructions: Your work up today was reassuring. The infection does not appear to have gotten into the bone. It is already draining - that is a good thing, please continue to allow it to drain. Please take your antibiotics as prescribed. Please continue to manage your blood sugars. Follow up with your primary care provider and the wound center (to ensure proper healing of this wound). Return to the emergency department immediately if your symptoms worsen or if you develop any dizziness, shortness of breath, difficulty breathing, chest pain, blurry vision, loss of vision, nausea, vomiting, abdominal pain, fever, chills, back pain, or any other complaints. Prescriptions: New cephalexin 500 mg capsule 500 mg PO Q6H 7 Days Qty: 28 0RF doxycycline hyclate 100 mg tablet 100 mg PO BID 7 Days Qty: 14 0RF No Action trazodone 50 mg Tablet 50 mg PO BEDTIME MRX1 PRN (Reason: Insomnia) Qty: 60 0RF polyethylene glycol 3350 17 gram Powder In Packet 17 g PO DAILY Qty: 30 0RF nicotine (polacrilex) 2 mg Gum 2 mg buccal Q2H PRN (Reason: Nicotine Cravings) Qty: 100 0RF gabapentin 400 mg Capsule 800 mg PO TID Qty: 42 4RF hydroxyzine HCl 50 mg Tablet 100 mg PO BID Qty: 14 4RF baclofen 10 mg Tablet 10 mg PO BID Qty: 14 4RF docusate sodium 100 mg Capsule 100 mg PO BID Qty: 60 0RF methadone [Methadose] 10 mg/mL Concentrate 220 mg PO DAILY Qty: 0 0RF Rx Instructions: Partial Fill upon patient request. bupropion HCl 150 mg Tablet Extended Release 24 Hr 150 mg PO DAILY Qty: 30 0RF multivitamin [Daily-Abdiel] Tablet 1 tab PO DAILY Qty: 30 0RF melatonin 3 mg Tablet 6 mg PO BEDTIME Qty: 60 0RF clonidine HCl 0.1 mg Tablet 0.1 mg PO BID Qty: 14 4RF lisinopril 5 mg Tablet 5 mg PO DAILY Qty: 30 0RF glipizide 10 mg tablet extended release 24hr 10 mg PO DAILY Qty: 90 0RF metformin 1,000 mg Tablet 1,000 mg PO BIDWM Qty: 60 0RF insulin glargine [Lantus Solostar U-100 Insulin] 100 unit/mL (3 mL) Insulin Pen 30 unit SUBCUT BID Qty: 45 3RF insulin lispro [Admelog SoloStar U-100 Insulin] 100 unit/mL insulin pen See Protocol subcut QIDACHS Qty: 45 0RF Protocol: Insulin Resistant 1st 24 hours Less than or equal to 110 ---- Give (units): 0 111 to 150 Give (units): 4 151 to 200 Give (units): 6 201 to 250 Give (units): 8 251 to 300 Give (units): 12 301 to 350 Give (units): 16 Greater than 350 Give (units): 20 Call MD if Blood Glucose > : 350 Rx Instructions: Daily max dose 80 units naloxone [Narcan] 4 mg/actuation spray,non-aerosol 4 mg intranasal Q2M PRN (Reason: opioid overdose) Qty: 2 0RF Rx Instructions: spray 1 dose into ONE nostril; alternate nostrils w each dose until help arrives Referrals: [facility] [Provider Group] (Call to establish and follow up with a primary care provider. If you already have a primary care provider, please follow up with them.) [facility] [place] [Provider Group] (Call to establish and follow up with a primary care provider. If you already have a primary care provider, please follow up with them.) [facility] [Provider Group] (Call to establish and follow up with a primary care provider. If you already have a primary care provider, please follow up with them.) [facility] [Provider Group] (Call to establish and follow up with the wound center to ensure this wound heals. ) Print Language: Albanian
[2024-03-29 14:04] VITALS: BP 96/50; PULSE 80; RESP 18; TEMP 37.3; O2SAT 99; BMI 48.6
[2024-03-29 14:15] VITALS: BP 102/69; PULSE 80; RESP 16; TEMP 37.3; O2SAT 97
[2024-03-29 14:33] LABS: Imm Gran Abs Auto 0.02 X10*3/uL (0.00-0.03); Imm Gran Pct Auto 0.2 % (0.0-0.4); MANUAL DIFF FLAG SCAN; Mean Corpuscular Volume 75.3 fL (80.0-98.0); PLT CLUMP 1; SCAN SMEAR FLAG 1
--- NOTE | 2024-03-29 14:37 | PC.NURSE ---
20G peripheral IV inserted to pt.'s RAC. Tolerated well. Good blood return.
[2024-03-29 14:41] LABS: Basophils Percent Auto 0.5 % (0-2); Mean Corpuscular Hemoglobin 24.4 pg (27.0-33.0)
[2024-03-29 14:43] LABS: Eosinophils Absolute Auto 0.1 X10*3/uL (0.0-0.4); Eosinophils Percent Auto 1.7 % (0-4); Hematocrit 34.2 % (42.0-52.0); Hemoglobin 11.1 g/dl (14.0-18.0); Lymphocytes Absolute Auto 2.7 X10*3/uL (1.2-4.9); Lymphocytes Percent Auto 32.4 % (20-40); Mean Corpuscular HGB Conc 32.5 g/dl (31.0-36.0); Mean Platelet Volume 10.8 fL (9.4-12.4); Neutrophils Absolute Auto 4.4 x10*3/uL (2.0-8.3); Neutrophils Percent Auto 53.2 % (45-73); Red Blood Count 4.54 X10*6/uL (4.60-5.80)
[2024-03-29] MEDS: Piperacillin Sodium/Tazobactam 3.375 GM in 0.9 % Sodium Chloride 50 ML IV (14:47)
--- OUTSIDE RECORDS SUMMARY | 2024-03-29 14:47 | XMS_ITS | Continuity of Care Document ---
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 Name Role Phone Not on Staff, PCP Primary Care Physician Unavail able Encounter [facility] Date(s): 07/01/20 - 07/06/20 [facility] [address] [place] [id number]- Discharge Disposition: A-D/C Home Attending Physician: Harjinder KEVIN, Vamsi Treviño Admitting Physician: Peterson Orozco MD Referring Physician: Not on Staff, Referring MD Allergies, Adverse Reactions, Alerts Substance Reaction Severity Status NKA Active Immunizations Given and Recorded Vaccine Date Status Refusal Reason tetanus/diphtheria/pertussis, acel(Tdap) 07/10/18 Given Not Given Vaccine Date Status Refusal Reason pneumococcal 23-valent vaccine 07/03/20 Not Given Patient Refuses influenza virus vaccine, inactivated 07/03/20 Not Given Patient Refuses Medications atorvastatin 10 mg oral tablet 1 tablet = 10 mg, By Mouth, Daily, Last filled 05/30/2020 for 21 days., Maintenance, 07/01/20 10:47:00 EST, Partial fill upon patient request if the prescription is for a schedule II opioid drug. Start Date: 07/01/20 Status: Ordered cloNIDine 0.2 mg oral tablet 0.2 mg, 1, tablet, By Mouth, 3 times a day, PRN, May take with hydroxyzine, Maintenance, Anxiety, 07/01/20 10:42:00 EST Start Date: 07/01/20 Status: Ordered Freestyle Lite Lancets See Instructions, # 200 each, Refills 5, Tot. Refills 5, Maintenance, use 3 times a day to check blood sugars for Type 2 Diabetes Mellitus, 07/02/20 11:45:00 EST, Supply, 172, cm, 07/01/20 9:04:00 EST, Height, 103.8, kg, 07/01/20 9:04:00 EST, Dry Weight Start Date: 07/02/20 Stop Date: 12/29/20 Status: Ordered Freestyle Lite Monitor See Instructions, # 1 each, Refills 5, Tot. Refills 5, Maintenance, use 3 times a day to check blood sugars for Type 2 Diabetes Mellitus, 07/02/20 11:44:00 EST, Supply, 172, cm, 07/01/20 9:04:00 EST,Height, 103.8, kg, 07/01/20 9:04:00 EST, Dry Weight Start Date: 07/02/20 Stop Date: 12/29/20 Status: Ordered Freestyle Lite Test Strips See Instructions, # 200 each, Tot. Refills 5, Maintenance, use 3 times a day to check blood sugarsfor Type 2 Diabetes Mellitus, 07/02/20 11:44:00 EST, Supply, 172, cm, 07/01/20 9:04:00 EST, Height, 103.8, kg, 07/01/20 9:04:00 EST, Dry Weight Start Date: 07/02/20 Stop Date: 08/01/20 Status: Ordered gabapentin 300 mg oral capsule 300 mg, Capsule, By Mouth, 07/06/20 9:00:00 EST Start Date: 07/06/20 Stop Date: 07/06/20 Status: Completed Humalog Kwik Pen 100 units/mL subcutaneous injection See Instructions, sc Injection 3 times a day with meals 70 - 119 7 units Call if < 70 120 - 169 9 units 170 - 219 11 units 220 - 269 13 units 270 - 319 15 units 320 - 369 17 units 370 - 419 19 units Call if >400, # 15 mL, 0 R... Start Date: 07/05/20 Status: Ordered hydrOXYzine hydrochloride 50 mg oral tablet 1 tablet = 50 mg, By Mouth, 3 times a day, PRN as needed for anxiety, May take with Clonidine., Maintenance, 07/01/20 10:43:00 EST Start Date: 07/01/20 Status: Ordered ibuprofen 600 mg oral tablet 600 mg, 1, tablet, By Mouth, 2 times a day, PRN, Maintenance, Pain , Mild, 07/01/20 10:44:00 EST Start Date: 07/01/20 Status: Ordered Lantus Solostar Pen 100 units/mL subcutaneous solution See Instructions, 60 units Subcutaneous Injection Daily at 9 am in the morning, # 12 mL, 0 Refills,Maintenance, 07/05/20 12:39:00 EST, Solution, [facility], Partial fill upon patient request if the prescription is for a schedule II opio... Start Date: 07/05/20 Status: Ordered metFORMIN 500 mg oral tablet 1 tablet = 500 mg, By Mouth, 2 times a day, Maintenance, 07/01/20 10:48:00 EST, Tablet, Partial fill upon patient request if the prescription is for a schedule II opioid drug. Start Date: 07/01/20 Status: Ordered MiraLax = 17 Gm, By Mouth, Daily, PRN Constipation, Maintenance, 07/01/20 10:55:00 EST Start Date: 07/01/20 Status: Ordered multivitamin Multiple Vitamins oral tablet 1 tablet, By Mouth, Daily, # 30 tablet, 0 Refills, Maintenance, 07/06/20 10:44:00 EST, Tablet, [facility], Partial fill upon patient request if the prescription is for a schedule II opioid drug., 1 tablet By Mouth Daily,x30 days, 172, cm... Start Date: 07/06/20 Stop Date: 08/05/20 Status: Ordered naloxone 4 mg/0.1 mL nasal spray 1 sprays, Naris, Left, Once, PRN Other respiratory depression, # 1 kit, 0 Refills, Soft Stop, 02/18/20 13:25:00 EDT Start Date: 02/18/20 Status: Ordered nicotine 4 mg oral transmucosal gum 1 each = 4 mg, Chew, Every 2 hours, PRN as needed for smoking cessation, Maintenance, 07/01/20 10:45:00 EST, Gum Start Date: 07/01/20 Status: Ordered Pen [place], 31 G x 5 mm BD Ultra Fine III See Instructions, # 100 each, Refills 5, Tot. Refills 5, Maintenance, use as directed for Type 2 Diabetes Mellitus, 07/02/20 11:45:00 EST, Supply, 172, cm, 07/01/20 9:04:00 EST, Height, 103.8, kg, 07/01/20 9:04:00 EST, Dry Weight Start Date: 07/02/20 Stop Date: 12/29/20 Status: Ordered pyridoxine 50 mg oral tablet 50 mg, 1, tablet, By Mouth, Daily, for 30 days, # 30 tablet, Refills 0, Tot. Refills 0, Acute 08/05/20 10:45:00 EST, 07/06/20 10:45:00 EST, Route to Pharmacy Electronically, [facility],Partial fill upon patient request if the prescripti... Start Date: 07/06/20 Stop Date: 08/05/20 Status: Ordered sertraline 100 mg oral tablet 1 tablet = 100 mg, By Mouth, Daily, Last filled 05/20/2020 for 28 days at [place]. 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 Start Date: 06/19/20 Status: Ordered Problem List Condition Effective Dates Status Health Status Inform ant DKA (diabetic ketoacidosis)(Confirmed) Active Results Radiology Reports * Exam Date Time Procedure Performing Provider Status 07/01/20 5:23 AM Chest Portable Pat Dunn; Auth (V erified) Notes: (Chest Portable) Reason For Exam: Shortness of Breath RESULT: Chest Portable Chest Portable HX OF PRESENT ILLNESS: Pt states he developed mid sternal chest pain at rest, while watching TV. Ptstates he was recently hospitalized and left AMA. Was given prescription for insulin, however does not take it. Suboxone daily, has not taken it for several days, as he lost it; Reason: Shortness of Breath; Clinical Question(s): CHF / CHF COMPARISON: 06/19/2020 FINDINGS: The right lung apex is partially obscured by the patient's chin. LINES AND TUBES: None. LUNGS AND PLEURA: Low lung volumes with mild basilar atelectasis. Lungs are otherwise clear with no definite consolidation. No pleural effusion. No pneumothorax. HEART, MEDIASTINUM AND YUSRA: Heart is normal in size. Normal mediastinal and hilar contour. BONES AND SOFT TISSUES: No acute abnormality. IMPRESSION: No evidence of acute abnormality. WSN: [id number] Ordering Physician: Ashia Abebe Dictated By: Brad Coreas MD Dictated Date/Time: 07/01/20 8:23 am Reviewed By: Brad Coreas MD Signed By: Brad Coreas MD Signed Date/Time: 07/01/20 8:23 am Transcribed By: CRISTIAN Transcribed Date/Time: 07/01/20 8:22 am Vital Signs Most recent to oldest [Reference Range]: 1 2 3 Height 172 cm (07/06/20 6:06 AM) 172 cm (07/06/20 4:12 AM) 172 cm (07/06/20 12:06 AM) Weight 103.8 kg (07/01/20 9:04 AM) 112 kg (07/01/20 4:01 AM) Oxygen Saturation [94-100 %] 99 % (07/06/20 6:06 AM) 100 % (07/06/20 4:12 AM) 100 % (07/06/20 12:06 AM) Pulse Rate [55-90 bpm] 70 bpm (07/06/20 6:06 AM) 78 bpm (07/06/20 4:12 AM) 79 bpm (07/06/20 12:06 AM) Body Mass Index [18.5-24.99] 35.09 *>HHI* (07/01/20 9:04 AM) Blood Pressure [90-138/55-84 mm Hg] 106/57mm Hg (07/06/20 6:06 AM) 115/67mm Hg (07/06/20 4:12 AM) 109/60mm Hg (07/06/20 12:06 AM) Respiratory Rate [16-30 br/min] 18 br/min (07/06/20 8:14 AM) 20 br/min (07/06/20 6:06 AM) 20 br/min (07/06/20 4:12 AM) Temperature [96.8-100.4 DegF] 97.8 DegF (07/06/20 6:06 AM) 97.4 DegF (07/06/20 4:12 AM) 98.2 DegF (07/06/20 12:06 AM) Mode of Delivery (Oxygen) Room air (07/06/20 6:06 AM) Room air (07/06/20 4:12 AM) Room air (07/06/20 12:06 AM) Blood pressure sites Arm, left (07/06/20 6:06 AM) Arm, right (07/06/20 4:12 AM) Arm, right (07/06/20 12:06 AM) Temperature Route Oral (07/06/20 6:06 AM) Oral (07/06/20 4:12 AM) Oral (07/06/20 12:06 AM) Dry Weight 103.8 kg (07/01/20 9:04 AM) Weight Obtained Via Patient/family state d (07/01/20 4:01 AM) Social History Social History Type Response Tobacco Use: 4 or less cigar ettes(less than 1/4 pack)/day in last 30 days. Sex
--- OUTSIDE RECORDS SUMMARY | 2024-03-29 14:47 | XMS_ITS | Continuity of Care Document ---
Author Organization [facility] ter Address [address] [place] [address]- Care Team Providers Care Iron Melter Name Role Phone Kaylah Esteves Primary Care Physicia n Encounter [facility] [place] Date(s): 12/09/20 - 12/10/20 [facility] [address] [place] [phone]- Encounter Diagnosis Diabetes(Final) - 12/09/20 Depression(Final) - 12/09/20 Suicidal ideation(Final) - 12/09/20 Opioid use disorder(Final) - 12/09/20 Discharge Disposition: A-D/C Home Attending Physician: Betito Garcia MD Admitting Physician: Betito Garcia MD Referring Physician: Not on Staff, Referring MD Allergies, Adverse Reactions, Alerts Substance Reaction Severity Status NKA Active Immunizations Given and Recorded Vaccine Date Status Refusal Reason tetanus/diphtheria/pertussis, acel(Tdap) 07/11/20 Given tetanus/diphtheria/pertussis, acel(Tdap) 07/10/18 Given Not Given Vaccine [...] Date: 07/02/20 Stop Date: 08/01/20 Status: Ordered Humalog Kwik Pen 100 units/mL subcutaneous injection [...] mL, 0 Refills,Maintenance, 07/05/20 12:39:00 EST, Solution, [facility], Partial fill upon patient request if [...] 0 Refills, Maintenance, 07/06/20 10:44:00 EST, Tablet, [facility], Partial fill upon patient request if [...] Gum Start Date: 07/01/20 Status: Ordered Pen [facility], 31 G x 5 mm BD Ultra Fine III See Instructions, # 100 each, Refills 5, Tot. Refills 5, Maintenance, use as directed for Type 2 Diabetes Mellitus, 07/02/20 11:45:00 EST, Supply, 172, cm, 07/01/20 9:04:00 EST, Height, 103.8, kg, 07/01/20 9:04:00 EST, Dry Weight Start Date: 07/02/20 Stop Date: 12/29/20 Status: Ordered sertraline 100 mg oral tablet 1 tablet = 100 mg, By Mouth, Daily, Last filled 05/20/2020 for 28 days at [place]. 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 Start Date: 06/19/20 Status: Ordered Suboxone 8 mg-2 mg Sublingual Film 2 film, Sublingual, 2 times a day, PRN withdrawal, or as directed. [id number], # 10 film, 0 Refills,Maintenance, 12/09/20 20:56:00 EDT, Partial fill upon patient request if the prescription is for a schedule II opioid drug. Start Date: 12/09/20 Stop Date: 12/14/20 Status: Ordered Problem List Condition Effective Dates Status Health Status Inform ant DKA (diabetic ketoacidosis)(Confirmed) Active Vital Signs Most recent to oldest [Reference Range]: 1 2 3 Oxygen Saturation [94-100 %] 100 % (12/10/20 6:50 AM) 100 % (12/09/20 7:58 PM) 100 % (12/09/20 2:04 PM) Pulse Rate [55-90 bpm] 72 bpm (12/10/20 6:50 AM) 77 bpm (12/09/20 7:58 PM) 86 bpm (12/09/20 2:04 PM) Blood Pressure [90-138/55-84 mm Hg] 139/76mm Hg *H* (12/10/20 6:50 AM) 126/64mm Hg (12/09/20 7:58 PM) 119/71mm Hg (12/09/20 2:04 PM) Respiratory Rate [16-30 br/min] 17 br/min (12/10/20 6:50 AM) 19 br/min (12/09/20 7:58 PM) 18 br/min (12/09/20 6:17 AM) Temperature [96.8-100.4 DegF] 98.3 DegF (12/10/20 6:50 AM) 98.8 DegF (12/09/20 7:58 PM) 98.6 DegF (12/09/20 2:04 PM) Mode of Delivery (Oxygen) Room air (12/10/20 6:50 AM) Room air (12/09/20 7:58 PM) Room air (12/09/20 2:04 PM) Blood pressure sites Arm, right (12/10/20 6:50 AM) Arm, right (12/09/20 7:58 PM) Arm, left (12/09/20 2:04 PM) Temperature Route Oral (12/10/20 6:50 AM) Oral (12/09/20 7:58 PM) Oral (12/09/20 2:04 PM) Social History Social History Type Response Tobacco Use: 4 or less cigar ettes(less than 1/4 pack)/day in last 30 days. Sex
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
--- OUTSIDE RECORDS SUMMARY | 2024-03-29 14:47 | XMS_ITS | Continuity of Care Document ---
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 [place] Date(s): 04/22/21 - 04/22/[address] [address]- Discharge Disposition: A-D/C Walkout Attending Physician: Not on Staff, Attending MD Admitting Physician: Not on Staff, Admitting MD Referring Physician: Not on Staff, Referring MD Allergies, Adverse Reactions, Alerts Substance Reaction Severity Status NKA Active Immunizations Given and Recorded Vaccine Date Status Refusal Reason tetanus/diphtheria/pertussis, acel(Tdap) 07/11/20 Given tetanus/diphtheria/pertussis, acel(Tdap) 07/10/18 Given Not Given Vaccine Date Status Refusal Reason pneumococcal 23-valent vaccine 07/03/20 Not Given Patient Refuses influenza virus vaccine, inactivated 07/03/20 Not Given Patient Refuses Medications cloNIDine 0.2 mg oral tablet 0.2 mg, [...] Date: 07/02/20 Stop Date: 08/01/20 Status: Ordered hydrOXYzine hydrochloride 50 mg oral tablet 1 tablet = 50 mg, By Mouth, 3 times a day, PRN as needed for anxiety, May take with Clonidine., Maintenance, 07/01/20 10:43:00 EST Start Date: 07/01/20 Status: Ordered sertraline 100 mg oral tablet 1 tablet = 100 mg, By Mouth, Daily, Last filled 05/20/2020 for 28 days at [place]. 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., Maintenance, 07/01/20 10:39:00 EST, Tablet Start Date: 07/01/20 Status: Ordered Problem List Condition Effective Dates Status Health Status Inform ant DKA (diabetic ketoacidosis)(Confirmed) Active Vital Signs Most recent to oldest [Reference Range]: 1 Oxygen Saturation [94-100 %] 100 % (04/22/21 6:09 AM) Pulse Rate [55-90 bpm] 79 bpm (04/22/21 6:09 AM) Blood Pressure [90-138/55-84 mm Hg] 142/ 95mm Hg *H* (04/22/21 6:09 AM) Temperature [96.8-100.4 DegF] 99.3 DegF (04/22/21 6:09 AM) Mode of Delivery (Oxygen) Room air (04/22/21 6:09 AM) Blood pressure sites Arm, right (04/22/21 6:09 AM) Temperature Route Oral (04/22/21 6:09 AM) Social History Social History Type Response Tobacco Use: 4 or less cigar ettes(less than 1/4 pack)/day in last 30 days. Sex
--- OUTSIDE RECORDS SUMMARY | 2024-03-29 14:47 | XMS_ITS | Continuity of Care Document ---
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 Sex
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
--- OUTSIDE RECORDS SUMMARY | 2024-03-29 14:47 | XMS_ITS | Continuity of Care Document ---
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 Name Role Phone Not on Staff, PCP Primary Care Physician Unavail able [place] [facility] [place] 11[place]21 [facility] [address] [place] [id number]- Encounter Diagnosis Intoxication by drug(Final) - 11/03/21 Discharge Disposition: A-D/C Long-Term, Halfway, or Prison Fac Attending Physician: Aria Caraballo MD Admitting Physician: Johana Stevenson MD Referring Physician: Not on Staff, Referring MD Allergies, Adverse Reactions, Alerts No Known Allergies Immunizations Given and Recorded Vaccine Date Status Refusal Reason tetanus/diphtheria/pertussis, acel(Tdap) 07/11/20 Given tetanus/diphtheria/pertussis, acel(Tdap) 07/10/18 Given Not Given Vaccine Date Status Refusal Reason pneumococcal 23-valent vaccine 07/03/20 Not Given Patient Refuses influenza virus vaccine, inactivated 07/03/20 Not Given Patient Refuses Medications acetaminophen 325 mg oral tablet 650 mg, By Mouth, Every 4 hours, PRN, Temperature Greater than 100.5, Refills 0, Maintenance, Pain , Mild, 11/05/21 11:40:00 EDT, Partial fill upon patient request if the prescription is for a schedule II opioid drug. Start Date: 11/05/21 Status: Ordered buprenorphine-naloxone 4 mg-1 mg sublingual film 1 film, Sublingual, Daily, 0 Refills, Maintenance, 11/05/21 11:40:00 EDT, Film, Partial fill upon patient request if the prescription is for a schedule II opioid drug. Start Date: 11/05/21 Status: Ordered Docusate/Senna Tablet 1 tablet, By Mouth, 2 times a day, PRN Constipation, 0 Refills, Maintenance, 11/05/21 11:40:00 EDT,Tablet, Partial fill upon patient request if the prescription is for a schedule II opioid drug. Start Date: 11/05/21 Status: Ordered folic acid 1 mg oral tablet 1 mg, 1, tablet, By Mouth, Daily, Refills 0, Maintenance, 11/05/21 11:41:00 EDT, Partial fill upon patient request if the prescription is for a schedule II opioid drug. Start Date: 11/05/21 Status: Ordered Imodium A-D EZ Chews 2 mg oral tablet, chewable 1 tablet = 2 mg, Chew, 3 times a day, PRN for loose stool, # 20 tablet, 0 Refills, Acute 11/09/21 11:43:00 EDT, 11/05/21 11:43:00 EDT, Chew Tablet, Partial fill upon patient request if the prescription is for a schedule II opioid drug. Start Date: 11/05/21 Stop Date: 11/09/21 Status: Ordered Pyridoxine Tablet 50 mg, By Mouth, Daily, Refills 0, Maintenance, 11/05/21 11:41:00 EDT, Partial fill upon patient request if the prescription is for a schedule II opioid drug. Start Date: 11/05/21 Status: Ordered thiamine 100 mg oral tablet 100 mg, 1, tablet, By Mouth, 2 times a day, Refills 0, Maintenance, 11/05/21 11:41:00 EDT, Partial fill upon patient request if the prescription is for a schedule II opioid drug. Start Date: 11/05/21 Status: Ordered Zofran 4 mg oral tablet 1 tablet = 4 mg, By Mouth, Every 8 hours, PRN as needed for nausea/vomiting, # 10 tablet, 0 Refills, Acute 11/07/21 11:41:00 EDT, 11/05/21 11:41:00 EDT, Tablet, Partial fill upon patient request if the prescription is for a schedule II opioid drug. Start Date: 11/05/21 Stop Date: 11/07/21 Status: Ordered Problem List Condition Effective Dates Status Health Status Inform ant DKA (diabetic ketoacidosis)(Confirmed) Active Vital Signs Most recent to oldest [Reference Range]: 1 2 3 Oxygen Saturation [94-100 %] 100 % (11/05/21 6:42 AM) 100 % (11/05/21 5:50 AM) 100 % (11/04/21 8:30 PM) Pulse Rate [55-90 bpm] 72 bpm (11/05/21 6:42 AM) 72 bpm (11/05/21 5:50 AM) 72 bpm (11/05/21 5:44 AM) Blood Pressure [90-138/55-84 mm Hg] 135/92mm Hg (11/05/21 6:42 AM) 135/92mm Hg (11/05/21 5:50 AM) 135/92mm Hg (11/05/21:44 AM) Respiratory Rate [16-30 br/min] 18 br/min (11/05/21 6:42 AM) 18 br/min (11/05/21 5:50 AM) 18 br/min (11/05/21 5:44 AM) Temperature [96.8-100.4 DegF] 97.3 DegF (11/05/21 6:42 AM) 97.3 DegF (11/05/21:50 AM) 97.3 DegF (11/05/21:44 AM) Mode of Delivery (Oxygen) Room air (11/05/21 6:42 AM) Room air (11/05/21 5:50 AM) Room air (11/04/21 8:30 PM) Blood pressure sites Arm, right (11/05/21 6:42 AM) Arm, left (11/05/21 5:50 AM) Arm, left (11/04/21 8:30 PM) Temperature Route Axillary (11/05/21 6:42 AM) Axillary (11/05/21 5:50 AM) Axillary (11/05/21 5:44 AM) Social History Social History Type Response Tobacco Use: 4 or less cigar ettes(less than 1/4 pack)/day in last 30 days. Sex
--- OUTSIDE RECORDS SUMMARY | 2024-03-29 14:47 | XMS_ITS | Continuity of Care Document ---
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 Operator Name Role Phone Kaylah Esteves Primary Care Physicia n Encounter [facility] [place] Date(s): 10/05/20 - 10/05/[address] [phone]- Discharge Disposition: A-D/C Home Attending Physician: Kathy KEVIN, Astrid Carranza Admitting Physician: Astrid Chavez MD Referring Physician: Not on Staff, Referring [...] mL, 0 Refills,Maintenance, 07/05/20 12:39:00 EST, Solution, [facility], Partial fill upon patient request [...] 0 Refills, Maintenance, 07/06/20 10:44:00 EST, Tablet, [facility], Partial fill upon patient request [...] Gum Start Date: 07/01/20 Status: Ordered Pen [place], 31 G x 5 mm BD Ultra [...] Last filled 05/20/2020 for 28 days at [facility]. 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., Maintenance, 07/01/20 10:39:00 EST, Tablet Start [...] recent to oldest [Reference Range]: 1 2 Oxygen Saturation [94-100 %] 100 % (10/05/20 7:45 AM) 99 % (10/05/20 6:00 AM) Pulse Rate [55-90 bpm] 106 bpm *H* (10/05/20 7:45 AM) 112 bpm *H* (10/05/20 6:00 AM) Blood Pressure [90-138/55-84 mm Hg] 124/ 74mm Hg (10/05/20 7:45 AM) 122/69mm Hg (10/05/20 6:00 AM) Respiratory Rate [16-30 br/min] 16 br/mi n (10/05/20 7:45 AM) 20 br/min (10/05/20 6:00 AM) Temperature [96.8-100.4 DegF] 98.2 DegF (10/05/20 7:45 AM) 97.9 DegF (10/05/20 6:00 AM) Mode of Delivery (Oxygen) Room air (10/05/20 7:45 AM) Room air (10/05/20 6:00 AM) Blood pressure sites Arm, right (10/05/20 7:45 AM) Temperature Route Oral (10/05/20 7:45 AM) Oral (10/05/20 6:00 AM) Social History Social History Type Response Tobacco Use: 4 or less cigar ettes(less than 1/4 pack)/day in last 30 days. Sex
--- OUTSIDE RECORDS SUMMARY | 2024-03-29 14:47 | XMS_ITS | Continuity of Care Document ---
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 Name Role Phone Kaylah Esteves Primary Care Physicia n [place] [facility] [place] - 11/20/[address] [address]- Discharge Disposition: A-D/C Home Attending Physician: Shon Pablo DO Admitting Physician: Shon Pablo DO Referring Physician: Not on Staff, Referring MD [...] mL, 0 Refills,Maintenance, 07/05/20 12:39:00 EST, Solution, [facility], Partial fill upon patient request [...] 0 Refills, Maintenance, 07/06/20 10:44:00 EST, Tablet, [facility], Partial fill upon patient request [...] Gum Start Date: 07/01/20 Status: Ordered Pen [place], 31 G x 5 mm BD Ultra [...] Last filled 05/20/2020 for 28 days at [facility]. 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 LUNGS AND PLEURA: Clear lungs. Normal pulmonary vascularity. No pleural effusion. No pneumothorax. HEART, MEDIASTINUM AND YUSRA: Heart is unchanged and upper normal in size. Normal upper mediastinal and hilar contour. BONES AND SOFT TISSUES: No acute abnormality. IMPRESSION: No acute findings. Stable exam. Heart size upper normal. WSN: [id number] Ordering Physician: Maxi Coto Dictated By: Brad Queen MD Dictated Date/Time: 11/20/20 9:09 am Reviewed By: Brad Queen MD Signed By: Brad Queen MD Signed Date/Time: 11/20/20 9:09 am Transcribed By: CRISTIAN Transcribed Date/Time: 11/20/20 9:09 am Vital Signs Most recent to oldest [Reference Range]: 1 2 3 Oxygen Saturation [94-100 %] 100 % (11/20/20 1:34 PM) 100 % (11/20/20 11:22 AM) 97 % (11/20/20 9:09 AM) Pulse Rate [55-90 bpm] 83 bpm (11/20/20 1:34 PM) 79 bpm (11/20/20 11:22 AM) 87 bpm (11/20/20 9:09 AM) Blood Pressure [90-138/55-84 mm Hg] 154/71mm Hg *H* (11/20/20 1:34 PM) 145/86mm Hg *H* (11/20/20 11:22 AM) 115/98mm Hg (11/20/20 9:09 AM) Respiratory Rate [16-30 br/min] 18 br/min (11/20/20 1:34 PM) 18 br/min (11/20/20 11:22 AM) 18 br/min (11/20/20 6:08 AM) Temperature [96.8-100.4 DegF] 98.7 DegF (11/20/20 1:34 PM) 98.9 DegF (11/20/20 11:22 AM) 98.2 DegF (11/20/20 3:45 AM) Mode of Delivery (Oxygen) Room air (11/20/20 1:34 PM) Room air (11/20/20 11:22 AM) Room air (11/20/20 9:09 AM) Temperature Route Oral (11/20/20 1:34 PM) Oral (11/20/20 11:22 AM) Social History Social History Type Response Tobacco Use: 4 or less cigar ettes(less than 1/4 pack)/day in last 30 days. Sex
--- OUTSIDE RECORDS SUMMARY | 2024-03-29 14:47 | XMS_ITS | Continuity of Care Document ---
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 Name Role Phone Kaylah Esteves Primary Care Physicia n Encounter [facility] [place] Date(s): 07/22/20 - 07/22/20 [facility] [address] [place] [phone]- Encounter Diagnosis Finger dislocation(Final) - 07/22/20 Discharge Disposition: A-D/C Home Attending Physician: Og Mata MD Admitting Physician: Og Mata MD Referring Physician: Not on Staff, Referring [...] mL, 0 Refills,Maintenance, 07/05/20 12:39:00 EST, Solution, [facility], Partial fill upon patient request [...] 0 Refills, Maintenance, 07/06/20 10:44:00 EST, Tablet, [facility], Partial fill upon patient request [...] Gum Start Date: 07/01/20 Status: Ordered Pen [place], 31 G x 5 mm BD Ultra [...] 07/06/20 10:45:00 EST, Route to Pharmacy Electronically, [facility],Partial fill upon patient request if the prescripti... Start Date: 07/06/20 Stop Date: 08/05/20 Status: Ordered sertraline 100 mg oral tablet 1 tablet = 100 mg, By Mouth, Daily, Last filled 05/20/2020 for 28 days at [facility]. 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 pt has obvious deformity to left middle finger. pt denies substance use ETOH. drowsy between assessmentquestions; Reason: Shortness of Breath; Clinical Question(s): CHF COMPARISON: 07/11/2020 FINDINGS: LINES AND TUBES: None. LUNGS AND PLEURA: Low lung volumes with crowded vascular markings. Lungs are otherwise clear with no consolidation. No pleural effusion. No pneumothorax. HEART, MEDIASTINUM AND YUSRA: Heart is normal in size. Normal upper mediastinal and hilar contour. BONES AND SOFT TISSUES: No acute abnormality. IMPRESSION: No acute abnormality. WSN: [id number] Ordering Physician: Kwasi Wolf Dictated By: Elisa Reynaga MD Dictated Date/Time: 07/22/20 9:37 am Reviewed By: Elisa Reynaga MD Signed By: Elisa Reynaga MD Signed Date/Time: 07/22/20 9:37 am Transcribed By: CRISTIAN Transcribed Date/Time: 07/22/20 9:36 am * Exam Date Time Procedure Performing Provider Status 07/22/20 8:36 AM Finger 4th Left Hand Aly Jimenez; Auth (Verified) Notes: (Finger 4th Left Hand) Reason For Exam: Post-Reduction RESULT: Finger 4th Left Hand Finger 4th Left Hand, 3 views Hx of Present Illness: presented to ED via EMS with c o slip and fall and landing on left hand. Pt has obvious deformity to left middle finger. Pt denies substance use ETOH. Drowsy between assessmentquestions; Reason: Post-Reduction; Clinical Question(s): Position Fixation COMPARISON: Left hand radiograph taken earlier same date. FINDINGS: Interval reduction of the fourth digit proximal interphalangeal joint dislocation with christianity of anatomic alignment. There is a tiny matthew of the avulsed bone along the volar aspect of the base of the middle phalanx of the fourth digit. No arthritic changes. There is moderate soft tissue swelling about the fourth digit. IMPRESSION: 1. Interval reduction of the fourth digit dislocation. 2. Tiny avulsion fracture along the volar aspect of the base of middle phalanx of the fourth digit. I have personally reviewed the images and I agree with this report. WSN: [id number] Ordering Physician: Kwasi Wolf Dictated By: Marco Tejada MD Dictated Date/Time: 07/22/20 8:56 am Reviewed By: Reginaldo Ferguson MD Signed By: Reginaldo Ferguson MD Signed Date/Time: 07/22/20 9:01 am Transcribed By: CRISTIAN Transcribed Date/Time: 07/22/20 8:50 am * Exam Date Time Procedure Performing Provider Status 07/22/20 7:07 AM Finger 4th Left Hand Reginaldo Duarte ; Mmee (Verified) Notes: (Finger 4th Left Hand) Reason For Exam: with Pain;Trauma RESULT: Finger 4th Left Hand Finger 4th Left Hand, 3 views Hx of Present Illness: presented to ED via EMS with c o slip and fall and landing on left hand. pt has obvious deformity to left middle finger. pt denies substance use ETOH. drowsy between assessmentquestions; Reason: Trauma; with Pain; Clinical Question(s): Fracture COMPARISON: Left wrist radiographs dated 06/05/2019 FINDINGS: Dislocation of the fourth proximal interphalangeal joint without definite fracture fragment. Fracture fragments at the volar aspect of the base of the fifth middle phalanx on the oblique view. Interphalangeal joint degenerative changes. IMPRESSION: Fourth proximal interphalangeal joint dislocation. Fracture at the volar aspect of the base of the fifth middle phalanx. A Armstrong message has been communicated via the [email or web address] system on 07/22/2020 8:03 AM, Message ID [id number]. WSN: [id number] Ordering Physician: Kylee Ross Dictated By: Elisa Reynaga MD Dictated Date/Time: 07/22/20 8:03 am Reviewed By: Elisa Reynaga MD Signed By: Elisa Reynaga MD Signed Date/Time: 07/22/20 8:03 am Transcribed By: CRISTIAN Transcribed Date/Time: 07/22/20 7:59 am Vital Signs Most recent to oldest [Reference Range]: 1 2 3 Oxygen Saturation [94-100 %] 96 % (07/22/20 1:03 PM) 100 % (07/22/20 11:31 AM) 100 % (07/22/20 10:33 AM) Pulse Rate [55-90 bpm] 97 bpm *H* (07/22/20 1:03 PM) 90 bpm (07/22/20 11:31 AM) 85 bpm (07/22/20 10:33 AM) Blood Pressure [90-138/55-84 mm Hg] 117/65mm Hg (07/22/20 1:03 PM) 117/65mm Hg (07/22/20 11:31 AM) 131/67mm Hg (07/22/20 10:33 AM) Respiratory Rate [16-30 br/min] 18 br/min (07/22/20 1:03 PM) 18 br/min (07/22/20 11:31 AM) 18 br/min (07/22/20 10:33 AM) Temperature [96.8-100.4 DegF] 99.1 DegF (07/22/20 6:50 AM) Mode of Delivery (Oxygen) Room air (07/22/20 1:03 PM) Room air (07/22/20 11:31 AM) Room air (07/22/20 10:33 AM) Blood pressure sites Arm, right (07/22/20 1:03 PM) Arm, right (07/22/20 11:31 AM) Arm, right (07/22/20 10:33 AM) Temperature Route Oral (07/22/20 6:50 AM) Social History Social History Type Response Tobacco Use: 4 or less cigar ettes(less than 1/4 pack)/day in last 30 days. Sex
--- OUTSIDE RECORDS SUMMARY | 2024-03-29 14:47 | XMS_ITS | Continuity of Care Document ---
Author Organization [facility] ter Address [address] [place] [address]- Care Team Providers Care Director [employer] Name Role Phone Kaylah Esteves Primary Care Physicia n Encounter [facility] [place] Date(s): 07/11/20 - 07/11/20 [facility] [address] [place] [phone]- Discharge Disposition: A-D/C Home Attending Physician: Marcy Partida MD Admitting Physician: Marcy Partida MD Referring Physician: Not on Staff, Referring [...] mL, 0 Refills,Maintenance, 07/05/20 12:39:00 EST, Solution, [facility], Partial fill upon patient [...] 0 Refills, Maintenance, 07/06/20 10:44:00 EST, Tablet, [facility], Partial fill upon patient [...] Gum Start Date: 07/01/20 Status: Ordered Pen [place], 31 G x 5 mm BD Ultra [...] 07/06/20 10:45:00 EST, Route to Pharmacy Electronically, [facility],Partial fill upon patient request if the prescripti... Start Date: 07/06/20 Stop Date: 08/05/20 Status: Ordered sertraline 100 mg oral tablet 1 tablet = 100 mg, By Mouth, Daily, Last filled 05/20/2020 for 28 days at [facility]. 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 COMPARISON: Multiple priors most recent 07/01/2020. FINDINGS: Single AP portable chest x-ray labeled upright 1:00 PM. LINES AND TUBES: None. LUNGS AND PLEURA: Clear lungs. Normal pulmonary vascularity. No pleural effusion. No pneumothorax. HEART, MEDIASTINUM AND YUSRA: Heart is normal in size. Normal upper mediastinal and hilar contour. BONES AND SOFT TISSUES: No acute abnormality. IMPRESSION: No acute abnormality. WSN: [id number] Ordering Physician: Kortney Echeverria Dictated By: Chris Vicente MD Dictated Date/Time: 07/11/20 1:35 pm Reviewed By: Chris Vicente MD Signed By: Chris Vicente MD Signed Date/Time: 07/11/20 1:35 pm Transcribed By: CRISTIAN Transcribed Date/Time: 07/11/20 1:34 pm Vital Signs Most recent to oldest [Reference Range]: 1 2 3 Height 178 cm (07/11/20 10:07 PM) 178 cm (07/11/20 1:00 PM) 178 cm (07/11/20 12:47 PM) Oxygen Saturation [94-100 %] 100 % (07/11/20 10:07 PM) 100 % (07/11/20 1:00 PM) 100 % (07/11/20 12:47 PM) Pulse Rate [55-90 bpm] 68 bpm (07/11/20 10:07 PM) 80 bpm (07/11/20 1:00 PM) 94 bpm *H* (07/11/20 12:47 PM) Blood Pressure [90-138/55-84 mm Hg] 128/72mm Hg (07/11/20 10:07 PM) 132/87mm Hg (07/11/20 1:00 PM) 147/93mm Hg *H* (07/11/20 12:47 PM) Respiratory Rate [16-30 br/min] 16 br/min (07/11/20 10:07 PM) 18 br/min (07/11/20 1:00 PM) 20 br/min (07/11/20 12:47 PM) Temperature [96.8-100.4 DegF] 98.2 DegF (07/11/20 10:07 PM) 98.9 DegF (07/11/20 1:00 PM) 98.0 DegF (07/11/20 12:47 PM) Mode of Delivery (Oxygen) Room air (07/11/20 10:07 PM) Room air (07/11/20 1:00 PM) Blood pressure sites Arm, right (07/11/20 10:07 PM) Arm, right (07/11/20 1:00 PM) Arm, right (07/11/20 12:47 PM) Temperature Route Oral (07/11/20 10:07 PM) Oral (07/11/20 1:00 PM) Oral (07/11/20 12:47 PM) Social History Social History Type Response Tobacco Use: 4 or less cigar ettes(less than 1/4 pack)/day in last 30 days. Sex
[2024-03-29] MEDS: vancomycin HCL 1,000 MG in 0.9 % Sodium Chloride 250 ML 270 MG IV (14:48)
--- OUTSIDE RECORDS SUMMARY | 2024-03-29 14:48 | XMS_ITS | Continuity of Care Document ---
Author Organization [facility] ter Address [address] [place] [address]- Care Team Providers Care Chemical Manager Name Role Phone Not on Staff, PCP Primary Care Physician Unavail able Encounter [facility] Date(s): 02/16/22 - 02/20/[address] [id number] Discharge Disposition: A-D/C AMA Attending Physician: Brook Tracey DO Admitting Physician: Duncan Gerardo Sr, MD Referring Physician: Duncan Gerardo Sr, MD Allergies, Adverse Reactions, Alerts No Known Allergies Immunizations Given and Recorded Vaccine Date Status Refusal Reason tetanus/diphtheria/pertussis, acel(Tdap) 07/11/20 Given tetanus/diphtheria/pertussis, acel(Tdap) 07/10/18 Given influenza virus vaccine, inactivated 04/15/10 Abdullahi rded Not Given Vaccine Date Status Refusal Reason influenza virus vaccine, inactivated 07/03/20 Not Given Patient Refuses pneumococcal 23-valent vaccine 07/03/20 Not Given Patient Refuses Medications amLODIPine 10 mg oral tablet 10 mg, Tablet, By Mouth, 02/20/22 9:00:00 EDT Start Date: 02/20/22 Stop Date: 02/20/22 Status: Completed amLODIPine 10 mg oral tablet 10 mg, 1, tablet, By Mouth, Daily, # 30 tablet, Refills 0, Tot. Refills 0, Maintenance, 02/20/22 12:31:00 EDT, Route to Pharmacy Electronically, [facility]/pharmacy #[id number], Partial fill upon patient request if the prescription is for a schedule II opioid drug... Start Date: 02/20/22 Status: Ordered Augmentin 875 mg-125 mg oral tablet 1 tablet, By Mouth, Every 12 hours, for 14 days, # 28 tablet, 0 Refills, Acute 03/06/22 12:14:00 EDT, 02/20/22 12:14:00 EDT, Tablet, [facility]/pharmacy #[id number], Partial fill upon patient request if the prescription is for a schedule II opioid drug., 173, cm,... Start Date: 02/20/22 Stop Date: 03/06/22 Status: Ordered buprenorphine-naloxone 4 mg-1 mg sublingual film 4 film, Sublingual, 2 times a day, 16mg/4mg BID, 0 Refills, Maintenance, 11/05/21 11:40:00 EDT, Film, Partial fill upon patient request if the prescription is for a schedule II opioid drug. Start Date: 11/05/21 Status: Ordered citalopram 40 mg oral tablet 40 mg, 1, tablet, By Mouth, Daily at bedtime, # 30 tablet, Refills 0, Maintenance, 02/06/22 12:14:00 EDT, Partial fill upon patient request if the prescription is for a schedule II opioid drug. Start Date: 02/06/22 Status: Ordered fluconazole 200 mg oral tablet 2 tablet = 400 mg, By Mouth, 2 times a day, for 21 days, # 84 tablet, 0 Refills, Acute 03/13/22 12:14:00 EDT, 02/20/22 12:14:00 EDT, Tablet, [facility]/pharmacy #[id number], Partial fill upon patient request if the prescription is for a schedule II opioid drug., 1... Start Date: 02/20/22 Stop Date: 03/13/22 Status: Ordered gabapentin 600 mg oral tablet 1 capsule, By Mouth, 3 times a day, 5 Refills, Maintenance, 02/06/22 12:12:00 EDT, Tablet, Partial fill upon patient request if the prescription is for a schedule II opioid drug. Start Date: 02/06/22 Status: Ordered hydrOXYzine hydrochloride 25 mg oral tablet 2 tablet = 50 mg, By Mouth, Daily in AM, 0 Refills, Maintenance, 02/06/22 12:15:00 EDT, Partial fill upon patient request if the prescription is for a schedule II opioid drug. Start Date: 02/06/22 Status: Ordered hydrOXYzine hydrochloride 25 mg oral tablet 3 tablets, By Mouth, Daily at bedtime, 0 Refills, Maintenance, 02/06/22 12:15:00 EDT, Partial fill upon patient request if the prescription is for a schedule II opioid drug. Start Date: 02/06/22 Status: Ordered MorPHINE Inj 4 mg, Injection, IV Push Slowly, Every 4 hours, PRN for Pain , Severe, Routine, 02/17/22 1:04:00 EDT Start Date: 02/17/22 Stop Date: 02/20/22 Status: Discontinued oxyCODONE 5 mg oral tablet 2.5 mg, Tablet, By Mouth, Every 6 hours, Hold for: sedation, respiratory depression, PRN for Pain ,Severe, Routine, 02/19/22 14:31:00 EDT Start Date: 02/19/22 Stop Date: 02/20/22 Status: Discontinued Sublocade Subcutaneous Infusion, Every 28 days, 0 Refills, Maintenance, 02/06/22 12:13:00 EDT, Partial fill upon patient request if the prescription is for a schedule II opioid drug. Start Date: 02/06/22 Status: Ordered Problem List Condition Effective Dates Status Health Status Inform ant Diabetes mellitus(Confirmed) Active DKA (diabetic ketoacidosis)(Confirmed) Active Obese class II(Confirmed) Active Opiate abuse, continuous(Confirmed) Active Alcohol use disorder, severe , dependence(Confirmed) Active Results Orders for Microbiology Reports Name Date Anaerobic Culture (ANAEROBIC CULTURE) Wound Deep Culture w/ Gram Smear (DEEP W OUND CULTURE) 02/17/22 Anaerobic Culture (ANAEROBIC CULTURE) Wound Deep Culture w/ Gram Smear (DEEP W OUND CULTURE) 02/17/22 Anaerobic Culture 02/16/22 Wound Superficial Culture W/ Gram Smear 02/16/22 Microbiology Reports TEST:Anaerobic Culture STATUS:Auth (Verified) BODY SITE: SOURCE:ABSCES COLLECTED DATE/TIME:02/17/22 4:20 PM Anaerobic Culture SPECIMEN DESCRIPTION : ABSCESS RT HAND DRAINAGE SPECIAL REQUESTS : NONE CULTURE : NO ANAEROBES ISOLATED REPORT STATUS : FINAL 02/19/2022 TEST:Deep Wound Culture STATUS:Auth (Verified) BODY SITE: SOURCE:ABSCES COLLECTED DATE/TIME:02/17/22 4:20 PM Deep Wound Culture SPECIMEN DESCRIPTION : ABSCESS RT HAND DRAINAGE SPECIAL REQUESTS : NONE GRAM STAIN : 2+ WHITE BLOOD CELLS 2+ TISSUE CELLS 3+ GRAM NEGATIVE RODS 1+ YEAST CULTURE : 4+ LINK ALBICANS This isolate was identified using Maldi-TOF system 4+ LACTOBACILLUS SPECIES SUSCEPTIBILITY TESTING NOT ROUTINELY PERFORMED ON THIS ISOLATE. REPORT STATUS : FINAL 02/20/2022 TEST:Anaerobic Culture STATUS:Auth (Verified) BODY SITE: SOURCE:ABSCES COLLECTED DATE/TIME:02/17/22 3:52 PM Anaerobic Culture SPECIMEN DESCRIPTION : ABSCESS LEFT ARM SPECIAL REQUESTS : NONE CULTURE : NO ANAEROBES ISOLATED REPORT STATUS : FINAL 02/19/2022 TEST:Deep Wound Culture STATUS:Unauthenticated BODY SITE: SOURCE:ABSCES COLLECTED DATE/TIME:02/17/22 3:52 PM Deep Wound Culture SPECIMEN DESCRIPTION : ABSCESS LEFT ARM SPECIAL REQUESTS : NONE GRAM STAIN : 2+ WHITE BLOOD CELLS 2+ TISSUE CELLS 2+ GRAM NEGATIVE RODS CULTURE : 2+ STAPHYLOCOCCUS AUREUS. This isolate was identified using Maldi-TOF system 4+ LINK ALBICANS This isolate was identified using Maldi-TOF system 4+ LACTOBACILLUS SPECIES SUSCEPTIBILITY TESTING NOT ROUTINELY PERFORMED ON THIS ISOLATE. REPORT STATUS : PRELIMINARY REPORT TEST:Anaerobic Culture STATUS:Auth (Verified) BODY SITE: SOURCE:ABSCES COLLECTED DATE/TIME:02/16/22 11:00 PM Anaerobic Culture SPECIMEN DESCRIPTION : ABSCESS ARM LT SPECIAL REQUESTS : NONE CULTURE : NO ANAEROBES ISOLATED REPORT STATUS : FINAL 02/18/2022 TEST:Superficial Wound Culture STATUS:Auth (Verified) BODY SITE: SOURCE:SWAB1 COLLECTED DATE/TIME:02/16/22 11:00 PM Superficial Wound Culture SPECIMEN DESCRIPTION : SWAB ARM LT SPECIAL REQUESTS : NONE GRAM STAIN : 3+ POLYMORPHONUCLEAR LEUKOCYTES 2+ RBC'S 3+ GRAM POSITIVE COCCI 2+ GRAM POSITIVE RODS 1+ GRAM NEGATIVE RODS CULTURE : 2+ LINK ALBICANS NOTE THIS IS A CORRECTED REPORT 3+ STREPTOCOCCI, GROUP F BETA HEMOLYTIC. SUSCEPTIBILITY TESTING NOT ROUTINELY PERFORMED ON THIS ISOLATE. THIS RESULT HAS BEEN CORRECTED. PLEASE DISREGARD THE PREVIOUS REPORT OF 3+ STREPTOCOCCI, GROUP F BETA HEMOLYTIC. SUSCEPTIBILITY TESTING NOT ROUTINELY PERFORMED ON THIS ISOLATE. STREPTOCOCCI, GR.F BETA HEMOLYTIC WAS NOT ISOLATED CORRECTED REPORT PHONED TO [facility], EMP [id number], BY TECH 187 AT 1445, 02/18/22 4+ LACTOBACILLUS SPECIES SUSCEPTIBILITY TESTING NOT ROUTINELY PERFORMED ON THIS ISOLATE. REPORT STATUS : FINAL 02/19/2022 Vital Signs Most recent to oldest [Reference Range]: 1 2 3 Height 173 cm (02/20/22 7:58 AM) 173 cm (02/20/22 12:14 AM) 173 cm (02/19/22 9:07 PM) Weight 109 kg (02/19/22 9:00 PM) Oxygen Saturation [94-100 %] 100 % (02/20/22 7:58 AM) 98 % (02/20/22 5:00 AM) 99 % (02/20/22 12:14 AM) Pulse Rate [55-90 bpm] 99 bpm *H* (02/20/22 7:58 AM) 108 bpm *H* (02/20/22 5:00 AM) 112 bpm *H* (02/20/22 12:14 AM) Body Mass Index [18.5-24.99] 36.42 *>HHI* (02/19/22 9:00 PM) Blood Pressure [90-138/55-84 mm Hg] 148/70mm Hg *H* (02/20/22 7:58 AM) 148/70mm Hg *H* (02/20/22 7:50 AM) 156/72mm Hg *H* (02/20/22 5:00 AM) Respiratory Rate [16-30 br/min] 17 br/min (02/20/22 7:58 AM) 18 br/min (02/20/22 7:50 AM) 18 br/min (02/20/22 5:55 AM) Temperature [96.8-100.4 DegF] 98.6 DegF (02/20/22 7:58 AM) 97.9 DegF (02/20/22 5:00 AM) 98.2 DegF (02/20/22 12:14 AM) Liters per Minute 6 L/min (02/17/22 5:00 PM) Mode of Delivery (Oxygen) Room air (02/20/22 7:58 AM) Room air (02/20/22 5:00 AM) Room air (02/20/22 12:14 AM) Blood pressure sites Leg, left (02/20/22 7:58 AM) Leg, right (02/20/22 5:00 AM) Leg, right (02/20/22 12:14 AM) Temperature Route Oral (02/20/22 7:58 AM) Oral (02/20/22 5:00 AM) Oral (02/20/22 12:14 AM) Dry Weight 109 kg (02/19/22 9:00 PM) 105 kg (02/17/22 2:32 PM) 114 kg (02/16/22 6:48 PM) Weight Obtained Via Patient/family stated (02/19/22 9:00 PM) Dry Weight Obtained Via Patient/family stated (02/19/22 9:00 PM) Patient/family stated (02/17/22 2:32 PM) Social History Social History Type Response Tobacco Use: 4 or less cigar ettes(less than 1/4 pack)/day in last 30 days. Sex Care Team Personnel Name: Not on Staff, PCP
--- OUTSIDE RECORDS SUMMARY | 2024-03-29 14:48 | XMS_ITS | Continuity of Care Document ---
Author Organization [facility] Address [address] [place] [address]- Care Team Providers Care Deputy Chief Counsel Name Role Phone Not on Staff, PCP Primary Care Physician Unavail able Encounter [facility] Date(s): 02/05/22 - 02/07/[address] [address] Discharge Disposition: A-D/C AMA Attending Physician: Davina Floyd MD Admitting Physician: Vamsi Grande MD Referring Physician: Not on Staff, Referring MD Allergies, Adverse Reactions, Alerts No Known Allergies Immunizations Given and Recorded Vaccine Date Status Refusal Reason tetanus/diphtheria/pertussis, acel(Tdap) 07/11/20 Given tetanus/diphtheria/pertussis, acel(Tdap) 07/10/18 Given Not Given Vaccine Date Status Refusal Reason pneumococcal 23-valent vaccine 07/03/20 Not Given Patient Refuses influenza virus vaccine, inactivated 07/03/20 Not Given Patient Refuses Medications buprenorphine-naloxone 4 mg-1 mg sublingual film 3 film, Sublingual, 2 times a day, 0 Refills, Maintenance, 11/05/21 11:40:00 EDT, Film, [...] opioid drug. Start Date: 02/06/22 Status: Ordered gabapentin 600 mg oral tablet [...] opioid drug. Start Date: 02/06/22 Status: Ordered Sublocade Subcutaneous Infusion, Every 28 days, 0 Refills, Maintenance, 02/06/22 12:13:00 EDT, Partial fill upon patient request if the prescription is for a schedule II opioid drug. Start Date: 02/06/22 Status: Ordered Problem List Condition Effective Dates Status Health Status Inform ant DKA (diabetic ketoacidosis)(Confirmed) Active Obese class II(Confirmed) Active Results Orders for Microbiology Reports Name Date Anaerobic Culture 02/06/22 Wound Deep Culture w/ Gram Smear (Cultur e Wound Deep w/ Gram Smear) 02/06/22 Blood Culture 02/05/22 Blood Culture #2 02/05/22 Wound Deep Culture w/ Gram Smear 02/05/22 Microbiology Reports TEST:Anaerobic Culture STATUS:Unauthenticated BODY SITE: SOURCE:ABSCES COLLECTED DATE/TIME:02/06/22 3:51 PM Anaerobic Culture SPECIMEN DESCRIPTION : ABSCESS NECK SPECIAL REQUESTS : NONE Test performed at [facility], [address] [place] [address], Elisa Dickerson MD, Med Director, [facility] [id number] CULTURE : NO ANAEROBES ISOLATED SO FAR. REPORT STATUS : PRELIMINARY REPORT TEST:Deep Wound Culture STATUS:Unauthenticated BODY SITE: SOURCE:ABSCES COLLECTED DATE/TIME:02/06/22 3:51 PM Deep Wound Culture SPECIMEN DESCRIPTION : ABSCESS NECK SPECIAL REQUESTS : NONE Test performed at [facility], [address] [place] [address], Elisa Dickerson MD, Med Director, [facility] [id number] GRAM STAIN : 4+ POLYMORPHONUCLEAR LEUKOCYTES 3+ YEAST 2+ GRAM POSITIVE COCCI 1+ GRAM NEGATIVE RODS REPORT STATUS : PRELIMINARY REPORT TEST:Blood Culture, Second Order STATUS:Unauthenticated BODY SITE: SOURCE:Blood COLLECTED DATE/TIME:02/05/22 5:48 PM Blood Culture, Second Order SPECIMEN DESCRIPTION : BLOOD LAC SPECIAL REQUESTS : NONE Test performed at [facility], [address] [place] [address], Elisa Dickerson MD, Med Director, [facility] [id number] CULTURE : NO GROWTH AFTER 24 HOURS REPORT STATUS : PRELIMINARY REPORT TEST:Deep Wound Culture STATUS:Unauthenticated BODY SITE: SOURCE:ABSCES COLLECTED DATE/TIME:02/05/22 5:17 PM Deep Wound Culture SPECIMEN DESCRIPTION : ABSCESS ARM LT SPECIAL REQUESTS : NONE Test performed at [facility], [address] [place] [address], Elisa Dickerson MD, Med Director, [facility] [id number] GRAM STAIN : 2+ WHITE BLOOD CELLS 1+ SQ.EPITHELIAL CELLS 2+ GRAM POSITIVE RODS 2+ GRAM NEGATIVE RODS CULTURE : 4+ LACTOBACILLUS SPECIES SUSCEPTIBILITY TESTING NOT ROUTINELY PERFORMED ON THIS ISOLATE. 1+ YEAST ISOLATED, ID TO FOLLOW REPORT STATUS : PRELIMINARY REPORT TEST:Blood Culture STATUS:Unauthenticated BODY SITE: SOURCE:Blood COLLECTED DATE/TIME:02/05/22 4:03 PM Blood Culture SPECIMEN DESCRIPTION : BLOOD LH SPECIAL REQUESTS : NONE Test performed at [facility], [address] [place] [address], Elisa Dickerson MD, Med Director, [facility] [id number] CULTURE : NO GROWTH AFTER 24 HOURS REPORT STATUS : PRELIMINARY REPORT Radiology Reports * Exam Date Time Procedure Performing Provider Status 02/06/22 10:46 AM Ankle 2 Views Left Potyrala , Annita; Auth (Verified) Notes: (Ankle 2 Views Left) Reason For Exam: Infection RESULT: Ankle 2 Views Left Ankle 2 Views Left REASON: Infection COMPARISON: 12/27/2020 FINDINGS: No evidence of acute or healing fracture or bone lesion. Intact ankle mortise and talar dome. No arthritic changes. Mild soft tissue swelling. Small enthesophyte at the Achilles tendon insertion. IMPRESSION: No evidence of acute osseous abnormality. WSN: [id number] Ordering Physician: Carmela Estes By: Brad Coreas MD Dictated Date/Time: 02/06/22 11:28 a Reviewed By: Brad Coreas MD Signed By: Brad Coreas MD Signed Date/Time: 02/06/22 11:28 am Transcribed By: CRISTIAN Transcribed Date/Time: 02/06/22 11:28 am * Exam Date Time Procedure Performing Provider Status 02/06/22 10:46 AM Hand Min 3 Views Left Adam Alan er; Auth (Verified) Notes: (Hand Min 3 Views Left) Reason For Exam: Infection RESULT: Hand Min 3 Views Left Hand Min 3 Views Left, 3 views REASON: Infection COMPARISON: 08/31/2020 FINDINGS: No fractures or bone lesions. No arthritic changes. 12 mm needle fragment projecting adjacent to the base of the first and second proximal metacarpals.Soft tissue swelling, particularly dorsally. IMPRESSION: Soft tissue swelling. Needle fragment as above. WSN: [id number] Ordering Physician: Carmela Estes Dictated By: Brad Coreas MD Dictated Date/Time: 02/06/22 11:28 a Reviewed By: Brad Coreas MD Signed By: Brad Coreas MD Signed Date/Time: 02/06/22 11:28 am Transcribed By: CRISTIAN Transcribed Date/Time: 02/06/22 11:26 am * Exam Date Time Procedure Performing Provider Status 02/05/22 4:22 PM Chest 2 Views Frontal and Lat Short , S arah; Auth (Verified) Notes: (Chest 2 Views Frontal and Lat) Reason For Exam: DKA;Other: RESULT: Chest 2 Views Frontal and Lat Chest 2 Views Frontal and Lat Hx of Present Illness: patient coming in for hyperglycemia, patient is lethargic, having polydipsiaand polyuria.; Reason: Other:; DKA; Clinical Question(s): Other:; Infiltrate COMPARISON: 11/25/2020 FINDINGS: LINES AND TUBES: None. LUNGS AND PLEURA: Clear lungs. Normal pulmonary vascularity. No pleural effusion. No pneumothorax. HEART, MEDIASTINUM AND YUSRA: Heart is normal in size. Normal upper mediastinal and hilar contour. BONES AND SOFT TISSUES: No acute abnormality. IMPRESSION: No acute abnormality. WSN: [id number] Ordering Physician: Mg Luz Dictated By: Mg Rodarte MD Dictated Date/Time: 02/05/22 5:09 pm Reviewed By: gM Rodarte MD Signed By: Mg Rodarte MD Signed Date/Time: 02/05/22 5:09 pm Transcribed By: CRISTIAN Transcribed Date/Time: 02/05/22 5:09 pm Vital Signs Most recent to oldest [Reference Range]: 1 2 3 Height 174 cm (02/05/22 8:41 PM) 174 cm (02/05/22 3:01 PM) Weight 108.4 kg (02/05/22 8:41 PM) 118.5 kg (02/05/22 3:01 PM) Oxygen Saturation [94-100 %] 100 % (02/07/22 12:00 PM) 100 % (02/07/22 8:00 AM) 100 % (02/07/22 7:00 AM) Pulse Rate [55-90 bpm] 90 bpm (02/07/22 9:33 AM) 83 bpm (02/07/22 6:46 AM) 90 bpm (02/07/22 4:31 AM) Body Mass Index [18.5-24.99] 35.8 *>HHI* (02/05/22 8:41 PM) Blood Pressure [90-138/55-84 mm Hg] 142/92mm Hg *H* (02/07/22 2:00 PM) 110/78mm Hg (02/07/22 8:00 AM) 130/91mm Hg (02/07/22 7:00 AM) Respiratory Rate [16-30 br/min] 33 br/min *H* (02/07/22 2:00 PM) 22 br/min (02/07/22 12:00 PM) 24 br/min (02/07/22 9:33 AM) Temperature [96.8-100.4 DegF] 98 DegF (02/07/22 12:00 PM) 98.1 DegF (02/07/22 8:00 AM) 99.4 DegF (02/07/22 4:00 AM) Mode of Delivery (Oxygen) Room air (02/07/22 2:00 PM) Room air (02/07/22 12:00 PM) Room air (02/07/22 8:00 AM) Blood pressure sites Arm, left (02/07/22 8:00 AM) Arm, left (02/07/22 7:00 AM) Arm, left (02/07/22 6:00 AM) Temperature Route Axillary (02/07/22 12:00 PM) Axillary (02/07/22 8:00 AM) Oral (02/07/22 4:00 AM) Dry Weight 108.4 kg (02/05/22 8:41 PM) 118.5 kg (02/05/22 3:01 PM) Dry Weight Obtained Via Patient/family s tated (02/05/22 3:01 PM) Social History Social History Type Response Tobacco Use: 4 or less cigar ettes(less than 1/4 pack)/day in last 30 days. Sex Note * RY Marino S: TRANSCRIBE Brad Coreas MD: VERIFY Event Display: Result: Authored Date: [id number] Hand Min 3 Views Left, 3 views REASON: Infection COMPARISON: 08/31/2020 FINDINGS: No fractures or bone lesions. No arthritic changes. 12 mm needle fragment projecting adjacent to the base of the first and second proximal metacarpals.Soft tissue swelling, particularly dorsally. IMPRESSION: Soft tissue swelling. Needle fragment as above. WSN: [id number] Ordering Physician: Carmela Estes Dictated By: Brad Coreas MD Dictated Date/Time: 02/06/22 11:28 a Reviewed By: Brad Coreas MD Signed By: Brad Coreas MD Signed Date/Time: 02/06/22 11:28 am Transcribed By: CRISTIAN Transcribed Date/Time: 02/06/22 11:26 am * RY Marino S: TRANSCRIBE Brad Coreas MD: VERIFY Event Display: Result: Authored Date: [id number] Ankle 2 Views Left REASON: Infection COMPARISON: 12/27/2020 FINDINGS: No evidence of acute or healing fracture or bone lesion. Intact ankle mortise and talar dome. No arthritic changes. Mild soft tissue swelling. Small enthesophyte at the Achilles tendon insertion. IMPRESSION: No evidence of acute osseous abnormality. WSN: [id number] Ordering Physician: Carmela Estes Dictated By: Brad Coreas MD Dictated Date/Time: 02/06/22 11:28 a Reviewed By: Brad Coreas MD Signed By: Brad Coreas MD Signed Date/Time: 02/06/22 11:28 am Transcribed By: CRISTIAN Transcribed Date/Time: 02/06/22 11:28 am * [facility] , CIS S: TRANSCRIBE Mg Rodarte MD: VERIFY Event Display: Result: Authored Date: [id number] Chest 2 Views Frontal and Lat Hx of Present Illness: patient coming in for hyperglycemia, patient is lethargic, having polydipsiaand polyuria.; Reason: Other:; DKA; Clinical Question(s): Other:; Infiltrate COMPARISON: 11/25/2020 FINDINGS: LINES AND TUBES: None. LUNGS AND PLEURA: Clear lungs. Normal pulmonary vascularity. No pleural effusion. No pneumothorax. HEART, MEDIASTINUM AND YUSRA: Heart is normal in size. Normal upper mediastinal and hilar contour. BONES AND SOFT TISSUES: No acute abnormality. IMPRESSION: No acute abnormality. WSN: [id number] Ordering Physician: Mg Luz Dictated By: Mg Rodarte MD Dictated Date/Time: 02/05/22 5:09 pm Reviewed By: Mg Rodarte MD Signed By: Mg Rodarte MD Signed Date/Time: 02/05/22 5:09 pm Transcribed By: CRISTIAN Transcribed Date/Time: 02/05/22 5:09 pm Care Team Personnel Name: Not on Staff, PCP
--- OUTSIDE RECORDS SUMMARY | 2024-03-29 14:48 | XMS_ITS | Continuity of Care Document ---
Author Organization [facility] Address [address] [place] [id number]- Care Team Providers Care Hook Puller Name Role Phone Not on Staff, PCP Primary Care Physician Unavail able Encounter [facility] [place] Date(s): 07/13/19 - 07/13/[address] [address]- [facility] Attending Physician: Brett STOVALL, Navya Siddiqui Allergies, Adverse Reactions, Alerts Substance Reaction Severity Status NKA Active Immunizations Given and Recorded Vaccine Date Status Refusal Reason tetanus/diphtheria/pertussis, acel(Tdap) 07/10/18 Given Medications bacitracin topical 500 u/gm ointment See Instructions, Topically 4 times a day to affected skin until it has healed, # 15 Gm, 0 Refills,Maintenance, 07/11/18 13:48:01 EST, Ointment, Topically 4 times a day to affected skin until it hashealed Start Date: 07/11/18 Status: Ordered citalopram 40 mg oral tablet 40 mg, 1, tablet, By Mouth, Daily, # 90 tablet, Refills 0, Maintenance, 07/10/18 18:26:10 EST Start Date: 07/10/18 Status: Ordered Narcan 4 mg/0.1 mL nasal spray = 4 mg, Nares, Both, Once, # 2 each, 0 Refills, Soft Stop, 07/12/18 7:05:46 EST Start Date: 07/12/18 Status: Ordered Social History Social History Type Response Tobacco Use: 4 or less cigar ettes(less than 1/4 pack)/day in last 30 days. Sex
--- OUTSIDE RECORDS SUMMARY | 2024-03-29 14:48 | XMS_ITS | Continuity of Care Document ---
Author Organization [facility] Address [address] [place] [address]- Care Team Providers Care Radiosonde Specialist Name Role Phone Kaylah Esteves Primary Care Physicia n Encounter [facility] [place] Date(s): 11/16/20 - 11/16/[address] [address]- Discharge Disposition: A-D/C Home Attending Physician: Jose Langston MD Admitting Physician: Jose Langston MD Referring Physician: Not on Staff, Referring [...] mL, 0 Refills,Maintenance, 07/05/20 12:39:00 EST, Solution, [facility], Partial fill upon patient [...] 0 Refills, Maintenance, 07/06/20 10:44:00 EST, Tablet, [facility], Partial fill upon patient [...] Gum Start Date: 07/01/20 Status: Ordered Pen Clawson, 31 G x 5 mm BD Ultra [...] Last filled 05/20/2020 for 28 days at [facility]. 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., Maintenance, 07/01/20 10:39:00 EST, Tablet Start [...] Range]: 1 2 Oxygen Saturation [94-100 %] 98 % (11/16/20 3:50 AM) 98 % (11/16/20 1:50 AM) Pulse Rate [55-90 bpm] 101 bpm *H* (11/16/20 3:50 AM) 103 bpm *H* (11/16/20 1:50 AM) Blood Pressure [90-138/55-84 mm Hg] 127/ 71mm Hg (11/16/20 3:50 AM) 125/78mm Hg (11/16/20 1:50 AM) Respiratory Rate [16-30 br/min] 17 br/mi n (11/16/20 3:50 AM) 18 br/min (11/16/20 1:50 AM) Temperature [96.8-100.4 DegF] 98.5 DegF (11/16/20 3:50 AM) 98.6 DegF (11/16/20 1:50 AM) Mode of Delivery (Oxygen) Room air (11/16/20 3:50 AM) Room air (11/16/20 1:50 AM) Blood pressure sites Arm, right (11/16/20 3:50 AM) Arm, right (11/16/20 1:50 AM) Temperature Route Oral (11/16/20 3:50 AM) Oral (11/16/20 1:50 AM) Social History Social History Type Response Tobacco Use: 4 or less cigar ettes(less than 1/4 pack)/day in last 30 days. Sex
--- OUTSIDE RECORDS SUMMARY | 2024-03-29 14:48 | XMS_ITS | Continuity of Care Document ---
Author Organization 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 Name Role Phone Kaylah Esteves Primary Care Physicia n Encounter [facility] [place] Date(s): 12/16/20 - 12/18/[address] [address]- Encounter Diagnosis Cellulitis(Final) - 12/16/20 Discharge Disposition: A-D/C AMA Attending Physician: Vineet Cleaning MD Admitting Physician: Kimberley Rebolledo MD Referring Physician: Not on Staff, Referring [...] 10:43:00 EST Start Date: 07/01/20 Status: Ordered methadone 10 mg oral tablet 20 mg, Tablet, By Mouth, 12/18/20 9:00:00 EDT Start Date: 12/18/20 Stop Date: 12/18/20 Status: Completed sertraline 100 mg oral tablet 1 tablet = 100 mg, By Mouth, Daily, Last filled 05/20/2020 for 28 days at [place]. 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, 07/01/20 10:39:00 EST, Tablet Start Date: 07/01/20 Status: Ordered Problem List Condition Effective Dates Status Health Status Inform ant DKA (diabetic ketoacidosis)(Confirmed) Active Results Orders for Microbiology Reports Name Date Wound Deep Culture w/ Gram Smear 12/16/20 Blood Culture 12/16/20 Blood Culture #2 12/16/20 Microbiology Reports TEST:Deep Wound Culture STATUS:Auth (Verified) BODY SITE: SOURCE:ABSCES COLLECTED DATE/TIME:12/16/20 10:27 AM Deep Wound Culture SPECIMEN DESCRIPTION : ABSCESS FINGER RT 3RD SPECIAL REQUESTS : NONE GRAM STAIN : 1+ POLYMORPHONUCLEAR LEUKOCYTES 1+ SQ.EPITHELIAL CELLS 2+ GRAM POSITIVE COCCI CULTURE : 4+ STAPHYLOCOCCUS AUREUS, METHICILLIN RESISTANT. METHICILLIN RESISTANT STAPH AUREUS SHOULD BE CONSIDERED CLINICALLY RESISTANT TO ALL BETA-LACTAMS. REPORT STATUS : FINAL 12/18/2020 ORGANISM 4+ STAPHYLOCOCCUS AUREUS, METHICILLIN RESISTANT. METHICILLIN RESISTANT STAPH AUREUS SHOULD BE CONSIDERED CLINICALLY RESISTANT TO ALL BETA-LACTAMS. METHOD MIN. INHIB. CONC. (MCG/ML) CIPROFLOXACIN SUSCEPTIBLE CLINDAMYCIN SUSCEPTIBLE ERYTHROMYCIN RESISTANT INDUCIBLE CLINDAMYCI NEGATIVE LEVOFLOXACIN SUSCEPTIBLE LINEZOLID SUSCEPTIBLE OXACILLIN RESISTANT RIFAMPIN SUSCEPTIBLE RIFAMPIN RIFAMPIN SHOULD NOT BE USED ALONE FOR ANTIMICROBIAL RIFAMPIN THERAPY. TETRACYCLINE SUSCEPTIBLE TRIMETH/SULFAMETHOX SUSCEPTIBLE VANCOMYCIN SUSCEPTIBLE TEST:Blood Culture, Second Order STATUS:Unauthenticated BODY SITE: SOURCE:Blood COLLECTED DATE/TIME:12/16/20 9:19 AM Blood Culture, Second Order SPECIMEN DESCRIPTION : BLOOD HARD STICK SPECIAL REQUESTS : RECEIVED AE BOTTLE ONLY CULTURE : NO GROWTH AFTER 48 HOURS REPORT STATUS : PRELIMINARY REPORT TEST:Blood Culture STATUS:Unauthenticated BODY SITE: SOURCE:Blood COLLECTED DATE/TIME:12/16/20 4:00 AM Blood Culture SPECIMEN DESCRIPTION : BLOOD RIGHT AC SPECIAL REQUESTS : NONE CULTURE : NO GROWTH AFTER 48 HOURS REPORT STATUS : PRELIMINARY REPORT Radiology Reports * Exam Date Time Procedure Performing Provider Status 12/16/20 6:27 AM Hand Min 3 Views Right Reiiner Duarte ph; Auth (Verified) Notes: (Hand Min 3 Views Right) Reason For Exam: with Pain;Trauma RESULT: Hand Min 3 Views Right Examination: Right hand performed on 12/16/2020. History: Hx of Present Illness: pt found on a steps of a house; reports +ETOH; EMS questions PA or fall d t LLE swelling and R hand swelling; Reason: Trauma; with Pain; Clinical Question(s): Fracture Findings: Frontal, oblique, and lateral views of the right hand are submitted. The study is limited due to patient positioning. No definite fractures or dislocations are seen. Soft tissue swelling overlies the dorsum of the hand. IMPRESSION: Limited study. Soft tissue swelling. There is no definite fracture. WSN: [id number] Ordering Physician: Nayla Pavon Dictated By: Clementina Carrera MD Dictated Date/Time: 12/16/20 7:18 am Reviewed By: Clementina Carrera MD Signed By: Clementina Carrera MD Signed Date/Time: 12/16/20 7:18 am Transcribed By: CRISTIAN Transcribed Date/Time: 12/16/20 7:17 am * Exam Date Time Procedure Performing Provider Status 12/16/20 6:27 AM Tibia/Fibula 2 Views Left Napoleon Duarte; Auth (Verified) Notes: (Tibia/Fibula 2 Views Left) Reason For Exam: with Pain;Trauma RESULT: Tibia/Fibula 2 Views Left Examination: Left ankle and left tibia and fibula performed on 12/16/2020. History: Hx of Present Illness: pt found on a steps of a house; reports +ETOH; EMS questions PA or fall d t LLE swelling and R hand swelling; Reason: Trauma; with Pain; Clinical Question(s): Fracture Findings: Frontal, oblique, and lateral views of the left ankle and frontal and lateral views of the left tibia and fibula are submitted. The mortise is preserved. No fractures or dislocations are demonstrated. Deformity of the fibular head with extension to the tibia may represent stigmata of prior trauma. Soft tissue swelling overlies the malleoli. IMPRESSION: Soft tissue swelling. There is no acute osseous abnormality. WSN: [id number] Ordering Physician: Nayla Pavon Dictated By: Clementina Carrera MD Dictated Date/Time: 12/16/20 7:16 am Reviewed By: Clementina Carrera MD Signed By: Clementina Carrera MD Signed Date/Time: 12/16/20 7:16 am Transcribed By: CRISTIAN Transcribed Date/Time: 12/16/20 7:15 am * Exam Date Time Procedure Performing Provider Status 12/16/20 6:27 AM Ankle Min 3 Views Left Reinier Duarte ph; Auth (Verified) Notes: (Ankle Min 3 Views Left) Reason For Exam: with Pain;Trauma RESULT: Ankle Min 3 Views Left Examination: Left ankle and left tibia and fibula performed on 12/16/2020. History: Hx of Present Illness: pt found on a steps of a house; reports +ETOH; EMS questions PA or fall d t LLE swelling and R hand swelling; Reason: Trauma; with Pain; Clinical Question(s): Fracture Findings: Frontal, oblique, and lateral views of the left ankle and frontal and lateral views of the left tibia and fibula are submitted. The mortise is preserved. No fractures or dislocations are demonstrated. Deformity of the fibular head with extension to the tibia may represent stigmata of prior trauma. Soft tissue swelling overlies the malleoli. IMPRESSION: Soft tissue swelling. There is no acute osseous abnormality. WSN: [id number] Ordering Physician: Nayla Pavon Dictated By: Clementina Carrera MD Dictated Date/Time: 12/16/20 7:16 am Reviewed By: Clementina Carrera MD Signed By: Clementina Carrera MD Signed Date/Time: 12/16/20 7:16 am Transcribed By: CRISTIAN Transcribed Date/Time: 12/16/20 7:15 am * Exam Date Time Procedure Performing Provider Status 12/16/20 6:27 AM Foot Min 3 Views Left Matteo Duarte h; Auth (Verified) Notes: (Foot Min 3 Views Left) Reason For Exam: with Pain;Trauma RESULT: Foot Min 3 Views Left Examination: Left foot performed on 12/16/2020. History: Hx of Present Illness: pt found on a steps of a house; reports +ETOH; EMS questions PA or fall d t LLE swelling and R hand swelling; Reason: Trauma; with Pain; Clinical Question(s): Fracture Findings: Frontal, oblique, and lateral views of the left foot are submitted. Hallux valgus deformity is seen. There are no fractures or dislocations. An osteophyte related to the calcaneus is seen. IMPRESSION: There is no acute osseous abnormality. WSN: [id number] Ordering Physician: Nayla Pavon Dictated By: Clementina Carrera MD Dictated Date/Time: 12/16/20 7:14 am Reviewed By: Clementina Carrera MD Signed By: Clementina Carrera MD Signed Date/Time: 12/16/20 7:14 am Transcribed By: CRISTIAN Transcribed Date/Time: 12/16/20 7:13 am Vital Signs Most recent to oldest [Reference Range]: 1 2 3 Oxygen Saturation [94-100 %] 100 % (12/18/20 6:43 AM) 100 % (12/18/20 4:00 AM) 99 % (12/18/20 12:00 AM) Pulse Rate [55-90 bpm] 51 bpm *L* (12/18/20 6:43 AM) 62 bpm (12/18/20 4:00 AM) 76 bpm (12/18/20 12:00 AM) Blood Pressure [90-138/55-84 mm Hg] 149/96mm Hg *H* (12/18/20 6:43 AM) 154/103mm Hg *H* (12/18/20 4:00 AM) 152/89mm Hg *H* (12/18/20 12:00 AM) Respiratory Rate [16-30 br/min] 18 br/min (12/18/20 10:38 AM) 18 br/min (12/18/20 8:55 AM) 18 br/min (12/18/20 6:43 AM) Temperature [96.8-100.4 DegF] 98.4 DegF (12/18/20 6:43 AM) 98.3 DegF (12/18/20 4:00 AM) 98.4 DegF (12/18/20 12:00 AM) Mode of Delivery (Oxygen) Room air (12/18/20 6:43 AM) Room air (12/18/20 4:00 AM) Room air (12/18/20 12:00 AM) Blood pressure sites Arm, left (12/18/20 6:43 AM) Arm, left (12/18/20 4:00 AM) Arm, left (12/18/20 12:00 AM) Temperature Route Oral (12/18/20 6:43 AM) Oral (12/18/20 4:00 AM) Oral (12/18/20 12:00 AM) Social History Social History Type Response Tobacco Use: 4 or less cigar ettes(less than 1/4 pack)/day in last 30 days. Sex
--- OUTSIDE RECORDS SUMMARY | 2024-03-29 14:48 | XMS_ITS | Continuity of Care Document ---
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 Name Role Phone Not on Staff, PCP Primary Care Physician Unavail able Encounter [facility] [place] Date(s): 06/19/20 - 06/21/20 [facility] [address] [place] [address]- Discharge Disposition: A-D/C Home Attending Physician: Emma Melissa MD Admitting Physician: Rei Young MD Referring Physician: Not on Staff, Referring MD Allergies, Adverse Reactions, Alerts Substance Reaction Severity Status NKA Active Immunizations Given and Recorded Vaccine Date Status Refusal Reason tetanus/diphtheria/pertussis, acel(Tdap) 07/10/18 Given Medications citalopram 40 mg oral tablet 40 mg, 1, tablet, By Mouth, Daily, # 90 tablet, Refills 0, Maintenance, 07/10/18 18:26:10 EST Start Date: 07/10/18 Status: Ordered Glucometer Glucometer, See Instructions, # 1 each, Refills 0, Tot. Refills 0, Maintenance, any brand covered /available, 06/21/20 12:45:00 EST, Supply, 172, cm, 06/21/20 7:44:00 EST, Height, 102.8, kg, 06/20/2122:51:00 EST, Dry Weight Start Date: 06/21/20 Status: Ordered Glucometer testing strips Glucometer testing strips, See Instructions, # 100 each, Refills 0, Tot. Refills 0, Maintenance, POC checks QID Brand matching glucometer dispensed, 06/21/20 12:46:00 EST, Supply, 172, cm, 06/21/20 7:44:00 EST, Height, 102.8, kg, 06/20/20 23:51:00 ES... Start Date: 06/21/20 Status: Ordered lancets lancets, See Instructions, # 100 each, Refills 0, Tot. Refills 0, Maintenance, POC QID, 06/21/20 12:47:00 EST, Supply, 172, cm, 06/21/20 7:44:00 EST, Height, 102.8, kg, 06/20/20 23:51:00 EST, Dry Weight Start Date: 06/21/20 Status: Ordered Lantus Solostar Pen 100 units/mL subcutaneous solution = 30 units, Subcutaneous Injection, Daily in AM, # 10 mL, 1 Refills, Maintenance, 06/21/20 12:48:00EST, Solution, [facility], Partial fill upon patient request if the prescription is for a schedule II opioid drug., 172, cm, 06/21/20 7:4... Start Date: 06/21/20 Stop Date: 08/20/20 Status: Ordered naloxone 4 mg/0.1 mL nasal spray 1 sprays, Naris, Left, Once, PRN Other respiratory depression, # 1 kit, 0 Refills, Soft Stop, 02/18/20 13:25:00 EDT Start Date: 02/18/20 Status: Ordered solostar pen microneedles solostar pen microneedles, See Instructions, # 100 each, Refills 0, Tot. Refills 0, Maintenance, daily lantus dose, 06/21/20 12:50:00 EST, Supply, 172, cm, 06/21/20 7:44:00 EST, Height, 102.8, kg, 06/20/20 23:51:00 EST, Dry Weight Start Date: 06/21/20 Status: Ordered Suboxone 12 mg-3 mg sublingual film 1 film, Sublingual, 2 times a day, dissolve under the tongue, 0 Refills, Maintenance, 06/19/20 20:56:00 EST, Film, Partial fill upon patient request if the prescription is for a schedule II opioid drug. Start Date: 06/19/20 Status: Ordered Results Orders for Microbiology Reports Name Date Blood Culture 06/19/20 Blood Culture #2 06/19/20 Microbiology Reports TEST:Blood Culture STATUS:Unauthenticated BODY SITE: SOURCE:Blood COLLECTED DATE/TIME:06/19/20 11:31 AM Blood Culture SPECIMEN DESCRIPTION : BLOOD LEFT SPECIAL REQUESTS : NONE CULTURE : NO GROWTH AFTER 48 HOURS REPORT STATUS : PRELIMINARY REPORT TEST:Blood Culture, Second Order STATUS:Unauthenticated BODY SITE: SOURCE:Blood COLLECTED DATE/TIME:06/19/20 11:30 AM Blood Culture, Second Order SPECIMEN DESCRIPTION : BLOOD RAC SPECIAL REQUESTS : NONE CULTURE : NO GROWTH AFTER 48 HOURS REPORT STATUS : PRELIMINARY REPORT Radiology Reports * Exam Date Time Procedure Performing Provider Status 06/19/20 2:02 PM Chest Portable Sheridan Jang; Auth (V erified) Notes: (Chest Portable) Reason For Exam: Shortness of Breath RESULT: Chest Portable AP upright portable chest dated June 19, 2020 at 1339 hours. Comparison films are from July 12, 2018. HISTORY: Shortness of breath and chest pain. FINDINGS: The cardiac silhouette is within normal limits for size. Hilar and mediastinal structuresare unremarkable. No airspace infiltrate or pleural effusion is identified. Visualized osseous structures are unremarkable. IMPRESSION: Normal chest x-ray. Examination [address]. Thank you for allowing me to participate in the care of this patient. WSN: [id number] Ordering Physician: eRx Harrell Dictated By: Kaiden Klein MD Dictated Date/Time: 06/19/20 2:06 pm Reviewed By: Kaiden Klein MD Signed By: Kaiden Klein MD Signed Date/Time: 06/19/20 2:06 pm Transcribed By: CRISTIAN Transcribed Date/Time: 06/19/20 2:06 pm Vital Signs Most recent to oldest [Reference Range]: 1 2 3 Height 172 cm (06/21/20 7:44 AM) 172 cm (06/21/20 12:26 AM) 172 cm (06/20/20 11:51 PM) Weight 102.8 kg (06/20/20 11:51 PM) Oxygen Saturation [94-100 %] 97 % (06/21/20 7:44 AM) 98 % (06/21/20 12:26 AM) 98 % (06/20/20 11:51 PM) Pulse Rate [55-90 bpm] 86 bpm (06/21/20 7:44 AM) 99 bpm *H* (06/21/20 12:26 AM) 99 bpm *H* (06/20/20 11:51 PM) Body Mass Index [18.5-24.99] 34.75 *>HHI* (06/20/20 11:51 PM) Blood Pressure [90-138/55-84 mm Hg] 132/83mm Hg (06/21/20 7:44 AM) 136/80mm Hg (06/21/20 12:26 AM) 136/80mm Hg (06/20/20 11:51 PM) Respiratory Rate [16-30 br/min] 20 br/min (06/21/20 7:44 AM) 20 br/min (06/21/20 12:26 AM) 19 br/min (06/20/20 11:51 PM) Temperature [96.8-100.4 DegF] 98.7 DegF (06/21/20 7:00 AM) 98.0 DegF (06/21/20 12:26 AM) 98 DegF (06/20/20 11:51 PM) Mode of Delivery (Oxygen) Room air (06/21/20 7:44 AM) Room air (06/21/20 12:26 AM) Room air (06/20/20 11:51 PM) Blood pressure sites Arm, right (06/21/20 7:44 AM) Arm, left (06/20/20 11:51 PM) Arm, left (06/20/20 9:26 PM) Temperature Route Oral (06/21/20 7:00 AM) Oral (06/21/20 12:26 AM) Oral (06/20/20 11:51 PM) Dry Weight 102.8 kg (06/20/20 11:51 PM) Social History Social History Type Response Tobacco Use: 4 or less cigar ettes(less than 1/4 pack)/day in last 30 days. Sex
--- OUTSIDE RECORDS SUMMARY | 2024-03-29 14:48 | XMS_ITS | Continuity of Care Document ---
Author Organization [facility] ter Address [address] [place] [address]- Care Team Providers Care Veneer Sawyer Name Role Phone Not on Staff, PCP Primary Care Physician Unavail able Encounter [facility] [place] Date(s): 02/17/20 - 02/18/[address] [address] [facility] Discharge Disposition: A-D/C Home Attending Physician: Og Mata MD Admitting Physician: Og Mata MD Referring Physician: Not on Staff, Referring MD Allergies, Adverse Reactions, Alerts Substance Reaction Severity Status NKA Active Medications naloxone 4 mg/0.1 mL nasal spray 1 sprays, Naris, Left, Once, PRN Other respiratory depression, # 1 kit, 0 Refills, Soft Stop, 02/18/20 13:25:00 EDT Start Date: 02/18/20 Status: Ordered Suboxone 8 mg-2 mg Sublingual Film 2 film, Sublingual, Daily, or as directed, # 10 film, 0 Refills, Maintenance, 02/18/20 13:25:00 EDT Start Date: 02/18/20 Status: Ordered Results Orders for Microbiology Reports Name Date Blood Culture 02/17/20 Blood Culture #2 02/17/20 Microbiology Reports TEST:Blood Culture, Second Order STATUS:Unauthenticated BODY SITE: SOURCE:Blood COLLECTED DATE/TIME:02/17/20 3:22 PM Blood Culture, Second Order SPECIMEN DESCRIPTION : BLOOD LEFT HAND SPECIAL REQUESTS : NONE CULTURE : NO GROWTH AFTER 24 HOURS REPORT STATUS : PRELIMINARY REPORT TEST:Blood Culture STATUS:Unauthenticated BODY SITE: SOURCE:Blood COLLECTED DATE/TIME:02/17/20 2:53 PM Blood Culture SPECIMEN DESCRIPTION : BLOOD RIGHT UPPER ARM SPECIAL REQUESTS : NONE CULTURE : NO GROWTH AFTER 24 HOURS REPORT STATUS : PRELIMINARY REPORT Radiology Reports * Exam Date Time Procedure Performing Provider Status 02/17/20 3:14 PM Chest Portable Julia Becker; Auth (V erified) Notes: (Chest Portable) Reason For Exam: Shortness of Breath RESULT: Chest Portable Chest Portable performed upright Reason: Shortness of Breath; Clinical Question(s): CHF COMPARISON: None. FINDINGS: LINES AND TUBES: None. LUNGS AND PLEURA: No airspace disease or consolidation No pleural effusion. No pneumothorax. HEART, MEDIASTINUM AND YUSRA: Heart is normal in size. Normal mediastinal and hilar contour. BONES AND SOFT TISSUES: No acute abnormality. IMPRESSION: Normal exam I have personally reviewed the images and I agree with this report. WSN: [id number] Ordering Physician: Og Mata Dictated By: Nader Cedeño DO Dictated Date/Time: 02/17/20 3:44 pm Reviewed By: Mg Mcgill MD Signed By: Mg Mcgill MD Signed Date/Time: 02/17/20 3:49 pm Transcribed By: CRISTIAN Transcribed Date/Time: 02/17/20 3:34 pm Vital Signs Most recent to oldest [Reference Range]: 1 2 3 Oxygen Saturation [94-100 %] 98 % (02/18/20 11:37 AM) 98 % (02/18/20 6:02 AM) 96 % (02/18/20 2:47 AM) Pulse Rate [55-90 bpm] 84 bpm (02/18/20 11:37 AM) 81 bpm (02/18/20 6:02 AM) 82 bpm (02/18/20 2:47 AM) Blood Pressure [90-138/55-84 mm Hg] 140/77mm Hg *H* (02/18/20 11:37 AM) 118/63mm Hg (02/18/20 6:02 AM) 126/87mm Hg (02/18/20 2:47 AM) Respiratory Rate [16-30 br/min] 18 br/min (02/18/20 11:37 AM) 19 br/min (02/18/20 6:02 AM) 18 br/min (02/18/20 2:47 AM) Temperature [96.8-100.4 DegF] 98.2 DegF (02/17/20 7:27 PM) 98.2 DegF (02/17/20 5:15 PM) 100 DegF (02/17/20 3:27 PM) Liters per Minute 0 L/min (02/18/20 11:37 AM) 1 L/min (02/17/20 3:40 PM) 2 L/min (02/17/20 3:27 PM) Mode of Delivery (Oxygen) Room air (02/18/20 11:37 AM) Room air (02/18/20 6:02 AM) Room air (02/18/20 2:47 AM) Blood pressure sites Arm, left (02/18/20 11:37 AM) Arm, right (02/18/20 6:02 AM) Arm, right (02/18/20 2:47 AM) Temperature Route Oral (02/17/20 7:27 PM) Oral (02/17/20 5:15 PM) Rectal (02/17/20 3:27 PM)
--- OUTSIDE RECORDS SUMMARY | 2024-03-29 14:48 | XMS_ITS | Continuity of Care Document ---
Author Organization [facility] ter Address [address] [place] [address]- Care Team Providers Care Underground Utility Locator Name Role Phone Kaylah Esteves Primary Care Physicia n [place] [facility] [place] 11[place]25[place] 11/25/[address] [address]- Discharge Disposition: A-D/C Home Attending Physician: Kaylie Porter MD Admitting Physician: Kaylie Porter MD Referring Physician: Not on Staff, Referring [...] mL, 0 Refills,Maintenance, 07/05/20 12:39:00 EST, Solution, [facility], Partial fill upon patient [...] 0 Refills, Maintenance, 07/06/20 10:44:00 EST, Tablet, [facility], Partial fill upon patient [...] Gum Start Date: 07/01/20 Status: Ordered Pen [place], 31 G x 5 mm BD Ultra [...] Last filled 05/20/2020 for 28 days at [place]. 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 Pt reports that he is homeless and running the streets . Further inquiry reveals that pt. Has pain everywhere with vague mention of sob from my asthma . No fevers; ; Reason: Shortness of Breath; Clinical Question(s): Pneumonia COMPARISON: 11/20/2020 FINDINGS: LINES AND TUBES: None. LUNGS AND PLEURA: Clear lungs. Normal pulmonary vascularity. No pleural effusion. No pneumothorax. HEART, MEDIASTINUM AND YUSRA: Heart is normal in size. Normal upper mediastinal and hilar contour. BONES AND SOFT TISSUES: No acute abnormality. IMPRESSION: No acute abnormality. WSN: [id number] Ordering Physician: Elder Cline Dictated By: John Resendez MD Dictated Date/Time: 11/25/20 8:40 am Reviewed By: John Resendez MD Signed By: John Resendez MD Signed Date/Time: 11/25/20 8:40 am Transcribed By: CRISTIAN Transcribed Date/Time: 11/25/20 8:38 am Vital Signs Most recent to oldest [Reference Range]: 1 2 Oxygen Saturation [94-100 %] 95 % (11/25/20 5:02 AM) 98 % (11/25/20 3:29 AM) Pulse Rate [55-90 bpm] 98 bpm *H* (11/25/20 5:02 AM) 101 bpm *H* (11/25/20 3:29 AM) Blood Pressure [90-138/55-84 mm Hg] 125/ 74mm Hg (11/25/20 3:29 AM) Respiratory Rate [16-30 br/min] 14 br/mi n *L* (11/25/20 5:02 AM) 18 br/min (11/25/20 3:29 AM) Temperature [96.8-100.4 DegF] 99.2 DegF (11/25/20 3:29 AM) Mode of Delivery (Oxygen) Room air (11/25/20 5:02 AM) Room air (11/25/20 3:29 AM) Temperature Route Oral (11/25/20 3:29 AM) Social History Social History Type Response Tobacco Use: 4 or less cigar ettes(less than 1/4 pack)/day in last 30 days. Sex
--- OUTSIDE RECORDS SUMMARY | 2024-03-29 14:48 | XMS_ITS | Continuity of Care Document ---
Author Organization [facility] ter Address [address] [place] [address]- Care Team Providers Care Loss Prevention Investigator Name Role Phone Kaylah Esteves Primary Care Physicia n Encounter [facility] [place] Date(s): 10/11/20 - 10/11/[address] [address]- Discharge Disposition: A-D/C Walkout Attending Physician: Not [...] mL, 0 Refills,Maintenance, 07/05/20 12:39:00 EST, Solution, [facility], Partial fill upon patient [...] 0 Refills, Maintenance, 07/06/20 10:44:00 EST, Tablet, [facility], Partial fill upon patient [...] Gum Start Date: 07/01/20 Status: Ordered Pen [place], 31 G x 5 mm BD Ultra [...] Last filled 05/20/2020 for 28 days at [place]. 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 History: Dizziness, shortness of breath, cough and chest pain. Patient is an IV drug abuser complaining of a large abscess. Findings: A frontal view of the chest is compared to a prior study dated 08/31/2020. The cardiac and mediastinal silhouettes are within normal limits. The lungs are clear. The osseous and soft tissue structures are unremarkable. IMPRESSION: There is no acute cardiopulmonary disease. WSN: [id number] Ordering Physician: Betito Garcia Dictated By: Clementina Carrera MD Dictated Date/Time: 10/11/20 8:40 am Reviewed By: Clementina Carrera MD Signed By: Clementina Carrera MD Signed Date/Time: 10/11/20 8:40 am Transcribed By: CRISTIAN Transcribed Date/Time: 10/11/20 8:39 am Vital Signs Most recent to oldest [Reference Range]: 1 2 3 Oxygen Saturation [94-100 %] 100 % (10/11/20 7:03 AM) 100 % (10/11/20 4:40 AM) 97 % (10/11/20 1:45 AM) Pulse Rate [55-90 bpm] 96 bpm *H* (10/11/20 7:03 AM) 89 bpm (10/11/20 4:40 AM) 106 bpm *H* (10/11/20 1:45 AM) Blood Pressure [90-138/55-84 mm Hg] 112/86mm Hg (10/11/20 7:03 AM) 100/65mm Hg (10/11/20 4:40 AM) 115/49mm Hg (10/11/20 1:45 AM) Respiratory Rate [16-30 br/min] 17 br/min (10/11/20 7:03 AM) 17 br/min (10/11/20 4:40 AM) 18 br/min (10/11/20 1:45 AM) Temperature [96.8-100.4 DegF] 99.0 DegF (10/11/20 7:03 AM) 98.6 DegF (10/11/20 4:40 AM) 99.2 DegF (10/11/20 1:45 AM) Mode of Delivery (Oxygen) Room air (10/11/20 7:03 AM) Room air (10/11/20 4:40 AM) Room air (10/11/20 1:45 AM) Blood pressure sites Arm, left (10/11/20 7:03 AM) Arm, left (10/11/20 4:40 AM) Arm, right (10/11/20 1:45 AM) Temperature Route Oral (10/11/20 7:03 AM) Oral (10/11/20 4:40 AM) Oral (10/11/20 1:45 AM) Social History Social History Type Response Tobacco Use: 4 or less cigar ettes(less than 1/4 pack)/day in last 30 days. Sex
--- OUTSIDE RECORDS SUMMARY | 2024-03-29 14:48 | XMS_ITS | Continuity of Care Document ---
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 Name Role Phone Not on Staff, PCP Primary Care Physician Unavail able Encounter [facility] Date(s): 02/16/22 - 02/16/22 [facility] [address] [place] [address]- Encounter Diagnosis DKA (diabetic ketoacidosis)(Final) - 02/16/22 Sepsis(Final) - 02/16/22 Abscess of right hand(Final) - 02/16/22 Discharge Disposition: Transferred to short-term general hospit Attending Physician: Pebbles Rivera MD Admitting Physician: Pebbles Rivera MD Referring Physician: Not on Staff, Referring [...] use disorder, severe , dependence(Confirmed) Active Results Radiology Reports * Exam Date Time Procedure Performing Provider Status 02/16/22 12:13 PM Chest Portable Marcela Shi; Auth ( Verified) Notes: (Chest Portable) Reason For Exam: Shortness of Breath RESULT: Chest Portable Chest Portable Hx of Present Illness: IRMA, hyperglycemia POC >500. pt denies access to home insulin. abcess in rt hand.; Reason: Shortness of Breath; Clinical Question(s): CHF COMPARISON: 02/05/2022. FINDINGS: LINES AND TUBES: None. LUNGS AND PLEURA: Clear lungs. Normal pulmonary vascularity. No pleural effusion. No pneumothorax. HEART, MEDIASTINUM AND YUSRA: Heart is normal in size. Normal upper mediastinal and hilar contour. BONES AND SOFT TISSUES: No acute abnormality. IMPRESSION: No acute abnormality. WSN: [id number] Ordering Physician: Desire Hussein Dictated By: Sailaja Waldron MD Dictated Date/Time: 02/16/22 12:23 p Reviewed By: Sailaja Waldron MD Signed By: Sailaja Waldron MD Signed Date/Time: 02/16/22 12:23 pm Transcribed By: CRISTIAN Transcribed Date/Time: 02/16/22 12:22 pm * Exam Date Time Procedure Performing Provider Status 02/16/22 12:13 PM Hand Min 3 Views Right Marcela Shi ; Auth (Verified) Notes: (Hand Min 3 Views Right) Reason For Exam: Pain from abcess;Pain RESULT: Hand Min 3 Views Right Hand Min 3 Views Right, 3 views Hx of Present Illness: IRMA, hyperglycemia POC >500. pt denies access to home insulin. abscess inrt hand.; Reason: Pain from abscess; Clinical Question(s): Osteomyelitis COMPARISON: Radiographs of the right hand, 12/16/2020. FINDINGS: No fractures or bone lesions. No bony erosion. No arthritic changes. Alignment is preserved. There is marked diffuse soft tissue swelling of the hand, particularly involving the dorsum of the hand. No radiopaque foreign body is seen. No soft tissue gas is seen. IMPRESSION: Significant soft tissue swelling of the right hand, particularly involving the dorsum of the hand. No radiopaque foreign body or soft tissue gas. No osseous erosion or other acute osseous abnormality. WSN: [id number] Ordering Physician: Desire Hussein Dictated By: Sailaja Waldron MD Dictated Date/Time: 02/16/22 12:22 p Reviewed By: Sailaja Waldron MD Signed By: Sailaja Waldron MD Signed Date/Time: 02/16/22 12:22 pm Transcribed By: CRISTIAN Transcribed Date/Time: 02/16/22 12:18 pm Vital Signs Most recent to oldest [Reference Range]: 1 2 3 Height 175 cm (02/16/22 3:48 PM) 175 cm (02/16/22 11:03 AM) Weight 114 kg (02/16/22 3:48 PM) 114 kg (02/16/22 11:03 AM) Oxygen Saturation [94-100 %] 100 % (02/16/22 11:03 AM) Pulse Rate [55-90 bpm] 110 bpm *H* (02/16/22 5:24 PM) 110 bpm *H* (02/16/22 4:51 PM) 107 bpm *H* (02/16/22 3:48 PM) Body Mass Index [18.5-24.99] 37.22 *>HHI* (02/16/22 3:48 PM) Blood Pressure [90-138/55-84 mm Hg] 127/69mm Hg (02/16/22 1:25 PM) 119/91mm Hg (02/16/22 11:03 AM) Respiratory Rate [16-30 br/min] 34 br/min *H* (02/16/22 5:24 PM) 30 br/min (02/16/22 4:51 PM) 30 br/min (02/16/22 3:48 PM) Temperature [96.8-100.4 DegF] 97.7 DegF (02/16/22 1:25 PM) 98.4 DegF (02/16/22 11:03 AM) Mode of Delivery (Oxygen) Room air (02/16/22 11:03 AM) Blood pressure sites Arm, right (02/16/22 1:25 PM) Arm, right (02/16/22 11:03 AM) Temperature Route Oral (02/16/22 1:25 PM) Oral (02/16/22 11:03 AM) Dry Weight 114 kg (02/16/22 3:48 PM) 114 kg (02/16/22 11:03 AM) Weight Obtained Via Patient/family state d (02/16/22 11:03 AM) Social History Social History Type Response Tobacco Use: 4 or less cigar ettes(less than 1/4 pack)/day in last 30 days. Sex Note * [employer] , CIS S: TRANSCRIALVAREZ Waldron MD, Sailaja Carranza: VERIFY Event Display: Result: Authored Date: Hand Min 3 Views Right, 3 views Hx of Present Illness: IRMA, hyperglycemia POC >500. pt denies access to home insulin. abscess inrt hand.; Reason: Pain from abscess; Clinical Question(s): Osteomyelitis COMPARISON: Radiographs of the right hand, 12/16/2020. FINDINGS: No fractures or bone lesions. No bony erosion. No arthritic changes. Alignment is preserved. There is marked diffuse soft tissue swelling of the hand, particularly involving the dorsum of the hand. No radiopaque foreign body is seen. No soft tissue gas is seen. IMPRESSION: Significant soft tissue swelling of the right hand, particularly involving the dorsum of the hand. No radiopaque foreign body or soft tissue gas. No osseous erosion or other acute osseous abnormality. WSN: [id number] Ordering Physician: Desire Hussein Dictated By: Sailaja Waldron MD Dictated Date/Time: 02/16/22 12:22 p Reviewed By: Sailaja Waldron MD Signed By: Sailaja Waldron MD Signed Date/Time: 02/16/22 12:22 pm Transcribed By: CRISTIAN Transcribed Date/Time: 02/16/22 12:18 pm * [employer] , CIS S: TRANSCRIBE Sailaja Waldron MD: VERIFY Event Display: Result: Authored Date: [id number] Chest Portable Hx of Present Illness: IRMA, hyperglycemia POC >500. pt denies access to home insulin. abcess in rt hand.; Reason: Shortness of Breath; Clinical Question(s): CHF COMPARISON: 02/05/2022. FINDINGS: LINES AND TUBES: None. LUNGS AND PLEURA: Clear lungs. Normal pulmonary vascularity. No pleural effusion. No pneumothorax. HEART, MEDIASTINUM AND YUSRA: Heart is normal in size. Normal upper mediastinal and hilar contour. BONES AND SOFT TISSUES: No acute abnormality. IMPRESSION: No acute abnormality. WSN: [id number] Ordering Physician: Desire Hussein Dictated By: Sailaja Waldron MD Dictated Date/Time: 02/16/22 12:23 p Reviewed By: Sailaja Waldron MD Signed By: Sailaja Waldron MD Signed Date/Time: 02/16/22 12:23 pm Transcribed By: CRISTIAN Transcribed Date/Time: 02/16/22 12:22 pm Care Team Personnel Name: Not on Staff, PCP
--- OUTSIDE RECORDS SUMMARY | 2024-03-29 14:48 | XMS_ITS | Continuity of Care Document ---
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 Name Role Phone Kaylah Esteves Primary Care Physicia n Encounter [facility] Date(s): 10/14/20 - 10/14/20 [facility] [address] [place] [id number]- Encounter Diagnosis Cellulitis of left forearm(Final) - 10/14/20 Discharge Disposition: A-D/C AMA Attending Physician: Derrell Smith MD Admitting Physician: Derrell Smith MD Referring Physician: Not on Staff, Referring [...] mL, 0 Refills,Maintenance, 07/05/20 12:39:00 EST, Solution, [facility], Partial fill upon patient request if [...] 0 Refills, Maintenance, 07/06/20 10:44:00 EST, Tablet, [facility], Partial fill upon patient request if [...] Gum Start Date: 07/01/20 Status: Ordered Pen [place], 31 G x 5 mm BD Ultra [...] Last filled 05/20/2020 for 28 days at [facility]. Does have refill ready for picking tech currently., Maintenance, 07/01/20 10:39:00 EST, Tablet Start [...] [Reference Range]: 1 Oxygen Saturation [94-100 %] 99 % (10/14/20 10:35 PM) Pulse Rate [55-90 bpm] 109 bpm *H* (10/14/20 10:35 PM) Blood Pressure [90-138/55-84 mm Hg] 111/ 77mm Hg (10/14/20 10:35 PM) Respiratory Rate [16-30 br/min] 18 br/mi n (10/14/20 10:35 PM) Temperature [96.8-100.4 DegF] 98.8 DegF (10/14/20 10:35 PM) Mode of Delivery (Oxygen) Room air (10/14/20 10:35 PM) Blood pressure sites Arm, right (10/14/20 10:35 PM) Temperature Route Oral (10/14/20 10:35 PM) Social History Social History Type Response Tobacco Use: 4 or less cigar ettes(less than 1/4 pack)/day in last 30 days. Sex
[2024-03-29 14:59] LABS: Platelet Count 245 X10*3/uL (160-400); White Blood Count 8.3 X10*3/uL (4.8-10.8)
[2024-03-29 15:00] LABS: SLIDE REVIEW VERIFIED
[2024-03-29 15:11] LABS: Erythrocyte Sedimentation Rate 58 MM/HR (0-15)
[2024-03-29 15:19] LABS: Anion Gap 12 (12-20)
[2024-03-29 15:27] LABS: Alanine Aminotransferase 49 U/L (0-40); Albumin Level 3.4 g/dL (3.5-5.0); Alkaline Phosphatase 177 U/L (39-117); Aspartate Amino Transferase 33 U/L (5-37); Bilirubin Total 0.2 mg/dL (0.0-1.0); Blood Urea Nitrogen 15 mg/dL (9-16); C Reactive Protein 9.74 mg/dL (< or = 0.50); Calcium 9.6 mg/dL (8.4-10.2); Carbon Dioxide 26 mmol/L (22-29); Chloride 99 mmol/L (96-108); Creatinine Clr Calc Pharmacy 97.3; Estimated Glomerular Filt Rate 55; Glucose Random 362 mg/dL (60-115); Potassium 4.4 mmol/L (3.3-5.1); Sodium 133 mmol/L (135-145); Total Protein 8.6 g/dL (6.5-8.0)
[2024-03-29 19:05] VITALS: BP 102/69; PULSE 80; RESP 16; TEMP 37.3; O2SAT 97
== END 2024-03-29 19:09 ==
PROVIDERS: Physician Assistant Medical; Emergency Provider Emergency Medicine
DX: L03.116 Cellulitis of left lower limb (principal); F32.9 Major depressive disorder, single episode, unspecified; M79.662 Pain in left lower leg; E11.9 Type 2 diabetes mellitus without complications; F17.210 Nicotine dependence, cigarettes, uncomplicated; F14.90 Cocaine use, unspecified, uncomplicated; Z79.899 Other long term (current) drug therapy; Z79.4 Long term (current) use of insulin
CPT/HCPCS: 36415; 73590; 80053; 85025; 85652; 86140; 96365; 96367; 99285; J2543; J3370

== ENCOUNTER 2024-04-22 22:56 | Emergency (ER) | payer MEDICAID, SELFPAY ==
--- NOTE | 2024-04-22 | ECG_ITS ---
Test Reason : HYPERGLYCEMIA Blood Pressure : / mmHG Vent. Rate : 074 BPM Atrial Rate : 074 BPM P-R Int : 194 ms QRS Dur : 104 ms QT Int : 402 ms P-R-T Axes : 048 039 030 degrees QTc Int : 446 ms Normal sinus rhythm Normal ECG When compared with ECG of 23-NOV-2023 08:28, No significant change was found Referred By: Generic ED Physician Electronically Signed By:MICHELLE HUERTAS MD
[2024-04-22 23:06] VITALS: BP 137/81; BP 146/93; PULSE 71; PULSE 75; RESP 20; TEMP 36.5; O2SAT 98; O2SAT 99; BMI 48.7
[2024-04-22 23:11] LABS: Glucose, Whole Blood > 600 mg/dL (60-115)
[2024-04-22 23:11] LABS: Glucose, Whole Blood > 600 mg/dL (60-115)
--- NOTE | 2024-04-22 23:22 | PC.NURSE ---
poc high on arrival. 3x attempt for iv access/labs unable to. 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
[2024-04-22 23:33] LABS: Basophils Percent Auto 0.5 % (0-2); Eosinophils Absolute Auto 0.2 X10*3/uL (0.0-0.4); Eosinophils Percent Auto 2.5 % (0-4); Hematocrit 33.8 % (42.0-52.0); Hemoglobin 11.3 g/dl (14.0-18.0); Imm Gran Abs Auto 0.01 X10*3/uL (0.00-0.03); Imm Gran Pct Auto 0.2 % (0.0-0.4); Lymphocytes Absolute Auto 3.4 X10*3/uL (1.2-4.9); Lymphocytes Percent Auto 51.9 % (20-40); MANUAL DIFF FLAG NO; Mean Corpuscular HGB Conc 33.4 g/dl (31.0-36.0); Mean Corpuscular Hemoglobin 24.3 pg (27.0-33.0); Mean Corpuscular Volume 72.7 fL (80.0-98.0); Mean Platelet Volume 10.2 fL (9.4-12.4); Monocytes Absolute Auto 0.5 X10*3/uL (0.1-1.2); Neutrophils Absolute Auto 2.4 x10*3/uL (2.0-8.3); Neutrophils Percent Auto 36.9 % (45-73); Platelet Count 229 X10*3/uL (160-400); Red Blood Count 4.65 X10*6/uL (4.60-5.80); Red Cell Distribution Width 14.5 % (11.0-16.0); White Blood Count 6.5 X10*3/uL (4.8-10.8)
[2024-04-22 23:51] LABS: Alanine Aminotransferase 44 U/L (0-40); Albumin Level 3.5 g/dL (3.5-5.0); Alkaline Phosphatase 280 U/L (39-117); Anion Gap 17 (12-20); Aspartate Amino Transferase 30 U/L (5-37); Bilirubin Total 0.2 mg/dL (0.0-1.0); Blood Urea Nitrogen 23 mg/dL (9-16); Calcium 9.5 mg/dL (8.4-10.2); Carbon Dioxide 23 mmol/L (22-29); Chloride 95 mmol/L (96-108); Creatinine Clr Calc Pharmacy 76.4; Estimated Glomerular Filt Rate 42; Glucose Random 694 mg/dL (60-115); Potassium 5.2 mmol/L (3.3-5.1); Sodium 130 mmol/L (135-145)
[2024-04-22 23:55] LABS: Troponin-I High Sensitivity < 2.7 ng/L (<3.5-35.0)
[2024-04-23] VITALS: BP 139/91; PULSE 73; RESP 15; TEMP 36.5; O2SAT 96
--- NOTE | 2024-04-23 00:05 | ED.GENADULT ---
HPI - General Adult General Chief complaint: General Medical Stated complaint: HI POC reading, not taking insulin or BGL reads Time Seen by Provider: 04/23/24 00:05 Source: patient Mode of arrival: EMS Limitations: no limitations History of Present Illness ED Provider: Dr. Reji Brothers HPI narrative: 38-year-old male with history of type 2 diabetes noncompliant with insulin regime, history of diabetic ketoacidosis, alcohol use disorder, opioid use disorder on methadone with a history of noncompliance with his insulin regimen who presents to the emergency department for evaluation of blurred vision, spots in his vision, urinary frequency, increased thirst, weakness and fatigue. Patient told me that he was not taking his insulin and weeks, triage note reports that he took 20 units of insulin 30-60 minutes prior to coming to the emergency department. Patient states he does use heroin daily but he was not used in 3 weeks. He denied fever, chills, nausea, vomiting or diarrhea. Patient was seen in the emergency department on 03/29/2024 diagnosed with left lower extremities cellulitis treated with cephalexin 500 mg 4 times a day for 7 days and doxycycline twice a day for 7 days Related Data Previous Rx's ?Medication ?Instructions ?Recorded baclofen 10 mg tablet 10 mg PO BID #14 tabs 12/03/23 bupropion HCl 150 mg 24 hr tablet, 150 mg PO DAILY #30 tabs 12/03/23 extended release clonidine HCl 0.1 mg tablet 0.1 mg PO BID #14 tabs 12/03/23 docusate sodium 100 mg capsule 100 mg PO BID #60 caps 12/03/23 gabapentin 400 mg capsule 800 mg (2 x 400 mg) PO TID #42 caps 12/03/23 glipizide 10 mg tablet, extended 10 mg PO DAILY #90 tabs 12/03/23 release 24 hr hydroxyzine HCl 50 mg tablet 100 mg (2 x 50 mg) PO BID #14 tabs 12/03/23 insulin glargine 100 unit/mL (3 30 unit (0.3 mL) subcut BID #45 mL 12/03/23 mL) subcutaneous pen (Lantus Solostar U-100 Insulin) insulin lispro 100 unit/mL See Protocol subcut QIDACHS #45 mL 12/03/23 subcutaneous pen (Admelog SoloStar U-100 Insulin lispro) lisinopril 5 mg tablet 5 mg PO DAILY #30 tabs 12/03/23 melatonin 3 mg tablet 6 mg (2 x 3 mg) PO BEDTIME #60 tabs 12/03/23 metformin 1,000 mg tablet 1,000 mg PO BIDWM #60 tabs 12/03/23 methadone 10 mg/mL oral 220 mg (22 mL) PO DAILY #0 mL 12/03/23 concentrate (Methadose) multivitamin (Daily-Abdiel tablet) 1 tab PO DAILY #30 tabs 12/03/23 naloxone 4 mg/actuation nasal 4 mg intranasal Q2M PRN opioid 12/03/23 spray (Narcan) overdose #2 ea nicotine (polacrilex) 2 mg gum 2 mg buccal Q2H PRN Nicotine 12/03/23 Cravings #100 ea polyethylene glycol 3350 17 gram 17 g PO DAILY #30 packets 12/03/23 oral powder packet trazodone 50 mg tablet 50 mg PO BEDTIME MRX1 PRN Insomnia 12/03/23 #60 tabs cephalexin 500 mg capsule 500 mg PO Q6H 7 days #28 caps 03/29/24 doxycycline hyclate 100 mg tablet 100 mg PO BID 7 days #14 tabs 03/29/24 Allergies Allergy/AdvReac Type Severity Reaction Status Date / Time No Known Allergies Allergy Verified 04/22/24 23:10 [No Known Allergies*] Review of Systems Review of Systems: Yes all other systems are reviewed and are negative FOR[facility]LY [facility], [facility] Past Medical History [facility] Narrative: Social history: Patient does live in a [facility] long-term. He smokes 1/2 pack of cigarettes per day. He denies alcohol use. The patient states he has not use heroin in 3 weeks but he was injecting heroin previously 3 to 4 times a day. Medical History Intravenous drug abuse Polysubstance abuse Type 2 diabetes mellitus Social History Social History Household Members: None Housing: Homeless Do you presently have visiting nurse or other home services: No Patient Tobacco Use Status: Current everyday Tobacco user Tobacco use type: Cigarette Cigarette Packs Per Day: 1 Cigarettes Per Day: 20.0 Years Smoked: unknown Smoked in Last 30 Days: No e-Cigarette/Vaping Use: Former Use Use of substances other than those prescribed or required for medical reasons: No Substance Use Type: Crack/Cocaine Advance Directives: No Do you have a plan to hurt others: No Plan service: No Sexual orientation: Straight/Heterosexual Physical Exam ED Vital Signs: Vital Signs - 24 hr 04/22/24 23:06 04/23/24 00:00 04/23/24 02:04 Temperature 97.7 F 97.7 F 97.7 F Pulse Rate 71 73 74 Respiratory Rate 20 15 16 Blood Pressure 146/93 H 139/91 H 144/92 H Pulse Oximetry 98 96 98 Oxygen Delivery Method Room Air Room Air Room Air 04/23/24 04:00 04/23/24 06:05 04/23/24 07:27 Temperature 98.3 F 97.9 F 97.8 F Pulse Rate 70 69 73 Respiratory Rate 12 16 16 Blood Pressure 127/82 150/89 H 148/88 H Pulse Oximetry 97 99 99 Oxygen Delivery Method Room Air Room Air Room Air BMI result Body Mass Index 48.7 vital signs revealed elevated blood pressures but otherwise unremarkable. Exam: General: Awake, alert in no distress , weight 145.3 kg, elevated BMI 48.7 kilograms/meters sq Head: Normocephalic, atraumatic EENT: PERRL, Lids normal, sclera normal, conjunctiva normal, nose normal , ears normal, throat without erythema or exudates Neck: Supple, no adenopathy Lung: breath sounds symmetric, no wheezing, rales or rhonchi Chest: symmetric movement, nontender Heart: regular rate and rhythm, normal S1, S2 no murmurs or rubs Abdomen: soft, non-tender, nondistended, normal bowel sounds Back: no vertebral tenderness, no CVAT Extremities: both upper extremities are edematous most likely secondary to venous insufficiency from injection drug use, multiple track bentley Neuro: Awake, alert, oriented, normal speech, cranial nerves intact, moves all extremities symmetrically Psych: Pleasant, cooperative Medications Administered Discontinued Medications Generic Name Dose Route Start Last Admin Trade Name Freq PRN Reason Stop Dose Admin Sodium Chloride 1,000 mls @ 999 mls/hr 04/23/24 00:16 04/23/24 02:20 Ns IV 04/23/24 01:16 Infused .Q1H1M STA Infusion Sodium Chloride 1,000 mls @ 999 mls/hr 04/23/24 00:17 04/23/24 02:20 Ns IV 04/23/24 01:17 Infused .Q1H1M STA Infusion Insulin Human Regular 10 unit 04/23/24 00:16 04/23/24 00:48 Insulin Regular, Human 100 Unit/Ml 10 Ml Vial IVPUSH 04/23/24 00:17 10 unit ONCE ONE Administration Insulin Human Regular 10 unit 04/23/24 02:09 04/23/24 02:20 Insulin Regular, Human 100 Unit/Ml 10 Ml Vial IVPUSH 04/23/24 02:10 10 unit ONCE ONE Administration Insulin Human Regular 5 unit 04/23/24 05:36 04/23/24 05:42 Insulin Regular, Human 100 Unit/Ml 10 Ml Vial IVPUSH 04/23/24 05:37 5 unit ONCE ONE Administration Medical Decision Making Medical Decision Making [facility] Narrative: 38-year-old male with history of type 2 diabetes noncompliant with insulin regime, history of diabetic ketoacidosis, alcohol use disorder, opioid use disorder on methadone with a history of noncompliance with his insulin regimen who presents to the emergency department for evaluation of blurred vision, spots in his vision, urinary frequency, increased thirst, weakness and fatigue. patient has been noncompliant with his insulin for at least 1 week but he did give himself a dose of subcutaneous insulin prior to coming to the emergency department. Vital signs revealed elevated blood pressures otherwise unremarkable. Physical examination did reveal swelling in both upper extremities most likely secondary to venous insufficiency from injection drug use and multiple track bentley with no evidence of cellulitis. Differential diagnosis: Includes but is not limited to hyperglycemia, diabetic ketoacidosis, volume depletion, dehydration, electrolyte abnormalities, anemia, cellulitis Course: My interpretation patient's laboratory evaluation is as follows: Microcytic anemia with an H&H of 11.3 and 33.8 with an MCV of 72.7-this is chronic. glucose elevated 694. Sodium and chloride were low 130 [id number] is delusional secondary to the high glucose. BUN was baseline at 23 with elevation in his creatinine of 1.83 secondary to renal insufficiency /injury from dehydration. ALT and alk-phos were elevated 44 and 281-chronic. Venous blood gas revealed alkalosis with a pH of 7.46 and a pCO2 of 36. Bicarb was normal at 26. urine ketones were negative and beta hydroxybutyrate was negative. The patient's laboratory evaluation is consistent with hyperglycemia due to noncompliance and volume depletion and dehydration with no evidence for diabetic ketoacidosis at this time. The patient was treated aggressively with normal saline 2 L IV. He received 3 doses of IV insulin 10 units, 10 units and 5 units with significant improvement of his glucose. Discharge glucose was 272 and the patient was feeling significantly better. The patient will be discharged back to his long-term. Lab Data 04/22/24 23:29 04/22/24 23:29 Labs: Lab Results 04/22/24 04/22/24 04/22/24 Range/Units 23:05 23:07 23:29 WBC 6.5 (4.8-10.8) X10*3/uL RBC 4.65 (4.60-5.80) X10*6/uL Hgb 11.3 L (14.0-18.0) g/dl Hct 33.8 L (42.0-52.0) % MCV 72.7 L (80.0-98.0) fL MCH 24.3 L (27.0-33.0) pg MCHC 33.4 (31.0-36.0) g/dl RDW 14.5 (11.0-16.0) % Plt Count 229 (160-400) X10*3/uL MPV 10.2 (9.4-12.4) fL Immature Gran % (Auto) 0.2 (0.0-0.4) % Neut % (Auto) 36.9 L (45-73) % Lymph % (Auto) 51.9 H (20-40) % [place] % (Auto) 8.0 (2-11) % Eos % (Auto) 2.5 (0-4) % Baso % (Auto) 0.5 (0-2) % Lymph # (Auto) 3.4 (1.2-4.9) X10*3/uL [place] # (Auto) 0.5 (0.1-1.2) X10*3/uL Eos # (Auto) 0.2 (0.0-0.4) X10*3/uL Baso # (Auto) 0.0 (0.0-0.2) X10*3/uL Abs Immat Gran (auto) 0.01 (0.00-0.03) X10*3/uL Absolute Neuts (auto) 2.4 (2.0-8.3) x10*3/uL Absolute Nucleated RBC 0.000 (0.0-0.012) X10*3/uL Nucleated RBC % (auto) 0.0 (0.0-0.2) /100WBC VBG pH (7.32-7.43) VBG pCO2 mmHg VBG pO2 mmHg VBG HCO3 (22-26) mmol/L VBG O2 Saturation % VBG Base Excess mmol/L Sodium 130 L (135-145) mmol/L Potassium 5.2 H (3.3-5.1) mmol/L Chloride 95 L (96-108) mmol/L Carbon Dioxide 23 (22-29) mmol/L Anion Gap 17 (12-20) BUN 23 H (9-16) mg/dL Creatinine 1.82 H (0.5-1.4) mg/dL Estim Creat Clear Calc 76.4 Estimated GFR 42 POC Glucose > 600 H* > 600 H* (60-115) mg/dL Random Glucose 694 H* (60-115) mg/dL Calcium 9.5 (8.4-10.2) mg/dL Total Bilirubin 0.2 (0.0-1.0) mg/dL AST 30 (5-37) U/L ALT 44 H (0-40) U/L Alkaline Phosphatase 280 H (39-117) U/L Troponin I High Sens < 2.7 (<3.5-35.0) ng/L Total Protein 9.0 H (6.5-8.0) g/dL Albumin 3.5 (3.5-5.0) g/dL Beta-Hydroxybutyrate 0.16 (0.02-0.27) mmol/L Urine Color Urine Appearance Urine pH (5.0-9.0) Ur Specific [place] (1.005-1.025) Urine Protein (Neg-Trace) mg/dL Urine Glucose (UA) (Negative) mg/dL Urine Ketones (Negative) mg/dL Urine Blood (Negative) Urine Nitrite (Negative) Ur Leukocyte Esterase (Negative) Urine RBC (0-2) /HPF Urine WBC (0-5) /HPF Ur Squamous Epith Cells (0-2) /HPF Urine Bacteria (None Seen) Hyaline Casts (0-2) /LPF Urine Opiates Screen (Not Detect) Ur Buprenorphine Scrn (Not Detect) ng/mL Ur Oxycodone Screen (Not Detect) ng/mL Urine Methadone Screen (Not Detect) ng/mL Urine Fentanyl Screen (Not Detect) Ur Barbiturates Screen (Not Detect) Ur Phencyclidine Scrn (Not Detect) Ur Amphetamines Screen (Not Detect) U Benzodiazepines Scrn (Not Detect) Urine Cocaine Screen (Not Detect) U Marijuana (THC) Screen (Not Detect) 04/23/24 04/23/24 04/23/24 Range/Units 00:43 00:57 01:17 WBC (4.8-10.8) X10*3/uL RBC (4.60-5.80) X10*6/uL Hgb (14.0-18.0) g/dl Hct (42.0-52.0) % MCV (80.0-98.0) fL MCH (27.0-33.0) pg MCHC (31.0-36.0) g/dl RDW (11.0-16.0) % Plt Count (160-400) X10*3/uL MPV (9.4-12.4) fL Immature Gran % (Auto) (0.0-0.4) % Neut % (Auto) (45-73) % Lymph % (Auto) (20-40) % [place] % (Auto) (2-11) % Eos % (Auto) (0-4) % Baso % (Auto) (0-2) % Lymph # (Auto) (1.2-4.9) X10*3/uL [place] # (Auto) (0.1-1.2) X10*3/uL Eos # (Auto) (0.0-0.4) X10*3/uL Baso # (Auto) (0.0-0.2) X10*3/uL Abs Immat Gran (auto) (0.00-0.03) X10*3/uL Absolute Neuts (auto) (2.0-8.3) x10*3/uL Absolute Nucleated RBC (0.0-0.012) X10*3/uL Nucleated RBC % (auto) (0.0-0.2) /100WBC VBG pH 7.46 H (7.32-7.43) VBG pCO2 36 mmHg VBG pO2 146 mmHg VBG HCO3 26 (22-26) mmol/L VBG O2 Saturation 100.0 % VBG Base Excess 2.5 mmol/L Sodium (135-145) mmol/L Potassium (3.3-5.1) mmol/L Chloride (96-108) mmol/L Carbon Dioxide (22-29) mmol/L Anion Gap (12-20) BUN (9-16) mg/dL Creatinine (0.5-1.4) mg/dL Estim Creat Clear Calc Estimated GFR POC Glucose 494 H* (60-115) mg/dL Random Glucose (60-115) mg/dL Calcium (8.4-10.2) mg/dL Total Bilirubin (0.0-1.0) mg/dL AST (5-37) U/L ALT (0-40) U/L Alkaline Phosphatase (39-117) U/L Troponin I High Sens (<3.5-35.0) ng/L Total Protein (6.5-8.0) g/dL Albumin (3.5-5.0) g/dL Beta-Hydroxybutyrate (0.02-0.27) mmol/L Urine Color Yellow Urine Appearance Clear Urine pH 6.0 (5.0-9.0) Ur Specific [place] 1.025 (1.005-1.025) Urine Protein Negative (Neg-Trace) mg/dL Urine Glucose (UA) >=1000 H (Negative) mg/dL Urine Ketones Negative (Negative) mg/dL Urine Blood Negative (Negative) Urine Nitrite Negative (Negative) Ur Leukocyte Esterase Negative (Negative) Urine RBC 0-2 (0-2) /HPF Urine WBC 0-5 (0-5) /HPF Ur Squamous Epith Cells 0-2 (0-2) /HPF Urine Bacteria None Seen (None Seen) Hyaline Casts 0-2 (0-2) /LPF Urine Opiates Screen Not Detected (Not Detect) Ur Buprenorphine Scrn Not Detected (Not Detect) ng/mL Ur Oxycodone Screen Not Detected (Not Detect) ng/mL Urine Methadone Screen Positive H (Not Detect) ng/mL Urine Fentanyl Screen Not Detected (Not Detect) Ur Barbiturates Screen Not Detected (Not Detect) Ur Phencyclidine Scrn Not Detected (Not Detect) Ur Amphetamines Screen Not Detected (Not Detect) U Benzodiazepines Scrn Not Detected (Not Detect) Urine Cocaine Screen Not Detected (Not Detect) U Marijuana (THC) Screen Not Detected (Not Detect) 04/23/24 04/23/24 04/23/24 Range/Units 01:48 03:23 04:29 WBC (4.8-10.8) X10*3/uL RBC (4.60-5.80) X10*6/uL Hgb (14.0-18.0) g/dl Hct (42.0-52.0) % MCV (80.0-98.0) fL MCH (27.0-33.0) pg MCHC (31.0-36.0) g/dl RDW (11.0-16.0) % Plt Count (160-400) X10*3/uL MPV (9.4-12.4) fL Immature Gran % (Auto) (0.0-0.4) % Neut % (Auto) (45-73) % Lymph % (Auto) (20-40) % [place] % (Auto) (2-11) % Eos % (Auto) (0-4) % Baso % (Auto) (0-2) % Lymph # (Auto) (1.2-4.9) X10*3/uL [place] # (Auto) (0.1-1.2) X10*3/uL Eos # (Auto) (0.0-0.4) X10*3/uL Baso # (Auto) (0.0-0.2) X10*3/uL Abs Immat Gran (auto) (0.00-0.03) X10*3/uL Absolute Neuts (auto) (2.0-8.3) x10*3/uL Absolute Nucleated RBC (0.0-0.012) X10*3/uL Nucleated RBC % (auto) (0.0-0.2) /100WBC VBG pH (7.32-7.43) VBG pCO2 mmHg VBG pO2 mmHg VBG HCO3 (22-26) mmol/L VBG O2 Saturation % VBG Base Excess mmol/L Sodium (135-145) mmol/L Potassium (3.3-5.1) mmol/L Chloride (96-108) mmol/L Carbon Dioxide (22-29) mmol/L Anion Gap (12-20) BUN (9-16) mg/dL Creatinine (0.5-1.4) mg/dL Estim Creat Clear Calc Estimated GFR POC Glucose 403 H* 273 H 283 H (60-115) mg/dL Random Glucose (60-115) mg/dL Calcium (8.4-10.2) mg/dL Total Bilirubin (0.0-1.0) mg/dL AST (5-37) U/L ALT (0-40) U/L Alkaline Phosphatase (39-117) U/L Troponin I High Sens (<3.5-35.0) ng/L Total Protein (6.5-8.0) g/dL Albumin (3.5-5.0) g/dL Beta-Hydroxybutyrate (0.02-0.27) mmol/L Urine Color Urine Appearance Urine pH (5.0-9.0) Ur Specific [place] (1.005-1.025) Urine Protein (Neg-Trace) mg/dL Urine Glucose (UA) (Negative) mg/dL Urine Ketones (Negative) mg/dL Urine Blood (Negative) Urine Nitrite (Negative) Ur Leukocyte Esterase (Negative) Urine RBC (0-2) /HPF Urine WBC (0-5) /HPF Ur Squamous Epith Cells (0-2) /HPF Urine Bacteria (None Seen) Hyaline Casts (0-2) /LPF Urine Opiates Screen (Not Detect) Ur Buprenorphine Scrn (Not Detect) ng/mL Ur Oxycodone Screen (Not Detect) ng/mL Urine Methadone Screen (Not Detect) ng/mL Urine Fentanyl Screen (Not Detect) Ur Barbiturates Screen (Not Detect) Ur Phencyclidine Scrn (Not Detect) Ur Amphetamines Screen (Not Detect) U Benzodiazepines Scrn (Not Detect) Urine Cocaine Screen (Not Detect) U Marijuana (THC) Screen (Not Detect) 04/23/24 04/23/24 04/23/24 Range/Units 05:08 06:02 06:43 WBC (4.8-10.8) X10*3/uL RBC (4.60-5.80) X10*6/uL Hgb (14.0-18.0) g/dl Hct (42.0-52.0) % MCV (80.0-98.0) fL MCH (27.0-33.0) pg MCHC (31.0-36.0) g/dl RDW (11.0-16.0) % Plt Count (160-400) X10*3/uL MPV (9.4-12.4) fL Immature Gran % (Auto) (0.0-0.4) % Neut % (Auto) (45-73) % Lymph % (Auto) (20-40) % [place] % (Auto) (2-11) % Eos % (Auto) (0-4) % Baso % (Auto) (0-2) % Lymph # (Auto) (1.2-4.9) X10*3/uL [place] # (Auto) (0.1-1.2) X10*3/uL Eos # (Auto) (0.0-0.4) X10*3/uL Baso # (Auto) (0.0-0.2) X10*3/uL Abs Immat Gran (auto) (0.00-0.03) X10*3/uL Absolute Neuts (auto) (2.0-8.3) x10*3/uL Absolute Nucleated RBC (0.0-0.012) X10*3/uL Nucleated RBC % (auto) (0.0-0.2) /100WBC VBG pH (7.32-7.43) VBG pCO2 mmHg VBG pO2 mmHg VBG HCO3 (22-26) mmol/L VBG O2 Saturation % VBG Base Excess mmol/L Sodium (135-145) mmol/L Potassium (3.3-5.1) mmol/L Chloride (96-108) mmol/L Carbon Dioxide (22-29) mmol/L Anion Gap (12-20) BUN (9-16) mg/dL Creatinine (0.5-1.4) mg/dL Estim Creat Clear Calc Estimated GFR POC Glucose 290 H 267 H 272 H (60-115) mg/dL Random Glucose (60-115) mg/dL Calcium (8.4-10.2) mg/dL Total Bilirubin (0.0-1.0) mg/dL AST (5-37) U/L ALT (0-40) U/L Alkaline Phosphatase (39-117) U/L Troponin I High Sens (<3.5-35.0) ng/L Total Protein (6.5-8.0) g/dL Albumin (3.5-5.0) g/dL Beta-Hydroxybutyrate (0.02-0.27) mmol/L Urine Color Urine Appearance Urine pH (5.0-9.0) Ur Specific [place] (1.005-1.025) Urine Protein (Neg-Trace) mg/dL Urine Glucose (UA) (Negative) mg/dL Urine Ketones (Negative) mg/dL Urine Blood (Negative) Urine Nitrite (Negative) Ur Leukocyte Esterase (Negative) Urine RBC (0-2) /HPF Urine WBC (0-5) /HPF Ur Squamous Epith Cells (0-2) /HPF Urine Bacteria (None Seen) Hyaline Casts (0-2) /LPF Urine Opiates Screen (Not Detect) Ur Buprenorphine Scrn (Not Detect) ng/mL Ur Oxycodone Screen (Not Detect) ng/mL Urine Methadone Screen (Not Detect) ng/mL Urine Fentanyl Screen (Not Detect) Ur Barbiturates Screen (Not Detect) Ur Phencyclidine Scrn (Not Detect) Ur Amphetamines Screen (Not Detect) U Benzodiazepines Scrn (Not Detect) Urine Cocaine Screen (Not Detect) U Marijuana (THC) Screen (Not Detect) Critical Care Time Critical Care Time Critical Care Time: Yes Total Critical Care Time: 45 Attestation: Critical Care: The patient was critically ill with a high probability of imminent or life threatening deterioration. I spent greater than 30 minutes of discontinuous time evaluating the patient,delivering critical care at the bedside, discussing and evaluating pertinent data with consultants. Critical care time does not include time spent performing separately billable procedures or teaching. Total time spent performing critical care was 45 minutes. Discharge Plan Discharge Clinical Impression: Acute hyperglycemia, Acute dehydration, Medically noncompliant Patient Disposition: Home, Self-Care Additional Instructions: Your blood sugar was very high at 694. We treated with 2 L of normal saline IV. We also treated you with IV insulin. Your sugars improved to the point where we can send you home but you need to take your insulin as prescribed. Follow-up with your doctor in 2 days. Please return to the emergency department if your symptoms get worse or if you develop any symptoms that are concerning to you. Prescriptions: No Action trazodone 50 mg Tablet 50 mg PO BEDTIME MRX1 PRN (Reason: Insomnia) Qty: 60 0RF polyethylene glycol 3350 17 gram Powder In Packet 17 g PO DAILY Qty: 30 0RF nicotine (polacrilex) 2 mg Gum 2 mg buccal Q2H PRN (Reason: Nicotine Cravings) Qty: 100 0RF gabapentin 400 mg Capsule 800 mg PO TID Qty: 42 4RF hydroxyzine HCl 50 mg Tablet 100 mg PO BID Qty: 14 4RF baclofen 10 mg Tablet 10 mg PO BID Qty: 14 4RF docusate sodium 100 mg Capsule 100 mg PO BID Qty: 60 0RF methadone [Methadose] 10 mg/mL Concentrate 220 mg PO DAILY Qty: 0 0RF Rx Instructions: Partial Fill upon patient request. bupropion HCl 150 mg Tablet Extended Release 24 Hr 150 mg PO DAILY Qty: 30 0RF multivitamin [Daily-Abdiel] Tablet 1 tab PO DAILY Qty: 30 0RF melatonin 3 mg Tablet 6 mg PO BEDTIME Qty: 60 0RF clonidine HCl 0.1 mg Tablet 0.1 mg PO BID Qty: 14 4RF lisinopril 5 mg Tablet 5 mg PO DAILY Qty: 30 0RF glipizide 10 mg tablet extended release 24hr 10 mg PO DAILY Qty: 90 0RF metformin 1,000 mg Tablet 1,000 mg PO BIDWM Qty: 60 0RF insulin glargine [Lantus Solostar U-100 Insulin] 100 unit/mL (3 mL) Insulin Pen 30 unit SUBCUT BID Qty: 45 3RF insulin lispro [Admelog SoloStar U-100 Insulin] 100 unit/mL insulin pen See Protocol subcut QIDACHS Qty: 45 0RF Protocol: Insulin Resistant 1st 24 hours Less than or equal to 110 ---- Give (units): 0 111 to 150 Give (units): 4 151 to 200 Give (units): 6 201 to 250 Give (units): 8 251 to 300 Give (units): 12 301 to 350 Give (units): 16 Greater than 350 Give (units): 20 Call MD if Blood Glucose > : 350 Rx Instructions: Daily max dose 80 units naloxone [Narcan] 4 mg/actuation spray,non-aerosol 4 mg intranasal Q2M PRN (Reason: opioid overdose) Qty: 2 0RF Rx Instructions: spray 1 dose into ONE nostril; alternate nostrils w each dose until help arrives cephalexin 500 mg capsule 500 mg PO Q6H 7 Days Qty: 28 0RF doxycycline hyclate 100 mg tablet 100 mg PO BID 7 Days Qty: 14 0RF Interventions: ED Discharge Assessment Last Done: 04/23/24 07:27 Discharge Date/Time: 04/23/24 07:28 Print Language: Amharic
[2024-04-23] MEDS: Insulin Regular, Human 100 UNIT/ML 10 ML VIAL 10 UNIT IVPUSH ×2 (00:48→02:20)
[2024-04-23] MEDS: 0.9 % Sodium Chloride 1,000 ML 999 ML IV ×2 (00:48)
[2024-04-23 00:57] LABS: Appearance Urine Clear; Color Urine Yellow; Glucose Urine UA >=1000 mg/dL (Negative); Leukocyte Esterase Urine Negative (Negative); Nitrite Urine Negative (Negative); Specific Gravity - Urine 1.025 (1.005-1.025); UMIC TRIGGER UACC YES; Urine Blood Negative (Negative); Urine Ketones Negative (Negative); Urine Protein Negative (Neg-Trace)
[2024-04-23 00:57] LABS: Venous Blood Gas Refer to POC result
[2024-04-23 01:02] LABS: VBG Base Excess 2.5 mmol/L; VBG HCO3 26 mmol/L (22-26); VBG pCO2 36 mmHg; VBG pH 7.46 (7.32-7.43); VBG pO2 146 mmHg
[2024-04-23 01:02] LABS: Beta-Hydroxybutyrate 0.16 mmol/L (0.02-0.27)
[2024-04-23 01:08] LABS: Amphetamine Screen Urine Not Detected (Not Detect); Barbiturates, Urine Not Detected (Not Detect); Benzodiazepines Screen Urine Not Detected (Not Detect); Buprenorphine Scr Not Detected (Not Detect); Cannabinoid Screen Urine Not Detected (Not Detect); Cocaine Screen Urine Not Detected (Not Detect); Fentanyl, urine Not Detected (Not Detect); Methadone Screen, Urine Positive (Not Detect); Opiate Screen Urine Not Detected (Not Detect); Oxycodone Screen Urine Not Detected (Not Detect); Phencyclidine Screen Urine Not Detected (Not Detect)
[2024-04-23 01:10] LABS: Bacteria Urine None Seen (None Seen); Hyaline Casts Urine 0-2 /LPF (0-2); RBC Urine 0-2 /HPF (0-2); Squamous Epithelial Cell Urine 0-2 /HPF (0-2); WBC Urine 0-5 /HPF (0-5)
[2024-04-23 01:23] LABS: Glucose, Whole Blood 494 mg/dL (60-115)
[2024-04-23 01:52] LABS: Glucose, Whole Blood 403 mg/dL (60-115)
[2024-04-23 02:04] VITALS: BP 144/92; PULSE 74; RESP 16; TEMP 36.5; O2SAT 98
[2024-04-23 03:30] LABS: Glucose, Whole Blood 273 mg/dL (60-115)
[2024-04-23 04:00] VITALS: BP 127/82; PULSE 70; RESP 12; TEMP 36.8; O2SAT 97
[2024-04-23 04:44] LABS: Glucose, Whole Blood 283 mg/dL (60-115)
[2024-04-23 05:13] LABS: Glucose, Whole Blood 290 mg/dL (60-115)
[2024-04-23] MEDS: Insulin Regular, Human 100 UNIT/ML 10 ML VIAL IVPUSH (05:42)
[2024-04-23 06:05] VITALS: BP 150/89; PULSE 69; RESP 16; TEMP 36.6; O2SAT 99
[2024-04-23 06:10] LABS: Glucose, Whole Blood 267 mg/dL (60-115)
[2024-04-23 06:47] LABS: Glucose, Whole Blood 272 mg/dL (60-115)
--- NOTE | 2024-04-23 07:08 | PC.NURSE ---
Margaret called facility director and verbalizes understanding d/c education. pt also educated on d/c. per Margaret staff facility will send someone to pick pt up. nurse at facility will be meeting with pt today to assist with insulin regimen.
[2024-04-23 07:27] VITALS: BP 148/88; PULSE 73; RESP 16; TEMP 36.6; O2SAT 99
== END 2024-04-23 07:28 | disposition home or self-care (01) ==
PROVIDERS: Emergency Provider Emergency Medicine Emergency Medical Services
DX: E11.65 Type 2 diabetes mellitus with hyperglycemia (principal); E86.0 Dehydration; F17.210 Nicotine dependence, cigarettes, uncomplicated; Z91.148 Patient's other noncompliance with medication regimen for other reason; Z79.899 Other long term (current) drug therapy; Z51.81 Encounter for therapeutic drug level monitoring; Z79.4 Long term (current) use of insulin
CPT/HCPCS: 36415; 80053; 80307; 81001; 81003; 82010; 82803; 82947; 84484; 85025; 93005; 96361; 96374; 96376; 99285

== ENCOUNTER → 2024-04-22 23:34 | Outpatient (BNV) | payer MEDICAID, SELFPAY | PROVIDERS: Emergency Provider Emergency Medicine Emergency Medical Services; Visit Provider Internal Medicine Cardiovascular Disease | DX: E11.65 Type 2 diabetes mellitus with hyperglycemia (principal) | CPT/HCPCS: 93010 ==

== ENCOUNTER 2024-04-26 22:26 | Emergency (ER) | payer MEDICAID, SELFPAY ==
--- NOTE | ~2024-04-26 | XR_ITS ---
EXAMINATION: XR CHEST CLINICAL INFORMATION: shortness of breath COMPARISON: None available. TECHNIQUE: 2 views of the chest were obtained. FINDINGS: The lungs are clear. The cardiomediastinal silhouette is normal in size. There is no pleural effusion or pneumothorax. No acute osseous abnormality. XR/XR chest 2V IMPRESSION: No acute cardiopulmonary findings. Electronically signed by: Baldev Lehman MD 04/26/2024 11:54 PM [facility]
--- NOTE | 2024-04-26 22:34 | ED.GENADULT ---
[facility] - General Adult General Chief complaint: General Medical Stated complaint: hyperglycemia *575, visual hallucinations Time Seen by Provider: 04/26/24 22:34 History of Present Illness ED Provider: Liliam RG narrative: The patient is a 39-year-old male with multiple medical problems. He has a history of IV heroin use and has multiple old wounds on his extremities from injections. He is currently on methadone. He also has a history of type 2 diabetes on insulin. He also has a history of alcohol use disorder. He also has a history of being noncompliant with his insulin regimen and having complications from hyperglycemia. The patient is currently staying at a drug recovery program. The patient was seen here 4 days ago on April 22 for hyperglycemia. He apparently had not been very compliant with his insulin. The patient had a blood sugar of 694 when he was here on April 22. He also had some worsening renal function. He was treated with IV fluids and insulin with improvement in his blood sugar and was discharged from the emergency room back to his program. The patient returns today. Apparently he has not been very compliant with his insulin. He was complaining of visual hallucinations, saying that he was seeing my ice running around on him. The patient says that he does not feel very well generally. He has a mild shortness of breath. Related Data Previous Rx's ?Medication ?Instructions ?Recorded baclofen 10 mg tablet 10 mg PO BID #14 tabs 12/03/23 bupropion HCl 150 mg 24 hr tablet, 150 mg PO DAILY #30 tabs 12/03/23 extended release clonidine HCl 0.1 mg tablet 0.1 mg PO BID #14 tabs 12/03/23 docusate sodium 100 mg capsule 100 mg PO BID #60 caps 12/03/23 gabapentin 400 mg capsule 800 mg (2 x 400 mg) PO TID #42 caps 12/03/23 glipizide 10 mg tablet, extended 10 mg PO DAILY #90 tabs 12/03/23 release 24 hr hydroxyzine HCl 50 mg tablet 100 mg (2 x 50 mg) PO BID #14 tabs 12/03/23 insulin glargine 100 unit/mL (3 30 unit (0.3 mL) subcut BID #45 mL 12/03/23 mL) subcutaneous pen (Lantus Solostar U-100 Insulin) insulin lispro 100 unit/mL See Protocol subcut QIDACHS #45 mL 12/03/23 subcutaneous pen (Admelog SoloStar U-100 Insulin lispro) lisinopril 5 mg tablet 5 mg PO DAILY #30 tabs 12/03/23 melatonin 3 mg tablet 6 mg (2 x 3 mg) PO BEDTIME #60 tabs 12/03/23 metformin 1,000 mg tablet 1,000 mg PO BIDWM #60 tabs 12/03/23 methadone 10 mg/mL oral 220 mg (22 mL) PO DAILY #0 mL 12/03/23 concentrate (Methadose) multivitamin (Daily-Abdiel tablet) 1 tab PO DAILY #30 tabs 12/03/23 naloxone 4 mg/actuation nasal 4 mg intranasal Q2M PRN opioid 12/03/23 spray (Narcan) overdose #2 ea nicotine (polacrilex) 2 mg gum 2 mg buccal Q2H PRN Nicotine 12/03/23 Cravings #100 ea polyethylene glycol 3350 17 gram 17 g PO DAILY #30 packets 12/03/23 oral powder packet trazodone 50 mg tablet 50 mg PO BEDTIME MRX1 PRN Insomnia 12/03/23 #60 tabs cephalexin 500 mg capsule 500 mg PO Q6H 7 days #28 caps 03/29/24 doxycycline hyclate 100 mg tablet 100 mg PO BID 7 days #14 tabs 03/29/24 Allergies Allergy/AdvReac Type Severity Reaction Status Date / Time No Known Allergies Allergy Verified 04/26/24 22:36 [No Known Allergies*] Review of Systems Review of Systems: Yes all other systems are reviewed and are negative PMFSH Past Medical History Medical History Intravenous drug abuse Polysubstance abuse Type 2 diabetes mellitus Social History Social History Household Members: None Housing: Homeless Do you presently have visiting nurse or other home services: No Patient Tobacco Use Status: Current everyday Tobacco user Tobacco use type: Cigarette Cigarette Packs Per Day: 1 Cigarettes Per Day: 20.0 Years Smoked: unknown e-Cigarette/Vaping Use: Former Use Substance Use Type: Crack/Cocaine Advance Directives: No Advance Directives Information Provided: Yes Do you have a plan to hurt others: No Plan service: No Sexual orientation: Straight/Heterosexual Physical Exam ED Vital Signs: Vital Signs - 24 hr 04/26/24 22:35 04/27/24 01:58 04/27/24 05:38 Temperature 98.2 F 97.6 F 97.8 F Pulse Rate 80 69 76 Respiratory Rate 18 14 14 Blood Pressure 143/87 H 130/87 112/72 Pulse Oximetry 97 97 98 Oxygen Delivery Method Room Air Room Air Room Air 04/27/24 08:10 04/27/24 08:11 Temperature 97.7 F 98.1 F Pulse Rate 89 89 Respiratory Rate 18 18 Blood Pressure 121/73 121/73 Pulse Oximetry 98 98 Oxygen Delivery Method Room Air Room Air BMI result Body Mass Index 48.9 Const Other: The patient has a large 39-year-old male. He has multiple scars on his extremities that he attributes to problems related to IV drug use. He is awake and alert. He does not appear obviously acutely ill. There is no sign of any respiratory difficulty or distress. He has not appear in pain. Mental status seems clear. HENMT Other: Face is symmetrical. Mucous membranes moist. Eyes Other: Pupils are round equal, extraocular movements intact, conjunctivae clear Neck Other: Moving his neck easily, no JVD Resp Effort & Inspection: normal respiratory effort Auscultation: clear to auscultation bilaterally Cardio Rate: regular rate Rhythm: regular rhythm Heart sounds: S1 normal heart sound present and S2 normal heart sound present GI Other: Abdomen is soft and nontender Skin Other: The patient has multiple scars on multiple places on his extremities. He attributes these old wounds to IV drug use. Neuro Other: The patient is awake and alert. He seems oriented and appropriate. Cranial nerves are grossly intact. He moves his extremities symmetrically and appropriately. Medications Administered Discontinued Medications Generic Name Dose Route Start Last Admin Trade Name Freq PRN Reason Stop Dose Admin Glipizide 10 mg 04/27/24 06:16 04/27/24 06:42 Glipizide Xl 10 Mg Tab.Er.24 PO 04/27/24 06:17 10 mg ONCE ONE Administration Sodium Chloride 1,000 mls @ 999 mls/hr 04/26/24 22:45 04/27/24 02:54 Ns IV 04/26/24 23:45 Infused .Q1H1M RAMIRO Infusion Sodium Chloride 1,000 mls @ 999 mls/hr 04/27/24 01:45 04/27/24 03:55 Ns IV 04/27/24 02:45 Infused .Q1H1M RAMIRO Infusion Insulin Glargine 30 unit 04/27/24 06:16 04/27/24 06:40 Insulin Glargine,Hum.Rec.Anlog 100 Unit/Ml 10 Ml Vial SUBCUT 04/27/24 06:17 30 unit ONCE ONE Administration Insulin Human Regular 10 unit 04/27/24 00:26 04/27/24 01:00 Insulin Regular, Human 100 Unit/Ml 10 Ml Vial IVPUSH 04/27/24 00:27 10 unit ONCE ONE Administration Metformin HCl 1,000 mg 04/27/24 06:16 04/27/24 06:41 Metformin Hcl 1,000 Mg Tablet PO 04/27/24 06:17 1,000 mg ONCE ONE Administration Medical Decision Making Medical Decision Making [facility] Narrative: The patient is a quite obese type 2 diabetic with a history of IV drug use currently on methadone who is staying [facility] transitional support services ([facility]) facility. He was sent to the emergency room because of high blood sugars. He also had been complaining of visual hallucinations. Clinically the patient not seem obviously acutely ill and he did not have an obvious thought disorder. He was treated with IV fluids and IV insulin. He was observed over several hours. Ultimately his blood sugar came down to the 270s. In the morning he was given his morning Lantus insulin, glipizide, and metformin. He was feeling better. He slept for most the time he was in the emergency room. He will be discharged to return to his program. Lab Data 04/26/24 23:24 04/26/24 23:24 Labs: Lab Results 04/26/24 04/26/24 04/26/24 Range/Units 22:35 23:24 23:35 WBC 7.3 (4.8-10.8) X10*3/uL RBC 4.45 L (4.60-5.80) X10*6/uL Hgb 10.8 L (14.0-18.0) g/dl Hct 32.5 L (42.0-52.0) % MCV 73.0 L (80.0-98.0) fL MCH 24.3 L (27.0-33.0) pg MCHC 33.2 (31.0-36.0) g/dl RDW 14.9 (11.0-16.0) % Plt Count 222 (160-400) X10*3/uL MPV 10.2 (9.4-12.4) fL Immature Gran % (Auto) 0.3 (0.0-0.4) % Neut % (Auto) 42.9 L (45-73) % Lymph % (Auto) 45.2 H (20-40) % [place] % (Auto) 9.0 (2-11) % Eos % (Auto) 2.2 (0-4) % Baso % (Auto) 0.4 (0-2) % Lymph # (Auto) 3.3 (1.2-4.9) X10*3/uL [place] # (Auto) 0.7 (0.1-1.2) X10*3/uL Eos # (Auto) 0.2 (0.0-0.4) X10*3/uL Baso # (Auto) 0.0 (0.0-0.2) X10*3/uL Abs Immat Gran (auto) 0.02 (0.00-0.03) X10*3/uL Absolute Neuts (auto) 3.1 (2.0-8.3) x10*3/uL Absolute Nucleated RBC 0.000 (0.0-0.012) X10*3/uL Nucleated RBC % (auto) 0.0 (0.0-0.2) /100WBC PT 11.0 (10.9-12.4) SEC INR 0.9 (0.9-1.1) VBG pH 7.37 (7.32-7.43) VBG pCO2 48 mmHg VBG pO2 99 mmHg VBG HCO3 28 H (22-26) mmol/L VBG O2 Saturation 99.0 % VBG Base Excess 2.3 mmol/L Sodium 133 L (135-145) mmol/L Potassium 4.6 (3.3-5.1) mmol/L Chloride 99 (96-108) mmol/L Carbon Dioxide 23 (22-29) mmol/L Anion Gap 16 (12-20) BUN 24 H (9-16) mg/dL Creatinine 1.77 H (0.5-1.4) mg/dL Estim Creat Clear Calc 78.7 Estimated GFR 43 POC Glucose 472 H* (60-115) mg/dL Random Glucose 511 H* (60-115) mg/dL Lactic Acid 2.2 H* (0.5-2.0) mmol/L Lactic Acid F/U @ 2Hr (0.5-2.0) mmol/L Calcium 9.2 (8.4-10.2) mg/dL Magnesium 1.6 (1.6-2.6) mg/dL Total Bilirubin 0.2 (0.0-1.0) mg/dL Direct Bilirubin < 0.2 (0.0-0.5) mg/dL AST 37 (5-37) U/L ALT 41 H (0-40) U/L Alkaline Phosphatase 209 H (39-117) U/L Troponin I High Sens < 2.7 (<3.5-35.0) ng/L B-Natriuretic Peptide 12 (<100) pg/mL Total Protein 8.1 H (6.5-8.0) g/dL Albumin 3.3 L (3.5-5.0) g/dL Urine Color Urine Appearance Urine pH (5.0-9.0) Ur Specific [place] (1.005-1.025) Urine Protein (Neg-Trace) mg/dL Urine Glucose (UA) (Negative) mg/dL Urine Ketones (Negative) mg/dL Urine Blood (Negative) Urine Nitrite (Negative) Ur Leukocyte Esterase (Negative) Urine RBC (0-2) /HPF Urine WBC (0-5) /HPF Ur Squamous Epith Cells (0-2) /HPF Urine Bacteria (None Seen) Hyaline Casts (0-2) /LPF Urine Opiates Screen (Not Detect) Ur Buprenorphine Scrn (Not Detect) ng/mL Ur Oxycodone Screen (Not Detect) ng/mL Urine Methadone Screen (Not Detect) ng/mL Urine Fentanyl Screen (Not Detect) Ur Barbiturates Screen (Not Detect) Ur Phencyclidine Scrn (Not Detect) Ur Amphetamines Screen (Not Detect) U Benzodiazepines Scrn (Not Detect) Urine Cocaine Screen (Not Detect) U Marijuana (THC) Screen (Not Detect) Ethyl Alcohol < 10 mg/dL Influenza Type A (PCR) NEGATIVE (Negative) Influenza Type B (PCR) NEGATIVE (Negative) RSV RNA Qual (PCR) NEGATIVE (Negative) SARS-CoV-2 RNA (RT-PCR) NEGATIVE (Negative) 04/26/24 04/27/24 04/27/24 Range/Units 23:45 01:54 01:56 WBC (4.8-10.8) X10*3/uL RBC (4.60-5.80) X10*6/uL Hgb (14.0-18.0) g/dl Hct (42.0-52.0) % MCV (80.0-98.0) fL MCH (27.0-33.0) pg MCHC (31.0-36.0) g/dl RDW (11.0-16.0) % Plt Count (160-400) X10*3/uL MPV (9.4-12.4) fL Immature Gran % (Auto) (0.0-0.4) % Neut % (Auto) (45-73) % Lymph % (Auto) (20-40) % [place] % (Auto) (2-11) % Eos % (Auto) (0-4) % Baso % (Auto) (0-2) % Lymph # (Auto) (1.2-4.9) X10*3/uL [place] # (Auto) (0.1-1.2) X10*3/uL Eos # (Auto) (0.0-0.4) X10*3/uL Baso # (Auto) (0.0-0.2) X10*3/uL Abs Immat Gran (auto) (0.00-0.03) X10*3/uL Absolute Neuts (auto) (2.0-8.3) x10*3/uL Absolute Nucleated RBC (0.0-0.012) X10*3/uL Nucleated RBC % (auto) (0.0-0.2) /100WBC PT (10.9-12.4) SEC INR (0.9-1.1) VBG pH (7.32-7.43) VBG pCO2 mmHg VBG pO2 mmHg VBG HCO3 (22-26) mmol/L VBG O2 Saturation % VBG Base Excess mmol/L Sodium (135-145) mmol/L Potassium (3.3-5.1) mmol/L Chloride (96-108) mmol/L Carbon Dioxide (22-29) mmol/L Anion Gap (12-20) BUN (9-16) mg/dL Creatinine (0.5-1.4) mg/dL Estim Creat Clear Calc Estimated GFR POC Glucose 341 H (60-115) mg/dL Random Glucose (60-115) mg/dL Lactic Acid (0.5-2.0) mmol/L Lactic Acid F/U @ 2Hr 2.2 H* (0.5-2.0) mmol/L Calcium (8.4-10.2) mg/dL Magnesium (1.6-2.6) mg/dL Total Bilirubin (0.0-1.0) mg/dL Direct Bilirubin (0.0-0.5) mg/dL AST (5-37) U/L ALT (0-40) U/L Alkaline Phosphatase (39-117) U/L Troponin I High Sens (<3.5-35.0) ng/L B-Natriuretic Peptide (<100) pg/mL Total Protein (6.5-8.0) g/dL Albumin (3.5-5.0) g/dL Urine Color Yellow Urine Appearance Clear Urine pH 5.5 (5.0-9.0) Ur Specific [place] >= 1.030 H (1.005-1.025) Urine Protein Negative (Neg-Trace) mg/dL Urine Glucose (UA) >=1000 H (Negative) mg/dL Urine Ketones Negative (Negative) mg/dL Urine Blood Negative (Negative) Urine Nitrite Negative (Negative) Ur Leukocyte Esterase Negative (Negative) Urine RBC 0-2 (0-2) /HPF Urine WBC 0-5 (0-5) /HPF Ur Squamous Epith Cells 0-2 (0-2) /HPF Urine Bacteria None Seen (None Seen) Hyaline Casts 0-2 (0-2) /LPF Urine Opiates Screen Not Detected (Not Detect) Ur Buprenorphine Scrn Not Detected (Not Detect) ng/mL Ur Oxycodone Screen Not Detected (Not Detect) ng/mL Urine Methadone Screen Positive H (Not Detect) ng/mL Urine Fentanyl Screen Not Detected (Not Detect) Ur Barbiturates Screen Not Detected (Not Detect) Ur Phencyclidine Scrn Not Detected (Not Detect) Ur Amphetamines Screen Not Detected (Not Detect) U Benzodiazepines Scrn Not Detected (Not Detect) Urine Cocaine Screen Not Detected (Not Detect) U Marijuana (THC) Screen Not Detected (Not Detect) Ethyl Alcohol mg/dL Influenza Type A (PCR) (Negative) Influenza Type B (PCR) (Negative) RSV RNA Qual (PCR) (Negative) SARS-CoV-2 RNA (RT-PCR) (Negative) 04/27/24 04/27/24 04/27/24 Range/Units 03:33 05:36 07:33 WBC (4.8-10.8) X10*3/uL RBC (4.60-5.80) X10*6/uL Hgb (14.0-18.0) g/dl Hct (42.0-52.0) % MCV (80.0-98.0) fL MCH (27.0-33.0) pg MCHC (31.0-36.0) g/dl RDW (11.0-16.0) % Plt Count (160-400) X10*3/uL MPV (9.4-12.4) fL Immature Gran % (Auto) (0.0-0.4) % Neut % (Auto) (45-73) % Lymph % (Auto) (20-40) % [place] % (Auto) (2-11) % Eos % (Auto) (0-4) % Baso % (Auto) (0-2) % Lymph # (Auto) (1.2-4.9) X10*3/uL [place] # (Auto) (0.1-1.2) X10*3/uL Eos # (Auto) (0.0-0.4) X10*3/uL Baso # (Auto) (0.0-0.2) X10*3/uL Abs Immat Gran (auto) (0.00-0.03) X10*3/uL Absolute Neuts (auto) (2.0-8.3) x10*3/uL Absolute Nucleated RBC (0.0-0.012) X10*3/uL Nucleated RBC % (auto) (0.0-0.2) /100WBC PT (10.9-12.4) SEC INR (0.9-1.1) VBG pH (7.32-7.43) VBG pCO2 mmHg VBG pO2 mmHg VBG HCO3 (22-26) mmol/L VBG O2 Saturation % VBG Base Excess mmol/L Sodium (135-145) mmol/L Potassium (3.3-5.1) mmol/L Chloride (96-108) mmol/L Carbon Dioxide (22-29) mmol/L Anion Gap (12-20) BUN (9-16) mg/dL Creatinine (0.5-1.4) mg/dL Estim Creat Clear Calc Estimated GFR POC Glucose 278 H 279 H 272 H (60-115) mg/dL Random Glucose (60-115) mg/dL Lactic Acid (0.5-2.0) mmol/L Lactic Acid F/U @ 2Hr (0.5-2.0) mmol/L Calcium (8.4-10.2) mg/dL Magnesium (1.6-2.6) mg/dL Total Bilirubin (0.0-1.0) mg/dL Direct Bilirubin (0.0-0.5) mg/dL AST (5-37) U/L ALT (0-40) U/L Alkaline Phosphatase (39-117) U/L Troponin I High Sens (<3.5-35.0) ng/L B-Natriuretic Peptide (<100) pg/mL Total Protein (6.5-8.0) g/dL Albumin (3.5-5.0) g/dL Urine Color Urine Appearance Urine pH (5.0-9.0) Ur Specific [place] (1.005-1.025) Urine Protein (Neg-Trace) mg/dL Urine Glucose (UA) (Negative) mg/dL Urine Ketones (Negative) mg/dL Urine Blood (Negative) Urine Nitrite (Negative) Ur Leukocyte Esterase (Negative) Urine RBC (0-2) /HPF Urine WBC (0-5) /HPF Ur Squamous Epith Cells (0-2) /HPF Urine Bacteria (None Seen) Hyaline Casts (0-2) /LPF Urine Opiates Screen (Not Detect) Ur Buprenorphine Scrn (Not Detect) ng/mL Ur Oxycodone Screen (Not Detect) ng/mL Urine Methadone Screen (Not Detect) ng/mL Urine Fentanyl Screen (Not Detect) Ur Barbiturates Screen (Not Detect) Ur Phencyclidine Scrn (Not Detect) Ur Amphetamines Screen (Not Detect) U Benzodiazepines Scrn (Not Detect) Urine Cocaine Screen (Not Detect) U Marijuana (THC) Screen (Not Detect) Ethyl Alcohol mg/dL Influenza Type A (PCR) (Negative) Influenza Type B (PCR) (Negative) RSV RNA Qual (PCR) (Negative) SARS-CoV-2 RNA (RT-PCR) (Negative) Discharge Plan Discharge Clinical Impression: Hyperglycemia Patient Disposition: Home, Self-Care Additional Instructions: Please make sure that you take all of your regular medications on a regular basis. Please follow up with your regular doctor. Return to the emergency room if worse. Prescriptions: No Action trazodone 50 mg Tablet 50 mg PO BEDTIME MRX1 PRN (Reason: Insomnia) Qty: 60 0RF polyethylene glycol 3350 17 gram Powder In Packet 17 g PO DAILY Qty: 30 0RF nicotine (polacrilex) 2 mg Gum 2 mg buccal Q2H PRN (Reason: Nicotine Cravings) Qty: 100 0RF gabapentin 400 mg Capsule 800 mg PO TID Qty: 42 4RF hydroxyzine HCl 50 mg Tablet 100 mg PO BID Qty: 14 4RF baclofen 10 mg Tablet 10 mg PO BID Qty: 14 4RF docusate sodium 100 mg Capsule 100 mg PO BID Qty: 60 0RF methadone [Methadose] 10 mg/mL Concentrate 220 mg PO DAILY Qty: 0 0RF Rx Instructions: Partial Fill upon patient request. bupropion HCl 150 mg Tablet Extended Release 24 Hr 150 mg PO DAILY Qty: 30 0RF multivitamin [Daily-Abdiel] Tablet 1 tab PO DAILY Qty: 30 0RF melatonin 3 mg Tablet 6 mg PO BEDTIME Qty: 60 0RF clonidine HCl 0.1 mg Tablet 0.1 mg PO BID Qty: 14 4RF lisinopril 5 mg Tablet 5 mg PO DAILY Qty: 30 0RF glipizide 10 mg tablet extended release 24hr 10 mg PO DAILY Qty: 90 0RF metformin 1,000 mg Tablet 1,000 mg PO BIDWM Qty: 60 0RF insulin glargine [Lantus Solostar U-100 Insulin] 100 unit/mL (3 mL) Insulin Pen 30 unit SUBCUT BID Qty: 45 3RF insulin lispro [Admelog SoloStar U-100 Insulin] 100 unit/mL insulin pen See Protocol subcut QIDACHS Qty: 45 0RF Protocol: Insulin Resistant 1st 24 hours Less than or equal to 110 ---- Give (units): 0 111 to 150 Give (units): 4 151 to 200 Give (units): 6 201 to 250 Give (units): 8 251 to 300 Give (units): 12 301 to 350 Give (units): 16 Greater than 350 Give (units): 20 Call MD if Blood Glucose > : 350 Rx Instructions: Daily max dose 80 units naloxone [Narcan] 4 mg/actuation spray,non-aerosol 4 mg intranasal Q2M PRN (Reason: opioid overdose) Qty: 2 0RF Rx Instructions: spray 1 dose into ONE nostril; alternate nostrils w each dose until help arrives cephalexin 500 mg capsule 500 mg PO Q6H 7 Days Qty: 28 0RF doxycycline hyclate 100 mg tablet 100 mg PO BID 7 Days Qty: 14 0RF Interventions: ED Discharge Assessment Last Done: 04/27/24 08:11 Discharge Date/Time: 04/27/24 08:12 Print Language: [place]
[2024-04-26 22:35] VITALS: BP 143/87; BP 159/97; PULSE 80; PULSE 93; RESP 18; TEMP 36.8; O2SAT 97; O2SAT 99; BMI 48.9
[2024-04-26 22:39] LABS: Glucose, Whole Blood 472 mg/dL (60-115)
--- NOTE | 2024-04-26 22:40 | ECG_ITS ---
Test Reason : CHEST PAIN Blood Pressure : / mmHG Vent. Rate : 076 BPM Atrial Rate : 076 BPM P-R Int : 186 ms QRS Dur : 098 ms QT Int : 422 ms P-R-T Axes : 062 034 036 degrees QTc Int : 474 ms Normal sinus rhythm Normal ECG When compared with ECG of 22-APR-2024 23:34, No significant change was found Referred By: Lalo Ricketts Electronically Signed By:SHA LUQUE
[2024-04-26 23:34] LABS: MANUAL DIFF FLAG NO
[2024-04-26 23:36] LABS: Basophils Percent Auto 0.4 % (0-2); Eosinophils Absolute Auto 0.2 X10*3/uL (0.0-0.4); Eosinophils Percent Auto 2.2 % (0-4); Hematocrit 32.5 % (42.0-52.0); Hemoglobin 10.8 g/dl (14.0-18.0); Imm Gran Abs Auto 0.02 X10*3/uL (0.00-0.03); Imm Gran Pct Auto 0.3 % (0.0-0.4); Lymphocytes Absolute Auto 3.3 X10*3/uL (1.2-4.9); Lymphocytes Percent Auto 45.2 % (20-40); Mean Corpuscular HGB Conc 33.2 g/dl (31.0-36.0); Mean Corpuscular Hemoglobin 24.3 pg (27.0-33.0); Mean Platelet Volume 10.2 fL (9.4-12.4); Monocytes Absolute Auto 0.7 X10*3/uL (0.1-1.2); Neutrophils Absolute Auto 3.1 x10*3/uL (2.0-8.3); Neutrophils Percent Auto 42.9 % (45-73); Platelet Count 222 X10*3/uL (160-400); Red Blood Count 4.45 X10*6/uL (4.60-5.80); Red Cell Distribution Width 14.9 % (11.0-16.0); White Blood Count 7.3 X10*3/uL (4.8-10.8)
[2024-04-26 23:39] LABS: VBG Base Excess 2.3 mmol/L; VBG HCO3 28 mmol/L (22-26); VBG pCO2 48 mmHg; VBG pH 7.37 (7.32-7.43); VBG pO2 99 mmHg
[2024-04-26 23:41] LABS: Venous Blood Gas Refer to POC result
[2024-04-26 23:44] LABS: INTERNATIONAL NORM RATIO 0.9 (0.9-1.1)
--- NOTE | 2024-04-26 23:46 | MHC.EDTECH ---
This tech took over care of patient at 2300,rounded and introduced self to pt,urine sample collected and sent to lab,call adela in reach
[2024-04-26] MEDS: 0.9 % Sodium Chloride 1,000 ML 999 ML IV (23:52)
[2024-04-26 23:55] LABS: B Type Natriuretic Peptide 12 pg/mL (<100)
[2024-04-26 23:57] LABS: Troponin-I High Sensitivity < 2.7 ng/L (<3.5-35.0)
[2024-04-26 23:59] LABS: Lactic Acid 2.2 mmol/L (0.5-2.0)
[2024-04-27] LABS: Alanine Aminotransferase 41 U/L (0-40); Albumin Level 3.3 g/dL (3.5-5.0); Alkaline Phosphatase 209 U/L (39-117); Anion Gap 16 (12-20); Aspartate Amino Transferase 37 U/L (5-37); Bilirubin Direct < 0.2 mg/dL (0.0-0.5); Bilirubin Total 0.2 mg/dL (0.0-1.0); Blood Urea Nitrogen 24 mg/dL (9-16); Calcium 9.2 mg/dL (8.4-10.2); Carbon Dioxide 23 mmol/L (22-29); Chloride 99 mmol/L (96-108); Creatinine Clr Calc Pharmacy 78.7; Estimated Glomerular Filt Rate 43; Ethanol < 10 mg/dL; Glucose Random 511 mg/dL (60-115); Magnesium 1.6 mg/dL (1.6-2.6); Potassium 4.6 mmol/L (3.3-5.1); Sodium 133 mmol/L (135-145); Total Protein 8.1 g/dL (6.5-8.0)
[2024-04-27 00:10] LABS: Appearance Urine Clear; Color Urine Yellow; Glucose Urine UA >=1000 mg/dL (Negative); Leukocyte Esterase Urine Negative (Negative); Nitrite Urine Negative (Negative); PH 5.5 (5.0-9.0); Specific Gravity - Urine >= 1.030 (1.005-1.025); UMIC TRIGGER UACC YES; Urine Blood Negative (Negative); Urine Ketones Negative (Negative); Urine Protein Negative (Neg-Trace)
[2024-04-27 00:11] LABS: Influenza A PCR NEGATIVE (Negative); Influenza B PCR NEGATIVE (Negative); Resp Syncy Virus RNA Qual PCR NEGATIVE (Negative); SARS COV2 PCR INHOUSE NEGATIVE (Negative)
[2024-04-27 00:13] LABS: Bacteria Urine None Seen (None Seen); Hyaline Casts Urine 0-2 /LPF (0-2); RBC Urine 0-2 /HPF (0-2); Squamous Epithelial Cell Urine 0-2 /HPF (0-2); WBC Urine 0-5 /HPF (0-5)
[2024-04-27 00:19] LABS: Amphetamine Screen Urine Not Detected (Not Detect); Barbiturates, Urine Not Detected (Not Detect); Benzodiazepines Screen Urine Not Detected (Not Detect); Buprenorphine Scr Not Detected (Not Detect); Cannabinoid Screen Urine Not Detected (Not Detect); Cocaine Screen Urine Not Detected (Not Detect); Fentanyl, urine Not Detected (Not Detect); Methadone Screen, Urine Positive (Not Detect); Opiate Screen Urine Not Detected (Not Detect); Oxycodone Screen Urine Not Detected (Not Detect); Phencyclidine Screen Urine Not Detected (Not Detect)
[2024-04-27] MEDS: Insulin Regular, Human 100 UNIT/ML 10 ML VIAL 10 UNIT IVPUSH (01:00)
[2024-04-27 01:32] LABS: Reflex Lactate? Lactic Acid Added
--- NOTE | 2024-04-27 01:55 | MHC.EDTECH ---
Addendum entered by Hailey Piedra 04/27/24 01:59: Rounds and vitals completed,pt appears comfortable,eyes closed,call chapman in reach Original Note: POC taken and is 341,RN Marina made aware
[2024-04-27 01:58] VITALS: BP 130/87; PULSE 69; RESP 14; TEMP 36.4; O2SAT 97
[2024-04-27 02:03] LABS: Glucose, Whole Blood 341 mg/dL (60-115)
[2024-04-27 02:26] LABS: ~Lactic Acid-LAB USE ONLY 2.2 mmol/L (0.5-2.0)
[2024-04-27] MEDS: 0.9 % Sodium Chloride 1,000 ML 999 ML IV (02:54)
[2024-04-27 03:39] LABS: Glucose, Whole Blood 278 mg/dL (60-115)
[2024-04-27 03:59] LABS: Reflex Lactate? 2 Y
--- NOTE | 2024-04-27 05:26 | MHC.EDTECH ---
Per Lalo Boone we do not have to draw 3rd lactic,RN is aware
[2024-04-27 05:38] VITALS: BP 112/72; PULSE 76; RESP 14; TEMP 36.6; O2SAT 98
[2024-04-27 05:50] LABS: Glucose, Whole Blood 279 mg/dL (60-115)
--- NOTE | 2024-04-27 06:39 | PC.NURSE ---
Called pharmacy regarding missing Glipizide 10mg from the pyxis. Pharmacy will bring down then medicine.
[2024-04-27] MEDS: Insulin Glargine,Hum.rec.anlog 100 UNIT/ML 10 ML VIAL 30 UNIT SUBCUT (06:40)
[2024-04-27] MEDS: metFORMIN HCl 1,000 MG TABLET 1000 MG PO (06:41)
[2024-04-27] MEDS: glipiZIDE XL 10 MG TAB.ER.24 PO (06:42)
[2024-04-27 07:41] LABS: Glucose, Whole Blood 272 mg/dL (60-115)
[2024-04-27 08:10] VITALS: BP 121/73; PULSE 89; RESP 18; TEMP 36.5; O2SAT 98
[2024-04-27 08:11] VITALS: BP 121/73; PULSE 89; RESP 18; TEMP 36.7; O2SAT 98
== END 2024-04-27 08:12 | disposition home or self-care (01) ==
PROVIDERS: Emergency Provider Emergency Medicine
DX: E11.65 Type 2 diabetes mellitus with hyperglycemia (principal); F19.90 Other psychoactive substance use, unspecified, uncomplicated; Z79.4 Long term (current) use of insulin; Z79.899 Other long term (current) drug therapy; Z03.818 Encounter for observation for suspected exposure to other biological agents ruled out
CPT/HCPCS: 0241U; 36415; 71046; 80048; 80076; 80307; 81001; 82803; 82947; 83605; 83735; 83880; 84484; 85025; 85610; 93005; 99285

== ENCOUNTER → 2024-04-26 22:40 | Outpatient (BNV) | payer MEDICAID, SELFPAY | PROVIDERS: Emergency Provider Emergency Medicine; Visit Provider Internal Medicine | DX: R07.9 Chest pain, unspecified (principal) | CPT/HCPCS: 93010 ==

== ENCOUNTER 2024-04-29 23:19 | Emergency (ER) | payer MEDICAID, SELFPAY ==
--- NOTE | ~2024-04-29 | XR_ITS ---
EXAMINATION: XR CHEST CLINICAL INFORMATION: chest pain COMPARISON: 04/26/2024 TECHNIQUE: 2 views of the chest were obtained. FINDINGS: No significant abnormality is noted involving the heart, lungs, mediastinum, bony thorax or soft tissues. XR/XR chest 2V IMPRESSION: Unremarkable examination. Electronically signed by: Kaiden Cuba MD 04/30/2024 12:35 AM [facility]
[2024-04-29 23:25] VITALS: BP 130/86; BP 151/90; PULSE 77; PULSE 78; RESP 20; TEMP 36.5; O2SAT 97; O2SAT 98; BMI 44.3
--- NOTE | 2024-04-29 23:54 | ED_ITS ---
HPI - Chest Pain General Chief Complaint: Chest Pain Stated Complaint: Non radiating CP, x2hrs getting worse Time Seen by Provider: 04/29/24 23:54 History of Present Illness ED Provider: Liliam RG narrative: The patient is a 39-year-old male who is currently staying at a [facility] transitional support services (TSS) facility. He has a history of type 2 diabetes. He is on multiple medications for his diabetes. He was here 3 days ago because of hyperglycemia. He was treated with fluids and insulin and returned to his facility. He has been here 1 week ago with the same issue and was also treated and released. He has a history of heroin use but has not been using recently. He has multiple skin wounds from his previous IV injections. The patient comes to the emergency room tonight because he says he developed chest pain while he was doing nothing in particular about 2 hours prior to arrival. He also had nausea and vomiting of the time that the pain started. He also feels that he is somewhat short of breath. He indicates that the pain is more on the right chest in the left chest. The patient also complains of the he has been experiencing hallucinations. He says that he sees very small mice are running over his body. He says that no one else sees these mice. Related Data Previous Rx's ?Medication ?Instructions ?Recorded baclofen 10 mg tablet 10 mg PO BID #14 tabs 12/03/23 bupropion HCl 150 mg 24 hr tablet, 150 mg PO DAILY #30 tabs 12/03/23 extended release clonidine HCl 0.1 mg tablet 0.1 mg PO BID #14 tabs 12/03/23 docusate sodium 100 mg capsule 100 mg PO BID #60 caps 12/03/23 gabapentin 400 mg capsule 800 mg (2 x 400 mg) PO TID #42 caps 12/03/23 glipizide 10 mg tablet, extended 10 mg PO DAILY #90 tabs 12/03/23 release 24 hr hydroxyzine HCl 50 mg tablet 100 mg (2 x 50 mg) PO BID #14 tabs 12/03/23 insulin glargine 100 unit/mL (3 30 unit (0.3 mL) subcut BID #45 mL 12/03/23 mL) subcutaneous pen (Lantus Solostar U-100 Insulin) insulin lispro 100 unit/mL See Protocol subcut QIDACHS #45 mL 12/03/23 subcutaneous pen (Admelog SoloStar U-100 Insulin lispro) lisinopril 5 mg tablet 5 mg PO DAILY #30 tabs 12/03/23 melatonin 3 mg tablet 6 mg (2 x 3 mg) PO BEDTIME #60 tabs 12/03/23 metformin 1,000 mg tablet 1,000 mg PO BIDWM #60 tabs 12/03/23 methadone 10 mg/mL oral 220 mg (22 mL) PO DAILY #0 mL 12/03/23 concentrate (Methadose) multivitamin (Daily-Abdiel tablet) 1 tab PO DAILY #30 tabs 12/03/23 naloxone 4 mg/actuation nasal 4 mg intranasal Q2M PRN opioid 12/03/23 spray (Narcan) overdose #2 ea nicotine (polacrilex) 2 mg gum 2 mg buccal Q2H PRN Nicotine 12/03/23 Cravings #100 ea polyethylene glycol 3350 17 gram 17 g PO DAILY #30 packets 12/03/23 oral powder packet trazodone 50 mg tablet 50 mg PO BEDTIME MRX1 PRN Insomnia 12/03/23 #60 tabs cephalexin 500 mg capsule 500 mg PO Q6H 7 days #28 caps 03/29/24 doxycycline hyclate 100 mg tablet 100 mg PO BID 7 days #14 tabs 03/29/24 Allergies Allergy/AdvReac Type Severity Reaction Status Date / Time No Known Allergies Allergy Verified 04/29/24 23:29 [No Known Allergies*] Review of Systems 2 Review of Systems: Yes all other systems are reviewed and are negative PMFSH Past Medical History Medical History Intravenous drug abuse Polysubstance abuse Type 2 diabetes mellitus Social History Social History Household Members: None Housing: Homeless Do you presently have visiting nurse or other home services: No Alcohol intake: former Patient Tobacco Use Status: Current everyday Tobacco user Tobacco use type: Cigarette Cigarette Packs Per Day: 1 Cigarettes Per Day: 20.0 Years Smoked: unknown Smoked in Last 30 Days: Yes e-Cigarette/Vaping Use: Former Use Use of substances other than those prescribed or required for medical reasons: No Substance Use Type: Crack/Cocaine Advance Directives: No Advance Directives Information Provided: Yes Do you have a plan to hurt others: No Plan service: No Sexual orientation: Straight/Heterosexual Physical Exam 2 Vital Signs: Vital Signs: Last Vital Signs Temp 97.7 F 04/29/24 23:25 Pulse 77 04/29/24 23:25 Resp 20 04/29/24 23:25 BP 151/90 H 04/29/24 23:25 Pulse Ox 98 04/29/24 23:25 O2 Del Method Room Air 04/29/24 23:25 BMI result Body Mass Index 44.3 Const: Other: The patient is awake and alert. He is a chronically ill-appearing 39-year-old. He has multiple scars on his extremities from previous IV drug use. He does not appear short of breath or in discomfort HEENT: Head: Yes normal to inspection Mouth: Normal oral and palatal mucosa present, oropharynx normal and moist mucous membranes Eyes: General: appearance normal, both eyes and all related structures C onjunctivae: conjunctivae normal EOM: EOMs intact bilaterally Neck: Other: No JVD, moving his neck easily Chest: Other: There is right parasternal chest wall tenderness that seems to reproduce his pain. Resp: Effort & Inspection: normal respiratory effort Auscultation: clear to auscultation bilaterally Cardio: Rate: regular rate Rhythm: regular rhythm Heart sounds: S1 normal heart sound present and S2 normal heart sound present GI: Other: Abdomen is soft and nontender Skin: Other: The patient has multiple healed scars on his extremities from previous IV drug use. Neuro: Other: The patient is awake and alert. He seems coherent. Cranial nerves are intact. He moves his extremities symmetrically and appropriately. Extrem: Other: The patient has a lot of scars in his extremities. He has fairly thick lower legs. They are symmetrical. No edema. Medications Administered Discontinued Medications Generic Name Dose Route Start Last Admin Trade Name Freq PRN Reason Stop Dose Admin Acetaminophen 975 mg 04/30/24 01:28 04/30/24 01:50 Acetaminophen 325 Mg Tablet PO 04/30/24 01:29 975 mg ONCE ONE Administration Prochlorperazine Edisylate 10 mg 04/30/24 01:28 04/30/24 01:50 Prochlorperazine Edisylate 10 Mg/2 Ml Vial IM 04/30/24 01:29 10 mg ONCE ONE Administration Medical Decision Making Medical Decision Making [facility] Narrative: The patient is a 39-year-old male who presents with right-sided chest pain that seems to be reproducible on exam with palpation of the right parasternal border. He does not seem short of breath. He is not tachycardic or hypoxic or tachypneic. He is not febrile. He has a normal chest x-ray. EKG is unremarkable and similar to previous EKGs. He does not have an elevated white count. His troponins are undetectable. BNP is normal. Overall my suspicion for any acutely dangerous chest pain syndrome such as an acute coronary syndrome or a pulmonary embolism is very low in this patient. He was treated symptomatically with acetaminophen orally and prochlorperazine parenterally. He was observed. He fell asleep. He had normal vital signs while sleeping any seemed to be comfortable. I think he may return to his program. Lab Data 04/30/24 00:30 04/30/24 00:30 Labs: Lab Results 04/30/24 04/30/24 04/30/24 Range/Units 00:30 00:37 01:56 WBC 7.2 (4.8-10.8) X10*3/uL RBC 4.49 L (4.60-5.80) X10*6/uL Hgb 10.9 L (14.0-18.0) g/dl Hct 33.7 L (42.0-52.0) % MCV 75.1 L (80.0-98.0) fL MCH 24.3 L (27.0-33.0) pg MCHC 32.3 (31.0-36.0) g/dl RDW 15.2 (11.0-16.0) % Plt Count 220 (160-400) X10*3/uL MPV 10.2 (9.4-12.4) fL Immature Gran % (Auto) 0.3 (0.0-0.4) % Neut % (Auto) 46.7 (45-73) % Lymph % (Auto) 41.6 H (20-40) % [place] % (Auto) 8.0 (2-11) % Eos % (Auto) 2.8 (0-4) % Baso % (Auto) 0.6 (0-2) % Lymph # (Auto) 3.0 (1.2-4.9) X10*3/uL [place] # (Auto) 0.6 (0.1-1.2) X10*3/uL Eos # (Auto) 0.2 (0.0-0.4) X10*3/uL Baso # (Auto) 0.0 (0.0-0.2) X10*3/uL Abs Immat Gran (auto) 0.02 (0.00-0.03) X10*3/uL Absolute Neuts (auto) 3.4 (2.0-8.3) x10*3/uL Absolute Nucleated RBC 0.000 (0.0-0.012) X10*3/uL Nucleated RBC % (auto) 0.0 (0.0-0.2) /100WBC PT 10.5 L (10.9-12.4) SEC INR 0.9 (0.9-1.1) VBG pH 7.41 (7.32-7.43) VBG pCO2 44 mmHg VBG pO2 91 mmHg VBG HCO3 28 H (22-26) mmol/L VBG O2 Saturation 98.0 % VBG Base Excess 3.5 mmol/L Sodium 138 (135-145) mmol/L Potassium 4.4 (3.3-5.1) mmol/L Chloride 104 (96-108) mmol/L Carbon Dioxide 21 L (22-29) mmol/L Anion Gap 17 (12-20) BUN 12 (9-16) mg/dL Creatinine 1.30 (0.5-1.4) mg/dL Estim Creat Clear Calc 104.5 Estimated GFR > 60 Random Glucose 274 H (60-115) mg/dL Calcium 9.2 (8.4-10.2) mg/dL Total Bilirubin 0.2 (0.0-1.0) mg/dL Direct Bilirubin < 0.2 (0.0-0.5) mg/dL AST 37 (5-37) U/L ALT 46 H (0-40) U/L Alkaline Phosphatase 220 H (39-117) U/L Troponin I High Sens < 2.7 < 2.7 (<3.5-35.0) ng/L B-Natriuretic Peptide 19 (<100) pg/mL Total Protein 8.3 H (6.5-8.0) g/dL Albumin 3.4 L (3.5-5.0) g/dL Lipase 18 (8-78) U/L Ethyl Alcohol < 10 mg/dL Discharge Plan Discharge Clinical Impression: Chest wall pain, Vomiting Patient Disposition: Home, Self-Care Additional Instructions: Your tests in the emergency room today are reassuring. Please continue all of your regular medications including your diabetes medications. Follow up with your regular doctor. Return to the emergency room if worse. Prescriptions: No Action trazodone 50 mg Tablet 50 mg PO BEDTIME MRX1 PRN (Reason: Insomnia) Qty: 60 0RF polyethylene glycol 3350 17 gram Powder In Packet 17 g PO DAILY Qty: 30 0RF nicotine (polacrilex) 2 mg Gum 2 mg buccal Q2H PRN (Reason: Nicotine Cravings) Qty: 100 0RF gabapentin 400 mg Capsule 800 mg PO TID Qty: 42 4RF hydroxyzine HCl 50 mg Tablet 100 mg PO BID Qty: 14 4RF baclofen 10 mg Tablet 10 mg PO BID Qty: 14 4RF docusate sodium 100 mg Capsule 100 mg PO BID Qty: 60 0RF methadone [Methadose] 10 mg/mL Concentrate 220 mg PO DAILY Qty: 0 0RF Rx Instructions: Partial Fill upon patient request. bupropion HCl 150 mg Tablet Extended Release 24 Hr 150 mg PO DAILY Qty: 30 0RF multivitamin [Daily-Abdiel] Tablet 1 tab PO DAILY Qty: 30 0RF melatonin 3 mg Tablet 6 mg PO BEDTIME Qty: 60 0RF clonidine HCl 0.1 mg Tablet 0.1 mg PO BID Qty: 14 4RF lisinopril 5 mg Tablet 5 mg PO DAILY Qty: 30 0RF glipizide 10 mg tablet extended release 24hr 10 mg PO DAILY Qty: 90 0RF metformin 1,000 mg Tablet 1,000 mg PO BIDWM Qty: 60 0RF insulin glargine [Lantus Solostar U-100 Insulin] 100 unit/mL (3 mL) Insulin Pen 30 unit SUBCUT BID Qty: 45 3RF insulin lispro [Admelog SoloStar U-100 Insulin] 100 unit/mL insulin pen See Protocol subcut QIDACHS Qty: 45 0RF Protocol: Insulin Resistant 1st 24 hours Less than or equal to 110 ---- Give (units): 0 111 to 150 Give (units): 4 151 to 200 Give (units): 6 201 to 250 Give (units): 8 251 to 300 Give (units): 12 301 to 350 Give (units): 16 Greater than 350 Give (units): 20 Call MD if Blood Glucose > : 350 Rx Instructions: Daily max dose 80 units naloxone [Narcan] 4 mg/actuation spray,non-aerosol 4 mg intranasal Q2M PRN (Reason: opioid overdose) Qty: 2 0RF Rx Instructions: spray 1 dose into ONE nostril; alternate nostrils w each dose until help arrives cephalexin 500 mg capsule 500 mg PO Q6H 7 Days Qty: 28 0RF doxycycline hyclate 100 mg tablet 100 mg PO BID 7 Days Qty: 14 0RF Referrals: [facility] [Provider Group] Print Language: Norwegian
--- NOTE | 2024-04-29 23:58 | ECG_ITS ---
Test Reason : CHEST ARCOS Blood Pressure : / mmHG Vent. Rate : 078 BPM Atrial Rate : 078 BPM P-R Int : 178 ms QRS Dur : 102 ms QT Int : 416 ms P-R-T Axes : 026 034 030 degrees QTc Int : 474 ms Artifact in tracing Normal sinus rhythm Normal ECG When compared with ECG of 26-APR-2024 23:04, No significant change was found Referred By: Lalo Ricketts Electronically Signed By:SHA LUQUE
--- NOTE | 2024-04-30 00:17 | MHC.EDTECH ---
EKG delayed due to patient being in Xray
[2024-04-30 00:36] LABS: MANUAL DIFF FLAG NO
[2024-04-30 00:40] LABS: Venous Blood Gas Refer to POC result
[2024-04-30 00:45] LABS: Basophils Percent Auto 0.6 % (0-2); Eosinophils Absolute Auto 0.2 X10*3/uL (0.0-0.4); Eosinophils Percent Auto 2.8 % (0-4); Hematocrit 33.7 % (42.0-52.0); Hemoglobin 10.9 g/dl (14.0-18.0); Imm Gran Abs Auto 0.02 X10*3/uL (0.00-0.03); Imm Gran Pct Auto 0.3 % (0.0-0.4); Lymphocytes Percent Auto 41.6 % (20-40); Mean Corpuscular HGB Conc 32.3 g/dl (31.0-36.0); Mean Corpuscular Hemoglobin 24.3 pg (27.0-33.0); Mean Corpuscular Volume 75.1 fL (80.0-98.0); Mean Platelet Volume 10.2 fL (9.4-12.4); Monocytes Absolute Auto 0.6 X10*3/uL (0.1-1.2); Neutrophils Absolute Auto 3.4 x10*3/uL (2.0-8.3); Neutrophils Percent Auto 46.7 % (45-73); Platelet Count 220 X10*3/uL (160-400); Red Blood Count 4.49 X10*6/uL (4.60-5.80); Red Cell Distribution Width 15.2 % (11.0-16.0); White Blood Count 7.2 X10*3/uL (4.8-10.8)
[2024-04-30 00:46] LABS: VBG Base Excess 3.5 mmol/L; VBG HCO3 28 mmol/L (22-26); VBG pCO2 44 mmHg; VBG pH 7.41 (7.32-7.43); VBG pO2 91 mmHg
[2024-04-30 01:01] LABS: Alanine Aminotransferase 46 U/L (0-40); Albumin Level 3.4 g/dL (3.5-5.0); Alkaline Phosphatase 220 U/L (39-117); Anion Gap 17 (12-20); Aspartate Amino Transferase 37 U/L (5-37); Bilirubin Direct < 0.2 mg/dL (0.0-0.5); Bilirubin Total 0.2 mg/dL (0.0-1.0); Blood Urea Nitrogen 12 mg/dL (9-16); Calcium 9.2 mg/dL (8.4-10.2); Carbon Dioxide 21 mmol/L (22-29); Chloride 104 mmol/L (96-108); Creatinine Clr Calc Pharmacy 104.5; Estimated Glomerular Filt Rate > 60; Ethanol < 10 mg/dL; Glucose Random 274 mg/dL (60-115); Lipase 18 U/L (8-78); Potassium 4.4 mmol/L (3.3-5.1); Sodium 138 mmol/L (135-145); Total Protein 8.3 g/dL (6.5-8.0); Troponin-I High Sensitivity < 2.7 ng/L (<3.5-35.0)
[2024-04-30 01:10] LABS: B Type Natriuretic Peptide 19 pg/mL (<100)
[2024-04-30] MEDS: Acetaminophen 325 MG TABLET 975 MG PO (01:50)
[2024-04-30] MEDS: Prochlorperazine Edisylate 10 MG/2 ML VIAL IM (01:50)
[2024-04-30 02:06] LABS: INTERNATIONAL NORM RATIO 0.9 (0.9-1.1); Prothrombin Time 10.5 SEC (10.9-12.4)
[2024-04-30 02:25] LABS: Troponin-I High Sensitivity < 2.7 ng/L (<3.5-35.0)
[2024-04-30 02:54] VITALS: PULSE 78
[2024-04-30 02:57] VITALS: BP 130/85; PULSE 75; RESP 12; TEMP 37.1; O2SAT 97
--- NOTE | 2024-04-30 03:57 | PC.NURSE ---
Have tried calling the treatment center for ride back to facility and nobody answers. messages have been left.
--- NOTE | 2024-04-30 04:43 | PC.NURSE ---
Attempted to call [facility]. no answer. message left.
--- NOTE | 2024-04-30 05:46 | PC.NURSE ---
Attempted to call [facility] fpc and there was no response. Message left
--- NOTE | 2024-04-30 06:35 | PC.NURSE ---
Attempted to call [facility] with no success. Messages left.
[2024-04-30 06:37] VITALS: BP 157/103; PULSE 72; RESP 12; TEMP 37.1; O2SAT 96
--- NOTE | 2024-04-30 07:17 | PC.NURSE ---
reattempted to call [facility] to arrange transportation as pt remains up for discharge but no answer at this time. website states that they open at 8 am. will reattempt. pt notified/aware.
[2024-04-30 09:05] VITALS: BP 138/94; PULSE 76; RESP 16; TEMP 36.8; O2SAT 98
--- NOTE | 2024-04-30 09:06 | PC.NURSE ---
pt utilized pt phone and able to get a hold of [facility]. pt states they will be here to get him shortly. vss and up to date prior to d/c. pt has no complaints
[2024-04-30 09:07] VITALS: BP 138/94; PULSE 76; RESP 16; TEMP 36.8; O2SAT 98
== END 2024-04-30 09:12 | disposition home or self-care (01) ==
PROVIDERS: Emergency Provider Emergency Medicine
DX: R07.89 Other chest pain (principal); R11.2 Nausea with vomiting, unspecified; R44.1 Visual hallucinations; R06.02 Shortness of breath; E11.9 Type 2 diabetes mellitus without complications; F19.20 Other psychoactive substance dependence, uncomplicated; F33.2 Major depressive disorder, recurrent severe without psychotic features; F17.210 Nicotine dependence, cigarettes, uncomplicated; Z79.4 Long term (current) use of insulin; Z79.84 Long term (current) use of oral hypoglycemic drugs; Z79.899 Other long term (current) drug therapy
CPT/HCPCS: 36415; 71046; 80048; 80076; 80307; 82803; 83690; 83880; 84484; 85025; 85610; 93005; 96372; 99284; 99285; J0737

== ENCOUNTER → 2024-04-29 23:58 | Outpatient (BNV) | payer MEDICAID, SELFPAY | PROVIDERS: Emergency Provider Emergency Medicine; Visit Provider Internal Medicine | DX: R07.9 Chest pain, unspecified (principal) | CPT/HCPCS: 93010 ==

== ENCOUNTER 2024-05-05 22:55 | Emergency (ER) | payer MEDICAID, SELFPAY ==
--- NOTE | ~2024-05-05 | CT_ITS ---
EXAMINATION: CT HEAD WITHOUT CONTRAST CT CERVICAL SPINE WITHOUT CONTRAST CLINICAL INFORMATION: Syncope. Head injury. COMPARISON: None available. TECHNIQUE: Contiguous axial imaging was performed through the head and cervical spine without intravenous administration of contrast. Sagittal and coronal reformatted images also obtained. This CT examination was performed using dose optimization techniques as appropriate, variously including the following: *Automated exposure control *Adjustment of mA and/or kV according to patient size (this includes techniques or standardized protocols for targeted exams where dose is matched to indication/reason for exam; i.e. extremities or head) *Use of iterative reconstruction technique DLP: 1653 mGy-cm FINDINGS: The lateral, third and fourth ventricles are normally outlined. The cortical sulci and basal cisterns are normally outlined as well. There is no acute territorial defects, hemorrhage or midline shift. The extra-axial spaces are unremarkable. Calvarium/scalp: Intact. Maxillofacial sinuses and mastoids: Clear as visualized. Cervical spine: There is some limitation related to motion as well as attenuation artifacts related to patient body habitus. The vertebral bodies are normally aligned. There is mild C2-3 disc degenerative change with endplate sclerosis and posterior osteophytes resulting in minimal spinal canal and mild to moderate left neuroforaminal narrowing. No definitive fracture is seen. The soft tissues are unremarkable. The visualized upper lung mulligan are clear. CT/CT head/brain wo IV con IMPRESSION: Motion degraded image limits evaluation. 1. No evidence of acute intracranial abnormality. 2. No evidence of acute cervical spine traumatic injury. 3. Mild C2-3 disc degenerative change. Electronically signed by: James Lawson MD 05/06/2024 04:56 AM [facility]
--- NOTE | ~2024-05-05 | CT_ITS ---
EXAMINATION: CT HEAD WITHOUT CONTRAST CT CERVICAL SPINE WITHOUT CONTRAST CLINICAL INFORMATION: Syncope. Head injury. COMPARISON: None available. TECHNIQUE: Contiguous axial imaging was performed through the head and cervical spine without intravenous administration of contrast. Sagittal and coronal reformatted images also obtained. This CT examination was performed using dose optimization techniques as appropriate, variously including the following: *Automated exposure control *Adjustment of mA and/or kV according to patient size (this includes techniques or standardized protocols for targeted exams where dose is matched to indication/reason for exam; i.e. extremities or head) *Use of iterative reconstruction technique DLP: 1653 mGy-cm FINDINGS: The lateral, third and fourth ventricles are normally outlined. The cortical sulci and basal cisterns are normally outlined as well. There is no acute territorial defects, hemorrhage or midline shift. The extra-axial spaces are unremarkable. Calvarium/scalp: Intact. Maxillofacial sinuses and mastoids: Clear as visualized. Cervical spine: There is some limitation related to motion as well as attenuation artifacts related to patient body habitus. The vertebral bodies are normally aligned. There is mild C2-3 disc degenerative change with endplate sclerosis and posterior osteophytes resulting in minimal spinal canal and mild to moderate left neuroforaminal narrowing. No definitive fracture is seen. The soft tissues are unremarkable. The visualized upper lung mulligan are clear. CT/CT cervical spine wo IV con IMPRESSION: Motion degraded image limits evaluation. 1. No evidence of acute intracranial abnormality. 2. No evidence of acute cervical spine traumatic injury. 3. Mild C2-3 disc degenerative change. Electronically signed by: James Lawson MD 05/06/2024 04:56 AM [facility]
[2024-05-05 23:04] VITALS: BP 142/78; BP 142/80; PULSE 83; PULSE 94; RESP 18; TEMP 37.1; O2SAT 94; O2SAT 96; BMI 47.9
[2024-05-05 23:09] LABS: Glucose, Whole Blood 372 mg/dL (60-115)
[2024-05-05 23:10] VITALS: BP 142/80; PULSE 82; RESP 18; TEMP 37.1; O2SAT 95
[2024-05-05 23:16] VITALS: PULSE 81
--- NOTE | 2024-05-05 23:27 | ED.SYNCOPE ---
HPI - Syncope General Chief Complaint: Syncope Stated Complaint: fall +headstrike, high poc *399 Time Seen by Provider: 05/05/24 23:27 Source: patient Mode of arrival: EMS Limitations: no limitations History of Present Illness ED Provider: Dr. Reji Brothers HPI narrative: 38-year-old male with history of type 2 diabetes , DKA, alcohol use disorder, opioid use disorder on methadone who presents emergency department for evaluation of syncopal episode. The patient states that he was sickle day with nausea and vomiting. He states he had very little food and fluid to drink. He took a hot shower. He states he felt lightheaded and dizzy and then passed out. He did hit his head. He was currently complaining of a diffuse, moderate to severe headache. He was also complaining of neck pain, nausea. Patient states he has had a cough over the past several days. He denied chest pain, shortness of breath or dyspnea on exertion. Related Data Previous Rx's ?Medication ?Instructions ?Recorded baclofen 10 mg tablet 10 mg PO BID #14 tabs 12/03/23 bupropion HCl 150 mg 24 hr tablet, 150 mg PO DAILY #30 tabs 12/03/23 extended release clonidine HCl 0.1 mg tablet 0.1 mg PO BID #14 tabs 12/03/23 docusate sodium 100 mg capsule 100 mg PO BID #60 caps 12/03/23 gabapentin 400 mg capsule 800 mg (2 x 400 mg) PO TID #42 caps 12/03/23 glipizide 10 mg tablet, extended 10 mg PO DAILY #90 tabs 12/03/23 release 24 hr hydroxyzine HCl 50 mg tablet 100 mg (2 x 50 mg) PO BID #14 tabs 12/03/23 insulin glargine 100 unit/mL (3 30 unit (0.3 mL) subcut BID #45 mL 12/03/23 mL) subcutaneous pen (Lantus Solostar U-100 Insulin) insulin lispro 100 unit/mL See Protocol subcut QIDACHS #45 mL 12/03/23 subcutaneous pen (Admelog SoloStar U-100 Insulin lispro) lisinopril 5 mg tablet 5 mg PO DAILY #30 tabs 12/03/23 melatonin 3 mg tablet 6 mg (2 x 3 mg) PO BEDTIME #60 tabs 12/03/23 metformin 1,000 mg tablet 1,000 mg PO BIDWM #60 tabs 12/03/23 methadone 10 mg/mL oral 220 mg (22 mL) PO DAILY #0 mL 12/03/23 concentrate (Methadose) multivitamin (Daily-Abdiel tablet) 1 tab PO DAILY #30 tabs 12/03/23 naloxone 4 mg/actuation nasal 4 mg intranasal Q2M PRN opioid 12/03/23 spray (Narcan) overdose #2 ea nicotine (polacrilex) 2 mg gum 2 mg buccal Q2H PRN Nicotine 12/03/23 Cravings #100 ea polyethylene glycol 3350 17 gram 17 g PO DAILY #30 packets 12/03/23 oral powder packet trazodone 50 mg tablet 50 mg PO BEDTIME MRX1 PRN Insomnia 12/03/23 #60 tabs cephalexin 500 mg capsule 500 mg PO Q6H 7 days #28 caps 03/29/24 doxycycline hyclate 100 mg tablet 100 mg PO BID 7 days #14 tabs 03/29/24 Allergies Allergy/AdvReac Type Severity Reaction Status Date / Time No Known Allergies Allergy Verified 05/05/24 23:08 [No Known Allergies*] Review of Systems Review of Systems: Yes all other systems are reviewed and are negative PMFSH Past Medical History Medical History Intravenous drug abuse Polysubstance abuse Type 2 diabetes mellitus Social History Social History Household Members: None Housing: Homeless Do you presently have visiting nurse or other home services: No Alcohol intake: former Patient Tobacco Use Status: Current everyday Tobacco user Tobacco use type: Cigarette Cigarette Packs Per Day: 1 Cigarettes Per Day: 20.0 Years Smoked: unknown Smoked in Last 30 Days: No e-Cigarette/Vaping Use: Former Use Use of substances other than those prescribed or required for medical reasons: Yes Substance Use Type: IV Drugs Last Used Substance: Weeks (ago) Any prior treatment program specific to substance use: Yes Advance Directives: No service: No Sexual orientation: Straight/Heterosexual Physical Exam Vital Signs: Vital Signs: Last Vital Signs Temp 98.2 F 05/06/24 02:29 Pulse 68 05/06/24 02:29 Resp 13 05/06/24 02:29 BP 114/74 05/06/24 02:29 Pulse Ox 100 05/06/24 02:29 O2 Del Method Room Air 05/06/24 02:29 BMI result Body Mass Index 47.9 Vital signs revealed an elevated blood pressure of 142/80 otherwise unremarkable General: Awake, alert in no distress , weight 145.3 kg, elevated BMI 48.7 kilograms/meters sq Head: Normocephalic, tenderness palpation of the occipital region of his scalp, no hematomas noted EENT: PERRL, Lids normal, sclera normal, conjunctiva normal, nose normal , ears normal, throat without erythema or exudates Neck: Supple, no adenopathy Lung: breath sounds symmetric, no wheezing, rales or rhonchi Chest: symmetric movement, nontender Heart: regular rate and rhythm, normal S1, S2 no murmurs or rubs Abdomen: soft, non-tender, nondistended, normal bowel sounds Back: no vertebral tenderness, no CVAT Extremities: both upper extremities are edematous most likely secondary to venous insufficiency from injection drug use, multiple track bentley Neuro: Awake, alert, oriented, normal speech, cranial nerves intact, moves all extremities symmetrically Psych: Pleasant, cooperative Medications Administered Discontinued Medications Generic Name Dose Route Start Last Admin Trade Name Freq PRN Reason Stop Dose Admin Sodium Chloride 1,000 mls @ 999 mls/hr 05/06/24 00:04 05/06/24 00:23 Ns IV 05/06/24 01:04 999 mls/hr .Q1H1M STA Administration Ketorolac Tromethamine 15 mg 05/06/24 00:04 05/06/24 00:24 Ketorolac Tromethamine 15 Mg/Ml Vial IVPUSH 05/06/24 00:05 15 mg ONCE STA Administration Ondansetron HCl 4 mg 05/06/24 00:04 05/06/24 00:24 Ondansetron Hcl 4 Mg/2 Ml Vial IVPUSH 05/06/24 00:05 4 mg ONCE ONE Administration Medical Decision Making Medical Decision Making [facility] Narrative: 38-year-old male with history of type 2 diabetes , DKA, alcohol use disorder, opioid use disorder on methadone who presents emergency department for evaluation nausea, vomiting all day with syncopal episode that occurred while he was taking shower. Patient did hit his head and may have had a brief loss of consciousness. Physical examination did reveal subdural tenderness otherwise unremarkable. Differential diagnosis: ?Includes but is not limited to myocardial ischemia, myocardial infarction, arrhythmia, vasovagal syncope, syncope, electrolyte elevated, anemia Course: 02:48 My interpretation patient's laboratory evaluation is as follows: Chronic microcytic anemia with an H&H of 10.7 and 32.9. PT INR normal. Sodium low 134. Glucose elevated 349. AST, ALT and alk-phos were elevated at 42, [address] scan of the head and cervical spine are pending at the end of my shift therefore the patient's care was turned over to my colleague, Dr. Mai Loredo Admission/Observation Consideration of admission/observation: Escalation of care including admission/observation considered (Yes) Lab Data MDM Lab Attestation statement: I reviewed the patient's lab results. 05/05/24 23:54 05/05/24 23:54 Labs: Lab Results 05/05/24 05/05/24 Range/Units 23:04 23:54 WBC 7.5 (4.8-10.8) X10*3/uL RBC 4.44 L (4.60-5.80) X10*6/uL Hgb 10.7 L (14.0-18.0) g/dl Hct 32.9 L (42.0-52.0) % MCV 74.1 L (80.0-98.0) fL MCH 24.1 L (27.0-33.0) pg MCHC 32.5 (31.0-36.0) g/dl RDW 15.0 (11.0-16.0) % Plt Count 214 (160-400) X10*3/uL MPV 9.7 (9.4-12.4) fL Immature Gran % (Auto) 0.1 (0.0-0.4) % Neut % (Auto) 38.3 L (45-73) % Lymph % (Auto) 49.0 H (20-40) % [place] % (Auto) 9.2 (2-11) % Eos % (Auto) 2.7 (0-4) % Baso % (Auto) 0.7 (0-2) % Lymph # (Auto) 3.7 (1.2-4.9) X10*3/uL [place] # (Auto) 0.7 (0.1-1.2) X10*3/uL Eos # (Auto) 0.2 (0.0-0.4) X10*3/uL Baso # (Auto) 0.1 (0.0-0.2) X10*3/uL Abs Immat Gran (auto) 0.01 (0.00-0.03) X10*3/uL Absolute Neuts (auto) 2.9 (2.0-8.3) x10*3/uL Absolute Nucleated RBC 0.000 (0.0-0.012) X10*3/uL Nucleated RBC % (auto) 0.0 (0.0-0.2) /100WBC APTT 29.2 (26.0-36.8) SEC Sodium 134 L (135-145) mmol/L Potassium 4.3 (3.3-5.1) mmol/L Chloride 102 (96-108) mmol/L Carbon Dioxide 25 (22-29) mmol/L Anion Gap 11 L (12-20) BUN 17 H (9-16) mg/dL Creatinine 1.29 (0.5-1.4) mg/dL Estim Creat Clear Calc 106.7 Estimated GFR > 60 POC Glucose 372 H* (60-115) mg/dL Random Glucose 349 H (60-115) mg/dL Calcium 9.2 (8.4-10.2) mg/dL Magnesium 1.8 (1.6-2.6) mg/dL Total Bilirubin 0.2 (0.0-1.0) mg/dL AST 42 H (5-37) U/L ALT 50 H (0-40) U/L Alkaline Phosphatase 203 H (39-117) U/L Troponin I High Sens < 2.7 (<3.5-35.0) ng/L Total Protein 8.2 H (6.5-8.0) g/dL Albumin 3.4 L (3.5-5.0) g/dL Lipase 19 (8-78) U/L Independent Interpretation I performed an independent interpretation of an: EKG Interpretation: My interpretation the patient's 12 EKG done at 23:38 hours is as follows: Normal sinus rhythm with a rate of 79, normal [place] interval, prolonged QRS duration of 102 milliseconds, prolonged QTC of 483 milliseconds, no ST segment elevation, no ST segment depression, no significant T-wave abnormalities, no PACs, no PVCs Chronic Conditions Patient?s care impacted by: Diabetes Discharge Plan Discharge Clinical Impression: Nausea & vomiting, Syncope, vasovagal, Acute dehydration Patient Disposition: Home, Self-Care Instructions: Syncope (ED) Additional Instructions: Continue taking medications as prescribed by your providers. Increase your fluid intake. Follow-up with your doctor in 2 days. Please return to the emergency department if your symptoms get worse or if you develop any symptoms that are concerning to you. Prescriptions: No Action trazodone 50 mg Tablet 50 mg PO BEDTIME MRX1 PRN (Reason: Insomnia) Qty: 60 0RF polyethylene glycol 3350 17 gram Powder In Packet 17 g PO DAILY Qty: 30 0RF nicotine (polacrilex) 2 mg Gum 2 mg buccal Q2H PRN (Reason: Nicotine Cravings) Qty: 100 0RF gabapentin 400 mg Capsule 800 mg PO TID Qty: 42 4RF hydroxyzine HCl 50 mg Tablet 100 mg PO BID Qty: 14 4RF baclofen 10 mg Tablet 10 mg PO BID Qty: 14 4RF docusate sodium 100 mg Capsule 100 mg PO BID Qty: 60 0RF methadone [Methadose] 10 mg/mL Concentrate 220 mg PO DAILY Qty: 0 0RF Rx Instructions: Partial Fill upon patient request. bupropion HCl 150 mg Tablet Extended Release 24 Hr 150 mg PO DAILY Qty: 30 0RF multivitamin [Daily-Abdiel] Tablet 1 tab PO DAILY Qty: 30 0RF melatonin 3 mg Tablet 6 mg PO BEDTIME Qty: 60 0RF clonidine HCl 0.1 mg Tablet 0.1 mg PO BID Qty: 14 4RF lisinopril 5 mg Tablet 5 mg PO DAILY Qty: 30 0RF glipizide 10 mg tablet extended release 24hr 10 mg PO DAILY Qty: 90 0RF metformin 1,000 mg Tablet 1,000 mg PO BIDWM Qty: 60 0RF insulin glargine [Lantus Solostar U-100 Insulin] 100 unit/mL (3 mL) Insulin Pen 30 unit SUBCUT BID Qty: 45 3RF insulin lispro [Admelog SoloStar U-100 Insulin] 100 unit/mL insulin pen See Protocol subcut QIDACHS Qty: 45 0RF Protocol: Insulin Resistant 1st 24 hours Less than or equal to 110 ---- Give (units): 0 111 to 150 Give (units): 4 151 to 200 Give (units): 6 201 to 250 Give (units): 8 251 to 300 Give (units): 12 301 to 350 Give (units): 16 Greater than 350 Give (units): 20 Call MD if Blood Glucose > : 350 Rx Instructions: Daily max dose 80 units naloxone [Narcan] 4 mg/actuation spray,non-aerosol 4 mg intranasal Q2M PRN (Reason: opioid overdose) Qty: 2 0RF Rx Instructions: spray 1 dose into ONE nostril; alternate nostrils w each dose until help arrives cephalexin 500 mg capsule 500 mg PO Q6H 7 Days Qty: 28 0RF doxycycline hyclate 100 mg tablet 100 mg PO BID 7 Days Qty: 14 0RF Print Language: Malay
--- NOTE | 2024-05-05 23:28 | ECG_ITS ---
Test Reason : syncope Blood Pressure : / mmHG Vent. Rate : 079 BPM Atrial Rate : 079 BPM P-R Int : 188 ms QRS Dur : 102 ms QT Int : 422 ms P-R-T Axes : 050 033 043 degrees QTc Int : 483 ms Normal sinus rhythm Prolonged QT Abnormal ECG When compared with ECG of 30-APR-2024 00:31, No significant change was found Referred By: Reji Brothers Electronically Signed By:Mark Powell
[2024-05-05 23:58] LABS: Basophils Absolute Auto 0.1 X10*3/uL (0.0-0.2); Basophils Percent Auto 0.7 % (0-2); Eosinophils Absolute Auto 0.2 X10*3/uL (0.0-0.4); Eosinophils Percent Auto 2.7 % (0-4); Hematocrit 32.9 % (42.0-52.0); Hemoglobin 10.7 g/dl (14.0-18.0); Imm Gran Abs Auto 0.01 X10*3/uL (0.00-0.03); Imm Gran Pct Auto 0.1 % (0.0-0.4); Lymphocytes Absolute Auto 3.7 X10*3/uL (1.2-4.9); MANUAL DIFF FLAG NO; Mean Corpuscular HGB Conc 32.5 g/dl (31.0-36.0); Mean Corpuscular Hemoglobin 24.1 pg (27.0-33.0); Mean Corpuscular Volume 74.1 fL (80.0-98.0); Mean Platelet Volume 9.7 fL (9.4-12.4); Monocytes Absolute Auto 0.7 X10*3/uL (0.1-1.2); Monocytes Percent Auto 9.2 % (2-11); Neutrophils Absolute Auto 2.9 x10*3/uL (2.0-8.3); Neutrophils Percent Auto 38.3 % (45-73); Platelet Count 214 X10*3/uL (160-400); Red Blood Count 4.44 X10*6/uL (4.60-5.80); White Blood Count 7.5 X10*3/uL (4.8-10.8)
--- NOTE | 2024-05-05 23:58 | PC.NURSE ---
Pt BIB EMS for reports of syncopal episode in shower, positive headstrike, no thinners no loc. EKG and labs complete. IV line placed; #22 L-hand. Pt is difficulty stick.
[2024-05-06 00:09] LABS: Partial Thromboplastin Time 29.2 SEC (26.0-36.8)
[2024-05-06 00:15] LABS: Alanine Aminotransferase 50 U/L (0-40); Albumin Level 3.4 g/dL (3.5-5.0); Alkaline Phosphatase 203 U/L (39-117); Anion Gap 11 (12-20); Aspartate Amino Transferase 42 U/L (5-37); Bilirubin Total 0.2 mg/dL (0.0-1.0); Blood Urea Nitrogen 17 mg/dL (9-16); Calcium 9.2 mg/dL (8.4-10.2); Carbon Dioxide 25 mmol/L (22-29); Chloride 102 mmol/L (96-108); Creatinine Clr Calc Pharmacy 106.7; Estimated Glomerular Filt Rate > 60; Glucose Random 349 mg/dL (60-115); Lipase 19 U/L (8-78); Magnesium 1.8 mg/dL (1.6-2.6); Potassium 4.3 mmol/L (3.3-5.1); Sodium 134 mmol/L (135-145); Total Protein 8.2 g/dL (6.5-8.0)
[2024-05-06 00:20] LABS: Troponin-I High Sensitivity < 2.7 ng/L (<3.5-35.0)
[2024-05-06] MEDS: 0.9 % Sodium Chloride 1,000 ML 999 ML IV (00:23)
[2024-05-06] MEDS: ondansetron HCL 4 MG/2 ML VIAL IVPUSH (00:24)
[2024-05-06] MEDS: Ketorolac Tromethamine 15 MG/ML VIAL IVPUSH (00:24)
[2024-05-06 00:26] VITALS: BP 123/77; PULSE 75; RESP 12; TEMP 37.1; O2SAT 95
[2024-05-06 02:29] VITALS: BP 114/74; PULSE 68; RESP 13; TEMP 36.8; O2SAT 100
[2024-05-06 04:07] VITALS: BP 127/89; PULSE 74; RESP 18; TEMP 36.8; O2SAT 99
[2024-05-06 04:21] VITALS: BP 127/89; PULSE 72; RESP 13; TEMP 36.4; O2SAT 98
[2024-05-06 05:57] VITALS: BP 127/89; PULSE 72; RESP 13; TEMP 36.4; O2SAT 98
== END 2024-05-06 05:57 | disposition home or self-care (01) ==
PROVIDERS: Emergency Medicine Emergency Medical Services; Emergency Provider Internal Medicine
DX: R55 Syncope and collapse (principal); E86.0 Dehydration; M54.2 Cervicalgia; R51.9 Headache, unspecified; E11.9 Type 2 diabetes mellitus without complications; F11.90 Opioid use, unspecified, uncomplicated; R94.31 Abnormal electrocardiogram [ECG] [EKG]; R11.2 Nausea with vomiting, unspecified; R42 Dizziness and giddiness; R05.9 Cough, unspecified; F17.210 Nicotine dependence, cigarettes, uncomplicated; Z79.899 Other long term (current) drug therapy; Z79.4 Long term (current) use of insulin
CPT/HCPCS: 36415; 70450; 72125; 80053; 82947; 83690; 83735; 84484; 85025; 85730; 93005; 96361; 96374; 96375; 99285; J1885; J2405

== ENCOUNTER → 2024-05-05 23:28 | Outpatient (BNV) | payer MEDICAID, SELFPAY | PROVIDERS: Emergency Provider Internal Medicine; Visit Provider Internal Medicine Cardiovascular Disease | DX: R55 Syncope and collapse (principal); R94.31 Abnormal electrocardiogram [ECG] [EKG] | CPT/HCPCS: 93010 ==

== ENCOUNTER 2024-05-14 22:37 | Emergency (ER) | payer MEDICAID, SELFPAY ==
--- NOTE | 2024-05-14 | ECG_ITS ---
Test Reason : NAUSEA/VOMITING Blood Pressure : / mmHG Vent. Rate : 088 BPM Atrial Rate : 088 BPM P-R Int : 178 ms QRS Dur : 098 ms QT Int : 392 ms P-R-T Axes : 011 029 033 degrees QTc Int : 474 ms Normal sinus rhythm Normal ECG When compared with ECG of 05-MAY-2024 23:38, No significant change was found Referred By: Generic ED Physician Electronically Signed By:MICHELLE HUERTAS MD
--- NOTE | ~2024-05-14 | XR_ITS ---
EXAMINATION: XR CHEST CLINICAL INFORMATION: Pneumonia? COMPARISON: Chest radiograph 04/30/2024 TECHNIQUE: Frontal view of the chest was obtained. FINDINGS: Low lung volumes are present with the fourth anterior rib segments remain projection of the lung bases. Making allowances for low lung volumes, grossly normal pattern of pulmonary vasculature is noted. No focal pulmonary consolidation. Normal appearance of the cardiomediastinal structures. No effusions or pneumothoraces. XR/XR chest 1V IMPRESSION: Low lung volumes; otherwise, no cardiopulmonary abnormalities. Lungs clear. Electronically signed by: Denny Xie MD 05/15/2024 03:[address] [facility]
[2024-05-14 22:40] VITALS: BP 151/108; PULSE 90; RESP 20; TEMP 36.6; O2SAT 98; BMI 38.5
[2024-05-14 23:00] LABS: MANUAL DIFF FLAG NO
[2024-05-14 23:01] LABS: Basophils Absolute Auto 0.1 X10*3/uL (0.0-0.2); Basophils Percent Auto 0.7 % (0-2); Eosinophils Absolute Auto 0.2 X10*3/uL (0.0-0.4); Eosinophils Percent Auto 2.6 % (0-4); Hemoglobin 12.4 g/dl (14.0-18.0); Imm Gran Abs Auto 0.02 X10*3/uL (0.00-0.03); Imm Gran Pct Auto 0.3 % (0.0-0.4); Lymphocytes Absolute Auto 3.2 X10*3/uL (1.2-4.9); Lymphocytes Percent Auto 45.8 % (20-40); Mean Corpuscular HGB Conc 32.6 g/dl (31.0-36.0); Mean Corpuscular Hemoglobin 24.1 pg (27.0-33.0); Mean Corpuscular Volume 73.8 fL (80.0-98.0); Mean Platelet Volume 9.5 fL (9.4-12.4); Monocytes Absolute Auto 0.6 X10*3/uL (0.1-1.2); Neutrophils Percent Auto 42.6 % (45-73); Platelet Count 284 X10*3/uL (160-400); Red Blood Count 5.15 X10*6/uL (4.60-5.80); Red Cell Distribution Width 15.6 % (11.0-16.0)
[2024-05-14 23:31] LABS: Albumin Level 3.8 g/dL (3.5-5.0); Alkaline Phosphatase 234 U/L (39-117); Anion Gap 14 (12-20); Aspartate Amino Transferase 38 U/L (5-37); Beta-Hydroxybutyrate 0.04 mmol/L (0.02-0.27); Bilirubin Total 0.3 mg/dL (0.0-1.0); Blood Urea Nitrogen 14 mg/dL (9-16); Calcium 9.8 mg/dL (8.4-10.2); Carbon Dioxide 23 mmol/L (22-29); Chloride 105 mmol/L (96-108); Creatinine Clr Calc Pharmacy 140.9; Estimated Glomerular Filt Rate > 60; Glucose Random 313 mg/dL (60-115); Magnesium 1.9 mg/dL (1.6-2.6); Potassium 4.5 mmol/L (3.3-5.1); Sodium 137 mmol/L (135-145); Total Protein 9.2 g/dL (6.5-8.0)
[2024-05-14 23:38] LABS: Alanine Aminotransferase 58 U/L (0-40)
[2024-05-14 23:42] LABS: Influenza A PCR NEGATIVE (Negative); Influenza B PCR NEGATIVE (Negative); Resp Syncy Virus RNA Qual PCR NEGATIVE (Negative); SARS COV2 PCR INHOUSE NEGATIVE (Negative)
[2024-05-14 23:54] LABS: Glucose, Whole Blood 269 mg/dL (60-115)
--- NOTE | 2024-05-15 01:11 | ED_ITS ---
HPI - General Adult General Chief complaint: Nausea/Vomiting/Diarrhea Stated complaint: vomiting sob Time Seen by Provider: 05/15/24 00:48 Source: patient Mode of arrival: ambulatory Limitations: no limitations History of Present Illness ED Provider: Rafat Marroquin PA-C HPI narrative: 39-year-old male history of diabetes alcohol use disorder presents to the ED for vomiting unable to keep anything down shortness of breath with coughing. Patient denies any chest pain, abdominal pain, diarrhea, or any genital urinary symptoms. Patient denies any pleurisy, calf pain, leg swelling, coughing up blood Related Data Previous Rx's ?Medication ?Instructions ?Recorded baclofen 10 mg tablet 10 mg PO BID #14 tabs 12/03/23 bupropion HCl 150 mg 24 hr tablet, 150 mg PO DAILY #30 tabs 12/03/23 extended release clonidine HCl 0.1 mg tablet 0.1 mg PO BID #14 tabs 12/03/23 docusate sodium 100 mg capsule 100 mg PO BID #60 caps 12/03/23 gabapentin 400 mg capsule 800 mg (2 x 400 mg) PO TID #42 caps 12/03/23 glipizide 10 mg tablet, extended 10 mg PO DAILY #90 tabs 12/03/23 release 24 hr hydroxyzine HCl 50 mg tablet 100 mg (2 x 50 mg) PO BID #14 tabs 12/03/23 insulin glargine 100 unit/mL (3 30 unit (0.3 mL) subcut BID #45 mL 12/03/23 mL) subcutaneous pen (Lantus Solostar U-100 Insulin) insulin lispro 100 unit/mL See Protocol subcut QIDACHS #45 mL 12/03/23 subcutaneous pen (Admelog SoloStar U-100 Insulin lispro) lisinopril 5 mg tablet 5 mg PO DAILY #30 tabs 12/03/23 melatonin 3 mg tablet 6 mg (2 x 3 mg) PO BEDTIME #60 tabs 12/03/23 metformin 1,000 mg tablet 1,000 mg PO BIDWM #60 tabs 12/03/23 methadone 10 mg/mL oral 220 mg (22 mL) PO DAILY #0 mL 12/03/23 concentrate (Methadose) multivitamin (Daily-Abdiel tablet) 1 tab PO DAILY #30 tabs 12/03/23 naloxone 4 mg/actuation nasal 4 mg intranasal Q2M PRN opioid 12/03/23 spray (Narcan) overdose #2 ea nicotine (polacrilex) 2 mg gum 2 mg buccal Q2H PRN Nicotine 12/03/23 Cravings #100 ea polyethylene glycol 3350 17 gram 17 g PO DAILY #30 packets 12/03/23 oral powder packet trazodone 50 mg tablet 50 mg PO BEDTIME MRX1 PRN Insomnia 12/03/23 #60 tabs cephalexin 500 mg capsule 500 mg PO Q6H 7 days #28 caps 03/29/24 doxycycline hyclate 100 mg tablet 100 mg PO BID 7 days #14 tabs 03/29/24 ondansetron 4 mg disintegrating 4 mg PO Q6-8H PRN nausea and 05/15/24 tablet vomiting #7 tabs Allergies Allergy/AdvReac Type Severity Reaction Status Date / Time No Known Allergies Allergy Verified 05/14/24 22:42 [No Known Allergies*] Review of Systems 2 Review of Systems: Vomiting, SOB, cough Yes all other systems are reviewed and are negative [facility] Past Medical History Medical History Intravenous drug abuse Polysubstance abuse Type 2 diabetes mellitus Social History Social History Household Members: None Housing: Homeless Do you presently have visiting nurse or other home services: No Alcohol intake: former Patient Tobacco Use Status: Current everyday Tobacco user Tobacco use type: Cigarette Cigarette Packs Per Day: 1 Cigarettes Per Day: 20.0 Years Smoked: unknown Smoked in Last 30 Days: Yes e-Cigarette/Vaping Use: Former Use Use of substances other than those prescribed or required for medical reasons: No Substance Use Type: IV Drugs Any prior treatment program specific to substance use: No Advance Directives: No Advance Directives Information Provided: No service: No Sexual orientation: Straight/Heterosexual Physical Exam ED Vital Signs: Vital Signs - 24 hr 05/14/24 22:40 Temperature 98 F Pulse Rate 90 Respiratory Rate 20 Blood Pressure 151/108 H Pulse Oximetry 98 Oxygen Delivery Method Room Air BMI result Body Mass Index 38.5 Const General: cooperative, healthy appearing, comfortable, no acute distress, well developed, alert, awake and Physically active Orientation/consciousness: patient oriented x3 HENMT Head: Yes normal to inspection, Yes No palpable skull fracture present, Yes normocephalic and Yes atraumatic Ears: hearing grossly normal bilaterally, external ears normal, TM's normal bilaterally, TM normal on the right, TM normal on the left, EAC's normal, mastoids normal and no periauricular adenopathy Throat: Yes posterior oropharynx normal, Yes tonsils normal and Yes uvula midline Eyes General: appearance normal, both eyes and all related structures Neck Neck: Yes normal visual inspection, Yes full ROM, Yes no lymphadenopathy, Yes no meningeal signs, Yes trachea midline, Yes supple, No anterior neck swelling and No tender Chest Chest palpation & inspection: normal inspection of the chest and normal palpation of entire chest wall Resp Effort & Inspection: normal respiratory effort and able to speak in complete sentences Auscultation: clear to auscultation bilaterally Cardio Jugular venous distension: no JVD Heart sounds: S1 normal heart sound present and S2 normal heart sound present GI Inspection: Yes normal to inspection Palpation (GI): Soft to palpation, not firm, nontender, no guarding and not rigid General: Yes no CVA tenderness Back/Spine/Pelvis Back: no CVA tenderness and No back tenderness Skin Other: Bilateral lower extremiteis negative for swelling, pitting edema, or calf tendrness. General skin exam: no rashes or lesions noted, elasticity normal and turgor normal Neuro General: patient oriented x3, gait normal, tone normal, moves all extremities, Normal light touch and pain sensation, no meningeal signs, no focal motor deficits, CN's II-XI intact bilaterally and normal sensation to monofilament Extrem General: Yes normal to inspection, Yes full ROM and Yes capillary refill normal Psych Appearance: grossly normal, well kempt and not disheveled Medications Administered Discontinued Medications Generic Name Dose Route Start Last Admin Trade Name Freq PRN Reason Stop Dose Admin Ondansetron HCl 4 mg 05/15/24 01:56 05/15/24 03:13 Ondansetron Odt 4 Mg Tab.Rapdis TRANSLINGU 05/15/24 01:57 Not Given ONCE ONE Medical Decision Making Medical Decision Making [facility] Narrative: Patient is sleeping comfortably in bed. Patient is not in any distress. X-ray ordered. Patient is not in DKA. Due to pmh of diabetes we will do EKG troponin make sure no NSTEMI. Strep ordered. UA ordered. Patient did not want to give urine. Once again patient is sleeping comfortably in bed. no vomitting. Case signed out to Dr. Loredo. Not suspecting any life threatening etioliges. not suspecting stroke, small bowel obstruction, appendicitis, pancreaitis, TN, UTI, kidney stones, sepsis, or any life threatening etiology. Dr. Loredo: Patient has frequent ED visits for similar complaints will prescribe Zofran advised to follow with outpatient Differential Diagnosis Differential Diagnoses: The differential diagnosis associated with the presentation includes (URI, TN, Pneumonia) Admission/Observation Consideration of admission/observation: Escalation of care including admission/observation considered Lab Data MDM Lab Attestation statement: I reviewed the patient's lab results. 05/14/24 22:54 05/14/24 22:54 Labs: Lab Results 05/14/24 05/14/24 05/14/24 Range/Units 22:53 22:54 23:50 WBC 7.0 (4.8-10.8) X10*3/uL RBC 5.15 (4.60-5.80) X10*6/uL Hgb 12.4 L (14.0-18.0) g/dl Hct 38.0 L (42.0-52.0) % MCV 73.8 L (80.0-98.0) fL MCH 24.1 L (27.0-33.0) pg MCHC 32.6 (31.0-36.0) g/dl RDW 15.6 (11.0-16.0) % Plt Count 284 D (160-400) X10*3/uL MPV 9.5 (9.4-12.4) fL Immature Gran % (Auto) 0.3 (0.0-0.4) % Neut % (Auto) 42.6 L (45-73) % Lymph % (Auto) 45.8 H (20-40) % [place] % (Auto) 8.0 (2-11) % Eos % (Auto) 2.6 (0-4) % Baso % (Auto) 0.7 (0-2) % Lymph # (Auto) 3.2 (1.2-4.9) X10*3/uL [place] # (Auto) 0.6 (0.1-1.2) X10*3/uL Eos # (Auto) 0.2 (0.0-0.4) X10*3/uL Baso # (Auto) 0.1 (0.0-0.2) X10*3/uL Abs Immat Gran (auto) 0.02 (0.00-0.03) X10*3/uL Absolute Neuts (auto) 3.0 (2.0-8.3) x10*3/uL Absolute Nucleated RBC 0.000 (0.0-0.012) X10*3/uL Nucleated RBC % (auto) 0.0 (0.0-0.2) /100WBC Sodium 137 (135-145) mmol/L Potassium 4.5 (3.3-5.1) mmol/L Chloride 105 (96-108) mmol/L Carbon Dioxide 23 (22-29) mmol/L Anion Gap 14 (12-20) BUN 14 (9-16) mg/dL Creatinine 1.09 (0.5-1.4) mg/dL Estim Creat Clear Calc 140.9 Estimated GFR > 60 POC Glucose 269 H (60-115) mg/dL Random Glucose 313 H (60-115) mg/dL Calcium 9.8 D (8.4-10.2) mg/dL Magnesium 1.9 (1.6-2.6) mg/dL Total Bilirubin 0.3 (0.0-1.0) mg/dL AST 38 H (5-37) U/L ALT 58 H (0-40) U/L Alkaline Phosphatase 234 H (39-117) U/L Troponin I High Sens < 2.7 (<3.5-35.0) ng/L Total Protein 9.2 H (6.5-8.0) g/dL Albumin 3.8 (3.5-5.0) g/dL Beta-Hydroxybutyrate 0.04 (0.02-0.27) mmol/L Influenza Type A (PCR) NEGATIVE (Negative) Influenza Type B (PCR) NEGATIVE (Negative) RSV RNA Qual (PCR) NEGATIVE (Negative) SARS-CoV-2 RNA (RT-PCR) NEGATIVE (Negative) S. pyogenes GrpA JOANA (Negative) 05/15/24 05/15/24 Range/Units 01:38 02:20 WBC (4.8-10.8) X10*3/uL RBC (4.60-5.80) X10*6/uL Hgb (14.0-18.0) g/dl Hct (42.0-52.0) % MCV (80.0-98.0) fL MCH (27.0-33.0) pg MCHC (31.0-36.0) g/dl RDW (11.0-16.0) % Plt Count (160-400) X10*3/uL MPV (9.4-12.4) fL Immature Gran % (Auto) (0.0-0.4) % Neut % (Auto) (45-73) % Lymph % (Auto) (20-40) % [place] % (Auto) (2-11) % Eos % (Auto) (0-4) % Baso % (Auto) (0-2) % Lymph # (Auto) (1.2-4.9) X10*3/uL [place] # (Auto) (0.1-1.2) X10*3/uL Eos # (Auto) (0.0-0.4) X10*3/uL Baso # (Auto) (0.0-0.2) X10*3/uL Abs Immat Gran (auto) (0.00-0.03) X10*3/uL Absolute Neuts (auto) (2.0-8.3) x10*3/uL Absolute Nucleated RBC (0.0-0.012) X10*3/uL Nucleated RBC % (auto) (0.0-0.2) /100WBC Sodium (135-145) mmol/L Potassium (3.3-5.1) mmol/L Chloride (96-108) mmol/L Carbon Dioxide (22-29) mmol/L Anion Gap (12-20) BUN (9-16) mg/dL Creatinine (0.5-1.4) mg/dL Estim Creat Clear Calc Estimated GFR POC Glucose (60-115) mg/dL Random Glucose (60-115) mg/dL Calcium (8.4-10.2) mg/dL Magnesium (1.6-2.6) mg/dL Total Bilirubin (0.0-1.0) mg/dL AST (5-37) U/L ALT (0-40) U/L Alkaline Phosphatase (39-117) U/L Troponin I High Sens < 2.7 (<3.5-35.0) ng/L Total Protein (6.5-8.0) g/dL Albumin (3.5-5.0) g/dL Beta-Hydroxybutyrate (0.02-0.27) mmol/L Influenza Type A (PCR) (Negative) Influenza Type B (PCR) (Negative) RSV RNA Qual (PCR) (Negative) SARS-CoV-2 RNA (RT-PCR) (Negative) S. pyogenes GrpA JOANA Negative (Negative) Independent Interpretation I performed an independent interpretation of an: EKG (Negative STEMi) and Plain X-Ray Radiology Impression Discussion of test interpretation with radiology: I have reviewed the radiologist's reading. Independent Historian Clinical information obtained from an independent historian. History obtained from or confirmed by: EMS and Other (patient) External Record Review External record reviewed: Other (prior visits) Prescription Management I considered prescription management with: Other (zofran) Chronic Conditions Patient?s care impacted by: Diabetes Discharge Plan Discharge Clinical Impression: Vomiting, Substance dependence Patient Disposition: Home, Self-Care Instructions: Acute Nausea and Vomiting (ED) Additional Instructions: Drink plenty of fluid Medicine for nausea/vomiting as prescribed Take medications Prescriptions: New ondansetron 4 mg tablet,disintegrating 4 mg PO Q6-8H PRN (Reason: nausea and vomiting) Qty: 7 0RF No Action trazodone 50 mg Tablet 50 mg PO BEDTIME MRX1 PRN (Reason: Insomnia) Qty: 60 0RF polyethylene glycol 3350 17 gram Powder In Packet 17 g PO DAILY Qty: 30 0RF nicotine (polacrilex) 2 mg Gum 2 mg buccal Q2H PRN (Reason: Nicotine Cravings) Qty: 100 0RF gabapentin 400 mg Capsule 800 mg PO TID Qty: 42 4RF hydroxyzine HCl 50 mg Tablet 100 mg PO BID Qty: 14 4RF baclofen 10 mg Tablet 10 mg PO BID Qty: 14 4RF docusate sodium 100 mg Capsule 100 mg PO BID Qty: 60 0RF methadone [Methadose] 10 mg/mL Concentrate 220 mg PO DAILY Qty: 0 0RF Rx Instructions: Partial Fill upon patient request. bupropion HCl 150 mg Tablet Extended Release 24 Hr 150 mg PO DAILY Qty: 30 0RF multivitamin [Daily-Abdiel] Tablet 1 tab PO DAILY Qty: 30 0RF melatonin 3 mg Tablet 6 mg PO BEDTIME Qty: 60 0RF clonidine HCl 0.1 mg Tablet 0.1 mg PO BID Qty: 14 4RF lisinopril 5 mg Tablet 5 mg PO DAILY Qty: 30 0RF glipizide 10 mg tablet extended release 24hr 10 mg PO DAILY Qty: 90 0RF metformin 1,000 mg Tablet 1,000 mg PO BIDWM Qty: 60 0RF insulin glargine [Lantus Solostar U-100 Insulin] 100 unit/mL (3 mL) Insulin Pen 30 unit SUBCUT BID Qty: 45 3RF insulin lispro [Admelog SoloStar U-100 Insulin] 100 unit/mL insulin pen See Protocol subcut QIDACHS Qty: 45 0RF Protocol: Insulin Resistant 1st 24 hours Less than or equal to 110 ---- Give (units): 0 111 to 150 Give (units): 4 151 to 200 Give (units): 6 201 to 250 Give (units): 8 251 to 300 Give (units): 12 301 to 350 Give (units): 16 Greater than 350 Give (units): 20 Call MD if Blood Glucose > : 350 Rx Instructions: Daily max dose 80 units naloxone [Narcan] 4 mg/actuation spray,non-aerosol 4 mg intranasal Q2M PRN (Reason: opioid overdose) Qty: 2 0RF Rx Instructions: spray 1 dose into ONE nostril; alternate nostrils w each dose until help arrives cephalexin 500 mg capsule 500 mg PO Q6H 7 Days Qty: 28 0RF doxycycline hyclate 100 mg tablet 100 mg PO BID 7 Days Qty: 14 0RF Interventions: ED Discharge Assessment Last Done: 05/15/24 04:18 Discharge Date/Time: 05/15/24 04:19 Print Language: Occitan
[2024-05-15 02:25] LABS: Strep A Nucleic Acid Negative (Negative)
[2024-05-15 02:26] LABS: IDNOW Serial# 58CA691E
[2024-05-15 02:36] LABS: Troponin-I High Sensitivity < 2.7 ng/L (<3.5-35.0)
[2024-05-15 04:00] VITALS: BP 128/95; PULSE 80; RESP 16; TEMP 36.3; O2SAT 97
[2024-05-15 04:18] VITALS: BP 128/95; PULSE 80; RESP 16; TEMP 36.3; O2SAT 97
--- NOTE | 2024-05-15 04:18 | PC.NURSE ---
Ashtyn called for the pt to come pick him up [phone]
[2024-05-15 05:15] LABS: Troponin-I High Sensitivity < 2.7 ng/L (<3.5-35.0)
== END 2024-05-15 04:19 | disposition home or self-care (01) ==
PROVIDERS: Physician Assistant; Emergency Provider Internal Medicine
DX: R11.10 Vomiting, unspecified (principal); F19.20 Other psychoactive substance dependence, uncomplicated; R05.9 Cough, unspecified; R06.02 Shortness of breath; E11.9 Type 2 diabetes mellitus without complications; Z03.818 Encounter for observation for suspected exposure to other biological agents ruled out
CPT/HCPCS: 0241U; 36415; 71045; 80053; 82010; 82947; 83735; 84484; 85025; 87651; 93005; 99283; 99285

== ENCOUNTER → 2024-05-14 23:48 | Outpatient (BNV) | payer MEDICAID, SELFPAY | PROVIDERS: Emergency Provider Internal Medicine; Visit Provider Internal Medicine Cardiovascular Disease | DX: R11.2 Nausea with vomiting, unspecified (principal) | CPT/HCPCS: 93010 ==